=== PATIENT | male | born 1945 | race Caucasian/White ===

== ENCOUNTER 2020-11-01 08:58 | Outpatient (RCR) | payer MEDICARE, MEDICAID, SELFPAY ==
[2020-11-01 09:24] VITALS: BP 144/63; PULSE 61; RESP 20; TEMP 36.4; BMI 35.6
--- NOTE | 2020-11-01 13:26 | HP.PCM_ITS ---
History of Present Illness Date of Service: 11/01/20 Chief Complaint: right man History of Wound: Yon is a 74 yo gentleman with past medical history of DM type 2, venous insufficiency, who presents to the wound healing center today for evaluation and treatment of a nonhealing ulcer to his right man that has been present for approximately 2 months. He has been referred by his PCP, Dr. Payan. Yon has had a history of diabetic and venous ulcers in the past that have been treated at other wound centers - [facility] and [facility]. He had been using silvadene initially and then began using calcium alginate and gauze over the last 3 weeks due to increased drainage. He saw his PCP who referred him to the wound center for treatment and started him on Bactrim DS BID x 10 days. He completed the Bactrim and has continued to have his dressing changed M,W,F when his aide comes. He reports that his last hgbA1C was a few weeks ago and was 6.2%. He does not check his sugars at home. He sleeps in a recliner at times due to his back. He lives alone and no longer drives due to his medical issues. He denies any fever or chills or increased erythema or pain. He has been wearing compression socks but they appear to be worn out. [facility] Medical History (Updated 11/01/20 @ 13:[address] Leidy Fields DO) Anesthesia of skin COPD (chronic obstructive pulmonary disease) HTN (hypertension) PVD (peripheral vascular disease) Sleep apnea Spinal stenosis, lumbar region with neurogenic claudication Home Medications Advair HFA BID 11/01/20 [History Last Taken Unknown] apixaban [Eliquis] 5 mg PO BID 11/01/20 [History Last Taken Unknown] betamethasone dipropionate BID 11/01/20 [History Last Taken Unknown] furosemide 20 mg PO DAILY 11/01/20 [History Last Taken Unknown] metformin mg 11/01/20 [History Last Taken Unknown] metoprolol succinate 25 mg PO DAILY 11/01/20 [History Last Taken Unknown] rosuvastatin mg 11/01/20 [History Last Taken Unknown] tamsulosin mg PO 11/01/20 [History Last Taken Unknown] Allergy/AdvReac Type Severity Reaction Status Date / Time penicillin G AdvReac PT UNSURE Verified 11/01/20 10:14 OF REACTION Penicillins [PCN] AdvReac PT UNSURE Verified 11/01/20 10:14 OF REACTION Surgical History (Updated 11/01/20 @ 13:[address] Leidy Fields DO) History of surgery on arm Social History Smoking Status: Current every day smoker ROS Constitutional Constitutional: Denies chills or fever(s) ENT HEENT: Denies dizziness or headache(s) Cardiovascular Cardiovascular: Reports dyspnea, dyspnea on exertion, fatigue and leg ulcers; Denies chest pain Respiratory/Chest Respiratory/Chest: Reports cough and dyspnea; Denies shortness of breath at rest or wheezing Gastrointestinal Gastrointestinal: Denies diarrhea, nausea or vomiting Genitourinary Genitourinary: Denies dysuria or polyuria Musculoskeletal Musculoskeletal: Reports back pain, difficulty walking, extremity pain, joint pain and muscle weakness Integumentary Integumentary: Reports skin ulcer and wounds Neurologic Neurologic: Reports weakness; Denies dizziness Psychiatric Psychiatric: Reports anxiety; Denies hallucinations or suicidal thoughts Endocrine Endocrinology: Denies polydipsia or polyuria Hematologic/Lymphatic Hematologic/Lymphatic: Denies easy bleeding or easy bruising Vital Signs Vital Signs Vital Signs: 11/01/20 09:24 Temperature 97.5 F L Temperature Source Temporal Pulse Rate 61 Respiratory Rate 20 H Blood Pressure 144/63 H Blood Pressure Mean 90 Blood Pressure Source Monitor Weight Weight: 132.789 kg Body Mass Index (BMI) 35.6 Physical Exam Const alert, oriented x3 and no apparent distress General Appearance: cooperative and comfortable Nutritional Appearance: morbidly obese HEENT normocephalic and head/scalp atraumatic Head and Scalp: normal to inspection and normocephalic Mouth: oral and palatal mucosa normal Lymph Lymphatic: lymphedema moderate Chest inspection of chest normal Resp normal respiratory effort Effort and Inspection: able to speak in complete sentences Auscultation: clear to auscultation bilaterally Cardio regular rate and regular rhythm GI Palpation: soft Extremity General Extremity: edema bilateral lower extremity Details: moderate Peripheral Pulses: Yes posterior tibial pulses present and dorsalis pedis pulses present Skin General Skin Exam: erythema, venous stasis and dermatitis Wounds: wounds noted Neuro Speech: speech normal Psych mental status grossly normal, thought process normal, cooperative, affect normal and speech normal Debridement Note Debridement Note Wound debrided: right lower man Laterality: Right Type of Debridement: Excisional debridement Anesthesia Used: 4% Lidocaine Solution Depth: Down to and including healthy tissue and in the subcutaneous layer Percentage of wound debrided: 100 Instrument Used: 3mm curette Tissue Removed: Yellow slough, devitalized tissue Severity: Fat Layer Exposed Amount of bleeding with debridement: Mild Bleeding Controlled with: Compression and gauze Patient tolerated procedure: Patient tolerated procedure well Post-Debridement Measurements and Additional Note: Post-Debridement Measurements/Treatment - Nurse 1 - General Ulcer Assessment Start: 11/01/20 09:22 Freq: Status: Active Protocol: LOWEXDonna Activity Type Activity Date Activity User E-Sign Co-Sign Detail Recorded Client Recorded Date Recorded By Document 11/01/20 09:24 DL [id number] 11/01/20 09:42 DL 11/01/20 09:24 - Today's Visit Information Type of service Initial Visit Arrival Mode Ambulatory, Walker Transfer Assistance None Patient Identification Verified (Name & Yes ) Patient Requires Transmission-Based No Precautions Finger Stick Blood Sugar(mg/dl) (if doesnt indicated): Blood Sugar Stated by Patient Height and Weight Height 6 ft 4 in Weight 132.789 kg Weight in Pounds 292.7 lbs Body Mass Index (BMI) 35.6 BMI Classification Obese BSA - Kelly 2.60 Vital Signs Temperature (97.8 F-99.1 F) 97.5 F L Temperature Source Temporal Pulse Rate (60-100) 61 Pulse Location Monitor Respiratory Rate (12-18) 20 H Respiratory rate source Observation Blood Pressure (90/60-120/80) 144/63 H Blood Pressure Mean 90 Source Monitor History Since Last Visit- (Skip if this is Patient's initial visit) Left Footwear Regular Shoe Right Footwear Regular Shoe Pain Scale: 0-10 Numeric Is Patient Pain Free? Yes Lower Extremity Assessment/ Foot Assessment/ Toe Nail Assessment Left -Posterior Tibial Palpable Yes -Dorsalis Pedis Palpable Yes -Extremity Color Hemosiderin -Hair Growth on Legs No -Hair Growth on Toes No -Temperature of Extremity Warm -Capillary Refill Greater than 3 Seconds -Dependent Rubor Yes -Blanched when Elevated Yes -Lipodermatosclerosis No -Other Deformity No -Prior Foot Ulcer Yes -Charcot Joint No -Prior Amputation No -Thick Yes -Discolored Yes -Deformed No -Improper Length & Hygeine Yes Right -Posterior Tibial Palpable Yes -Dorsalis Pedis Palpable Yes -Extremity Color Hemosiderin -Hair Growth on Legs No -Hair Growth on Toes No -Temperature of Extremity Warm -Capillary Refill Greater than 3 Seconds -Dependent Rubor Yes -Blanched when Elevated Yes -Lipodermatosclerosis No -Other Deformity No -Prior Foot Ulcer Yes -Charcot Joint No -Prior Amputation No -Thick Yes -Discolored Yes -Deformed No -Improper Length & Hygeine Yes Neuropathy Assessment Feet - Top Side and Bottom <Entered> (a) Communication Assessment Preferred language Samoan Able to Read Yes Able to Write No Communication Tools None Right Hearing Abillity Normal Left Hearing Abillity Normal Visual Assistive Devices None Teaching Assessment Preferences Verbal,Written, Demonstration Barriers to Learning Unable to Comprehend Readiness To Learn Good Willingness to Engage in Self Management Med Activies Readiness to Engage in Self Management Med Activities Anxiety Level Calm Cooperation Cooperative Perception Coherent Interest in Health Problem Asks Questions Education Importance Acknowledges Need Does Patient Smoke tobacco or other Yes substances Smoking Status Current every day smoker Is Patient Diabetic Yes Functional Assessment Recent Decline in Ability to Perform Denies Any Declines Culture/Jain/Director Of Intelligence Cultural/Jain Needs that may affect No Treatment Plan Would you allow our hospital municipal court judge to No meet you for the purpose of spiritual/ emotional support? Director Of Intelligence to contact place of anabaptist No Teaching: Wound Center Diagnostic Tests Ordered -Person Taught Patient Smoking Cessation -Person Taught Patient Discharge Instructions -Person Taught Patient *Welcome to the Wound Center -Person Taught Patient Dressing Your Wound -Person Taught Patient (a) 1 - + WC - Nurse 1 - General Ulcer Measurement Start: 11/01/20 09:22 Freq: Status: Active Protocol: Activity Type Activity Date Activity User E-Sign Co-Sign Detail Recorded Client Recorded Date Recorded By Document 11/01/20 09:24 DL [id number] 11/01/20 09:42 DL 11/01/20 09:24 Wound Center Nurse 1 #1 R Lower Man -Current Size (cm) - Length 10 -Current Size (cm) - Width 4.4 -Current Size (cm) - Depth 0.2 -Total Square Cm 44.0 -Photo Taken Yes -Classification - Thickness Full Thickness without Exposed Support Structure -Exudate Amt Large -Exudate Type Serosanguineous -Wound Margin Distinct, Outline Attached -Granulation Amt Medium (34-66%) -Granulation Quality Red -Necrosis Amt Medium (34-66%) -Necrotic Tissue Type Eschar -Structure Exposed N/A -Texture (Mariajose-wound Skin Appearance) Localized Edema ,Scarring -Color (Mariajose-wound Skin Appearance) Hemosiderin Staining -Temperature (Mariajose-wound Skin No Abnormality Appearance) (Pt Warm) -Tenderness on Palpation (Mariajose-wound No Skin Appearance) -Ulcer Cleansing Wound Cleanser -Foul Odor after Cleansing No -Anesthetic Used 4% Lidocaine Solution Right Calf (cm) 46 Right Ankle (cm) 23 Left Calf (cm) 46.6 Left Ankle (cm) 24.6 WC - Nurse 2 - General Ulcer CM Notes Start: 11/01/20 09:22 Freq: Status: Active Protocol: Activity Type Activity Date Activity User E-Sign Co-Sign Detail Recorded Client Recorded Date Recorded By Document 11/01/20 10:11 MW [id number] 11/01/20 10:35 MW 11/01/20 10:11 Wound Center Nurse 2 #1 R Lower Man -Time 10:16 -Correct Patient Yes -Correct Side, Site, Position Yes -Correct Procedure Yes -Procedure Performed Yes -Type of Procedure Debridement -Clinical Debridement Subcutaneous -Tissue Removed Subcutaneous -Post Debridement (cm) - Length 10.5 -Post Debridement (cm) - Width 7.0 -Post Debridement (cm) - Depth 0.1 -Total Square (Post) (cm) 73.50 -Area of Debridement (cm) - Length 10.5 -Area of Debridement (cm) - Width 7.0 -Total Square (Area) (cm) 73.50 -Tunneling No -Undermining/Tunneling No -Circular Undermining No -Wound/Ulcer Outcome Not Healed -Ulcer Cleansing Rinsed/ Irrigated with Saline -Foul Odor after Cleansing No -Bioengineered Tissue No -Bleeding Controlled with Pressure -Offloading No -Treatment Response Procedure Tolerated Well -Debridement - Subq, 1st 20sq cm Yes -Debridement, SubQ, ea addt'l 20sq cm 3 or part thereof Pain Scale: 0-10 Numeric Is Patient Pain Free? Yes WC - Nurse 3 - General Ulcer D/C NN Start: 11/01/20 09:22 Freq: Status: Active Protocol: Activity Type Activity Date Activity User E-Sign Co-Sign Detail Recorded Client Recorded Date Recorded By Document 11/01/20 10:43 RB [id number] 11/01/20 10:44 RB 11/01/20 10:43 Wound Care Nurse 3 #1 R Lower Man -Ulcer Cleansing Rinsed/ Irrigated with Saline -Primary Dressing Applied Silvercel -Primary Dressing Covered/Secured with Dry Gauze,Dry Gauze & Roll Gauze,Secured with Tape -Silvercel 1 Right -Tubular Bandage Double Layer -Size of Tubigrip Used Size F -Size F ($) 2 Left -Tubular Bandage Double Layer -Size of Tubigrip Used Size F -Size F ($) 2 Treatment Response Procedure Tolerated Well Pain Scale: 0-10 Numeric Is Patient Pain Free? Yes Teaching: Wound Center Discharge Instructions -Person Taught Patient -Teaching Method Discussion, Demonstration -Response to teaching Verbalize understanding WC - Visit Discharge Discharge Condition Stable Ambulatory Status Walker Transportation Private Auto Medication Reconcilliation completed & No provided to patient/care provider Clinical Summary of Care Provided Yes Assessment/Plan Assessment/Plan (1) Venous ulcer of right lower extremity without varicose veins: CODE(S): I87.2 - Venous insufficiency (chronic) (peripheral); L97.919 - Non-pressure chronic ulcer of unspecified part of right lower leg with unspecified severity (2) Controlled diabetes mellitus: CODE(S): E11.9 - Type 2 diabetes mellitus without complications QUALIFIERS: Diabetes mellitus type: type 2 Diabetes mellitus prison insulin use: without prison use Diabetes mellitus complication status: with skin complications Diabetes mellitus complication detail: with other skin ulcer Qualified Code(s): E11.622 - Type 2 diabetes mellitus with other skin ulcer (3) HTN (hypertension): CODE(S): I10 - Essential (primary) hypertension QUALIFIERS: Hypertension type: primary hypertension Qualified Code(s): I10 - Essential (primary) hypertension (4) COPD (chronic obstructive pulmonary disease): CODE(S): J44.9 - Chronic obstructive pulmonary disease, unspecified QUALIFIERS: COPD type: unspecified COPD Qualified Code(s): J44.9 - Chronic obstructive pulmonary disease, unspecified (5) Anesthesia of skin: CODE(S): R20.0 - Anesthesia of skin (6) PVD (peripheral vascular disease): CODE(S): I73.9 - Peripheral vascular disease, unspecified PLAN: Roslyns ulcer was evaluated and debrided today at the wound healing center. He tolerated the procedure well. No current signs of infection. Will have him clean ulcer daily with antibacterial soap and rinse with water. Will have him pat dry and apply Adaptic to wound bed, Silvercell, and then cover with ABD and secure with Kerlix for heavy drainage. Dressings will be changed daily. He has an aide that helps him on MWF and will refer him for Home Health to have dressing changes done 3 days/week. , and Saturdays. He does not drive due to physical debility and is homebound. He is unable to perform dressing changes himself and lives alone. Will obtain previous vascular testing from [facility]. Will obtain most recent lab tests. HgbA1C from 10/16/2020 was 6.2%. Will have him use compression with double layer tubigrip. Discussed importance of increased protein intake in order to improve healing. Stressed importance of elevating his legs at or above the level of his heart and using compression to treat swelling and maintain adequate control of edema to achieve healing of his ulcer. He was advised to call with any increased edema, erythema, pain, fever or chills. He will follow up in 1 week for wound care.
== END 2020-11-07 23:59 ==
LOC: WC 08:58
PROVIDERS: Visit Provider Family Medicine
DX: I83.018 Varicose veins of right lower extremity with ulcer other part of lower leg (principal); L97.812 Non-pressure chronic ulcer of other part of right lower leg with fat layer exposed; E11.622 Type 2 diabetes mellitus with other skin ulcer; I87.2 Venous insufficiency (chronic) (peripheral); I10 Essential (primary) hypertension; J44.9 Chronic obstructive pulmonary disease, unspecified; R20.0 Anesthesia of skin; I73.9 Peripheral vascular disease, unspecified; F17.200 Nicotine dependence, unspecified, uncomplicated; G47.30 Sleep apnea, unspecified; M48.062 Spinal stenosis, lumbar region with neurogenic claudication; Z79.01 Long term (current) use of anticoagulants; Z79.51 Long term (current) use of inhaled steroids; Z79.899 Other long term (current) drug therapy
CPT/HCPCS: 11042; 11045; 99203; G0463

== ENCOUNTER 2020-12-06 11:00 | Outpatient (RCR) | payer MEDICARE, MEDICAID, SELFPAY ==
[2020-11-08 00:39] VITALS: BP 144/63; PULSE 61; RESP 20; TEMP 36.4; BMI 35.6
[2020-11-08 11:22] VITALS: BMI 35.6
--- NOTE | 2020-11-08 12:26 | PN.PCM_ITS ---
History of Present Illness Date of Service: 11/08/20 Chief Complaint: right man History of Wound: Yon is a 74 yo gentleman with past medical history of DM type 2, venous insufficiency, who presents to the wound healing center today for evaluation and treatment of a nonhealing ulcer to his right man that has been present for approximately 2 months. He has been referred by his PCP, Dr. Payan. Yon has had a history of diabetic and venous ulcers in the past that have been treated at other wound centers - [facility] and [facility]. He had been using silvadene initially and then began using calcium alginate and gauze over the last 3 weeks due to increased drainage. He saw his PCP who referred him to the wound center for treatment and started him on Bactrim DS BID x 10 days. He completed the Bactrim and has continued to have his dressing changed M,W,F when his aide comes. He reports that his last hgbA1C was a few weeks ago and was 6.2%. He does not check his sugars at home. He sleeps in a recliner at times due to his back. He lives alone and no longer drives due to his medical issues. He denies any fever or chills or increased erythema or pain. He has been wearing compression socks but they appear to be worn out. Progress of Wound: Prieto is here today for follow up of right man ulcer. He has been tolerating treatment with silvercell and adaptic and has been wearing tubigrip compression which has improved his edema. Overall his ulcer is improved but he has increased erythema and warmth to his right leg that started yesterday. He denies fever or chills but has felt generally unwell. Denies increased pain or drainage. Objective Data Objective Data Vital Signs: Vital Signs Temp Pulse Resp BP 97.5 F L 61 20 H 144/63 H 11/08/20 00:39 11/08/20 00:39 11/08/20 00:39 11/08/20 00:39 Weight: 132.789 kg Body Mass Index (BMI) 35.6 Physical Exam Const alert, oriented x3, no apparent distress and healthy appearing General Appearance: cooperative HEENT normocephalic and head/scalp atraumatic Resp normal respiratory effort Effort and Inspection: able to speak in complete sentences Skin General Skin Exam: erythema, venous stasis and dermatitis Wounds: wounds noted Wound Narrative: as in clinical panel Psych Appearance: grossly normal and appropriate Debridement Note Debridement Note Wound debrided: right lower leg Laterality: Right Type of Debridement: Excisional debridement Anesthesia Used: 4% Lidocaine Solution Depth: Down to and including healthy tissue and in the subcutaneous layer Percentage of wound debrided: 100 Instrument Used: 3mm curette Tissue Removed: Yellow slough, devitalized tissue Severity: Fat Layer Exposed Amount of bleeding with debridement: Mild Bleeding Controlled with: Compression and gauze Patient tolerated procedure: Patient tolerated procedure well Post-Debridement Measurements and Additional Note: Post-Debridement Measurements/Treatment WC - Nurse 1 - General Ulcer Assessment Start: 11/08/20 11:22 Freq: Status: Active Protocol: ROSIO Activity Type Activity Date Activity User E-Sign Co-Sign Detail Recorded Client Recorded Date Recorded By Document 11/08/20 11:22 ML [id number] 11/08/20 11:32 ML 11/08/20 11:22 Height and Weight Body Mass Index (BMI) 35.6 BMI Classification Obese WC - Nurse 1 - General Ulcer Measurement Start: 11/08/20 11:22 Freq: Status: Active Protocol: Activity Type Activity Date Activity User E-Sign Co-Sign Detail Recorded Client Recorded Date Recorded By Document 11/08/20 11:32 ML [id number] 11/08/20 11:36 ML 11/08/20 11:32 Wound Center Nurse 1 #2 RIGHT LOWER LEG -Current Size (cm) - Length 9.5 -Current Size (cm) - Width 6.8 -Current Size (cm) - Depth 0.3 -Total Square Cm 64.60 -Exudate Amt Large -Exudate Type Yellow/Green -Wound Margin Distinct, Outline Attached -Granulation Amt Medium (34-66%) -Slough/Fibrin Yes -Necrosis Amt Medium (34-66%) -Necrotic Tissue Type Adherent Slough -Texture (Mariajose-wound Skin Appearance) Assessed -Moisture (Mariajose-wound Skin Appearance) Dry/Scaly -Color (Mariajose-wound Skin Appearance) Assessed -Temperature (Mariajose-wound Skin No Abnormality Appearance) (Pt Warm) -Tenderness on Palpation (Mariajose-wound No Skin Appearance) -Ulcer Cleansing Soap and Water -Foul Odor after Cleansing No -Anesthetic Used 4% Lidocaine Solution Right Calf (cm) 48 Right Ankle (cm) 28 Left Calf (cm) 47 Left Ankle (cm) 26 WC - Nurse 2 - General Ulcer CM Notes Start: 11/08/20 11:22 Freq: Status: Active Protocol: Activity Type Activity Date Activity User E-Sign Co-Sign Detail Recorded Client Recorded Date Recorded By Document 11/08/20 11:59 MW [id number] 11/08/20 12:12 MW 11/08/20 11:59 Wound Center Nurse 2 #2 RIGHT LOWER LEG -Time 12:00 -Correct Patient Yes -Correct Side, Site, Position Yes -Correct Procedure Yes -Procedure Performed Yes -Type of Procedure Debridement -Clinical Debridement Subcutaneous -Tissue Removed Subcutaneous -Post Debridement (cm) - Length 4.5 -Post Debridement (cm) - Width 3.0 -Post Debridement (cm) - Depth 0.3 -Total Square (Post) (cm) 13.50 -Area of Debridement (cm) - Length 4.5 -Area of Debridement (cm) - Width 3.0 -Total Square (Area) (cm) 13.50 -Tunneling No -Undermining/Tunneling No -Circular Undermining No -Wound/Ulcer Outcome Not Healed -Ulcer Cleansing Rinsed/ Irrigated with Saline -Foul Odor after Cleansing No -Bioengineered Tissue No -Bleeding Controlled with Pressure -Offloading No -Treatment Response Procedure Tolerated Well -Debridement - Subq, 1st 20sq cm Yes Pain Scale: 0-10 Numeric Is Patient Pain Free? Yes Assessment/Plan Assessment/Plan (1) HTN (hypertension): CODE(S): I10 - Essential (primary) hypertension QUALIFIERS: Hypertension type: primary hypertension Qualified Code(s): I10 - Essential (primary) hypertension (2) Controlled diabetes mellitus: CODE(S): E11.9 - Type 2 diabetes mellitus without complications QUALIFIERS: Diabetes mellitus complication detail: with other skin ulcer Diabetes mellitus complication status: with skin complications Diabetes mellitus [facility] insulin use: without equipment operator intermodal yard use Diabetes mellitus type: type 2 Qualified Code(s): E11.622 - Type 2 diabetes mellitus with other skin ulcer (3) Venous ulcer of right lower extremity without varicose veins: CODE(S): I87.2 - Venous insufficiency (chronic) (peripheral); L97.919 - Non-pressure chronic ulcer of unspecified part of right lower leg with unspecified severity (4) Cellulitis and abscess of right leg: CODE(S): L03.115 - Cellulitis of right lower limb; L02.415 - Cutaneous abscess of right lower limb PLAN: Yon's ulcer was evaluated and debrided today at the wound healing center. He tolerated the procedure well. Wound culture done today to evaluate for possible infection and he was started on antibiotic treatment with Clindamycin. Will adjust if needed based on culture results. Will have him clean ulcer daily with antibacterial soap and rinse with water. Will have him pat dry and apply Adaptic to wound bed, Silvercell, and then cover with ABD and secure with Kerlix for heavy drainage. Dressings will be changed daily. He has an aide that helps him on MWF and will continue Home Health to have dressing changes done 3 days/week. , and Saturdays. He does not drive due to physical debility and is homebound. He is unable to perform dressing changes himself and lives alone. Will obtain previous vascular testing from [facility]. Will obtain most recent lab tests. HgbA1C from 10/16/2020 was 6.2%. Will have him use compression with double layer tubigrip. Discussed importance of increased protein intake in order to improve healing. Stressed importance of elevating his legs at or above the level of his heart and using compression to treat swelling and maintain adequate control of edema to achieve healing of his ulcer. He was advised to call with any increased edema, erythema, pain, fever or chills. He will follow up in 1 week for wound care.
[2020-11-15 11:37] VITALS: RESP 20; TEMP 36.4; BMI 35.6
--- NOTE | 2020-11-15 14:29 | PN.PCM_ITS ---
History of Present Illness Date of Service: 11/15/20 Chief Complaint: right man History of Wound: Yon is a 74 yo gentleman with past medical history of DM type 2, venous insufficiency, who presents to the wound healing center today for evaluation and treatment of a nonhealing ulcer to his right man that has been present for approximately 2 months. He has been referred by his PCP, Dr. Payan. Yon has had a history of diabetic and venous ulcers in the past that have been treated at other wound centers - [facility] and [facility]. He had been using silvadene initially and then began using calcium alginate and gauze over the last 3 weeks due to increased drainage. He saw his PCP who referred him to the wound center for treatment and started him on Bactrim DS BID x 10 days. He completed the Bactrim and has continued to have his dressing changed M,W,F when his aide comes. He reports that his last hgbA1C was a few weeks ago and was 6.2%. He does not check his sugars at home. He sleeps in a recliner at times due to his back. He lives alone and no longer drives due to his medical issues. He denies any fever or chills or increased erythema or pain. He has been wearing compression socks but they appear to be worn out. Progress of Wound: Prieto is here today for follow up of right man ulcer. He has been tolerating treatment with silvercell and adaptic and has been wearing tubigrip compression which has improved his edema. Overall his ulcer is improved. He tolerated CLindamycin. He denies fever or chills. Denies increased pain or drainage. Objective Data Objective Data Vital Signs: Vital Signs Temp Pulse Resp BP 97.6 F L 61 20 H 144/63 H 11/15/20 11:37 11/08/20 00:39 11/15/20 11:37 11/08/20 00:39 Weight: 132.789 kg Body Mass Index (BMI) 35.6 Lab / Micro Data Micro: Microbiology 11/08/20 12:10 Wound Abcess - Leg, Right Gram Stain - Final 11/08/20 12:10 Wound Abcess - Leg, Right Wound Culture - Final Klebsiella pneumoniae sp pneum Enterococcus faecalis Enterococcus gallinarum 11/08/20 12:10 Wound Abcess - Leg, Right Anaerobic Culture - Final No anaerobic bacteria isolated. Physical Exam Const alert, oriented x3, no apparent distress and healthy appearing General Appearance: cooperative HEENT normocephalic and head/scalp atraumatic Resp normal respiratory effort Effort and Inspection: able to speak in complete sentences Skin General Skin Exam: erythema, venous stasis and dermatitis Wounds: wounds noted Wound Narrative: as in clinical panel Psych Appearance: grossly normal and appropriate Debridement Note Debridement Note Wound debrided: right lower leg Laterality: Right Type of Debridement: Excisional debridement Anesthesia Used: 4% Lidocaine Solution and Cetacaine Depth: Down to and including healthy tissue and in the subcutaneous layer Percentage of wound debrided: 100 Instrument Used: 5mm curette Tissue Removed: Yellow slough, devitalized tissue Severity: Fat Layer Exposed Amount of bleeding with debridement: Mild Bleeding Controlled with: Compression and gauze Patient tolerated procedure: Patient tolerated procedure well Post-Debridement Measurements and Additional Note: Post-Debridement Measurements/Treatment - Nurse 1 - General Ulcer Assessment Start: 11/08/20 11:22 Freq: Status: Active Protocol: ROSIO Activity Type Activity Date Activity User E-Sign Co-Sign Detail Recorded Client Recorded Date Recorded By Document 11/08/20 11:22 [id number] 11/08/20 11:32 ML Document 11/15/20 11:37 [id number] 11/15/20 11:45 11/08/20 11/15/20 11:22 11:37 - Today's Visit Information Type of service Follow-up Visit (Physician/GAS PUMPER ) Arrival Mode Ambulatory, Walker Patient Identification Verified (Name & No ) Patient Requires Transmission-Based No Precautions Height and Weight Body Mass Index (BMI) 35.6 35.6 BMI Classification Obese Obese Vital Signs Temperature (97.8 F-99.1 F) 97.6 F L Temperature Source Temporal Respiratory Rate (12-18) 20 H Respiratory rate source Observation History Since Last Visit- (Skip if this is Patient's initial visit) Have you changed medications since your No last visit? Any new allergies or adverse reactions No Had a fall/change in ADL's that may No increase risk of falls Signs or symptoms of abuse and/or No neglect since last visit Have you been in the hospital since your No last visit? Has dressing in place as prescribed Yes Left Footwear Regular Shoe Right Footwear Regular Shoe Pain Scale: 0-10 Numeric Is Patient Pain Free? Yes WC - Nurse 1 - General Ulcer Measurement Start: 11/08/20 11:22 Freq: Status: Active Protocol: Activity Type Activity Date Activity User E-Sign Co-Sign Detail Recorded Client Recorded Date Recorded By Document 11/08/20 11:32 ML [id number] 11/08/20 11:36 ML Document 11/15/20 11:37 [id number] [id number] 11/15/20 11:45 11/08/20 11/15/20 11:32 11:37 Wound Center Nurse 1 #2 RIGHT LOWER LEG -Combined with other wound No -Current Size (cm) - Length 9.5 4.5 -Current Size (cm) - Width 6.8 3 -Current Size (cm) - Depth 0.3 0.2 -Total Square Cm 64.60 13.5 -Photo Taken No -Epithelialization Small 1-33% -Tunneling No -Undermining/Tunneling No -Circular Undermining No -Exudate Amt Large Small -Exudate Type Yellow/Green Serosanguineous -Wound Margin Distinct, Flat & Intact Outline Attached -Granulation Amt Medium (34-66%) None Present (0 %) -Slough/Fibrin Yes Yes -Necrosis Amt Medium (34-66%) Large (67-100%) -Necrotic Tissue Type Adherent Slough Adherent Slough -Structure Exposed N/A -Texture (Mariajose-wound Skin Appearance) Assessed Assessed, Localized Edema -Moisture (Mariajose-wound Skin Appearance) Dry/Scaly -Color (Mariajose-wound Skin Appearance) Assessed Assessed, Hemosiderin Staining -Temperature (Mariajose-wound Skin No Abnormality No Abnormality Appearance) (Pt Warm) (Pt Warm) -Tenderness on Palpation (Mariajose-wound No No Skin Appearance) -Ulcer Cleansing Soap and Water Rinsed/ Irrigated with Saline -Foul Odor after Cleansing No No -Anesthetic Used 4% Lidocaine 4% Lidocaine Solution Solution Lower Limb Edema Present Yes Right Calf (cm) 48 51.2 Right Ankle (cm) 28 23.8 Left Calf (cm) 47 Left Ankle (cm) 26 WC - Nurse 2 - General Ulcer CM Notes Start: 11/08/20 11:22 Freq: Status: Active Protocol: Activity Type Activity Date Activity User E-Sign Co-Sign Detail Recorded Client Recorded Date Recorded By Document 11/08/20 11:59 MW [id number] 11/08/20 12:12 MW Document 11/15/20 12:09 MW [id number] 11/15/20 12:22 MW 11/08/20 11/15/20 11:59 12:09 Wound Center Nurse 2 #2 RIGHT LOWER LEG -Time 12:00 12:09 -Correct Patient Yes Yes -Correct Side, Site, Position Yes Yes -Correct Procedure Yes Yes -Procedure Performed Yes Yes -Type of Procedure Debridement Debridement -Clinical Debridement Subcutaneous Subcutaneous -Tissue Removed Subcutaneous Subcutaneous -Post Debridement (cm) - Length 4.5 4.4 -Post Debridement (cm) - Width 3.0 2.2 -Post Debridement (cm) - Depth 0.3 0.3 -Total Square (Post) (cm) 13.50 9.68 -Area of Debridement (cm) - Length 4.5 4.4 -Area of Debridement (cm) - Width 3.0 2.2 -Total Square (Area) (cm) 13.50 9.68 -Tunneling No No -Undermining/Tunneling No No -Circular Undermining No No -Wound/Ulcer Outcome Not Healed Not Healed -Ulcer Cleansing Rinsed/ Rinsed/ Irrigated with Irrigated with Saline Saline -Foul Odor after Cleansing No No -Bioengineered Tissue No No -Bleeding Controlled with Pressure Pressure -Offloading No No -Treatment Response Procedure Procedure Tolerated Well Tolerated Well -Debridement - Subq, 1st 20sq cm Yes Yes Pain Scale: 0-10 Numeric Is Patient Pain Free? Yes Yes WC - Nurse 3 - General Ulcer D/C NN Start: 11/08/20 11:22 Freq: Status: Active Protocol: Activity Type Activity Date Activity User E-Sign Co-Sign Detail Recorded Client Recorded Date Recorded By Document 11/08/20 12:39 MW [id number] 11/08/20 12:41 MW Document 11/15/20 12:41 RB [id number] 11/15/20 12:43 RB 11/08/20 11/15/20 12:39 12:41 Wound Care Nurse 3 #2 RIGHT LOWER LEG -Ulcer Cleansing Rinsed/ Rinsed/ Irrigated with Irrigated with Saline Saline -Foul Odor after Cleansing No -Negative Pressure Wound Therapy N/A -Primary Dressing Applied Silvercel NonAdherent Contact Layer, Promogran Leslie Matter -Other Dressing abd -Primary Dressing Covered/Secured with Dry Gauze & Dry Gauze & Roll Gauze, Roll Gauze, Secured with Secured with Tape Tape -Promogran Leslie Matter 2 -Silvercel 1 Right -Lotion applied to leg before No compression wrap -Tubular Bandage Double Layer -Size of Tubigrip Used Size F -Size F ($) 2 -Other double layer tubigrip Left -Lotion applied to leg before Yes compression wrap -Tubular Bandage Double Layer -Size of Tubigrip Used Size F -Size F ($) 2 -Stockings No -Other tubigrip double layer Treatment Response Procedure Procedure Tolerated Well Tolerated Well Pain Scale: 0-10 Numeric Is Patient Pain Free? Yes Teaching: Wound Center Dressing Your Wound -Person Taught Patient -Teaching Method Discussion -Response to teaching Verbalize understanding WC - Visit Discharge Discharge Condition Stable Stable Ambulatory Status Ambulatory Ambulatory, Walker Transportation [facility] health Private Auto Accompanied by self Medication Reconcilliation completed & No No provided to patient/care provider Clinical Summary of Care Provided Yes Yes Assessment/Plan Assessment/Plan (1) HTN (hypertension): CODE(S): I10 - Essential (primary) hypertension QUALIFIERS: Hypertension type: primary hypertension Qualified Code(s): I10 - Essential (primary) hypertension (2) Controlled diabetes mellitus: CODE(S): E11.9 - Type 2 diabetes mellitus without complications QUALIFIERS: Diabetes mellitus type: type 2 Diabetes mellitus middle or intermediate school principal insulin use: without middle or intermediate school principal use Diabetes mellitus complication status: with skin complications Diabetes mellitus complication detail: with other skin ulcer Qualified Code(s): E11.622 - Type 2 diabetes mellitus with other skin ulcer (3) Venous ulcer of right lower extremity without varicose veins: CODE(S): I87.2 - Venous insufficiency (chronic) (peripheral); L97.919 - Non-pressure chronic ulcer of unspecified part of right lower leg with unspecified severity (4) Cellulitis and abscess of right leg: CODE(S): L03.115 - Cellulitis of right lower limb; L02.415 - Cutaneous abscess of right lower limb PLAN: Roslyns ulcer was evaluated and debrided today at the wound healing center. He tolerated the procedure well. Wound culture was positive for enterococcus and Klebsiella. Will see how he does this week and may consider treatment with IV antibiotics if lack of improvement. Will have him clean ulcer daily with antibacterial soap and rinse with water. Will have him pat dry and apply adaptic, Promogran and then cover with ABD and secure with Kerlix for moderate drainage. Dressings will be changed daily. He has an aide that helps him on MWF and will continue Home Health to have dressing changes done 3 days/week. , and Saturdays. He does not drive due to physical debility and is homebound. He is unable to perform dressing changes himself and lives alone. Will obtain previous vascular testing from [facility]. Will obtain most recent lab tests. HgbA1C from 10/16/2020 was 6.2%. Will have him use compression with double layer tubigrip. Discussed importance of increased protein intake in order to improve healing. Stressed importance of elevating his legs at or above the level of his heart and using compression to treat swelling and maintain adequate control of edema to achieve healing of his ulcer. He was advised to call with any increased edema, erythema, pain, fever or chills. He will follow up in 1 week for wound care.
[2020-11-22 11:33] VITALS: BP 148/73; PULSE 58; RESP 16; TEMP 36; BMI 35.6
--- NOTE | 2020-11-22 14:04 | PN.PCM_ITS ---
History of Present Illness Date of Service: 11/22/20 Chief Complaint: right man History of Wound: Yon is a 74 yo gentleman with past medical history of DM type 2, venous insufficiency, who presents to the wound healing center today for evaluation and treatment of a nonhealing ulcer to his right man that has been present for approximately 2 months. He has been referred by his PCP, Dr. Payan. Yon has had a history of diabetic and venous ulcers in the past that have been treated at other wound centers - [facility] and [facility]. He had been using silvadene initially and then began using calcium alginate and gauze over the last 3 weeks due to increased drainage. He saw his PCP who referred him to the wound center for treatment and started him on Bactrim DS BID x 10 days. He completed the Bactrim and has continued to have his dressing changed M,W,F when his aide comes. He reports that his last hgbA1C was a few weeks ago and was 6.2%. He does not check his sugars at home. He sleeps in a recliner at times due to his back. He lives alone and no longer drives due to his medical issues. He denies any fever or chills or increased erythema or pain. He has been wearing compression socks but they appear to be worn out. Progress of Wound: Prieto is here today for follow up of right man ulcer. He has been tolerating treatment with promogran and adaptic and has been wearing tubigrip compression which has improved his edema. Overall his ulcer is improved. He tolerated CLindamycin and has completed treatment with this antibiotic. He denies fever or chills. Denies increased pain or drainage. Objective Data Objective Data Vital Signs: Vital Signs Temp Pulse Resp BP 96.8 F L 58 L 16 148/73 H 11/22/20 11:33 11/22/20 11:33 11/22/20 11:33 11/22/20 11:33 Weight: 132.789 kg Body Mass Index (BMI) 35.6 Lab / Micro Data Micro: Microbiology 11/08/20 12:10 Wound Abcess - Leg, Right Gram Stain - Final 11/08/20 12:10 Wound Abcess - Leg, Right Wound Culture - Final Klebsiella pneumoniae sp pneum Enterococcus faecalis Enterococcus gallinarum 11/08/20 12:10 Wound Abcess - Leg, Right Anaerobic Culture - Final No anaerobic bacteria isolated. Physical Exam Const alert, oriented x3, no apparent distress and healthy appearing General Appearance: cooperative HEENT normocephalic and head/scalp atraumatic Resp normal respiratory effort Effort and Inspection: able to speak in complete sentences Skin General Skin Exam: erythema, venous stasis and dermatitis Wounds: wounds noted Wound Narrative: as in clinical panel Psych Appearance: grossly normal and appropriate Debridement Note Debridement Note Post-Debridement Measurements and Additional Note: Post-Debridement Measurements/Treatment - Nurse 1 - General Ulcer Assessment Start: 11/08/20 11:22 Freq: Status: Active Protocol: [email or web address] Activity Type Activity Date Activity User E-Sign Co-Sign Detail Recorded Client Recorded Date Recorded By Document 11/08/20 11:22 ML [id number] 11/08/20 11:32 ML Document 11/15/20 11:37 JF [id number] 11/15/20 11:45 JF Document 11/22/20 11:33 ML [id number] 11/22/20 11:35 ML 11/08/20 11/15/20 11/22/20 11:22 11:37 11:33 - Today's Visit Information Type of service Follow-up Visit Follow-up Visit (Physician/NEGATIVE DEVELOPER (Physician/NEGATIVE DEVELOPER ) ) Arrival Mode Ambulatory, Ambulatory, Walker Walker Transfer Assistance None Patient Identification Verified (Name & No Yes ) Patient Requires Transmission-Based No No Precautions Safety Precautions NA Height and Weight Body Mass Index (BMI) 35.6 35.6 35.6 BMI Classification Obese Obese Obese Vital Signs Temperature (97.8 F-99.1 F) 97.6 F L 96.8 F L Temperature Source Temporal Temporal Pulse Rate (60-100) 58 L Pulse Location Monitor Respiratory Rate (12-18) 20 H 16 Respiratory rate source Observation Observation Blood Pressure (90/60-120/80) 148/73 H Blood Pressure Mean (mm Hg) 98 Source Monitor Position Sitting Blood Pressure Location Left Arm History Since Last Visit- (Skip if this is Patient's initial visit) Have you changed medications since your No No last visit? Any new allergies or adverse reactions No No Had a fall/change in ADL's that may No No increase risk of falls Signs or symptoms of abuse and/or No No neglect since last visit Have you been in the hospital since your No No last visit? Has dressing in place as prescribed Yes Yes Has compression in place as prescribed Yes Has offloadiing in place as prescribed N/A Experienced any changes in pain level or No management Left Footwear Regular Shoe Regular Shoe Right Footwear Regular Shoe Regular Shoe Pain Scale: 0-10 Numeric Is Patient Pain Free? Yes No WC - Nurse 1 - General Ulcer Measurement Start: 11/08/20 11:22 Freq: Status: Active Protocol: Activity Type Activity Date Activity User E-Sign Co-Sign Detail Recorded Client Recorded Date Recorded By Document 11/08/20 11:32 ML [id number] 11/08/20 11:36 ML Document 11/15/20 11:37 JF [id number] 11/15/20 11:45 JF Document 11/22/20 11:33 ML [id number] 11/22/20 11:35 ML 11/08/20 11/15/20 11/22/20 11:32 11:37 11:33 Wound Center Nurse 1 #2 RIGHT LOWER LEG -Combined with other wound No -Current Size (cm) - Length 9.5 4.5 4 -Current Size (cm) - Width 6.8 3 3.1 -Current Size (cm) - Depth 0.3 0.2 0.2 -Total Square Cm 64.60 13.5 12.4 -Photo Taken No -Epithelialization Small 1-33% -Tunneling No -Undermining/Tunneling No -Circular Undermining No -Exudate Amt Large Small Medium -Exudate Type Yellow/Green Serosanguineous Serous -Wound Margin Distinct, Flat & Intact Distinct, Outline Outline Attached Attached -Granulation Amt Medium (34-66%) None Present (0 Medium (34-66%) %) -Slough/Fibrin Yes Yes Yes -Necrosis Amt Medium (34-66%) Large (67-100%) Medium (34-66%) -Necrotic Tissue Type Adherent Slough Adherent Slough Adherent Slough -Structure Exposed N/A -Texture (Mariajose-wound Skin Appearance) Assessed Assessed, Assessed Localized Edema -Moisture (Mariajose-wound Skin Appearance) Dry/Scaly Assessed -Color (Mariajose-wound Skin Appearance) Assessed Assessed, Assessed Hemosiderin Staining -Temperature (Mariajose-wound Skin No Abnormality No Abnormality No Abnormality Appearance) (Pt Warm) (Pt Warm) (Pt Warm) -Tenderness on Palpation (Mariajose-wound No No No Skin Appearance) -Ulcer Cleansing Soap and Water Rinsed/ Soap and Water Irrigated with Saline -Foul Odor after Cleansing No No No -Anesthetic Used 4% Lidocaine 4% Lidocaine 5% Lidocaine Solution Solution Gel Lower Limb Edema Present Yes Right Calf (cm) 48 51.2 Right Ankle (cm) 28 23.8 Left Calf (cm) 47 Left Ankle (cm) 26 WC - Nurse 2 - General Ulcer CM Notes Start: 11/08/20 11:22 Freq: Status: Active Protocol: Activity Type Activity Date Activity User E-Sign Co-Sign Detail Recorded Client Recorded Date Recorded By Document 11/08/20 11:59 MW [id number] 11/08/20 12:12 MW Document 11/15/20 12:09 MW [id number] 11/15/20 12:22 MW Document 11/22/20 12:15 MW [id number] 11/22/20 12:30 MW 11/08/20 11/15/20 11/22/20 11:59 12:09 12:15 Wound Center Nurse 2 #2 RIGHT LOWER LEG -Time 12:00 12:09 12:19 -Correct Patient Yes Yes Yes -Correct Side, Site, Position Yes Yes Yes -Correct Procedure Yes Yes Yes -Procedure Performed Yes Yes Yes -Type of Procedure Debridement Debridement Debridement -Clinical Debridement Subcutaneous Subcutaneous Subcutaneous -Tissue Removed Subcutaneous Subcutaneous Subcutaneous -Post Debridement (cm) - Length 4.5 4.4 4.4 -Post Debridement (cm) - Width 3.0 2.2 2.9 -Post Debridement (cm) - Depth 0.3 0.3 0.2 -Total Square (Post) (cm) 13.50 9.68 12.76 -Area of Debridement (cm) - Length 4.5 4.4 4.4 -Area of Debridement (cm) - Width 3.0 2.2 2.9 -Total Square (Area) (cm) 13.50 9.68 12.76 -Tunneling No No No -Undermining/Tunneling No No No -Circular Undermining No No No -Wound/Ulcer Outcome Not Healed Not Healed Not Healed -Ulcer Cleansing Rinsed/ Rinsed/ Rinsed/ Irrigated with Irrigated with Irrigated with Saline Saline Saline -Foul Odor after Cleansing No No No -Bioengineered Tissue No No No -Bleeding Controlled with Pressure Pressure Pressure -Offloading No No No -Treatment Response Procedure Procedure Procedure Tolerated Well Tolerated Well Tolerated Well -Debridement - Subq, 1st 20sq cm Yes Yes Yes Pain Scale: 0-10 Numeric Is Patient Pain Free? Yes Yes Yes - Nurse 3 - General Ulcer D/C NN Start: 11/08/20 11:22 Freq: Status: Active Protocol: Activity Type Activity Date Activity User E-Sign Co-Sign Detail Recorded Client Recorded Date Recorded By Document 11/08/20 12:39 MW [id number] 11/08/20 12:41 MW Document 11/15/20 12:41 RB [id number] 11/15/20 12:43 RB Document 11/22/20 12:54 RB [id number] 11/22/20 12:56 RB 11/08/20 11/15/20 11/22/20 12:39 12:41 12:54 Wound Care Nurse 3 #2 RIGHT LOWER LEG -Ulcer Cleansing Rinsed/ Rinsed/ Wound Cleanser Irrigated with Irrigated with Saline Saline -Foul Odor after Cleansing No -Negative Pressure Wound Therapy N/A -Primary Dressing Applied Silvercel NonAdherent Contact Layer, Promogran Leslie Matter -Other Dressing abd AMD foam dressing, abd dressing -Primary Dressing Covered/Secured with Dry Gauze & Dry Gauze & Dry Gauze,Dry Roll Gauze, Roll Gauze, Gauze & Roll Secured with Secured with Gauze,Secured Tape Tape with Tape -Promogran Leslie Matter 2 -Silvercel 1 Right -Lotion applied to leg before No compression wrap -Tubular Bandage Double Layer Double Layer -Size of Tubigrip Used Size F Size F -Size F ($) 2 2 -Other double layer tubigrip Left -Lotion applied to leg before Yes compression wrap -Tubular Bandage Double Layer Double Layer -Size of Tubigrip Used Size F Size F -Size F ($) 2 2 -Stockings No -Other tubigrip double layer Treatment Response Procedure Procedure Procedure Tolerated Well Tolerated Well Tolerated Well Pain Scale: 0-10 Numeric Is Patient Pain Free? Yes Yes Teaching: Wound Center Dressing Your Wound -Person Taught Patient -Teaching Method Discussion -Response to teaching Verbalize understanding WC - Visit Discharge Discharge Condition Stable Stable Stable Ambulatory Status Ambulatory Ambulatory, Ambulatory, Walker Walker Transportation [facility] health Private Auto Private Auto Accompanied by self Medication Reconcilliation completed & No No No provided to patient/care provider Clinical Summary of Care Provided Yes Yes Yes Assessment/Plan Assessment/Plan (1) HTN (hypertension): CODE(S): I10 - Essential (primary) hypertension QUALIFIERS: Hypertension type: primary hypertension Qualified Code(s): I10 - Essential (primary) hypertension (2) Controlled diabetes mellitus: CODE(S): E11.9 - Type 2 diabetes mellitus without complications QUALIFIERS: Diabetes mellitus type: type 2 Diabetes mellitus chcf insulin use: without terminal gauger supervisor use Diabetes mellitus complication status: with skin complications Diabetes mellitus complication detail: with other skin ulcer Qualified Code(s): E11.622 - Type 2 diabetes mellitus with other skin ulcer (3) Venous ulcer of right lower extremity without varicose veins: CODE(S): I87.2 - Venous insufficiency (chronic) (peripheral); L97.919 - Non-pressure chronic ulcer of unspecified part of right lower leg with unspecified severity (4) Cellulitis and abscess of right leg: CODE(S): L03.115 - Cellulitis of right lower limb; L02.415 - Cutaneous abscess of right lower limb PLAN: Yon's ulcer was evaluated and debrided today at the wound healing center. He tolerated the procedure well. Will have him clean ulcer every other day with antibacterial soap and rinse with water. Will have him pat dry and apply adaptic, AMD antimicrobial foam dressing and then cover with ABD and secure with Kerlix for moderate drainage. Dressings will be changed every other day. He has an aide that helps him on MWF and will continue Home Health to have dressing changes done 2 days/week. and Saturdays. He does not drive due to physical debility and is homebound. He is unable to perform dressing changes himself and lives alone. Due to the slow improvement in his healing and his multiple comorbid conditions, I feel that it is medically necessary to proceed with application of a skin substitute product such as Purapply or Nushield or Apligraf in order to heal his ulcer and prevent limb loss. Will obtain previous vascular testing from [facility]. Will obtain most recent lab tests. HgbA1C from 10/16/2020 was 6.2%. Will have him use compression with double layer tubigrip. Discussed importance of increased protein intake in order to improve healing. Stressed importance of elevating his legs at or above the level of his heart and using compression to treat swelling and maintain adequate control of edema to achieve healing of his ulcer. He was advised to call with any increased edema, erythema, pain, fever or chills. He will follow up in 1 week for wound care.
[2020-11-29 10:45] VITALS: BP 149/77; PULSE 64; TEMP 36.1; BMI 35.6
--- NOTE | 2020-11-29 15:01 | PCM.WC.PN ---
History of Present Illness Date of Service: 11/29/20 Chief Complaint: right man History of Wound: Yon is a 74 yo gentleman with past medical history of DM type 2, venous insufficiency, who presents to the wound healing center today for evaluation and treatment of a nonhealing ulcer to his right man that has been present for approximately 2 months. He has been referred by his PCP, Dr. Payan. Yon has had a history of diabetic and venous ulcers in the past that have been treated at other wound centers - [facility] and [facility]. He had been using silvadene initially and then began using calcium alginate and gauze over the last 3 weeks due to increased drainage. He saw his PCP who referred him to the wound center for treatment and started him on Bactrim DS BID x 10 days. He completed the Bactrim and has continued to have his dressing changed M,W,F when his aide comes. He reports that his last hgbA1C was a few weeks ago and was 6.2%. He does not check his sugars at home. He sleeps in a recliner at times due to his back. He lives alone and no longer drives due to his medical issues. He denies any fever or chills or increased erythema or pain. He has been wearing compression socks but they appear to be worn out. Progress of Wound: Prieto is here today for follow up of right man ulcer. He has been tolerating treatment with promogran and adaptic and has been wearing tubigrip compression which has improved his edema. Overall his ulcer is improved. He has had some increased pain and slough. He denies fever or chills. Denies increased drainage. Objective Data Objective Data Vital Signs: Vital Signs Temp Pulse Resp BP 96.9 F L 64 16 149/77 H 11/29/20 10:45 11/29/20 10:45 11/22/20 11:33 11/29/20 10:45 Weight: 132.789 kg Body Mass Index (BMI) 35.6 Lab / Micro Data Micro: Microbiology 11/08/20 12:10 Wound Abcess - Leg, Right Gram Stain - Final 11/08/20 12:10 Wound Abcess - Leg, Right Wound Culture - Final Klebsiella pneumoniae sp pneum Enterococcus faecalis Enterococcus gallinarum 11/08/20 12:10 Wound Abcess - Leg, Right Anaerobic Culture - Final No anaerobic bacteria isolated. Physical Exam Const alert, oriented x3, no apparent distress and healthy appearing General Appearance: cooperative HEENT normocephalic and head/scalp atraumatic Resp normal respiratory effort Effort and Inspection: able to speak in complete sentences Skin General Skin Exam: erythema, venous stasis and dermatitis Wounds: wounds noted Wound Narrative: as in clinical panel Psych Appearance: grossly normal and appropriate Debridement Note Debridement Note Wound debrided: right man Laterality: Right Type of Debridement: Excisional debridement Anesthesia Used: 4% Lidocaine Solution, 5% Lidocaine Gel and Cetacaine Depth: Down to and including healthy tissue and in the subcutaneous layer Percentage of wound debrided: 100 Instrument Used: #15 blade and Forceps Tissue Removed: Yellow slough, devitalized tissue Severity: Fat Layer Exposed Amount of bleeding with debridement: Mild Bleeding Controlled with: Compression and gauze Patient tolerated procedure: Patient tolerated procedure well Post-Debridement Measurements and Additional Note: Post-Debridement Measurements/Treatment - Nurse 1 - General Ulcer Assessment Start: 11/08/20 11:22 Freq: Status: Active Protocol: ROSIO Activity Type Activity Date Activity User E-Sign Co-Sign Detail Recorded Client Recorded Date Recorded By Document 11/08/20 11:22 ML [id number] 11/08/20 11:32 ML Document 11/15/20 11:37 JF [id number] 11/15/20 11:45 JF Document 11/22/20 11:33 ML [id number] 11/22/20 11:35 ML Document 11/29/20 10:45 KR [id number] 11/29/20 10:49 KR 11/08/20 11/15/20 11/22/20 11:22 11:37 11:33 - Today's Visit Information Type of service Follow-up Visit Follow-up Visit (Physician/CHIEF OF INTERNAL MEDICINE (Physician/CHIEF OF INTERNAL MEDICINE ) ) Arrival Mode Ambulatory, Ambulatory, Walker Walker Transfer Assistance None Patient Identification Verified (Name & No Yes ) Patient Requires Transmission-Based No No Precautions Safety Precautions NA Height and Weight Body Mass Index (BMI) 35.6 35.6 35.6 BMI Classification Obese Obese Obese Vital Signs Temperature (97.8 F-99.1 F) 97.6 F L 96.8 F L Temperature Source Temporal Temporal Pulse Rate (60-100) 58 L Pulse Location Monitor Respiratory Rate (12-18) 20 H 16 Respiratory rate source Observation Observation Blood Pressure (90/60-120/80) 148/73 H Blood Pressure Mean (mm Hg) 98 Source Monitor Position Sitting Blood Pressure Location Left Arm History Since Last Visit- (Skip if this is Patient's initial visit) Have you changed medications since your No No last visit? Any new allergies or adverse reactions No No Had a fall/change in ADL's that may No No increase risk of falls Signs or symptoms of abuse and/or No No neglect since last visit Have you been in the hospital since your No No last visit? Has dressing in place as prescribed Yes Yes Has compression in place as prescribed Yes Has offloadiing in place as prescribed N/A Experienced any changes in pain level or No management Left Footwear Regular Shoe Regular Shoe Right Footwear Regular Shoe Regular Shoe Pain Scale: 0-10 Numeric Is Patient Pain Free? Yes No 11/29/20 10:45 WC - Today's Visit Information Type of service Follow-up Visit (Physician/CHIEF OF INTERNAL MEDICINE ) Arrival Mode Ambulatory, Walker Transfer Assistance Patient Identification Verified (Name & Yes ) Patient Requires Transmission-Based Precautions Safety Precautions Height and Weight Body Mass Index (BMI) 35.6 BMI Classification Obese Vital Signs Temperature (97.8 F-99.1 F) 96.9 F L Temperature Source Temporal Pulse Rate (60-100) 64 Pulse Location Monitor Respiratory Rate (12-18) Respiratory rate source Blood Pressure (90/60-120/80) 149/77 H Blood Pressure Mean (mm Hg) 101 Source Monitor Position Sitting Blood Pressure Location Left Arm History Since Last Visit- (Skip if this is Patient's initial visit) Have you changed medications since your No last visit? Any new allergies or adverse reactions No Had a fall/change in ADL's that may No increase risk of falls Signs or symptoms of abuse and/or No neglect since last visit Have you been in the hospital since your No last visit? Has dressing in place as prescribed Yes Has compression in place as prescribed Yes Has offloadiing in place as prescribed N/A Experienced any changes in pain level or No management Left Footwear Regular Shoe Right Footwear Regular Shoe Pain Scale: 0-10 Numeric Is Patient Pain Free? Yes - Nurse 1 - General Ulcer Measurement Start: 11/08/20 11:22 Freq: Status: Active Protocol: Activity Type Activity Date Activity User E-Sign Co-Sign Detail Recorded Client Recorded Date Recorded By Document 11/08/20 11:32 ML [id number] 11/08/20 11:36 ML Document 11/15/20 11:37 JF [id number] 11/15/20 11:45 JF Document 11/22/20 11:33 ML [id number] 11/22/20 11:35 ML Document 11/29/20 10:45 KR [id number] 11/29/20 10:49 KR 11/08/20 11/15/20 11/22/20 11:32 11:37 11:33 Wound Center Nurse 1 #2 RIGHT LOWER LEG -Combined with other wound No -Current Size (cm) - Length 9.5 4.5 4 -Current Size (cm) - Width 6.8 3 3.1 -Current Size (cm) - Depth 0.3 0.2 0.2 -Total Square Cm 64.60 13.5 12.4 -Photo Taken No -Epithelialization Small 1-33% -Tunneling No -Undermining/Tunneling No -Circular Undermining No -Exudate Amt Large Small Medium -Exudate Type Yellow/Green Serosanguineous Serous -Wound Margin Distinct, Flat & Intact Distinct, Outline Outline Attached Attached -Granulation Amt Medium (34-66%) None Present (0 Medium (34-66%) %) -Granulation Quality -Slough/Fibrin Yes Yes Yes -Necrosis Amt Medium (34-66%) Large (67-100%) Medium (34-66%) -Necrotic Tissue Type Adherent Slough Adherent Slough Adherent Slough -Structure Exposed N/A -Texture (Mariajose-wound Skin Appearance) Assessed Assessed, Assessed Localized Edema -Moisture (Mariajose-wound Skin Appearance) Dry/Scaly Assessed -Color (Mariajose-wound Skin Appearance) Assessed Assessed, Assessed Hemosiderin Staining -Temperature (Mariajose-wound Skin No Abnormality No Abnormality No Abnormality Appearance) (Pt Warm) (Pt Warm) (Pt Warm) -Tenderness on Palpation (Mariajose-wound No No No Skin Appearance) -Ulcer Cleansing Soap and Water Rinsed/ Soap and Water Irrigated with Saline -Foul Odor after Cleansing No No No -Anesthetic Used 4% Lidocaine 4% Lidocaine 5% Lidocaine Solution Solution Gel Lower Limb Edema Present Yes Right Calf (cm) 48 51.2 Right Ankle (cm) 28 23.8 Left Calf (cm) 47 Left Ankle (cm) 26 11/29/20 10:45 Wound Center Nurse 1 #2 RIGHT LOWER LEG -Combined with other wound -Current Size (cm) - Length 4.5 -Current Size (cm) - Width 2.7 -Current Size (cm) - Depth 0.2 -Total Square Cm 12.15 -Photo Taken -Epithelialization -Tunneling -Undermining/Tunneling -Circular Undermining -Exudate Amt Medium -Exudate Type Serosanguineous -Wound Margin Distinct, Outline Attached -Granulation Amt Medium (34-66%) -Granulation Quality Red -Slough/Fibrin -Necrosis Amt Medium (34-66%) -Necrotic Tissue Type Adherent Slough -Structure Exposed -Texture (Mariajose-wound Skin Appearance) Assessed, Scarring -Moisture (Mariajose-wound Skin Appearance) Assessed, Maceration -Color (Mariajose-wound Skin Appearance) No Abnormality, Assessed -Temperature (Mariajose-wound Skin No Abnormality Appearance) (Pt Warm) -Tenderness on Palpation (Mariajose-wound No Skin Appearance) -Ulcer Cleansing Rinsed/ Irrigated with Saline -Foul Odor after Cleansing No -Anesthetic Used 4% Lidocaine Solution,5% Lidocaine Gel Lower Limb Edema Present Right Calf (cm) Right Ankle (cm) Left Calf (cm) Left Ankle (cm) WC - Nurse 2 - General Ulcer CM Notes Start: 11/08/20 11:22 Freq: Status: Active Protocol: Activity Type Activity Date Activity User E-Sign Co-Sign Detail Recorded Client Recorded Date Recorded By Document 11/08/20 11:59 MW [id number] 11/08/20 12:12 MW Document 11/15/20 12:09 MW [id number] 11/15/20 12:22 MW Document 11/22/20 12:15 MW [id number] 11/22/20 12:30 MW Document 11/29/20 11:46 MW [id number] 11/29/20 12:09 MW 11/08/20 11/15/20 11/22/20 11:59 12:09 12:15 Wound Center Nurse 2 #2 RIGHT LOWER LEG -Time 12:00 12:09 12:19 -Correct Patient Yes Yes Yes -Correct Side, Site, Position Yes Yes Yes -Correct Procedure Yes Yes Yes -Procedure Performed Yes Yes Yes -Type of Procedure Debridement Debridement Debridement -Clinical Debridement Subcutaneous Subcutaneous Subcutaneous -Tissue Removed Subcutaneous Subcutaneous Subcutaneous -Post Debridement (cm) - Length 4.5 4.4 4.4 -Post Debridement (cm) - Width 3.0 2.2 2.9 -Post Debridement (cm) - Depth 0.3 0.3 0.2 -Total Square (Post) (cm) 13.50 9.68 12.76 -Area of Debridement (cm) - Length 4.5 4.4 4.4 -Area of Debridement (cm) - Width 3.0 2.2 2.9 -Total Square (Area) (cm) 13.50 9.68 12.76 -Tunneling No No No -Undermining/Tunneling No No No -Circular Undermining No No No -Wound/Ulcer Outcome Not Healed Not Healed Not Healed -Ulcer Cleansing Rinsed/ Rinsed/ Rinsed/ Irrigated with Irrigated with Irrigated with Saline Saline Saline -Foul Odor after Cleansing No No No -Bioengineered Tissue No No No -Bleeding Controlled with Pressure Pressure Pressure -Offloading No No No -Treatment Response Procedure Procedure Procedure Tolerated Well Tolerated Well Tolerated Well -Debridement - Subq, 1st 20sq cm Yes Yes Yes Pain Scale: 0-10 Numeric Is Patient Pain Free? Yes Yes Yes 11/29/20 11:46 Wound Center Nurse 2 #2 RIGHT LOWER LEG -Time 11:48 -Correct Patient Yes -Correct Side, Site, Position Yes -Correct Procedure Yes -Procedure Performed Yes -Type of Procedure Debridement -Clinical Debridement Subcutaneous -Tissue Removed Subcutaneous -Post Debridement (cm) - Length 4.0 -Post Debridement (cm) - Width 2.5 -Post Debridement (cm) - Depth 0.2 -Total Square (Post) (cm) 10.00 -Area of Debridement (cm) - Length 4.0 -Area of Debridement (cm) - Width 2.5 -Total Square (Area) (cm) 10.00 -Tunneling No -Undermining/Tunneling No -Circular Undermining No -Wound/Ulcer Outcome Not Healed -Ulcer Cleansing Rinsed/ Irrigated with Saline -Foul Odor after Cleansing No -Bioengineered Tissue No -Bleeding Controlled with Pressure -Offloading No -Treatment Response Procedure Tolerated Well -Debridement - Subq, 1st 20sq cm Yes Pain Scale: 0-10 Numeric Is Patient Pain Free? Yes WC - Nurse 3 - General Ulcer D/C NN Start: 11/08/20 11:22 Freq: Status: Active Protocol: Activity Type Activity Date Activity User E-Sign Co-Sign Detail Recorded Client Recorded Date Recorded By Document 11/08/20 12:39 MW [id number] 11/08/20 12:41 MW Document 11/15/20 12:41 RB [id number] 11/15/20 12:43 RB Document 11/22/20 12:54 RB [id number] 11/22/20 12:56 RB Document 11/29/20 12:15 ML [id number] 11/29/20 12:17 ML 11/08/20 11/15/20 11/22/20 12:39 12:41 12:54 Wound Care Nurse 3 #2 RIGHT LOWER LEG -Ulcer Cleansing Rinsed/ Rinsed/ Wound Cleanser Irrigated with Irrigated with Saline Saline -Foul Odor after Cleansing No -Negative Pressure Wound Therapy N/A -Primary Dressing Applied Silvercel NonAdherent Contact Layer, Promogran Leslie Matter -Other Dressing abd AMD foam dressing, abd dressing -Primary Dressing Covered/Secured with Dry Gauze & Dry Gauze & Dry Gauze,Dry Roll Gauze, Roll Gauze, Gauze & Roll Secured with Secured with Gauze,Secured Tape Tape with Tape -Promogran Leslie Matter 2 -Silvercel 1 Right -Lotion applied to leg before No compression wrap -Tubular Bandage Double Layer Double Layer -Size of Tubigrip Used Size F Size F -Size F ($) 2 2 -Other double layer tubigrip Left -Lotion applied to leg before Yes compression wrap -Tubular Bandage Double Layer Double Layer -Size of Tubigrip Used Size F Size F -Size F ($) 2 2 -Stockings No -Other tubigrip double layer Treatment Response Procedure Procedure Procedure Tolerated Well Tolerated Well Tolerated Well Pain Scale: 0-10 Numeric Is Patient Pain Free? Yes Yes Teaching: Wound Center Dressing Your Wound -Person Taught Patient -Teaching Method Discussion -Response to teaching Verbalize understanding WC - Visit Discharge Discharge Condition Stable Stable Stable Ambulatory Status Ambulatory Ambulatory, Ambulatory, Walker Walker Transportation [facility] home health Private Auto Private Auto Accompanied by self Medication Reconcilliation completed & No No No provided to patient/care provider Clinical Summary of Care Provided Yes Yes Yes 11/29/20 12:15 Wound Care Nurse 3 #2 RIGHT LOWER LEG -Ulcer Cleansing Rinsed/ Irrigated with Saline -Foul Odor after Cleansing -Negative Pressure Wound Therapy -Primary Dressing Applied Promogran Leslie Matter -Other Dressing adaptic,abd, -Primary Dressing Covered/Secured with Dry Gauze & Roll Gauze, Secured with Tape -Promogran Leslie Matter 1 -Silvercel Right -Lotion applied to leg before compression wrap -Tubular Bandage Double Layer -Size of Tubigrip Used Size F -Size F ($) 2 -Other Left -Lotion applied to leg before compression wrap -Tubular Bandage Double Layer -Size of Tubigrip Used Size F -Size F ($) 2 -Stockings -Other Treatment Response Pain Scale: 0-10 Numeric Is Patient Pain Free? Teaching: Wound Center Dressing Your Wound -Person Taught -Teaching Method -Response to teaching WC - Visit Discharge Discharge Condition Stable Ambulatory Status Transportation Private Auto Accompanied by Medication Reconcilliation completed & No provided to patient/care provider Clinical Summary of Care Provided Yes Assessment/Plan Assessment/Plan (1) HTN (hypertension): CODE(S): I10 - Essential (primary) hypertension QUALIFIERS: Hypertension type: primary hypertension Qualified Code(s): I10 - Essential (primary) hypertension (2) Controlled diabetes mellitus: CODE(S): E11.9 - Type 2 diabetes mellitus without complications QUALIFIERS: Diabetes mellitus type: type 2 Diabetes mellitus intermediate card tender insulin use: without intermediate card tender use Diabetes mellitus complication status: with skin complications Diabetes mellitus complication detail: with other skin ulcer Qualified Code(s): E11.622 - Type 2 diabetes mellitus with other skin ulcer (3) Venous ulcer of right lower extremity without varicose veins: CODE(S): I87.2 - Venous insufficiency (chronic) (peripheral); L97.919 - Non-pressure chronic ulcer of unspecified part of right lower leg with unspecified severity (4) Cellulitis and abscess of right leg: CODE(S): L03.115 - Cellulitis of right lower limb; L02.415 - Cutaneous abscess of right lower limb PLAN: Yon's ulcer was evaluated and debrided today at the wound healing center. He tolerated the procedure well. Wound culture taken again today to evaluate for infection. Santyl was prescribed for him to start using as a dressing to help debride thick slough present and continuing to build up weekly to his ulcer. Will have him clean ulcer every other day with antibacterial soap and rinse with water. Will have him pat dry and apply adaptic, Leslie and then cover with ABD and secure with Kerlix for moderate drainage. Dressings will be changed every other day until he obtains Santyl. Once he obtains Santyl will have him change dressings daily by cleaning, patting dry, applying Santyl and covering with Adaptic and ABD. He has an aide that helps him on MWF and will continue Home Health to have dressing changes done 2 days/week. and Saturdays. He does not drive due to physical debility and is homebound. He is unable to perform dressing changes himself and lives alone. Due to the slow improvement in his healing and his multiple comorbid conditions, I feel that it is medically necessary to proceed with application of a skin substitute product such as Purapply or Nushield or Apligraf in order to heal his ulcer and prevent limb loss. Will obtain previous vascular testing from [facility]. Will obtain most recent lab tests. HgbA1C from 10/16/2020 was 6.2%. Will have him use compression with single layer tubigrip. Discussed importance of increased protein intake in order to improve healing. Stressed importance of elevating his legs at or above the level of his heart and using compression to treat swelling and maintain adequate control of edema to achieve healing of his ulcer. He was advised to call with any increased edema, erythema, pain, fever or chills. He will follow up in 1 week for wound care.
[2020-12-06 11:05] VITALS: BP 117/61; PULSE 55; RESP 22; TEMP 36.4; BMI 35.6
--- NOTE | 2020-12-06 13:03 | PCM.WC.PN ---
History of Present Illness Date of Service: 12/06/20 Chief Complaint: right man History of Wound: Yon is a 74 yo gentleman with past medical history of DM type 2, venous insufficiency, who presents to the wound healing center today for evaluation and treatment of a nonhealing ulcer to his right man that has been present for approximately 2 months. He has been referred by his PCP, Dr. Payan. Yon has had a history of diabetic and venous ulcers in the past that have been treated at other wound centers - [facility] and [facility]. He had been using silvadene initially and then began using calcium alginate and gauze over the last 3 weeks due to increased drainage. He saw his PCP who referred him to the wound center for treatment and started him on Bactrim DS BID x 10 days. He completed the Bactrim and has continued to have his dressing changed M,W,F when his aide comes. He reports that his last hgbA1C was a few weeks ago and was 6.2%. He does not check his sugars at home. He sleeps in a recliner at times due to his back. He lives alone and no longer drives due to his medical issues. He denies any fever or chills or increased erythema or pain. He has been wearing compression socks but they appear to be worn out. Progress of Wound: Prieto is here today for follow up of right man ulcer. He has been tolerating treatment with Santyl and adaptic and has been wearing tubigrip compression which has improved his edema. Overall his ulcer is stable. Culture was positive and he was started on Ciprofloxacin. He denies fever or chills. Denies increased drainage. Objective Data Objective Data Vital Signs: Vital Signs Temp Pulse Resp BP 97.6 F L 55 L 22 H 117/61 12/06/20 11:05 12/06/20 11:05 12/06/20 11:05 12/06/20 11:05 Weight: 132.789 kg Body Mass Index (BMI) 35.6 Lab / Micro Data Micro: Microbiology 11/29/20 12:00 Wound - Leg, Right Gram Stain - Final 11/29/20 12:00 Wound - Leg, Right Wound Culture - Final Pseudomonas aeroginosa Acinetobacter baumannii 11/29/20 12:00 Wound - Leg, Right Anaerobic Culture - Final No growth in 5 days. 11/08/20 12:10 Wound Abcess - Leg, Right Gram Stain - Final 11/08/20 12:10 Wound Abcess - Leg, Right Wound Culture - Final Klebsiella pneumoniae sp pneum Enterococcus faecalis Enterococcus gallinarum 11/08/20 12:10 Wound Abcess - Leg, Right Anaerobic Culture - Final No anaerobic bacteria isolated. Physical Exam Const alert, oriented x3, no apparent distress and healthy appearing General Appearance: cooperative HEENT normocephalic and head/scalp atraumatic Resp normal respiratory effort Effort and Inspection: able to speak in complete sentences Skin General Skin Exam: erythema, venous stasis and dermatitis Wounds: wounds noted Wound Narrative: as in clinical panel Psych Appearance: grossly normal and appropriate Debridement Note Debridement Note Wound debrided: right lower leg Laterality: Right Type of Debridement: Excisional debridement Anesthesia Used: 4% Lidocaine Solution and Cetacaine Depth: Down to and including healthy tissue and in the subcutaneous layer Percentage of wound debrided: 100 Instrument Used: 7mm curette Tissue Removed: Yellow slough, devitalized tissue Severity: Fat Layer Exposed Amount of bleeding with debridement: Mild Bleeding Controlled with: Compression and gauze Patient tolerated procedure: Patient tolerated procedure well Post-Debridement Measurements and Additional Note: Post-Debridement Measurements/Treatment - Nurse 1 - General Ulcer Assessment Start: 11/08/20 11:22 Freq: Status: Active Protocol: ROSIO Activity Type Activity Date Activity User E-Sign Co-Sign Detail Recorded Client Recorded Date Recorded By Document 11/08/20 11:22 ML [id number] 11/08/20 11:32 ML Document 11/15/20 11:37 JF [id number] 11/15/20 11:45 JF Document 11/22/20 11:33 ML [id number] 11/22/20 11:35 ML Document 11/29/20 10:45 KR [id number] 11/29/20 10:49 KR Document 12/06/20 11:05 DL [id number] 12/06/20 11:14 DL 11/08/20 11/15/20 11/22/20 11:22 11:37 11:33 - Today's Visit Information Type of service Follow-up Visit Follow-up Visit (Physician/SCHOOL AGE LEAD TEACHER (Physician/SCHOOL AGE LEAD TEACHER ) ) Arrival Mode Ambulatory, Ambulatory, Walker Walker Transfer Assistance None Patient Identification Verified (Name & No Yes ) Patient Requires Transmission-Based No No Precautions Safety Precautions NA Height and Weight Body Mass Index (BMI) 35.6 35.6 35.6 BMI Classification Obese Obese Obese Vital Signs Temperature (97.8 F-99.1 F) 97.6 F L 96.8 F L Temperature Source Temporal Temporal Pulse Rate (60-100) 58 L Pulse Location Monitor Respiratory Rate (12-18) 20 H 16 Respiratory rate source Observation Observation Blood Pressure (90/60-120/80) 148/73 H Blood Pressure Mean (mm Hg) 98 Source Monitor Position Sitting Blood Pressure Location Left Arm History Since Last Visit- (Skip if this is Patient's initial visit) Have you changed medications since your No No last visit? Any new allergies or adverse reactions No No Had a fall/change in ADL's that may No No increase risk of falls Signs or symptoms of abuse and/or No No neglect since last visit Have you been in the hospital since your No No last visit? Has dressing in place as prescribed Yes Yes Has compression in place as prescribed Yes Has offloadiing in place as prescribed N/A Experienced any changes in pain level or No management Left Footwear Regular Shoe Regular Shoe Right Footwear Regular Shoe Regular Shoe Pain Scale: 0-10 Numeric Is Patient Pain Free? Yes No 11/29/20 12/06/20 10:45 11:05 WC - Today's Visit Information Type of service Follow-up Visit Follow-up Visit (Physician/SCHOOL AGE LEAD TEACHER (Physician/SCHOOL AGE LEAD TEACHER ) ) Arrival Mode Ambulatory, Ambulatory, Walker Walker Transfer Assistance None Patient Identification Verified (Name & Yes ) Patient Requires Transmission-Based Precautions Safety Precautions Height and Weight Body Mass Index (BMI) 35.6 35.6 BMI Classification Obese Obese Vital Signs Temperature (97.8 F-99.1 F) 96.9 F L 97.6 F L Temperature Source Temporal Temporal Pulse Rate (60-100) 64 55 L Pulse Location Monitor Monitor Respiratory Rate (12-18) 22 H Respiratory rate source Observation Blood Pressure (90/60-120/80) 149/77 H 117/61 Blood Pressure Mean (mm Hg) 101 79 Source Monitor Position Sitting Blood Pressure Location Left Arm History Since Last Visit- (Skip if this is Patient's initial visit) Have you changed medications since your No No last visit? Any new allergies or adverse reactions No No Had a fall/change in ADL's that may No No increase risk of falls Signs or symptoms of abuse and/or No No neglect since last visit Have you been in the hospital since your No No last visit? Has dressing in place as prescribed Yes Yes Has compression in place as prescribed Yes Yes Has offloadiing in place as prescribed N/A N/A Experienced any changes in pain level or No No management Left Footwear Regular Shoe Right Footwear Regular Shoe Pain Scale: 0-10 Numeric Is Patient Pain Free? Yes Yes WC - Nurse 1 - General Ulcer Measurement Start: 11/08/20 11:22 Freq: Status: Active Protocol: Activity Type Activity Date Activity User E-Sign Co-Sign Detail Recorded Client Recorded Date Recorded By Document 11/08/20 11:32 ML [id number] 11/08/20 11:36 ML Document 11/15/20 11:37 JF [id number] 11/15/20 11:45 JF Document 11/22/20 11:33 ML [id number] 11/22/20 11:35 ML Document 11/29/20 10:45 KR [id number] 11/29/20 10:49 KR Document 12/06/20 11:05 DL [id number] 12/06/20 11:14 DL 11/08/20 11/15/20 11/22/20 11:32 11:37 11:33 Wound Center Nurse 1 #2 RIGHT LOWER LEG -Combined with other wound No -Current Size (cm) - Length 9.5 4.5 4 -Current Size (cm) - Width 6.8 3 3.1 -Current Size (cm) - Depth 0.3 0.2 0.2 -Total Square Cm 64.60 13.5 12.4 -Photo Taken No -Epithelialization Small 1-33% -Tunneling No -Undermining/Tunneling No -Circular Undermining No -Exudate Amt Large Small Medium -Exudate Type Yellow/Green Serosanguineous Serous -Wound Margin Distinct, Flat & Intact Distinct, Outline Outline Attached Attached -Granulation Amt Medium (34-66%) None Present (0 Medium (34-66%) %) -Granulation Quality -Slough/Fibrin Yes Yes Yes -Necrosis Amt Medium (34-66%) Large (67-100%) Medium (34-66%) -Necrotic Tissue Type Adherent Slough Adherent Slough Adherent Slough -Structure Exposed N/A -Texture (Mariajose-wound Skin Appearance) Assessed Assessed, Assessed Localized Edema -Moisture (Mariajose-wound Skin Appearance) Dry/Scaly Assessed -Color (Mariajose-wound Skin Appearance) Assessed Assessed, Assessed Hemosiderin Staining -Temperature (Mariajose-wound Skin No Abnormality No Abnormality No Abnormality Appearance) (Pt Warm) (Pt Warm) (Pt Warm) -Tenderness on Palpation (Mariajose-wound No No No Skin Appearance) -Ulcer Cleansing Soap and Water Rinsed/ Soap and Water Irrigated with Saline -Foul Odor after Cleansing No No No -Anesthetic Used 4% Lidocaine 4% Lidocaine 5% Lidocaine Solution Solution Gel Lower Limb Edema Present Yes Right Calf (cm) 48 51.2 Right Ankle (cm) 28 23.8 Left Calf (cm) 47 Left Ankle (cm) 26 11/29/20 12/06/20 10:45 11:05 Wound Center Nurse 1 #2 RIGHT LOWER LEG -Combined with other wound -Current Size (cm) - Length 4.5 4.7 -Current Size (cm) - Width 2.7 3 -Current Size (cm) - Depth 0.2 0.2 -Total Square Cm 12.15 14.1 -Photo Taken No -Epithelialization -Tunneling -Undermining/Tunneling -Circular Undermining -Exudate Amt Medium Medium -Exudate Type Serosanguineous Serosanguineous -Wound Margin Distinct, Distinct, Outline Outline Attached Attached -Granulation Amt Medium (34-66%) None Present (0 %) -Granulation Quality Red -Slough/Fibrin -Necrosis Amt Medium (34-66%) Large (67-100%) -Necrotic Tissue Type Adherent Slough Adherent Slough -Structure Exposed N/A -Texture (Mariajose-wound Skin Appearance) Assessed, Excoriation, Scarring Scarring -Moisture (Mariajose-wound Skin Appearance) Assessed, No Abnormality Maceration -Color (Mariajose-wound Skin Appearance) No Abnormality, Hemosiderin Assessed Staining -Temperature (Mariajose-wound Skin No Abnormality No Abnormality Appearance) (Pt Warm) (Pt Warm) -Tenderness on Palpation (Mariajose-wound No No Skin Appearance) -Ulcer Cleansing Rinsed/ Soap and Water Irrigated with Saline -Foul Odor after Cleansing No No -Anesthetic Used 4% Lidocaine 4% Lidocaine Solution,5% Solution Lidocaine Gel Lower Limb Edema Present Right Calf (cm) 47 Right Ankle (cm) 24.4 Left Calf (cm) Left Ankle (cm) WC - Nurse 2 - General Ulcer CM Notes Start: 11/08/20 11:22 Freq: Status: Active Protocol: Activity Type Activity Date Activity User E-Sign Co-Sign Detail Recorded Client Recorded Date Recorded By Document 11/08/20 11:59 MW [id number] 11/08/20 12:12 MW Document 11/15/20 12:09 MW [id number] 11/15/20 12:22 MW Document 11/22/20 12:15 MW [id number] 11/22/20 12:30 MW Document 11/29/20 11:46 MW [id number] 11/29/20 12:09 MW Document 12/06/20 11:39 MW [id number] 12/06/20 11:52 MW 11/08/20 11/15/20 11/22/20 11:59 12:09 12:15 Wound Center Nurse 2 #2 RIGHT LOWER LEG -Time 12:00 12:09 12:19 -Correct Patient Yes Yes Yes -Correct Side, Site, Position Yes Yes Yes -Correct Procedure Yes Yes Yes -Procedure Performed Yes Yes Yes -Type of Procedure Debridement Debridement Debridement -Clinical Debridement Subcutaneous Subcutaneous Subcutaneous -Tissue Removed Subcutaneous Subcutaneous Subcutaneous -Post Debridement (cm) - Length 4.5 4.4 4.4 -Post Debridement (cm) - Width 3.0 2.2 2.9 -Post Debridement (cm) - Depth 0.3 0.3 0.2 -Total Square (Post) (cm) 13.50 9.68 12.76 -Area of Debridement (cm) - Length 4.5 4.4 4.4 -Area of Debridement (cm) - Width 3.0 2.2 2.9 -Total Square (Area) (cm) 13.50 9.68 12.76 -Tunneling No No No -Undermining/Tunneling No No No -Circular Undermining No No No -Wound/Ulcer Outcome Not Healed Not Healed Not Healed -Ulcer Cleansing Rinsed/ Rinsed/ Rinsed/ Irrigated with Irrigated with Irrigated with Saline Saline Saline -Foul Odor after Cleansing No No No -Bioengineered Tissue No No No -Bleeding Controlled with Pressure Pressure Pressure -Offloading No No No -Treatment Response Procedure Procedure Procedure Tolerated Well Tolerated Well Tolerated Well -Debridement - Subq, 1st 20sq cm Yes Yes Yes Pain Scale: 0-10 Numeric Is Patient Pain Free? Yes Yes Yes 11/29/20 12/06/20 11:46 11:39 Wound Center Nurse 2 #2 RIGHT LOWER LEG -Time 11:48 11:39 -Correct Patient Yes Yes -Correct Side, Site, Position Yes Yes -Correct Procedure Yes Yes -Procedure Performed Yes Yes -Type of Procedure Debridement Debridement -Clinical Debridement Subcutaneous Subcutaneous -Tissue Removed Subcutaneous Subcutaneous -Post Debridement (cm) - Length 4.0 4.6 -Post Debridement (cm) - Width 2.5 2.6 -Post Debridement (cm) - Depth 0.2 0.2 -Total Square (Post) (cm) 10.00 11.96 -Area of Debridement (cm) - Length 4.0 4.6 -Area of Debridement (cm) - Width 2.5 2.6 -Total Square (Area) (cm) 10.00 11.96 -Tunneling No No -Undermining/Tunneling No No -Circular Undermining No No -Wound/Ulcer Outcome Not Healed Not Healed -Ulcer Cleansing Rinsed/ Rinsed/ Irrigated with Irrigated with Saline Saline -Foul Odor after Cleansing No No -Bioengineered Tissue No No -Bleeding Controlled with Pressure -Offloading No -Treatment Response Procedure Tolerated Well -Debridement - Subq, 1st 20sq cm Yes Yes Pain Scale: 0-10 Numeric Is Patient Pain Free? Yes Yes WC - Nurse 3 - General Ulcer D/C NN Start: 11/08/20 11:22 Freq: Status: Active Protocol: Activity Type Activity Date Activity User E-Sign Co-Sign Detail Recorded Client Recorded Date Recorded By Document 11/08/20 12:39 MW [id number] 11/08/20 12:41 MW Document 11/15/20 12:41 RB [id number] 11/15/20 12:43 RB Document 11/22/20 12:54 RB [id number] 11/22/20 12:56 RB Document 11/29/20 12:15 ML [id number] 11/29/20 12:17 ML Document 12/06/20 12:04 RB [id number] 12/06/20 12:06 RB 11/08/20 11/15/20 11/22/20 12:39 12:41 12:54 Wound Care Nurse 3 #2 RIGHT LOWER LEG -Ulcer Cleansing Rinsed/ Rinsed/ Wound Cleanser Irrigated with Irrigated with Saline Saline -Foul Odor after Cleansing No -Negative Pressure Wound Therapy N/A -Primary Dressing Applied Silvercel NonAdherent Contact Layer, Promogran Leslie Matter -Other Dressing abd AMD foam dressing, abd dressing -Primary Dressing Covered/Secured with Dry Gauze & Dry Gauze & Dry Gauze,Dry Roll Gauze, Roll Gauze, Gauze & Roll Secured with Secured with Gauze,Secured Tape Tape with Tape -Promogran Leslie Matter 2 -Silvercel 1 Right -Lotion applied to leg before No compression wrap -Tubular Bandage Double Layer Double Layer -Size of Tubigrip Used Size F Size F -Size F ($) 2 2 -Stockings -Other double layer tubigrip Left -Lotion applied to leg before Yes compression wrap -Tubular Bandage Double Layer Double Layer -Size of Tubigrip Used Size F Size F -Size F ($) 2 2 -Stockings No -Other tubigrip double layer Treatment Response Procedure Procedure Procedure Tolerated Well Tolerated Well Tolerated Well Pain Scale: 0-10 Numeric Is Patient Pain Free? Yes Yes Teaching: Wound Center Dressing Your Wound -Person Taught Patient -Teaching Method Discussion -Response to teaching Verbalize understanding WC - Visit Discharge Discharge Condition Stable Stable Stable Ambulatory Status Ambulatory Ambulatory, Ambulatory, Walker Walker Transportation [facility] home health Private Auto Private Auto Accompanied by self Medication Reconcilliation completed & No No No provided to patient/care provider Clinical Summary of Care Provided Yes Yes Yes 11/29/20 12/06/20 12:15 12:04 Wound Care Nurse 3 #2 RIGHT LOWER LEG -Ulcer Cleansing Rinsed/ Rinsed/ Irrigated with Irrigated with Saline Saline -Foul Odor after Cleansing -Negative Pressure Wound Therapy -Primary Dressing Applied Promogran NonAdherent Leslie Matter Contact Layer -Other Dressing adaptic,abd, hydrogel, abd -Primary Dressing Covered/Secured with Dry Gauze & Dry Gauze,Dry Roll Gauze, Gauze & Roll Secured with Gauze,Secured Tape with Tape -Promogran Leslie Matter 1 -Silvercel Right -Lotion applied to leg before compression wrap -Tubular Bandage Double Layer Double Layer -Size of Tubigrip Used Size F Size F -Size F ($) 2 2 -Stockings Yes -Other Left -Lotion applied to leg before compression wrap -Tubular Bandage Double Layer -Size of Tubigrip Used Size F -Size F ($) 2 -Stockings -Other Treatment Response Pain Scale: 0-10 Numeric Is Patient Pain Free? Teaching: Wound Center Dressing Your Wound -Person Taught -Teaching Method -Response to teaching WC - Visit Discharge Discharge Condition Stable Stable Ambulatory Status Ambulatory, Walker Transportation Private Auto Private Auto Accompanied by Medication Reconcilliation completed & No No provided to patient/care provider Clinical Summary of Care Provided Yes Yes Assessment/Plan Assessment/Plan (1) HTN (hypertension): CODE(S): I10 - Essential (primary) hypertension QUALIFIERS: Hypertension type: primary hypertension Qualified Code(s): I10 - Essential (primary) hypertension (2) Controlled diabetes mellitus: CODE(S): E11.9 - Type 2 diabetes mellitus without complications QUALIFIERS: Diabetes mellitus type: type 2 Diabetes mellitus usp insulin use: without usp use Diabetes mellitus complication status: with skin complications Diabetes mellitus complication detail: with other skin ulcer Qualified Code(s): E11.622 - Type 2 diabetes mellitus with other skin ulcer (3) Venous ulcer of right lower extremity without varicose veins: CODE(S): I87.2 - Venous insufficiency (chronic) (peripheral); L97.919 - Non-pressure chronic ulcer of unspecified part of right lower leg with unspecified severity (4) Cellulitis and abscess of right leg: CODE(S): L03.115 - Cellulitis of right lower limb; L02.415 - Cutaneous abscess of right lower limb PLAN: Roslyns ulcer was evaluated and debrided today at the wound healing center. He tolerated the procedure well. Wound culture 11/29/2020 was positive for Pseudomonas and Acetinobacter bacteria, no growth of anaerobic bacteria. He is currently tolerating treatment with ciprofloxacin. Santyl was prescribed for him to start using as a dressing to help debride thick slough present and continuing to build up weekly to his ulcer, this was well tolerated. Will have him clean ulcer every other day with antibacterial soap and rinse with water. Will have him pat dry and apply Santyl, cover with adaptic and then cover with ABD and secure with Kerlix for moderate drainage. Will have Home Health change dressings tomorrow and Wednesday and he will return to the wound center on Wednesday to be seen by Nena Lozano CNP due to him being unable to return next Wednesday due to an appointment. Plan to apply Puraply at that visit if she feels that the ulcer appears to be less sloughy. He does not drive due to physical debility and is homebound. He is unable to perform dressing changes himself and lives alone. Due to the slow improvement in his healing and his multiple comorbid conditions, I feel that it is medically necessary to proceed with application of a skin substitute product such as Puraply or Nushield or Apligraf in order to heal his ulcer and prevent limb loss. Will obtain previous vascular testing from [facility]. Will obtain most recent lab tests. HgbA1C from 10/16/2020 was 6.2%. Will have him use compression with single layer tubigrip. Discussed importance of increased protein intake in order to improve healing. Stressed importance of elevating his legs at or above the level of his heart and using compression to treat swelling and maintain adequate control of edema to achieve healing of his ulcer. He was advised to call with any increased edema, erythema, pain, fever or chills. He will follow up in 1 week for wound care.
== END 2020-12-08 23:59 ==
LOC: WC 11:00
PROVIDERS: Visit Provider Family Medicine
DX: I83.018 Varicose veins of right lower extremity with ulcer other part of lower leg (principal); L97.812 Non-pressure chronic ulcer of other part of right lower leg with fat layer exposed; E11.622 Type 2 diabetes mellitus with other skin ulcer; I87.2 Venous insufficiency (chronic) (peripheral); I10 Essential (primary) hypertension; L03.115 Cellulitis of right lower limb; Z79.4 Long term (current) use of insulin; B95.2 Enterococcus as the cause of diseases classified elsewhere; B96.1 Klebsiella pneumoniae [K. pneumoniae] as the cause of diseases classified elsewhere
CPT/HCPCS: 11042; 87070; 87075; 87077; 87186; 87205

== ENCOUNTER 2021-01-01 11:15 | Outpatient (RCR) | payer MEDICARE, MEDICAID, SELFPAY ==
[2020-12-09 00:30] VITALS: BP 117/61; PULSE 55; RESP 22; TEMP 36.4; BMI 35.6
[2020-12-11 11:40] VITALS: BP 166/76; PULSE 63; TEMP 35.5; BMI 35.6
--- NOTE | 2020-12-11 12:42 | HP.PCM_ITS ---
History of Present Illness Date of Service: 12/11/20 Chief Complaint: right man History of Wound: Yon is a 74 yo gentleman with past medical history of DM type 2, venous insufficiency, who presents to the wound healing center today for evaluation and treatment of a nonhealing ulcer to his right man that has been present for approximately 2 months. He has been referred by his PCP, Dr. Payan. Yon has had a history of diabetic and venous ulcers in the past that have been treated at other wound centers - [facility] and [facility]. He had been using silvadene initially and then began using calcium alginate and gauze over the last 3 weeks due to increased drainage. He saw his PCP who referred him to the wound center for treatment and started him on Bactrim DS BID x 10 days. He completed the Bactrim and has continued to have his dressing changed M,W,F when his aide comes. He reports that his last hgbA1C was a few weeks ago and was 6.2%. He does not check his sugars at home. He sleeps in a recliner at times due to his back. He lives alone and no longer drives due to his medical issues. He denies any fever or chills or increased erythema or pain. He has been wearing compression socks but they appear to be worn out. [facility] Medical History Anesthesia of skin COPD (chronic obstructive pulmonary disease) HTN (hypertension) PVD (peripheral vascular disease) Sleep apnea Spinal stenosis, lumbar region with neurogenic claudication Home Medications Advair HFA BID 11/01/20 [History Last Taken Unknown] apixaban [Eliquis] 5 mg PO BID 11/01/20 [History Last Taken Unknown] betamethasone dipropionate BID 11/01/20 [History Last Taken Unknown] furosemide 20 mg PO DAILY 11/01/20 [History Last Taken Unknown] metformin mg 11/01/20 [History Last Taken Unknown] metoprolol succinate 25 mg PO DAILY 11/01/20 [History Last Taken Unknown] rosuvastatin mg 11/01/20 [History Last Taken Unknown] tamsulosin mg PO 11/01/20 [History Last Taken Unknown] clindamycin HCl 300 mg PO BID 7 Days #14 cap 11/08/20 [Rx Last Taken Unknown] Allergy/AdvReac Type Severity Reaction Status Date / Time penicillin G AdvReac PT UNSURE Verified 11/01/20 10:14 OF REACTION Penicillins [PCN] AdvReac PT UNSURE Verified 11/01/20 10:14 OF REACTION Surgical History History of surgery on arm Social History Smoking Status: Current every day smoker ROS Integumentary Integumentary: Reports wounds and other Details: Right man cluster and has developed above the cluster another open wound. And leg swelling Vital Signs Vital Signs Vital Signs: 12/11/20 11:40 Temperature 95.9 F L Temperature Source Temporal Pulse Rate 63 Blood Pressure 166/76 H Blood Pressure Mean 106 Blood Pressure Source Monitor Weight Weight: 292 lb 11.996 oz Body Mass Index (BMI) 35.6 Physical Exam Const oriented x3 General Appearance: cooperative Exam Limitations: no limitations Resp normal respiratory effort Effort and Inspection: able to speak in complete sentences Auscultation: clear to auscultation bilaterally Cardio regular rate and regular rhythm Palpation: normal PMI Rate: regular rate Rhythm: regular rhythm GI Auscultation: normoactive bowel sounds Palpation: soft and no hepatosplenomegaly Extremity normal to inspection General Extremity: normal exam except as noted Skin no rashes or lesions noted General Skin Exam: venous stasis Rashes: rashes noted Wounds: wounds noted Wound Narrative: Cluster wound lower right lower and then developed a superior shearing type wound superficial but open. Neuro oriented x3 Psych Appearance: grossly normal Speech: normal speech Thought Content: normal thought content Judgement: judgement good Debridement Note Debridement Note Wound debrided: Right lower leg cluster Type of Debridement: Excisional debridement Anesthesia Used: 5% Lidocaine Gel Depth: Down to and including healthy tissue and in the subcutaneous layer Percentage of wound debrided: 100 Instrument Used: 7mm curette and - (Scissors) Tissue Removed: Slough fibrin devitalized tissue Severity: Fat Layer Exposed Amount of bleeding with debridement: Mild Bleeding Controlled with: Compression and gauze Patient tolerated procedure: Patient tolerated procedure well Post-Debridement Measurements and Additional Note: Post-Debridement Measurements/Treatment WC - Nurse 1 - General Ulcer Assessment Start: 12/11/20 11:25 Freq: Status: Active Protocol: LOWEXDonna Activity Type Activity Date Activity User E-Sign Co-Sign Detail Recorded Client Recorded Date Recorded By Document 12/11/20 11:40 JESU [id number] 12/11/20 11:42 JESU 12/11/20 11:40 - Today's Visit Information Type of service Initial Visit Arrival Mode Ambulatory Patient Identification Verified (Name & Yes ) Patient Requires Transmission-Based No Precautions Safety Precautions NA Height and Weight Body Mass Index (BMI) 35.6 BMI Classification Obese Vital Signs Temperature (97.8 F-99.1 F) 95.9 F L Temperature Source Temporal Pulse Rate (60-100) 63 Pulse Location Monitor Blood Pressure (90/60-120/80) 166/76 H Blood Pressure Mean 106 Source Monitor History Since Last Visit- (Skip if this is Patient's initial visit) Have you changed medications since your No last visit? Any new allergies or adverse reactions No Had a fall/change in ADL's that may No increase risk of falls Signs or symptoms of abuse and/or No neglect since last visit Have you been in the hospital since your No last visit? Has dressing in place as prescribed Yes Has compression in place as prescribed Yes Has offloadiing in place as prescribed N/A Experienced any changes in pain level or No management Left Footwear Regular Shoe Right Footwear Regular Shoe - Nurse 1 - General Ulcer Measurement Start: 12/11/20 11:25 Freq: Status: Active Protocol: Activity Type Activity Date Activity User E-Sign Co-Sign Detail Recorded Client Recorded Date Recorded By Document 12/11/20 11:40 JESU [id number] 12/11/20 11:42 JESU 12/11/20 11:40 Wound Center Nurse 1 #2 RIGHT LOWER LEG -Combined with other wound No -Current Size (cm) - Length 5 -Current Size (cm) - Width 11 -Current Size (cm) - Depth 0.1 -Total Square Cm 55 -Photo Taken No -Epithelialization None Present -Tunneling No -Undermining/Tunneling No -Circular Undermining No -Exudate Amt Large -Exudate Type Serosanguineous -Wound Margin Distinct, Outline Attached -Necrosis Amt Large (67-100%) -Necrotic Tissue Type Adherent Slough -Structure Exposed N/A -Texture (Mariajose-wound Skin Appearance) Assessed, Scarring -Moisture (Mariajose-wound Skin Appearance) Assessed, Weeping -Color (Mariajose-wound Skin Appearance) Assessed,Rubor -Temperature (Mariajose-wound Skin No Abnormality Appearance) (Pt Warm) -Tenderness on Palpation (Mariajose-wound No Skin Appearance) -Ulcer Cleansing Rinsed/ Irrigated with Saline -Foul Odor after Cleansing No -Anesthetic Used 5% Lidocaine Gel Lower Limb Edema Present No Right Calf (cm) 48 Right Ankle (cm) 25 WC - Nurse 2 - General Ulcer CM Notes Start: 12/11/20 11:25 Freq: Status: Active Protocol: Activity Type Activity Date Activity User E-Sign Co-Sign Detail Recorded Client Recorded Date Recorded By Document 12/11/20 11:26 MW [id number] 12/11/20 11:41 MW 12/11/20 11:26 Wound Center Nurse 2 #3 right superior LE -Time 11:30 -Correct Patient Yes -Correct Side, Site, Position Yes -Correct Procedure Yes -Procedure Performed Yes -Type of Procedure Debridement -Clinical Debridement Subcutaneous -Tissue Removed Subcutaneous -Post Debridement (cm) - Length 1.0 -Post Debridement (cm) - Width 1.5 -Post Debridement (cm) - Depth 0.1 -Total Square (Post) (cm) 1.50 -Area of Debridement (cm) - Length 1.0 -Area of Debridement (cm) - Width 1.5 -Total Square (Area) (cm) 1.50 -Tunneling No -Undermining/Tunneling No -Circular Undermining No -Wound/Ulcer Outcome Not Healed -Ulcer Cleansing Rinsed/ Irrigated with Saline -Foul Odor after Cleansing No -Bioengineered Tissue No -Bleeding Controlled with Pressure -Offloading No -Treatment Response Procedure Tolerated Well -Debridement - Subq, 1st 20sq cm No #2 RIGHT LOWER LEG -Time 11:28 -Correct Patient Yes -Correct Side, Site, Position Yes -Correct Procedure Yes -Procedure Performed Yes -Type of Procedure Debridement -Clinical Debridement Subcutaneous -Tissue Removed Subcutaneous -Post Debridement (cm) - Length 4.6 -Post Debridement (cm) - Width 3.0 -Post Debridement (cm) - Depth 0.3 -Total Square (Post) (cm) 13.80 -Area of Debridement (cm) - Length 4.6 -Area of Debridement (cm) - Width 3.0 -Total Square (Area) (cm) 13.80 -Tunneling No -Undermining/Tunneling No -Circular Undermining No -Wound/Ulcer Outcome Not Healed -Ulcer Cleansing Rinsed/ Irrigated with Saline -Foul Odor after Cleansing No -Bioengineered Tissue Yes -Type of Bioengineered Tissue PuraPly AM -Expiration Date 12/31/22 -Product Lot Number [id number] -Percent Used 100 -Lot number of Saline Used [id number] -Bleeding Controlled with Pressure -Offloading No -Treatment Response Procedure Tolerated Well -Debridement - Subq, 1st 20sq cm No -Apply Skin Sub - 1st 25 sq cm - Legs 1 -PuraPly AM (per sq cm) 16 Pain Scale: 0-10 Numeric Is Patient Pain Free? Yes - Nurse 3 - General Ulcer D/C NN Start: 12/11/20 11:25 Freq: Status: Active Protocol: Activity Type Activity Date Activity User E-Sign Co-Sign Detail Recorded Client Recorded Date Recorded By Document 12/11/20 11:47 [facility] [id number] 12/11/20 11:48 [facility] 12/11/20 11:47 Wound Care Nurse 3 #3 right superior LE -Primary Dressing Applied Aquacel Extra -Other Dressing PURAPLY -Primary Dressing Covered/Secured with Dry Gauze & Roll Gauze, Secured with Tape,Other -Other Covering ABD; DRSG PER KR CONTINUOUS PICKLING LINE PICKLER HELPER -Aquacel Extra 2 #2 RIGHT LOWER LEG -Primary Dressing Applied Other -Other Dressing PURAPLY -Primary Dressing Covered/Secured with Dry Gauze & Roll Gauze, Secured with Tape,Other -Other Covering ABD; DRSG PER KR CONTINUOUS PICKLING LINE PICKLER HELPER -Aquacel Extra 0 Right -Tubular Bandage Double Layer -Size of Tubigrip Used Size E -Size E ($) 1 Treatment Response Procedure Tolerated Well Pain Scale: 0-10 Numeric Is Patient Pain Free? Yes - Visit Discharge Discharge Condition Stable Ambulatory Status Ambulatory, Walker Facility Type Home Health Additional Wound Wound debrided: Superior right lower leg wound Type of Debridement: Excisional debridement Anesthesia Used: 5% Lidocaine Gel Depth: Down to and including healthy tissue Percentage of wound debrided: 100 Instrument Used: 7mm curette Tissue Removed: Fibrin devitalized tissue Severity: Limited To Skin Breakdown Bleeding Controlled with: Compression and gauze Patient tolerated procedure: Patient tolerated procedure well Lab / Micro Data Attestation: I reviewed the patient's lab results. Assessment/Plan Assessment/Plan (1) Venous ulcer of right lower extremity without varicose veins: CODE(S): I87.2 - Venous insufficiency (chronic) (peripheral); L97.919 - Non-pressure chronic ulcer of unspecified part of right lower leg with unspecified severity PLAN: Continue wearing compression to right lower leg Patient needs more studies venous and arterial studies done be repeated (2) Edema, lower extremity: CODE(S): R60.0 - Localized edema (3) Nonhealing skin ulcer: CODE(S): L98.499 - Non-pressure chronic ulcer of skin of other sites with unspecified severity PLAN: Patient received first puraply to right lower leg and 3 areas tolerated well covered with Aquacel extra for drainage dressing Double layer Tubigrip to the area Patient is instructed not to touch only the outer dressing to be changed and follow-up with Dr. Posey Next week
[2020-12-20 11:31] VITALS: BP 138/76; PULSE 63; RESP 20; TEMP 36.4; BMI 35.6
--- NOTE | 2020-12-20 12:49 | PN.PCM_ITS ---
History of Present Illness Date of Service: 12/20/20 Chief Complaint: right man History of Wound: Yon is a 74 yo gentleman with past medical history of DM type 2, venous insufficiency, who presents to the wound healing center today for evaluation and treatment of a nonhealing ulcer to his right man that has been present for approximately 2 months. He has been referred by his PCP, Dr. Payan. Yon has had a history of diabetic and venous ulcers in the past that have been treated at other wound centers - [facility] and [facility]. He had been using silvadene initially and then began using calcium alginate and gauze over the last 3 weeks due to increased drainage. He saw his PCP who referred him to the wound center for treatment and started him on Bactrim DS BID x 10 days. He completed the Bactrim and has continued to have his dressing changed M,W,F when his aide comes. He reports that his last hgbA1C was a few weeks ago and was 6.2%. He does not check his sugars at home. He sleeps in a recliner at times due to his back. He lives alone and no longer drives due to his medical issues. He denies any fever or chills or increased erythema or pain. He has been wearing compression socks but they appear to be worn out. Subjective Subjective Prieto returns today for evaluation and treatment of ulcers of his right man. He was seen last week by Nena and Puraply was applied to his ulcer. He tolerated th e treatment well and has had improvement in the ulcer with better granulation and less slough. He denies fever, chills, increased drainage or odor. Objective Data Objective Data Vital Signs: Vital Signs Temp Pulse Resp BP 97.6 F L 63 20 H 138/76 H 12/20/20 11:31 12/20/20 11:31 12/20/20 11:31 12/20/20 11:31 Weight: 132.789 kg Body Mass Index (BMI) 35.6 Physical Exam Const alert, oriented x3 and no apparent distress General Appearance: cooperative and comfortable HEENT normocephalic and head/scalp atraumatic Resp normal respiratory effort Effort and Inspection: able to speak in complete sentences Cardio regular rate and regular rhythm Extremity General Extremity: edema bilateral lower extremity Details: mild Skin General Skin Exam: crusts, dry skin, venous stasis and dermatitis Wounds: wounds noted Wound Narrative: as noted in clinical panel Psych thought process normal, cooperative, affect normal and speech normal Debridement Note Debridement Note Wound debrided: right lower leg man cluster Laterality: Right Type of Debridement: Excisional debridement Anesthesia Used: 4% Lidocaine Solution, 5% Lidocaine Gel and Cetacaine Depth: Down to and including healthy tissue and in the subcutaneous layer Percentage of wound debrided: 100 Instrument Used: 5mm curette Tissue Removed: Yellow slough, devitalized tissue Severity: Fat Layer Exposed Amount of bleeding with debridement: Mild Bleeding Controlled with: Compression and gauze Patient tolerated procedure: Patient tolerated procedure well Post-Debridement Measurements and Additional Note: Post-Debridement Measurements/Treatment - Nurse 1 - General Ulcer Assessment Start: 12/11/20 11:25 Freq: Status: Active Protocol: ROSIO Activity Type Activity Date Activity User E-Sign Co-Sign Detail Recorded Client Recorded Date Recorded By Document 12/11/20 11:40 AK [id number] 12/11/20 11:42 AK Document 12/20/20 11:31 DL [id number] 12/20/20 11:44 DL 12/11/20 12/20/20 11:40 11:31 - Today's Visit Information Type of service Initial Visit Follow-up Visit (Physician/SAILING OFFICER ) Arrival Mode Ambulatory Ambulatory, Walker Transfer Assistance None Patient Identification Verified (Name & Yes Yes ) Patient Requires Transmission-Based No No Precautions Safety Precautions NA Height and Weight Body Mass Index (BMI) 35.6 35.6 BMI Classification Obese Obese Vital Signs Temperature (97.8 F-99.1 F) 95.9 F L 97.6 F L Temperature Source Temporal Temporal Pulse Rate (60-100) 63 63 Pulse Location Monitor Monitor Respiratory Rate (12-18) 20 H Respiratory rate source Observation Blood Pressure (90/60-120/80) 166/76 H 138/76 H Blood Pressure Mean (mm Hg) 106 96 Source Monitor Monitor History Since Last Visit- (Skip if this is Patient's initial visit) Have you changed medications since your No No last visit? Any new allergies or adverse reactions No No Had a fall/change in ADL's that may No increase risk of falls Signs or symptoms of abuse and/or No No neglect since last visit Have you been in the hospital since your No No last visit? Has dressing in place as prescribed Yes Yes Has compression in place as prescribed Yes Yes Has offloadiing in place as prescribed N/A Yes Experienced any changes in pain level or No No management Left Footwear Regular Shoe Right Footwear Regular Shoe Pain Scale: 0-10 Numeric Is Patient Pain Free? Yes WC - Nurse 1 - General Ulcer Measurement Start: 12/11/20 11:25 Freq: Status: Active Protocol: Activity Type Activity Date Activity User E-Sign Co-Sign Detail Recorded Client Recorded Date Recorded By Document 12/11/20 11:40 AK [id number] 12/11/20 11:42 AK Document 12/20/20 11:31 DL [id number] 12/20/20 11:44 DL 12/11/20 12/20/20 11:40 11:31 Wound Center Nurse 1 #3 right superior LE -Current Size (cm) - Length 2.3 -Current Size (cm) - Width 2.8 -Current Size (cm) - Depth 0.2 -Total Square Cm 6.44 -Photo Taken No -Exudate Amt Medium -Exudate Type Serosanguineous -Wound Margin Distinct, Outline Attached -Granulation Amt None Present (0 %) -Necrosis Amt Large (67-100%) -Necrotic Tissue Type Adherent Slough -Structure Exposed N/A -Texture (Mariajose-wound Skin Appearance) Excoriation, Scarring -Moisture (Mariajose-wound Skin Appearance) Weeping -Color (Mariajose-wound Skin Appearance) Hemosiderin Staining -Temperature (Mariajose-wound Skin No Abnormality Appearance) (Pt Warm) -Tenderness on Palpation (Mariajose-wound No Skin Appearance) -Ulcer Cleansing Soap and Water -Foul Odor after Cleansing No -Anesthetic Used 4% Lidocaine Solution #2 RIGHT LOWER LEG (MAN CLUSTER) -Combined with other wound No -Current Size (cm) - Length 5 0.6 -Current Size (cm) - Width 11 0.7 -Current Size (cm) - Depth 0.1 0.3 -Total Square Cm 55 0.42 -Photo Taken No No -Epithelialization None Present -Tunneling No -Undermining/Tunneling No -Circular Undermining No -Exudate Amt Large Small -Exudate Type Serosanguineous -Wound Margin Distinct, Distinct, Outline Outline Attached Attached -Granulation Amt Small (1-33%) -Granulation Quality [place] -Necrosis Amt Large (67-100%) Small (1-33%) -Necrotic Tissue Type Adherent Slough Adherent Slough -Structure Exposed N/A N/A -Texture (Mariajose-wound Skin Appearance) Assessed, Excoriation, Scarring Scarring -Moisture (Mariajose-wound Skin Appearance) Assessed, Weeping Weeping -Color (Mariajose-wound Skin Appearance) Assessed,Rubor Hemosiderin Staining -Temperature (Mariajose-wound Skin No Abnormality No Abnormality Appearance) (Pt Warm) (Pt Warm) -Tenderness on Palpation (Mariajose-wound No No Skin Appearance) -Ulcer Cleansing Rinsed/ Soap and Water Irrigated with Saline -Foul Odor after Cleansing No No -Anesthetic Used 5% Lidocaine 4% Lidocaine Gel Solution Lower Limb Edema Present No Right Calf (cm) 48 51.7 Right Ankle (cm) 25 24.5 WC - Nurse 2 - General Ulcer CM Notes Start: 12/11/20 11:25 Freq: Status: Active Protocol: Activity Type Activity Date Activity User E-Sign Co-Sign Detail Recorded Client Recorded Date Recorded By Document 12/11/20 11:26 MW [id number] 12/11/20 11:41 MW Document 12/20/20 12:33 MW [id number] 12/20/20 12:45 MW 12/11/20 12/20/20 11:26 12:33 Wound Center Nurse 2 #3 right superior LE -Time 11:30 12:33 -Correct Patient Yes Yes -Correct Side, Site, Position Yes Yes -Correct Procedure Yes Yes -Procedure Performed Yes No -Type of Procedure Debridement -Clinical Debridement Subcutaneous -Tissue Removed Subcutaneous -Post Debridement (cm) - Length 1.0 0 -Post Debridement (cm) - Width 1.5 0 -Post Debridement (cm) - Depth 0.1 0 -Total Square (Post) (cm) 1.50 0 -Area of Debridement (cm) - Length 1.0 -Area of Debridement (cm) - Width 1.5 -Total Square (Area) (cm) 1.50 -Tunneling No -Undermining/Tunneling No -Circular Undermining No -Wound/Ulcer Outcome Not Healed Healed- Epithelialized -Ulcer Cleansing Rinsed/ Irrigated with Saline -Foul Odor after Cleansing No -Bioengineered Tissue No -Bleeding Controlled with Pressure -Offloading No -Treatment Response Procedure Tolerated Well -Debridement - Subq, 1st 20sq cm No #2 RIGHT LOWER LEG (MAN CLUSTER) -Time 11:28 12:35 -Correct Patient Yes Yes -Correct Side, Site, Position Yes Yes -Correct Procedure Yes Yes -Procedure Performed Yes Yes -Type of Procedure Debridement Debridement -Clinical Debridement Subcutaneous Subcutaneous -Tissue Removed Subcutaneous Subcutaneous -Post Debridement (cm) - Length 4.6 4.5 -Post Debridement (cm) - Width 3.0 3.0 -Post Debridement (cm) - Depth 0.3 0.2 -Total Square (Post) (cm) 13.80 13.50 -Area of Debridement (cm) - Length 4.6 4.5 -Area of Debridement (cm) - Width 3.0 3.0 -Total Square (Area) (cm) 13.80 13.50 -Tunneling No No -Undermining/Tunneling No No -Circular Undermining No No -Wound/Ulcer Outcome Not Healed Not Healed -Ulcer Cleansing Rinsed/ Rinsed/ Irrigated with Irrigated with Saline Saline -Foul Odor after Cleansing No No -Bioengineered Tissue Yes Yes -Type of Bioengineered Tissue PuraPly AM PuraPly AM -Expiration Date 12/31/22 01/21/23 -Product Lot Number [id number] -Percent Used 100 100 -Lot number of Saline Used [id number] -Bleeding Controlled with Pressure Pressure -Offloading No No -Treatment Response Procedure Procedure Tolerated Well Tolerated Well -Debridement - Subq, 1st 20sq cm No No -Apply Skin Sub - 1st 25 sq cm - Legs 1 1 -PuraPly AM (per sq cm) 16 8 Pain Scale: 0-10 Numeric Is Patient Pain Free? Yes Yes WC - Nurse 3 - General Ulcer D/C NN Start: 12/11/20 11:25 Freq: Status: Active Protocol: Activity Type Activity Date Activity User E-Sign Co-Sign Detail Recorded Client Recorded Date Recorded By Document 12/11/20 11:47 [facility] [id number] 12/11/20 11:48 [facility] 12/11/20 11:47 Wound Care Nurse 3 #3 right superior LE -Primary Dressing Applied Aquacel Extra -Other Dressing PURAPLY -Primary Dressing Covered/Secured with Dry Gauze & Roll Gauze, Secured with Tape,Other -Other Covering ABD; DRSG PER KR CORE CARRIER -Aquacel Extra 2 #2 RIGHT LOWER LEG (MAN CLUSTER) -Primary Dressing Applied Other -Other Dressing PURAPLY -Primary Dressing Covered/Secured with Dry Gauze & Roll Gauze, Secured with Tape,Other -Other Covering ABD; DRSG PER KR CORE CARRIER -Aquacel Extra 0 Right -Tubular Bandage Double Layer -Size of Tubigrip Used Size E -Size E ($) 1 Treatment Response Procedure Tolerated Well Pain Scale: 0-10 Numeric Is Patient Pain Free? Yes WC - Visit Discharge Discharge Condition Stable Ambulatory Status Ambulatory, Walker Facility Type Home Health Assessment/Plan Assessment/Plan (1) Nonhealing skin ulcer: CODE(S): L98.499 - Non-pressure chronic ulcer of skin of other sites with unspecified severity QUALIFIERS: Non-pressure ulcer stage: with fat layer exposed Qualified Code(s): L98.492 - Non-pressure chronic ulcer of skin of other sites with fat layer exposed (2) Edema, lower extremity: CODE(S): R60.0 - Localized edema (3) HTN (hypertension): CODE(S): I10 - Essential (primary) hypertension QUALIFIERS: Hypertension type: primary hypertension Qualified Code(s): I10 - Essential (primary) hypertension (4) Controlled diabetes mellitus: CODE(S): E11.9 - Type 2 diabetes mellitus without complications QUALIFIERS: Diabetes mellitus type: type 2 Diabetes mellitus terminal superintendent insulin use: without terminal superintendent use Diabetes mellitus complication status: with skin complications Diabetes mellitus complication detail: with other skin ulcer Qualified Code(s): E11.622 - Type 2 diabetes mellitus with other skin ulcer (5) Venous ulcer of right lower extremity without varicose veins: CODE(S): I87.2 - Venous insufficiency (chronic) (peripheral); L97.919 - Non-pressure chronic ulcer of unspecified part of right lower leg with unspecified severity PLAN: Yon's ulcer was evaluated and debrided today at the wound healing center. He tolerated the procedure well. Wound culture 11/29/2020 was positive for Pseudomonas and Acetinobacter bacteria, no growth of anaerobic bacteria. He completed treatment with ciprofloxacin. He received first application of Puraply by Nnea on 12/11/2020. This has improved the wound bed and there is much less slough and better granulation. Purapply #2 applied to the ulcer today per building construction teacher guidelines using 100% of product and rehydrated with hydrogel and covered with adaptic touch which was then secured with steri-strips. He tolerated this well. Will have Home Health change dressings on Wednesday and he will return to the wound center on Wednesday. He does not drive due to physical debility and is homebound. He is unable to perform dressing changes himself and lives alone. Due to the slow improvement in his healing and his multiple comorbid conditions, I feel that it is medically necessary to proceed with application of a skin dailey bstitute product such as Puraply or [place] or Apligraf in order to heal his ulcer and prevent limb loss. Will obtain previous vascular testing from [facility]. Will obtain most recent lab tests. HgbA1C from 10/16/2020 was 6.2%. Will have him use compression with single layer tubigrip. Discussed importance of increased protein intake in order to improve healing. Stressed importance of elevating his legs at or above the level of his heart and using compression to treat swelling and maintain adequate control of edema to achieve healing of his ulcer. He was advised to call with any increased edema, erythema, pain, fever or chills. He will follow up in 1 week for wound care.
[2020-12-27 11:05] VITALS: BP 149/83; PULSE 59; RESP 18; TEMP 36.3; BMI 35.6
--- NOTE | 2020-12-27 14:46 | PCM.WC.PN ---
History of Present Illness Date of Service: 12/27/20 Chief Complaint: right man History of Wound: Yon is a 74 yo gentleman with past medical history of DM type 2, venous insufficiency, who presents to the wound healing center today for evaluation and treatment of a nonhealing ulcer to his right man that has been present for approximately 2 months. He has been referred by his PCP, Dr. Payan. Yon has had a history of diabetic and venous ulcers in the past that have been treated at other wound centers - [facility] and [facility]. He had been using silvadene initially and then began using calcium alginate and gauze over the last 3 weeks due to increased drainage. He saw his PCP who referred him to the wound center for treatment and started him on Bactrim DS BID x 10 days. He completed the Bactrim and has continued to have his dressing changed M,W,F when his aide comes. He reports that his last hgbA1C was a few weeks ago and was 6.2%. He does not check his sugars at home. He sleeps in a recliner at times due to his back. He lives alone and no longer drives due to his medical issues. He denies any fever or chills or increased erythema or pain. He has been wearing compression socks but they appear to be worn out. Subjective Subjective Prieto returns today for evaluation and treatment of ulcers of his right man. He tolerated Puraply #2 application to his ulcer. He tolerated the treatment well and has had improvement in the ulcer with better granulation and less slough. He denies fever, chills, increased drainage or odor. Objective Data Objective Data Vital Signs: Vital Signs Temp Pulse Resp BP 97.3 F L 59 L 18 149/83 H 12/27/20 11:05 12/27/20 11:05 12/27/20 11:05 12/27/20 11:05 Oxygen Delivery Method Room Air Weight: 132.789 kg Body Mass Index (BMI) 35.6 Physical Exam Const alert, oriented x3 and no apparent distress General Appearance: cooperative and comfortable HEENT normocephalic and head/scalp atraumatic Resp normal respiratory effort Effort and Inspection: able to speak in complete sentences Cardio regular rate and regular rhythm Extremity General Extremity: edema bilateral lower extremity Details: mild Skin General Skin Exam: crusts, dry skin, venous stasis and dermatitis Wounds: wounds noted Wound Narrative: as noted in clinical panel Psych thought process normal, cooperative, affect normal and speech normal Debridement Note Debridement Note Wound debrided: right lower leg Laterality: Right Type of Debridement: Excisional debridement Anesthesia Used: 4% Lidocaine Solution, 5% Lidocaine Gel and Cetacaine Depth: Down to and including healthy tissue and in the subcutaneous layer Percentage of wound debrided: 100 Instrument Used: 5mm curette Tissue Removed: Yellow slough, devitalized tissue Severity: Fat Layer Exposed Amount of bleeding with debridement: Mild Bleeding Controlled with: Compression and gauze Patient tolerated procedure: Patient tolerated procedure well Post-Debridement Measurements and Additional Note: Post-Debridement Measurements/Treatment - Nurse 1 - General Ulcer Assessment Start: 12/11/20 11:25 Freq: Status: Active Protocol: ROSIO Activity Type Activity Date Activity User E-Sign Co-Sign Detail Recorded Client Recorded Date Recorded By Document 12/11/20 11:40 AK [id number] 12/11/20 11:42 AK Document 12/20/20 11:31 DL [id number] 12/20/20 11:44 DL Document 12/27/20 11:05 [facility] [id number] 12/27/20 11:19 BM 12/11/20 12/20/20 12/27/20 11:40 11:31 11:05 - Today's Visit Information Type of service Initial Visit Follow-up Visit Follow-up Visit (Physician/JUNIOR ARCHITECT (Physician/JUNIOR ARCHITECT ) ) Arrival Mode Ambulatory Ambulatory, Ambulatory, Walker Walker Transfer Assistance None None Patient Identification Verified (Name & Yes Yes Yes ) Patient Requires Transmission-Based No No No Precautions Safety Precautions NA Height and Weight Body Mass Index (BMI) 35.6 35.6 35.6 BMI Classification Obese Obese Obese Vital Signs Temperature (97.8 F-99.1 F) 95.9 F L 97.6 F L 97.3 F L Temperature Source Temporal Temporal Temporal Pulse Rate (60-100) 63 63 59 L Pulse Location Monitor Monitor Monitor Respiratory Rate (12-18) 20 H 18 Respiratory rate source Observation Observation Oxygen Delivery Method Room Air Blood Pressure (90/60-120/80) 166/76 H 138/76 H 149/83 H Blood Pressure Mean (mm Hg) 106 96 105 Source Monitor Monitor Monitor Position Sitting Blood Pressure Location Left Forearm History Since Last Visit- (Skip if this is Patient's initial visit) Have you changed medications since your No No No last visit? Any new allergies or adverse reactions No No No Had a fall/change in ADL's that may No No increase risk of falls Signs or symptoms of abuse and/or No No neglect since last visit Have you been in the hospital since your No No No last visit? Has dressing in place as prescribed Yes Yes Yes Has compression in place as prescribed Yes Yes Yes Has offloadiing in place as prescribed N/A Yes No Experienced any changes in pain level or No No No management Left Footwear Regular Shoe Regular Shoe Right Footwear Regular Shoe Regular Shoe Pain Scale: 0-10 Numeric Is Patient Pain Free? Yes Yes WC - Nurse 1 - General Ulcer Measurement Start: 12/11/20 11:25 Freq: Status: Active Protocol: Activity Type Activity Date Activity User E-Sign Co-Sign Detail Recorded Client Recorded Date Recorded By Document 12/11/20 11:40 AK [id number] 12/11/20 11:42 AK Document 12/20/20 11:31 DL [id number] 12/20/20 11:44 DL Document 12/27/20 11:05 [facility] [id number] 12/27/20 11:19 BM 12/11/20 12/20/20 12/27/20 11:40 11:31 11:05 Wound Center Nurse 1 #3 right superior LE -Current Size (cm) - Length 2.3 -Current Size (cm) - Width 2.8 -Current Size (cm) - Depth 0.2 -Total Square Cm 6.44 -Photo Taken No -Exudate Amt Medium -Exudate Type Serosanguineous -Wound Margin Distinct, Outline Attached -Granulation Amt None Present (0 %) -Necrosis Amt Large (67-100%) -Necrotic Tissue Type Adherent Slough -Structure Exposed N/A -Texture (Mariajose-wound Skin Appearance) Excoriation, Scarring -Moisture (Mariajose-wound Skin Appearance) Weeping -Color (Mariajose-wound Skin Appearance) Hemosiderin Staining -Temperature (Mariajose-wound Skin No Abnormality Appearance) (Pt Warm) -Tenderness on Palpation (Mariajose-wound No Skin Appearance) -Ulcer Cleansing Soap and Water -Foul Odor after Cleansing No -Anesthetic Used 4% Lidocaine Solution #2 RIGHT LOWER LEG (MAN CLUSTER) -Combined with other wound No No -Current Size (cm) - Length 5 0.6 2.4 -Current Size (cm) - Width 11 0.7 2.5 -Current Size (cm) - Depth 0.1 0.3 0.2 -Total Square Cm 55 0.42 6.00 -Photo Taken No No -Epithelialization None Present -Tunneling No No -Undermining/Tunneling No No -Circular Undermining No No -Exudate Amt Large Small Large -Exudate Type Serosanguineous Serosanguineous -Wound Margin Distinct, Distinct, Flat & Intact Outline Outline Attached Attached -Granulation Amt Small (1-33%) Medium (34-66%) -Granulation Quality Makena Makena -Slough/Fibrin Yes -Necrosis Amt Large (67-100%) Small (1-33%) Small (1-33%) -Necrotic Tissue Type Adherent Slough Adherent Slough Adherent Slough -Structure Exposed N/A N/A N/A -Texture (Mariajose-wound Skin Appearance) Assessed, Excoriation, Assessed Scarring Scarring -Moisture (Mariajose-wound Skin Appearance) Assessed, Weeping Assessed Weeping -Color (Mariajose-wound Skin Appearance) Assessed,Rubor Hemosiderin Assessed Staining -Temperature (Mariajose-wound Skin No Abnormality No Abnormality No Abnormality Appearance) (Pt Warm) (Pt Warm) (Pt Warm) -Tenderness on Palpation (Mariajose-wound No No No Skin Appearance) -Ulcer Cleansing Rinsed/ Soap and Water Wound Cleanser Irrigated with Saline -Foul Odor after Cleansing No No No -Anesthetic Used 5% Lidocaine 4% Lidocaine 5% Lidocaine Gel Solution Gel Lower Limb Edema Present No Yes Right Calf (cm) 48 51.7 48.2 Right Ankle (cm) 25 24.5 24.4 WC - Nurse 2 - General Ulcer CM Notes Start: 12/11/20 11:25 Freq: Status: Active Protocol: Activity Type Activity Date Activity User E-Sign Co-Sign Detail Recorded Client Recorded Date Recorded By Document 12/11/20 11:26 MW [id number] 12/11/20 11:41 MW Document 12/20/20 12:33 MW [id number] 12/20/20 12:45 MW Document 12/27/20 12:26 MW [id number] 12/27/20 12:43 MW 12/11/20 12/20/20 12/27/20 11:26 12:33 12:26 Wound Center Nurse 2 #3 right superior LE -Time 11:30 12:33 -Correct Patient Yes Yes -Correct Side, Site, Position Yes Yes -Correct Procedure Yes Yes -Procedure Performed Yes No -Type of Procedure Debridement -Clinical Debridement Subcutaneous -Tissue Removed Subcutaneous -Post Debridement (cm) - Length 1.0 0 -Post Debridement (cm) - Width 1.5 0 -Post Debridement (cm) - Depth 0.1 0 -Total Square (Post) (cm) 1.50 0 -Area of Debridement (cm) - Length 1.0 -Area of Debridement (cm) - Width 1.5 -Total Square (Area) (cm) 1.50 -Tunneling No -Undermining/Tunneling No -Circular Undermining No -Wound/Ulcer Outcome Not Healed Healed- Epithelialized -Ulcer Cleansing Rinsed/ Irrigated with Saline -Foul Odor after Cleansing No -Bioengineered Tissue No -Bleeding Controlled with Pressure -Offloading No -Treatment Response Procedure Tolerated Well -Debridement - Subq, 1st 20sq cm No #2 RIGHT LOWER LEG (MAN CLUSTER) -Time 11:28 12:35 12:26 -Correct Patient Yes Yes Yes -Correct Side, Site, Position Yes Yes Yes -Correct Procedure Yes Yes Yes -Procedure Performed Yes Yes Yes -Type of Procedure Debridement Debridement Debridement -Clinical Debridement Subcutaneous Subcutaneous Subcutaneous -Tissue Removed Subcutaneous Subcutaneous Subcutaneous -Post Debridement (cm) - Length 4.6 4.5 4.5 -Post Debridement (cm) - Width 3.0 3.0 2.5 -Post Debridement (cm) - Depth 0.3 0.2 0.2 -Total Square (Post) (cm) 13.80 13.50 11.25 -Area of Debridement (cm) - Length 4.6 4.5 4.5 -Area of Debridement (cm) - Width 3.0 3.0 2.5 -Total Square (Area) (cm) 13.80 13.50 11.25 -Tunneling No No No -Undermining/Tunneling No No No -Circular Undermining No No No -Wound/Ulcer Outcome Not Healed Not Healed Not Healed -Ulcer Cleansing Rinsed/ Rinsed/ Rinsed/ Irrigated with Irrigated with Irrigated with Saline Saline Saline -Foul Odor after Cleansing No No No -Bioengineered Tissue Yes Yes Yes -Type of Bioengineered Tissue PuraPly AM PuraPly AM NuShield -Expiration Date 12/31/22 01/21/23 11/24/23 -Product Lot Number [id number] -Percent Used 100 100 100 -Lot number of Saline Used [id number] -Bleeding Controlled with Pressure Pressure Pressure -Offloading No No No -Treatment Response Procedure Procedure Procedure Tolerated Well Tolerated Well Tolerated Well -Debridement - Subq, 1st 20sq cm No No No -Apply Skin Sub - 1st 25 sq cm - Legs 1 1 1 -NuShield (per sq cm) 6 -PuraPly AM (per sq cm) 16 8 Pain Scale: 0-10 Numeric Is Patient Pain Free? Yes Yes - Nurse 3 - General Ulcer D/C NN Start: 12/11/20 11:25 Freq: Status: Active Protocol: Activity Type Activity Date Activity User E-Sign Co-Sign Detail Recorded Client Recorded Date Recorded By Document 12/11/20 11:47 [facility] [id number] 12/11/20 11:48 [facility] Document 12/20/20 12:59 RB [id number] 12/20/20 13:00 RB Document 12/27/20 12:54 RB [id number] 12/27/20 12:55 RB 12/11/20 12/20/20 12/27/20 11:47 12:59 12:54 Wound Care Nurse 3 #3 right superior LE -Primary Dressing Applied Aquacel Extra -Other Dressing PURAPLY -Primary Dressing Covered/Secured with Dry Gauze & Roll Gauze, Secured with Tape,Other -Other Covering ABD; [facility] -Aquacel Extra 2 #2 RIGHT LOWER LEG (MAN CLUSTER) -Primary Dressing Applied Other Aquacel Extra -Other Dressing PURAPLY abd -Primary Dressing Covered/Secured with Dry Gauze & Dry Gauze,Dry Dry Gauze,Dry Roll Gauze, Gauze & Roll Gauze & Roll Secured with Gauze,Secured Gauze,Secured Tape,Other with Tape with Tape -Other Covering ABD; DRSG PER SERVICE TESTER -Aquacel Extra 0 1 Right -Tubular Bandage Double Layer Double Layer -Size of Tubigrip Used Size E Size E -Size E ($) 1 2 Treatment Response Procedure Procedure Tolerated Well Tolerated Well Pain Scale: 0-10 Numeric Is Patient Pain Free? Yes Yes Yes WC - Visit Discharge Discharge Condition Stable Stable Stable Ambulatory Status Ambulatory, Ambulatory, Ambulatory, Walker Walker Walker Transportation Private Auto Private Auto Medication Reconcilliation completed & No No provided to patient/care provider Clinical Summary of Care Provided Yes Yes Facility Type Home Health Assessment/Plan Assessment/Plan (1) Nonhealing skin ulcer: CODE(S): L98.499 - Non-pressure chronic ulcer of skin of other sites with unspecified severity QUALIFIERS: Non-pressure ulcer stage: with fat layer exposed Qualified Code(s): L98.492 - Non-pressure chronic ulcer of skin of other sites with fat layer exposed (2) Edema, lower extremity: CODE(S): R60.0 - Localized edema (3) HTN (hypertension): CODE(S): I10 - Essential (primary) hypertension QUALIFIERS: Hypertension type: primary hypertension Qualified Code(s): I10 - Essential (primary) hypertension (4) Controlled diabetes mellitus: CODE(S): E11.9 - Type 2 diabetes mellitus without complications QUALIFIERS: Diabetes mellitus type: type 2 Diabetes mellitus intermediate designer insulin use: without usp use Diabetes mellitus complication status: with skin complications Diabetes mellitus complication detail: with other skin ulcer Qualified Code(s): E11.622 - Type 2 diabetes mellitus with other skin ulcer (5) Venous ulcer of right lower extremity without varicose veins: CODE(S): I87.2 - Venous insufficiency (chronic) (peripheral); L97.919 - Non-pressure chronic ulcer of unspecified part of right lower leg with unspecified severity PLAN: Yon's ulcer was evaluated and debrided today at the wound healing center. He tolerated the procedure well. Wound culture 11/29/2020 was positive for Pseudomonas and Acetinobacter bacteria, no growth of anaerobic bacteria. He completed treatment with ciprofloxacin. He received second application of Puraply on 12/20/2020. This has improved the wound bed and there is much less slough and better granulation. Nushield #1 (#3 of organogenesis products) applied to the ulcer today per propagator guidelines using 100% of product and rehydrated with hydrogel and covered with adaptic touch which was then secured with steri-strips. He tolerated this well. Will have Home Health change dressings on Wednesday and he will return to the wound center on Wednesday with Nena and then will follow up with Dr. Fields on 01/10/2021. Home health will change the outer dressings the following week on Thursday 01/04, Saturday 01/06, Monday 01/08. He does not drive due to physical debility and is homebound. He is unable to perform dressing changes himself and lives alone. Due to the slow improvement in his healing and his multiple comorbid conditions, I feel that it is medically necessary to proceed with application of a skin substitute product such as Puraply or Nushield or Apligraf in order to heal his ulcer and prevent limb loss. Will obtain previous vascular testing from [facility]. Will obtain most recent lab tests. HgbA1C from 10/16/2020 was 6.2%. Will have him use compression with single layer tubigrip. Discussed importance of increased protein intake in order to improve healing. Stressed importance of elevating his legs at or above the level of his heart and using compression to treat swelling and maintain adequate control of edema to achieve healing of his ulcer. He was advised to call with any increased edema, erythema, pain, fever or chills. He will follow up in 1 week for wound care.
[2021-01-01 11:05] VITALS: BP 125/83; PULSE 63; RESP 18; TEMP 35.7; BMI 35.6
--- NOTE | 2021-01-01 11:48 | PCM.WC.PN ---
History of Present Illness Date of Service: 01/01/21 Chief Complaint: right man History of Wound: Yon is a 74 yo gentleman with past medical history of DM type 2, venous insufficiency, who presents to the wound healing center today for evaluation and treatment of a nonhealing ulcer to his right man that has been present for approximately 2 months. He has been referred by his PCP, Dr. Payan. Yon has had a history of diabetic and venous ulcers in the past that have been treated at other wound centers - [facility] and [facility]. He had been using silvadene initially and then began using calcium alginate and gauze over the last 3 weeks due to increased drainage. He saw his PCP who referred him to the wound center for treatment and started him on Bactrim DS BID x 10 days. He completed the Bactrim and has continued to have his dressing changed M,W,F when his aide comes. He reports that his last hgbA1C was a few weeks ago and was 6.2%. He does not check his sugars at home. He sleeps in a recliner at times due to his back. He lives alone and no longer drives due to his medical issues. He denies any fever or chills or increased erythema or pain. He has been wearing compression socks but they appear to be worn out. Progress of Wound: Measurements are smaller still has a cobblestoning texture to the skin very macerated. Lots of drainage on his dressings Subjective Subjective Patient is happy with his results Objective Data Objective Data We will continue the new shield #4 applied and he needs to change his Aquacel extra more often for the absorption of the drainage. Vital Signs: Vital Signs Temp Pulse Resp BP 96.3 F L 63 18 125/83 H 01/01/21 11:05 01/01/21 11:05 01/01/21 11:05 01/01/21 11:05 Oxygen Delivery Method Room Air Weight: 292 lb 11.996 oz Body Mass Index (BMI) 35.6 Lab / Micro Data Attestation: I reviewed the patient's lab results. Physical Exam Const alert, oriented x3 and no apparent distress General Appearance: cooperative and comfortable HEENT normocephalic and head/scalp atraumatic Resp normal respiratory effort Effort and Inspection: able to speak in complete sentences Cardio regular rate and regular rhythm Extremity General Extremity: edema bilateral lower extremity Details: mild Skin General Skin Exam: crusts, dry skin, venous stasis and dermatitis Wounds: wounds noted Wound Narrative: as noted in clinical panel Psych thought process normal, cooperative, affect normal and speech normal Debridement Note Debridement Note Wound debrided: Right man peripheral vascular with ulcers Laterality: Right Type of Debridement: Excisional debridement Anesthesia Used: 5% Lidocaine Gel Depth: Down to and including healthy tissue Percentage of wound debrided: 100 Instrument Used: 7mm curette Tissue Removed: Devitalized tissue fibrin some slough Severity: Fat Layer Exposed Amount of bleeding with debridement: Mild Bleeding Controlled with: Compression and gauze Patient tolerated procedure: Patient tolerated procedure well Post-Debridement Measurements and Additional Note: Post-Debridement Measurements/Treatment WC - Nurse 1 - General Ulcer Assessment Start: 12/11/20 11:25 Freq: Status: Active Protocol: ROSIO Activity Type Activity Date Activity User E-Sign Co-Sign Detail Recorded Client Recorded Date Recorded By Document 12/11/20 11:40 AK [id number] 12/11/20 11:42 AK Document 12/20/20 11:31 DL [id number] 12/20/20 11:44 DL Document 12/27/20 11:05 [facility] [id number] 12/27/20 11:19 BM Document 01/01/21 11:05 [facility] [id number] 01/01/21 11:11 BM 12/11/20 12/20/20 12/27/20 11:40 11:31 11:05 - Today's Visit Information Type of service Initial Visit Follow-up Visit Follow-up Visit (Physician/COMMERCIAL CREDIT ANALYST (Physician/COMMERCIAL CREDIT ANALYST ) ) Arrival Mode Ambulatory Ambulatory, Ambulatory, Walker Walker Transfer Assistance None None Patient Identification Verified (Name & Yes Yes Yes ) Patient Requires Transmission-Based No No No Precautions Safety Precautions NA Height and Weight Body Mass Index (BMI) 35.6 35.6 35.6 BMI Classification Obese Obese Obese Vital Signs Temperature (97.8 F-99.1 F) 95.9 F L 97.6 F L 97.3 F L Temperature Source Temporal Temporal Temporal Pulse Rate (60-100) 63 63 59 L Pulse Location Monitor Monitor Monitor Respiratory Rate (12-18) 20 H 18 Respiratory rate source Observation Observation Oxygen Delivery Method Room Air Blood Pressure (90/60-120/80) 166/76 H 138/76 H 149/83 H Blood Pressure Mean (mm Hg) 106 96 105 Source Monitor Monitor Monitor Position Sitting Blood Pressure Location Left Forearm History Since Last Visit- (Skip if this is Patient's initial visit) Have you changed medications since your No No No last visit? Any new allergies or adverse reactions No No No Had a fall/change in ADL's that may No No increase risk of falls Signs or symptoms of abuse and/or No No neglect since last visit Have you been in the hospital since your No No No last visit? Has dressing in place as prescribed Yes Yes Yes Has compression in place as prescribed Yes Yes Yes Has offloadiing in place as prescribed N/A Yes No Experienced any changes in pain level or No No No management Left Footwear Regular Shoe Regular Shoe Right Footwear Regular Shoe Regular Shoe Pain Scale: 0-10 Numeric Is Patient Pain Free? Yes Yes 01/01/21 11:05 WC - Today's Visit Information Type of service Follow-up Visit (Physician/COMMERCIAL CREDIT ANALYST ) Arrival Mode Walker Transfer Assistance None Patient Identification Verified (Name & Yes ) Patient Requires Transmission-Based No Precautions Safety Precautions NA Height and Weight Body Mass Index (BMI) 35.6 BMI Classification Obese Vital Signs Temperature (97.8 F-99.1 F) 96.3 F L Temperature Source Temporal Pulse Rate (60-100) 63 Pulse Location Monitor Respiratory Rate (12-18) 18 Respiratory rate source Observation Oxygen Delivery Method Blood Pressure (90/60-120/80) 125/83 H Blood Pressure Mean (mm Hg) 97 Source Monitor Position Blood Pressure Location History Since Last Visit- (Skip if this is Patient's initial visit) Have you changed medications since your No last visit? Any new allergies or adverse reactions No Had a fall/change in ADL's that may No increase risk of falls Signs or symptoms of abuse and/or No neglect since last visit Have you been in the hospital since your No last visit? Has dressing in place as prescribed Yes Has compression in place as prescribed Yes Has offloadiing in place as prescribed N/A Experienced any changes in pain level or Yes management Left Footwear Regular Shoe Right Footwear Regular Shoe Pain Scale: 0-10 Numeric Is Patient Pain Free? Yes - Nurse 1 - General Ulcer Measurement Start: 12/11/20 11:25 Freq: Status: Active Protocol: Activity Type Activity Date Activity User E-Sign Co-Sign Detail Recorded Client Recorded Date Recorded By Document 12/11/20 11:40 AK [id number] 12/11/20 11:42 AK Document 12/20/20 11:31 DL [id number] 12/20/20 11:44 DL Document 12/27/20 11:05 [facility] [id number] 12/27/20 11:19 BMF Document 01/01/21 11:05 BM [id number] 01/01/21 11:11 [facility] 12/11/20 12/20/20 12/27/20 11:40 11:31 11:05 Wound Center Nurse 1 #3 right superior LE -Current Size (cm) - Length 2.3 -Current Size (cm) - Width 2.8 -Current Size (cm) - Depth 0.2 -Total Square Cm 6.44 -Photo Taken No -Exudate Amt Medium -Exudate Type Serosanguineous -Wound Margin Distinct, Outline Attached -Granulation Amt None Present (0 %) -Necrosis Amt Large (67-100%) -Necrotic Tissue Type Adherent Slough -Structure Exposed N/A -Texture (Mariajose-wound Skin Appearance) Excoriation, Scarring -Moisture (Mariajose-wound Skin Appearance) Weeping -Color (Mariajose-wound Skin Appearance) Hemosiderin Staining -Temperature (Mariajose-wound Skin No Abnormality Appearance) (Pt Warm) -Tenderness on Palpation (Mariajose-wound No Skin Appearance) -Ulcer Cleansing Soap and Water -Foul Odor after Cleansing No -Anesthetic Used 4% Lidocaine Solution #2 RIGHT LOWER LEG (MAN CLUSTER) -Combined with other wound No No -Current Size (cm) - Length 5 0.6 2.4 -Current Size (cm) - Width 11 0.7 2.5 -Current Size (cm) - Depth 0.1 0.3 0.2 -Total Square Cm 55 0.42 6.00 -Photo Taken No No -Epithelialization None Present -Tunneling No No -Undermining/Tunneling No No -Circular Undermining No No -Exudate Amt Large Small Large -Exudate Type Serosanguineous Serosanguineous -Wound Margin Distinct, Distinct, Flat & Intact Outline Outline Attached Attached -Granulation Amt Small (1-33%) Medium (34-66%) -Granulation Quality [place] -Slough/Fibrin Yes -Necrosis Amt Large (67-100%) Small (1-33%) Small (1-33%) -Necrotic Tissue Type Adherent Slough Adherent Slough Adherent Slough -Structure Exposed N/A N/A N/A -Texture (Mariajose-wound Skin Appearance) Assessed, Excoriation, Assessed Scarring Scarring -Moisture (Mariajose-wound Skin Appearance) Assessed, Weeping Assessed Weeping -Color (Mariajose-wound Skin Appearance) Assessed,Rubor Hemosiderin Assessed Staining -Temperature (Mariajose-wound Skin No Abnormality No Abnormality No Abnormality Appearance) (Pt Warm) (Pt Warm) (Pt Warm) -Tenderness on Palpation (Mariajose-wound No No No Skin Appearance) -Ulcer Cleansing Rinsed/ Soap and Water Wound Cleanser Irrigated with Saline -Foul Odor after Cleansing No No No -Anesthetic Used 5% Lidocaine 4% Lidocaine 5% Lidocaine Gel Solution Gel Lower Limb Edema Present No Yes Right Calf (cm) 48 51.7 48.2 Right Ankle (cm) 25 24.5 24.4 01/01/21 11:05 Wound Center Nurse 1 #3 right superior LE -Current Size (cm) - Length -Current Size (cm) - Width -Current Size (cm) - Depth -Total Square Cm -Photo Taken -Exudate Amt -Exudate Type -Wound Margin -Granulation Amt -Necrosis Amt -Necrotic Tissue Type -Structure Exposed -Texture (Mariajose-wound Skin Appearance) -Moisture (Mariajose-wound Skin Appearance) -Color (Mariajose-wound Skin Appearance) -Temperature (Mariajose-wound Skin Appearance) -Tenderness on Palpation (Mariajose-wound Skin Appearance) -Ulcer Cleansing -Foul Odor after Cleansing -Anesthetic Used #2 RIGHT LOWER LEG (MAN CLUSTER) -Combined with other wound -Current Size (cm) - Length 8.5 -Current Size (cm) - Width 4 -Current Size (cm) - Depth 0.2 -Total Square Cm 34.0 -Photo Taken -Epithelialization -Tunneling -Undermining/Tunneling -Circular Undermining -Exudate Amt -Exudate Type Serosanguineous -Wound Margin Distinct, Outline Attached -Granulation Amt Medium (34-66%) -Granulation Quality -Slough/Fibrin Yes -Necrosis Amt Medium (34-66%) -Necrotic Tissue Type Adherent Slough -Structure Exposed -Texture (Mariajose-wound Skin Appearance) Assessed -Moisture (Mariajose-wound Skin Appearance) Assessed -Color (Mariajose-wound Skin Appearance) Assessed -Temperature (Mariajose-wound Skin No Abnormality Appearance) (Pt Warm) -Tenderness on Palpation (Mariajose-wound Skin Appearance) -Ulcer Cleansing Soap and Water -Foul Odor after Cleansing No -Anesthetic Used 4% Lidocaine Solution Lower Limb Edema Present Right Calf (cm) 48.8 Right Ankle (cm) 24.4 WC - Nurse 2 - General Ulcer CM Notes Start: 12/11/20 11:25 Freq: Status: Active Protocol: Activity Type Activity Date Activity User E-Sign Co-Sign Detail Recorded Client Recorded Date Recorded By Document 12/11/20 11:26 MW [id number] 12/11/20 11:41 MW Document 12/20/20 12:33 MW [id number] 12/20/20 12:45 MW Document 12/27/20 12:26 MW [id number] 12/27/20 12:43 MW Document 01/01/21 11:19 MW [id number] 01/01/21 11:29 MW 12/11/20 12/20/20 12/27/20 11:26 12:33 12:26 Wound Center Nurse 2 #3 right superior LE -Time 11:30 12:33 -Correct Patient Yes Yes -Correct Side, Site, Position Yes Yes -Correct Procedure Yes Yes -Procedure Performed Yes No -Type of Procedure Debridement -Clinical Debridement Subcutaneous -Tissue Removed Subcutaneous -Post Debridement (cm) - Length 1.0 0 -Post Debridement (cm) - Width 1.5 0 -Post Debridement (cm) - Depth 0.1 0 -Total Square (Post) (cm) 1.50 0 -Area of Debridement (cm) - Length 1.0 -Area of Debridement (cm) - Width 1.5 -Total Square (Area) (cm) 1.50 -Tunneling No -Undermining/Tunneling No -Circular Undermining No -Wound/Ulcer Outcome Not Healed Healed- Epithelialized -Ulcer Cleansing Rinsed/ Irrigated with Saline -Foul Odor after Cleansing No -Bioengineered Tissue No -Bleeding Controlled with Pressure -Offloading No -Treatment Response Procedure Tolerated Well -Debridement - Subq, 1st 20sq cm No #2 RIGHT LOWER LEG (MAN CLUSTER) -Time 11:28 12:35 12:26 -Correct Patient Yes Yes Yes -Correct Side, Site, Position Yes Yes Yes -Correct Procedure Yes Yes Yes -Procedure Performed Yes Yes Yes -Type of Procedure Debridement Debridement Debridement -Clinical Debridement Subcutaneous Subcutaneous Subcutaneous -Tissue Removed Subcutaneous Subcutaneous Subcutaneous -Post Debridement (cm) - Length 4.6 4.5 4.5 -Post Debridement (cm) - Width 3.0 3.0 2.5 -Post Debridement (cm) - Depth 0.3 0.2 0.2 -Total Square (Post) (cm) 13.80 13.50 11.25 -Area of Debridement (cm) - Length 4.6 4.5 4.5 -Area of Debridement (cm) - Width 3.0 3.0 2.5 -Total Square (Area) (cm) 13.80 13.50 11.25 -Tunneling No No No -Undermining/Tunneling No No No -Circular Undermining No No No -Wound/Ulcer Outcome Not Healed Not Healed Not Healed -Ulcer Cleansing Rinsed/ Rinsed/ Rinsed/ Irrigated with Irrigated with Irrigated with Saline Saline Saline -Foul Odor after Cleansing No No No -Bioengineered Tissue Yes Yes Yes -Type of Bioengineered Tissue PuraPly AM PuraPly AM NuShield -Expiration Date 12/31/22 01/21/23 11/24/23 -Product Lot Number [id number] -Percent Used 100 100 100 -Lot number of Saline Used [id number] -Bleeding Controlled with Pressure Pressure Pressure -Offloading No No No -Type of Offloading -Treatment Response Procedure Procedure Procedure Tolerated Well Tolerated Well Tolerated Well -Debridement - Subq, 1st 20sq cm No No No -Apply Skin Sub - 1st 25 sq cm - Legs 1 1 1 -NuShield (per sq cm) 6 -PuraPly AM (per sq cm) 16 8 Pain Scale: 0-10 Numeric Is Patient Pain Free? Yes Yes 01/01/21 11:19 Wound Center Nurse 2 #3 right superior LE -Time -Correct Patient -Correct Side, Site, Position -Correct Procedure -Procedure Performed -Type of Procedure -Clinical Debridement -Tissue Removed -Post Debridement (cm) - Length -Post Debridement (cm) - Width -Post Debridement (cm) - Depth -Total Square (Post) (cm) -Area of Debridement (cm) - Length -Area of Debridement (cm) - Width -Total Square (Area) (cm) -Tunneling -Undermining/Tunneling -Circular Undermining -Wound/Ulcer Outcome -Ulcer Cleansing -Foul Odor after Cleansing -Bioengineered Tissue -Bleeding Controlled with -Offloading -Treatment Response -Debridement - Subq, 1st 20sq cm #2 RIGHT LOWER LEG (MAN CLUSTER) -Time 11:19 -Correct Patient Yes -Correct Side, Site, Position Yes -Correct Procedure Yes -Procedure Performed Yes -Type of Procedure Debridement -Clinical Debridement Subcutaneous -Tissue Removed Subcutaneous -Post Debridement (cm) - Length 4.8 -Post Debridement (cm) - Width 2.5 -Post Debridement (cm) - Depth 0.3 -Total Square (Post) (cm) 12.00 -Area of Debridement (cm) - Length 4.8 -Area of Debridement (cm) - Width 2.5 -Total Square (Area) (cm) 12.00 -Tunneling No -Undermining/Tunneling No -Circular Undermining No -Wound/Ulcer Outcome Not Healed -Ulcer Cleansing Rinsed/ Irrigated with Saline -Foul Odor after Cleansing No -Bioengineered Tissue Yes -Type of Bioengineered Tissue NuShield -Expiration Date 11/24/23 -Product Lot Number [id number] -Percent Used 100 -Lot number of Saline Used [id number] -Bleeding Controlled with Pressure -Offloading -Type of Offloading Total Contact Cast (TCC) - Left ($) -Treatment Response Procedure Tolerated Well -Debridement - Subq, 1st 20sq cm No -Apply Skin Sub - 1st 25 sq cm - Legs 1 -NuShield (per sq cm) 6 -PuraPly AM (per sq cm) Pain Scale: 0-10 Numeric Is Patient Pain Free? Yes WC - Nurse 3 - General Ulcer D/C NN Start: 12/11/20 11:25 Freq: Status: Active Protocol: Activity Type Activity Date Activity User E-Sign Co-Sign Detail Recorded Client Recorded Date Recorded By Document 12/11/20 11:47 BMF [id number] 12/11/20 11:48 BMF Document 12/20/20 12:59 RB [id number] 12/20/20 13:00 RB Document 12/27/20 12:54 RB [id number] 12/27/20 12:55 RB Document 01/01/21 11:29 MW [id number] 01/01/21 11:31 MW 12/11/20 12/20/20 12/27/20 11:47 12:59 12:54 Wound Care Nurse 3 #3 right superior LE -Primary Dressing Applied Aquacel Extra -Other Dressing PURAPLY -Primary Dressing Covered/Secured with Dry Gauze & Roll Gauze, Secured with Tape,Other -Other Covering ABD; DRSG PER KR LOG MANAGER -Aquacel Extra 2 #2 RIGHT LOWER LEG (MAN CLUSTER) -Ulcer Cleansing -Foul Odor after Cleansing -Negative Pressure Wound Therapy -Primary Dressing Applied Other Aquacel Extra -Other Dressing PURAPLY abd -Primary Dressing Covered/Secured with Dry Gauze & Dry Gauze,Dry Dry Gauze,Dry Roll Gauze, Gauze & Roll Gauze & Roll Secured with Gauze,Secured Gauze,Secured Tape,Other with Tape with Tape -Other Covering ABD; DRSG PER KR LOG MANAGER -Aquacel Extra 0 1 Right -Lotion applied to leg before compression wrap -Tubular Bandage Double Layer Double Layer -Size of Tubigrip Used Size E Size E -Size E ($) 1 2 Treatment Response Procedure Procedure Tolerated Well Tolerated Well Pain Scale: 0-10 Numeric Is Patient Pain Free? Yes Yes Yes Teaching: Wound Center Dressing Your Wound -Person Taught -Teaching Method -Response to teaching WC - Visit Discharge Discharge Condition Stable Stable Stable Ambulatory Status Ambulatory, Ambulatory, Ambulatory, Walker Walker Walker Transportation Private Auto Private Auto Accompanied by Medication Reconcilliation completed & No No provided to patient/care provider Clinical Summary of Care Provided Yes Yes Facility Type Home Health 01/01/21 11:29 Wound Care Nurse 3 #3 right superior LE -Primary Dressing Applied -Other Dressing -Primary Dressing Covered/Secured with -Other Covering -Aquacel Extra #2 RIGHT LOWER LEG (MAN CLUSTER) -Ulcer Cleansing Not Cleansed -Foul Odor after Cleansing No -Negative Pressure Wound Therapy N/A -Primary Dressing Applied Aquacel Extra -Other Dressing -Primary Dressing Covered/Secured with Dry Gauze & Roll Gauze, Secured with Tape -Other Covering ABD -Aquacel Extra 1 Right -Lotion applied to leg before Yes compression wrap -Tubular Bandage Double Layer -Size of Tubigrip Used Size E -Size E ($) 2 Treatment Response Pain Scale: 0-10 Numeric Is Patient Pain Free? Yes Teaching: Wound Center Dressing Your Wound -Person Taught Patient -Teaching Method Discussion, Demonstration -Response to teaching Verbalize understanding WC - Visit Discharge Discharge Condition Stable Ambulatory Status Ambulatory, Walker Transportation Private Auto Accompanied by FRIEND Medication Reconcilliation completed & No provided to patient/care provider Clinical Summary of Care Provided Yes Facility Type Assessment/Plan Assessment/Plan (1) Nonhealing skin ulcer: CODE(S): L98.499 - Non-pressure chronic ulcer of skin of other sites with unspecified severity QUALIFIERS: Non-pressure ulcer stage: with fat layer exposed Qualified Code(s): L98.492 - Non-pressure chronic ulcer of skin of other sites with fat layer exposed (2) Edema, lower extremity: CODE(S): R60.0 - Localized edema (3) HTN (hypertension): CODE(S): I10 - Essential (primary) hypertension QUALIFIERS: Hypertension type: primary hypertension Qualified Code(s): I10 - Essential (primary) hypertension (4) Controlled diabetes mellitus: CODE(S): E11.9 - Type 2 diabetes mellitus without complications QUALIFIERS: Diabetes mellitus type: type 2 Diabetes mellitus preparatory technician insulin use: without preparatory technician use Diabetes mellitus complication status: with skin complications Diabetes mellitus complication detail: with other skin ulcer Qualified Code(s): E11.622 - Type 2 diabetes mellitus with other skin ulcer (5) Venous ulcer of right lower extremity without varicose veins: CODE(S): I87.2 - Venous insufficiency (chronic) (peripheral); L97.919 - Non-pressure chronic ulcer of unspecified part of right lower leg with unspecified severity PLAN: New shield #4 was applied to the right lower leg to ulcer areas cluster on the right man. Veil covered over and Steri-Strips and they will apply some Aquacel extra that needs to be changed more often maybe every day. Patient is have continue having nursing change dressings when not at the wound center. Patient is homebound Follow-up with Dr. Posey in the next weeks Continue his compressions and follow-up with any other problems.
== END 2021-01-07 23:59 ==
LOC: WC 11:15
PROVIDERS: Visit Provider Family Medicine
DX: E11.622 Type 2 diabetes mellitus with other skin ulcer (principal); L98.492 Non-pressure chronic ulcer of skin of other sites with fat layer exposed; R60.0 Localized edema; I10 Essential (primary) hypertension; I87.2 Venous insufficiency (chronic) (peripheral); F17.200 Nicotine dependence, unspecified, uncomplicated; G47.30 Sleep apnea, unspecified; J44.9 Chronic obstructive pulmonary disease, unspecified; Z79.01 Long term (current) use of anticoagulants; Z79.4 Long term (current) use of insulin; Z79.51 Long term (current) use of inhaled steroids; Z79.84 Long term (current) use of oral hypoglycemic drugs
CPT/HCPCS: 15271; 29445; Q4160; Q4196

== ENCOUNTER 2021-02-04 13:30 | Outpatient (RCR) | payer MEDICARE, MEDICAID, SELFPAY ==
[2021-01-08 00:33] VITALS: BP 125/83; PULSE 63; RESP 18; TEMP 35.7; BMI 35.6
[2021-01-10 11:34] VITALS: BP 142/62; PULSE 61; RESP 18; TEMP 36.2; BMI 35.6
--- NOTE | 2021-01-10 15:26 | PN.PCM_ITS ---
History of Present Illness Date of Service: 01/10/21 Chief Complaint: right man History of Wound: Yon is a 74 yo gentleman with past medical history of DM type 2, venous insufficiency, who presents to the wound healing center today for evaluation and treatment of a nonhealing ulcer to his right man that has been present for approximately 2 months. He has been referred by his PCP, Dr. Payan. Yon has had a history of diabetic and venous ulcers in the past that have been treated at other wound centers - [facility] and [facility]. He had been using silvadene initially and then began using calcium alginate and gauze over the last 3 weeks due to increased drainage. He saw his PCP who referred him to the wound center for treatment and started him on Bactrim DS BID x 10 days. He completed the Bactrim and has continued to have his dressing changed M,W,F when his aide comes. He reports that his last hgbA1C was a few weeks ago and was 6.2%. He does not check his sugars at home. He sleeps in a recliner at times due to his back. He lives alone and no longer drives due to his medical issues. He denies any fever or chills or increased erythema or pain. He has been wearing compression socks but they appear to be worn out. Subjective Subjective Prieto returns today for evaluation and treatment of ulcers of his right man. He tolerated Nushield #2 application to his ulcer. He tolerated the treatment well and has had improvement in the ulcer with better granulation and less slough. He denies fever, chills, increased drainage or odor. Objective Data Objective Data Vital Signs: Vital Signs Temp Pulse Resp BP 97.2 F L 61 18 142/62 H 01/10/21 11:34 01/10/21 11:34 01/10/21 11:34 01/10/21 11:34 Oxygen Delivery Method Room Air Weight: 132.789 kg Body Mass Index (BMI) 35.6 Physical Exam Const alert, oriented x3 and no apparent distress General Appearance: cooperative and comfortable HEENT normocephalic and head/scalp atraumatic Mouth: oral and palatal mucosa normal Resp normal respiratory effort Effort and Inspection: able to speak in complete sentences Cardio regular rate and regular rhythm Extremity General Extremity: edema bilateral lower extremity Details: moderate Skin General Skin Exam: erythema, venous stasis and dermatitis Wound Narrative: cobblestoning of skin Psych thought process normal, cooperative and affect normal Debridement Note Debridement Note Wound debrided: right man Laterality: Right Type of Debridement: Excisional debridement Anesthesia Used: 4% Lidocaine Solution and 5% Lidocaine Gel Depth: Down to and including healthy tissue and in the subcutaneous layer Percentage of wound debrided: 100 Instrument Used: 3mm curette Tissue Removed: Yellow slough, devitalized tissue Severity: Fat Layer Exposed Amount of bleeding with debridement: Mild Bleeding Controlled with: Compression and gauze Patient tolerated procedure: Patient tolerated procedure well Post-Debridement Measurements and Additional Note: Post-Debridement Measurements/Treatment - Nurse 1 - General Ulcer Assessment Start: 01/10/21 11:34 Freq: Status: Active Protocol: ROSIO Activity Type Activity Date Activity User E-Sign Co-Sign Detail Recorded Client Recorded Date Recorded By Document 01/10/21 11:34 [facility] [id number] 01/10/21 11:50 [facility] 01/10/21 11:34 - Today's Visit Information Type of service Follow-up Visit (Physician/RUSSIAN HISTORY PROFESSOR ) Arrival Mode Ambulatory, Walker Transfer Assistance None Patient Requires Transmission-Based No Precautions Height and Weight Body Mass Index (BMI) 35.6 BMI Classification Obese Vital Signs Temperature (97.8 F-99.1 F) 97.2 F L Temperature Source Temporal Pulse Rate (60-100) 61 Pulse Location Monitor Respiratory Rate (12-18) 18 Respiratory rate source Observation Oxygen Delivery Method Room Air Blood Pressure (90/60-120/80) 142/62 H Blood Pressure Mean (mm Hg) 88 Source Monitor Position Sitting Blood Pressure Location Left Arm History Since Last Visit- (Skip if this is Patient's initial visit) Have you changed medications since your No last visit? Any new allergies or adverse reactions No Had a fall/change in ADL's that may No increase risk of falls Signs or symptoms of abuse and/or No neglect since last visit Have you been in the hospital since your No last visit? Has dressing in place as prescribed Yes Has compression in place as prescribed Yes Has offloadiing in place as prescribed N/A Experienced any changes in pain level or No management Left Footwear Regular Shoe Right Footwear Regular Shoe Pain Scale: 0-10 Numeric Is Patient Pain Free? Yes - Nurse 1 - General Ulcer Measurement Start: 01/10/21 11:34 Freq: Status: Active Protocol: Activity Type Activity Date Activity User E-Sign Co-Sign Detail Recorded Client Recorded Date Recorded By Document 01/10/21 11:34 [facility] [id number] 01/10/21 11:50 [facility] 01/10/21 11:34 Wound Center Nurse 1 #2 RIGHT LOWER LEG (MAN CLUSTER) -Combined with other wound No -Current Size (cm) - Length 4.5 -Current Size (cm) - Width 2.6 -Current Size (cm) - Depth 0.2 -Total Square Cm 11.70 -Photo Taken No -Epithelialization Small 1-33% -Tunneling No -Undermining/Tunneling No -Circular Undermining No -Exudate Amt Large -Exudate Type Serosanguineous -Wound Margin Distinct, Outline Attached -Granulation Amt Small (1-33%) -Granulation Quality Red -Slough/Fibrin Yes -Necrosis Amt Large (67-100%) -Necrotic Tissue Type Adherent Slough -Texture (Mariajose-wound Skin Appearance) Assessed, Excoriation, Scarring -Moisture (Mariajose-wound Skin Appearance) Assessed, Maceration,Dry/ Scaly -Color (Mariajose-wound Skin Appearance) Assessed, Erythema,Palor -Temperature (Mariajose-wound Skin No Abnormality Appearance) (Pt Warm) -Tenderness on Palpation (Mariajose-wound No Skin Appearance) -Ulcer Cleansing Soap and Water -Foul Odor after Cleansing No -Anesthetic Used 4% Lidocaine Solution Lower Limb Edema Present Yes Right Calf (cm) 47.4 Right Ankle (cm) 25 WC - Nurse 2 - General Ulcer CM Notes Start: 01/10/21 11:34 Freq: Status: Active Protocol: Activity Type Activity Date Activity User E-Sign Co-Sign Detail Recorded Client Recorded Date Recorded By Document 01/10/21 12:11 [id number] 01/10/21 12:28 [facility] 01/10/21 12:11 Wound Center Nurse 2 #2 RIGHT LOWER LEG (MAN CLUSTER) -Time 12:12 -Correct Patient Yes -Correct Side, Site, Position Yes -Correct Procedure Yes -Procedure Performed Yes -Type of Procedure Incision & Drainage -Clinical Debridement Subcutaneous -Tissue Removed Subcutaneous -Post Debridement (cm) - Length 4.5 -Post Debridement (cm) - Width 2.3 -Post Debridement (cm) - Depth 0.2 -Total Square (Post) (cm) 10.35 -Area of Debridement (cm) - Length 4.5 -Area of Debridement (cm) - Width 2.3 -Total Square (Area) (cm) 10.35 -Tunneling No -Undermining/Tunneling No -Circular Undermining No -Wound/Ulcer Outcome Not Healed -Ulcer Cleansing Rinsed/ Irrigated with Saline -Foul Odor after Cleansing No -Bioengineered Tissue Yes -Type of Bioengineered Tissue NuShield -Expiration Date 12/02/23 -Product Lot Number [id number] -Percent Used 100 -Lot number of Saline Used [id number] -Bleeding Controlled with Pressure -Offloading No -Treatment Response Procedure Tolerated Well -Debridement - Subq, 1st 20sq cm No -Apply Skin Sub - 1st 25 sq cm - Legs 1 -NuShield (per sq cm) 12 Pain Scale: 0-10 Numeric Is Patient Pain Free? Yes - Nurse 3 - General Ulcer D/C NN Start: 01/10/21 11:34 Freq: Status: Active Protocol: Activity Type Activity Date Activity User E-Sign Co-Sign Detail Recorded Client Recorded Date Recorded By Document 01/10/21 12:53 [id number] 01/10/21 12:55 01/10/21 12:53 Wound Care Nurse 3 #2 RIGHT LOWER LEG (MAN CLUSTER) -Primary Dressing Applied Aquacel Extra -Other Dressing abd, kerlix stomaahesive applied on periwound -Primary Dressing Covered/Secured with Dry Gauze,Dry Gauze & Roll Gauze,Secured with Tape -Aquacel Extra 1 Right -Tubular Bandage Double Layer -Size of Tubigrip Used Size E -Size E ($) 2 Pain Scale: 0-10 Numeric Is Patient Pain Free? Yes - Visit Discharge Discharge Condition Stable Ambulatory Status Ambulatory, Walker Transportation Private Auto Medication Reconcilliation completed & No provided to patient/care provider Clinical Summary of Care Provided Yes Assessment/Plan Assessment/Plan (1) Nonhealing skin ulcer: CODE(S): L98.499 - Non-pressure chronic ulcer of skin of other sites with unspecified severity QUALIFIERS: Non-pressure ulcer stage: with fat layer exposed Qualified Code(s): L98.492 - Non-pressure chronic ulcer of skin of other sites with fat layer exposed (2) HTN (hypertension): CODE(S): I10 - Essential (primary) hypertension QUALIFIERS: Hypertension type: primary hypertension Qualified Code(s): I10 - Essential (primary) hypertension (3) Controlled diabetes mellitus: CODE(S): E11.9 - Type 2 diabetes mellitus without complications QUALIFIERS: Diabetes mellitus type: type 2 Diabetes mellitus snf insulin use: without ferry terminal supervisor use Diabetes mellitus complication status: with skin complications Diabetes mellitus complication detail: with other skin ulcer Qualified Code(s): E11.622 - Type 2 diabetes mellitus with other skin ulcer (4) Venous ulcer of right lower extremity without varicose veins: CODE(S): I87.2 - Venous insufficiency (chronic) (peripheral); L97.919 - Non-pressure chronic ulcer of unspecified part of right lower leg with unspecified severity (5) Edema, lower extremity: CODE(S): R60.0 - Localized edema (6) COPD (chronic obstructive pulmonary disease): CODE(S): J44.9 - Chronic obstructive pulmonary disease, unspecified QUALIFIERS: COPD type: unspecified COPD Qualified Code(s): J44.9 - Chronic obstructive pulmonary disease, unspecified (7) PVD (peripheral vascular disease): CODE(S): I73.9 - Peripheral vascular disease, unspecified PLAN: Roslyns ulcer was evaluated and debrided today at the wound healing center. He tolerated the procedure well. Wound culture 11/29/2020 was positive for Pseudomonas and Acetinobacter bacteria, no growth of anaerobic bacteria. He completed treatment with ciprofloxacin. He received second application of Puraply on 12/20/2020. This has improved the wound bed and there is much less slough and better granulation. Nushield #3 (#6 of organogenesis products) applied to the ulcer today per senior software analyst guidelines using 100% of product and rehydrated with hydrogel and covered with adaptic touch which was then secured with steri-strips. He tolerated this well. Will have Home Health change dressings on Wednesday and Wednesday He does not drive due to physical debility and is homebound. He is unable to perform dressing changes himself and lives alone. Due to the slow improvement in his healing and his multiple comorbid conditions, I feel that it is medically necessary to proceed with application of a skin substitute product such as Puraply or Nushield or Apligraf in order to heal his ulcer and prevent limb loss. Will obtain previous vascular testing from [facility]. Will obtain most recent lab tests. HgbA1C from 10/16/2020 was 6.2%. Will have him use compression with single layer tubigrip. Discussed importance of increased protein intake in order to improve healing. Stressed importance of elevating his legs at or above the level of his heart and using compression to treat swelling and maintain adequate control of edema to achieve healing of his ulcer. He was advised to call with any increased edema, erythema, pain, fever or chills. He will follow up in 1 week for wound care.
[2021-01-17 11:52] VITALS: BP 134/67; PULSE 57; RESP 18; TEMP 36.9; BMI 35.6
--- NOTE | 2021-01-17 14:28 | PCM.WC.PN ---
History of Present Illness Date of Service: 01/17/21 Chief Complaint: right man History of Wound: Yon is a 74 yo gentleman with past medical history of DM type 2, venous insufficiency, who presents to the wound healing center today for evaluation and treatment of a nonhealing ulcer to his right man that has been present for approximately 2 months. He has been referred by his PCP, Dr. Payan. Yon has had a history of diabetic and venous ulcers in the past that have been treated at other wound centers - [facility] and [facility]. He had been using silvadene initially and then began using calcium alginate and gauze over the last 3 weeks due to increased drainage. He saw his PCP who referred him to the wound center for treatment and started him on Bactrim DS BID x 10 days. He completed the Bactrim and has continued to have his dressing changed M,W,F when his aide comes. He reports that his last hgbA1C was a few weeks ago and was 6.2%. He does not check his sugars at home. He sleeps in a recliner at times due to his back. He lives alone and no longer drives due to his medical issues. He denies any fever or chills or increased erythema or pain. He has been wearing compression socks but they appear to be worn out. Subjective Subjective Prieto returns today for evaluation and treatment of ulcers of his right man. He tolerated Nushield #3 application to his ulcer. He tolerated the treatment well and has had improvement in the ulcer with better granulation and less slough. He denies fever, chills, increased drainage or odor. Objective Data Objective Data Vital Signs: Vital Signs Temp Pulse Resp BP 98.4 F 57 L 18 134/67 H 01/17/21 11:52 01/17/21 11:52 01/17/21 11:52 01/17/21 11:52 Oxygen Delivery Method Room Air Weight: 132.789 kg Body Mass Index (BMI) 35.6 Physical Exam Const alert, oriented x3 and no apparent distress General Appearance: cooperative and comfortable HEENT normocephalic and head/scalp atraumatic Resp normal respiratory effort Effort and Inspection: able to speak in complete sentences Cardio regular rate and regular rhythm Extremity General Extremity: edema bilateral lower extremity Details: moderate Skin General Skin Exam: erythema, venous stasis and dermatitis Wound Narrative: cobblestoning of skin Psych thought process normal, cooperative and affect normal Debridement Note Debridement Note Wound debrided: right lower leg (man cluster) Laterality: Right Type of Debridement: Excisional debridement Anesthesia Used: 4% Lidocaine Solution Depth: Down to and including healthy tissue and in the subcutaneous layer Percentage of wound debrided: 100 Instrument Used: 5mm curette Tissue Removed: Yellow slough, devitalized tissue Severity: Fat Layer Exposed Amount of bleeding with debridement: Mild Bleeding Controlled with: Compression and gauze Patient tolerated procedure: Patient tolerated procedure well Post-Debridement Measurements and Additional Note: Post-Debridement Measurements/Treatment - Nurse 1 - General Ulcer Assessment Start: 01/10/21 11:34 Freq: Status: Active Protocol: CECILE[employer]icsDonna Activity Type Activity Date Activity User E-Sign Co-Sign Detail Recorded Client Recorded Date Recorded By Document 01/10/21 11:34 [facility] [id number] 01/10/21 11:50 [facility] Document 01/17/21 11:52 RB [id number] 01/17/21 11:57 RB 01/10/21 01/17/21 11:34 11:52 - Today's Visit Information Type of service Follow-up Visit Follow-up Visit (Physician/PARK ATTENDANT (Physician/PARK ATTENDANT ) ) Arrival Mode Ambulatory, Ambulatory Walker Transfer Assistance None None Patient Identification Verified (Name & Yes ) Patient Requires Transmission-Based No Precautions Height and Weight Body Mass Index (BMI) 35.6 35.6 BMI Classification Obese Obese Vital Signs Temperature (97.8 F-99.1 F) 97.2 F L 98.4 F Temperature Source Temporal Temporal Pulse Rate (60-100) 61 57 L Pulse Location Monitor Monitor Respiratory Rate (12-18) 18 18 Respiratory rate source Observation Observation Oxygen Delivery Method Room Air Blood Pressure (90/60-120/80) 142/62 H 134/67 H Blood Pressure Mean (mm Hg) 88 89 Source Monitor Monitor Position Sitting Semi-Fowlers Blood Pressure Location Left Arm Left Arm History Since Last Visit- (Skip if this is Patient's initial visit) Have you changed medications since your No No last visit? Any new allergies or adverse reactions No No Had a fall/change in ADL's that may No No increase risk of falls Signs or symptoms of abuse and/or No No neglect since last visit Have you been in the hospital since your No No last visit? Has dressing in place as prescribed Yes Yes Has compression in place as prescribed Yes Yes Has offloadiing in place as prescribed N/A No Experienced any changes in pain level or No No management Left Footwear Regular Shoe Right Footwear Regular Shoe Pain Scale: 0-10 Numeric Is Patient Pain Free? Yes Yes WC - Nurse 1 - General Ulcer Measurement Start: 01/10/21 11:34 Freq: Status: Active Protocol: Activity Type Activity Date Activity User E-Sign Co-Sign Detail Recorded Client Recorded Date Recorded By Document 01/10/21 11:34 [facility] [id number] 01/10/21 11:50 [facility] Document 01/17/21 11:52 RB [id number] 01/17/21 11:57 RB 01/10/21 01/17/21 11:34 11:52 Wound Center Nurse 1 #2 RIGHT LOWER LEG (MAN CLUSTER) -Combined with other wound No No -Current Size (cm) - Length 4.5 1.6 -Current Size (cm) - Width 2.6 2 -Current Size (cm) - Depth 0.2 0.1 -Total Square Cm 11.70 3.2 -Photo Taken No -Epithelialization Small 1-33% -Tunneling No No -Undermining/Tunneling No No -Circular Undermining No No -Exudate Amt Large Large -Exudate Type Serosanguineous Serosanguineous -Wound Margin Distinct, Flat & Intact Outline Attached -Granulation Amt Small (1-33%) Medium (34-66%) -Granulation Quality [place] -Slough/Fibrin Yes Yes -Necrosis Amt Large (67-100%) Small (1-33%) -Necrotic Tissue Type Adherent Slough Adherent Slough -Structure Exposed N/A -Texture (Mariajose-wound Skin Appearance) Assessed, Assessed Excoriation, Scarring -Moisture (Mariajose-wound Skin Appearance) Assessed, Dry/Scaly Maceration,Dry/ Scaly -Color (Mariajose-wound Skin Appearance) Assessed, Assessed Erythema,Palor -Temperature (Mariajose-wound Skin No Abnormality No Abnormality Appearance) (Pt Warm) (Pt Warm) -Tenderness on Palpation (Mariajose-wound No No Skin Appearance) -Ulcer Cleansing Soap and Water Wound Cleanser -Foul Odor after Cleansing No No -Anesthetic Used 4% Lidocaine 4% Lidocaine Solution Solution Lower Limb Edema Present Yes Yes Right Calf (cm) 47.4 47 Right Ankle (cm) 25 24.2 - Nurse 2 - General Ulcer CM Notes Start: 01/10/21 11:34 Freq: Status: Active Protocol: Activity Type Activity Date Activity User E-Sign Co-Sign Detail Recorded Client Recorded Date Recorded By Document 01/10/21 12:11 [id number] 01/10/21 12:28 Document 01/17/21 12:14 [id number] 01/17/21 12:34 01/10/21 01/17/21 12:11 12:14 Wound Center Nurse 2 #2 RIGHT LOWER LEG (MAN CLUSTER) -Time 12:12 12:16 -Correct Patient Yes Yes -Correct Side, Site, Position Yes Yes -Correct Procedure Yes Yes -Procedure Performed Yes Yes -Type of Procedure Incision & Debridement Drainage -Clinical Debridement Subcutaneous Subcutaneous -Tissue Removed Subcutaneous Subcutaneous -Post Debridement (cm) - Length 4.5 4.5 -Post Debridement (cm) - Width 2.3 1.8 -Post Debridement (cm) - Depth 0.2 0.1 -Total Square (Post) (cm) 10.35 8.10 -Area of Debridement (cm) - Length 4.5 4.5 -Area of Debridement (cm) - Width 2.3 1.8 -Total Square (Area) (cm) 10.35 8.10 -Tunneling No No -Undermining/Tunneling No No -Circular Undermining No No -Wound/Ulcer Outcome Not Healed Not Healed -Ulcer Cleansing Rinsed/ Rinsed/ Irrigated with Irrigated with Saline Saline -Foul Odor after Cleansing No No -Bioengineered Tissue Yes Yes -Type of Bioengineered Tissue [facility] -Expiration Date 12/02/23 09/06/24 -Product Lot Number [id number] -Percent Used 100 100 -Lot number of Saline Used [id number] -Bleeding Controlled with Pressure Pressure -Offloading No No -Treatment Response Procedure Procedure Tolerated Well Tolerated Well -Debridement - Subq, 1st 20sq cm No No -Apply Skin Sub - 1st 25 sq cm - Legs 1 1 -NuShield (per sq cm) 12 0 -NuShield 16mm Disc 2 Pain Scale: 0-10 Numeric Is Patient Pain Free? Yes Yes WC - Nurse 3 - General Ulcer D/C NN Start: 01/10/21 11:34 Freq: Status: Active Protocol: Activity Type Activity Date Activity User E-Sign Co-Sign Detail Recorded Client Recorded Date Recorded By Document 01/10/21 12:53 RB [id number] 01/10/21 12:55 RB Document 01/17/21 12:43 AK [id number] 01/17/21 12:45 AK 01/10/21 01/17/21 12:53 12:43 Wound Care Nurse 3 #2 RIGHT LOWER LEG (MAN CLUSTER) -Foul Odor after Cleansing No -Negative Pressure Wound Therapy N/A -Primary Dressing Applied Aquacel Extra Aquacel Extra -Other Dressing abd, kerlix hydrogel stomaahesive applied on periwound -Primary Dressing Covered/Secured with Dry Gauze,Dry Dry Gauze,Dry Gauze & Roll Gauze & Roll Gauze,Secured Gauze,Secured with Tape with Tape -Aquacel Extra 1 1 Right -Tubular Bandage Double Layer -Size of Tubigrip Used Size E -Size E ($) 2 Pain Scale: 0-10 Numeric Is Patient Pain Free? Yes WC - Visit Discharge Discharge Condition Stable Stable Ambulatory Status Ambulatory, Ambulatory, Walker Walker Transportation Private Auto Medication Reconcilliation completed & No No provided to patient/care provider Clinical Summary of Care Provided Yes Yes Assessment/Plan Assessment/Plan (1) Nonhealing skin ulcer: CODE(S): L98.499 - Non-pressure chronic ulcer of skin of other sites with unspecified severity QUALIFIERS: Non-pressure ulcer stage: with fat layer exposed Qualified Code(s): L98.492 - Non-pressure chronic ulcer of skin of other sites with fat layer exposed (2) HTN (hypertension): CODE(S): I10 - Essential (primary) hypertension QUALIFIERS: Hypertension type: primary hypertension Qualified Code(s): I10 - Essential (primary) hypertension (3) Controlled diabetes mellitus: CODE(S): E11.9 - Type 2 diabetes mellitus without complications QUALIFIERS: Diabetes mellitus type: type 2 Diabetes mellitus [facility] insulin use: without terminal clerk use Diabetes mellitus complication status: with skin complications Diabetes mellitus complication detail: with other skin ulcer Qualified Code(s): E11.622 - Type 2 diabetes mellitus with other skin ulcer (4) Venous ulcer of right lower extremity without varicose veins: CODE(S): I87.2 - Venous insufficiency (chronic) (peripheral); L97.919 - Non-pressure chronic ulcer of unspecified part of right lower leg with unspecified severity (5) Edema, lower extremity: CODE(S): R60.0 - Localized edema (6) COPD (chronic obstructive pulmonary disease): CODE(S): J44.9 - Chronic obstructive pulmonary disease, unspecified QUALIFIERS: COPD type: unspecified COPD Qualified Code(s): J44.9 - Chronic obstructive pulmonary disease, unspecified (7) PVD (peripheral vascular disease): CODE(S): I73.9 - Peripheral vascular disease, unspecified PLAN: Violeta ulcer was evaluated and debrided today at the wound healing center. He tolerated the procedure well. Wound culture 11/29/2020 was positive for Pseudomonas and Acetinobacter bacteria, no growth of anaerobic bacteria. He completed treatment with ciprofloxacin. He received second application of Puraply on 12/20/2020. This had improved the wound bed and there is much less slough and better granulation. Nushield #4 (#7 of organogenesis products) applied to the ulcer today per survey methodologist guidelines using 100% of product and rehydrated with hydrogel and covered with adaptic touch which was then secured with steri-strips. He tolerated this well. Will have Home Health change dressings on Wednesday and Wednesday He does not drive due to physical debility and is homebound. He is unable to perform dressing changes himself and lives alone. Due to the slow improvement in his healing and his multiple comorbid conditions, I feel that it is medically necessary to proceed with application of a skin substitute product such as Puraply or Nushield or Apligraf in order to heal his ulcer and prevent limb loss. Will obtain previous vascular testing from [facility]. Will obtain most recent lab tests. HgbA1C from 10/16/2020 was 6.2%. Will have him use compression with single layer tubigrip. Discussed importance of increased protein intake in order to improve healing. Stressed importance of elevating his legs at or above the level of his heart and using compression to treat swelling and maintain adequate control of edema to achieve healing of his ulcer. He was advised to call with any increased edema, erythema, pain, fever or chills. He will follow up in 1 week for wound care.
[2021-01-24 12:13] VITALS: BP 120/63; PULSE 54; RESP 18; BMI 35.6
--- NOTE | 2021-01-24 15:03 | PCM.WC.PN ---
History of Present Illness Date of Service: 01/24/21 Chief Complaint: right man History of Wound: Yon is a 74 yo gentleman with past medical history of DM type 2, venous insufficiency, who presents to the wound healing center today for evaluation and treatment of a nonhealing ulcer to his right man that has been present for approximately 2 months. He has been referred by his PCP, Dr. Payan. Yon has had a history of diabetic and venous ulcers in the past that have been treated at other wound centers - [facility] and [facility]. He had been using silvadene initially and then began using calcium alginate and gauze over the last 3 weeks due to increased drainage. He saw his PCP who referred him to the wound center for treatment and started him on Bactrim DS BID x 10 days. He completed the Bactrim and has continued to have his dressing changed M,W,F when his aide comes. He reports that his last hgbA1C was a few weeks ago and was 6.2%. He does not check his sugars at home. He sleeps in a recliner at times due to his back. He lives alone and no longer drives due to his medical issues. He denies any fever or chills or increased erythema or pain. He has been wearing compression socks but they appear to be worn out. Subjective Subjective Prieto returns today for evaluation and treatment of ulcers of his right man. He tolerated Nushield #4 application to his ulcer. He tolerated the treatment well and has had improvement in the ulcer with better granulation and less slough. He denies fever, chills, increased drainage or odor. Objective Data Objective Data Vital Signs: Vital Signs Temp Pulse Resp BP 98.4 F 54 L 18 120/63 01/17/21 11:52 01/24/21 12:13 01/24/21 12:13 01/24/21 12:13 Oxygen Delivery Method Room Air Weight: 132.789 kg Body Mass Index (BMI) 35.6 Physical Exam Const alert, oriented x3 and no apparent distress General Appearance: cooperative and comfortable HEENT normocephalic and head/scalp atraumatic Resp normal respiratory effort Effort and Inspection: able to speak in complete sentences Cardio regular rate and regular rhythm Extremity General Extremity: edema bilateral lower extremity Details: moderate Skin General Skin Exam: erythema, venous stasis and dermatitis Wound Narrative: cobblestoning of skin Psych thought process normal, cooperative and affect normal Debridement Note Debridement Note Wound debrided: right lower leg man cluster Laterality: Right Type of Debridement: Excisional debridement Anesthesia Used: 4% Lidocaine Solution and 5% Lidocaine Gel Depth: Down to and including healthy tissue and in the subcutaneous layer Percentage of wound debrided: 100 Instrument Used: 5mm curette Tissue Removed: Yellow slough, devitalized tissue Severity: Fat Layer Exposed Amount of bleeding with debridement: Mild Bleeding Controlled with: Compression and gauze Patient tolerated procedure: Patient tolerated procedure well Post-Debridement Measurements and Additional Note: Post-Debridement Measurements/Treatment - Nurse 1 - General Ulcer Assessment Start: 01/10/21 11:34 Freq: Status: Active Protocol: ROSIO Activity Type Activity Date Activity User E-Sign Co-Sign Detail Recorded Client Recorded Date Recorded By Document 01/10/21 11:34 [facility] [id number] 01/10/21 11:50 BM Document 01/17/21 11:52 RB [id number] 01/17/21 11:57 RB Document 01/24/21 12:13 ND [id number] 01/24/21 12:20 MT 01/10/21 01/17/21 01/24/21 11:34 11:52 12:13 - Today's Visit Information Type of service Follow-up Visit Follow-up Visit Follow-up Visit (Physician/CASE FINISHING MACHINE ADJUSTER (Physician/CASE FINISHING MACHINE ADJUSTER (Physician/CASE FINISHING MACHINE ADJUSTER ) ) ) Arrival Mode Ambulatory, Ambulatory Walker Transfer Assistance None None Accompanied by self Patient Identification Verified (Name & Yes Yes ) Patient Requires Transmission-Based No Precautions Height and Weight Body Mass Index (BMI) 35.6 35.6 35.6 BMI Classification Obese Obese Obese Vital Signs Temperature (97.8 F-99.1 F) 97.2 F L 98.4 F Temperature Source Temporal Temporal Temporal Pulse Rate (60-100) 61 57 L 54 L Pulse Location Monitor Monitor Monitor Respiratory Rate (12-18) 18 18 18 Respiratory rate source Observation Observation Observation Oxygen Delivery Method Room Air Blood Pressure (90/60-120/80) 142/62 H 134/67 H 120/63 Blood Pressure Mean (mm Hg) 88 89 82 Source Monitor Monitor Monitor Position Sitting Semi-Fowlers Sitting Blood Pressure Location Left Arm Left Arm Left Arm History Since Last Visit- (Skip if this is Patient's initial visit) Have you changed medications since your No No last visit? Any new allergies or adverse reactions No No Had a fall/change in ADL's that may No No increase risk of falls Signs or symptoms of abuse and/or No No neglect since last visit Have you been in the hospital since your No No last visit? Has dressing in place as prescribed Yes Yes Yes Has compression in place as prescribed Yes Yes Yes Has offloadiing in place as prescribed N/A No Yes Experienced any changes in pain level or No No Yes management Left Footwear Regular Shoe Right Footwear Regular Shoe Pain Scale: 0-10 Numeric Is Patient Pain Free? Yes Yes WC - Nurse 1 - General Ulcer Measurement Start: 01/10/21 11:34 Freq: Status: Active Protocol: Activity Type Activity Date Activity User E-Sign Co-Sign Detail Recorded Client Recorded Date Recorded By Document 01/10/21 11:34 [facility] [id number] 01/10/21 11:50 [facility] Document 01/17/21 11:52 RB [id number] 01/17/21 11:57 RB Document 01/24/21 12:13 ND [id number] 01/24/21 12:20 MT 01/10/21 01/17/21 01/24/21 11:34 11:52 12:13 Wound Center Nurse 1 #2 RIGHT LOWER LEG (MAN CLUSTER) -Combined with other wound No No -Current Size (cm) - Length 4.5 1.6 1.5 -Current Size (cm) - Width 2.6 2 1 -Current Size (cm) - Depth 0.2 0.1 0.1 -Total Square Cm 11.70 3.2 1.5 -Photo Taken No -Epithelialization Small 1-33% -Tunneling No No -Undermining/Tunneling No No -Circular Undermining No No -Exudate Amt Large Large Small -Exudate Type Serosanguineous Serosanguineous Serosanguineous -Wound Margin Distinct, Flat & Intact Flat & Intact Outline Attached -Granulation Amt Small (1-33%) Medium (34-66%) Large (67-100%) -Granulation Quality Red Wilson Pale,Wilson -Slough/Fibrin Yes Yes -Necrosis Amt Large (67-100%) Small (1-33%) Small (1-33%) -Necrotic Tissue Type Adherent Slough Adherent Slough Adherent Slough -Structure Exposed N/A -Texture (Mariajose-wound Skin Appearance) Assessed, Assessed Assessed Excoriation, Scarring -Moisture (Mariajose-wound Skin Appearance) Assessed, Dry/Scaly Assessed Maceration,Dry/ Scaly -Color (Mariajose-wound Skin Appearance) Assessed, Assessed Assessed Erythema,Palor -Temperature (Mariajose-wound Skin No Abnormality No Abnormality No Abnormality Appearance) (Pt Warm) (Pt Warm) (Pt Warm) -Tenderness on Palpation (Mariajose-wound No No No Skin Appearance) -Ulcer Cleansing Soap and Water Wound Cleanser Wound Cleanser -Foul Odor after Cleansing No No No -Anesthetic Used 4% Lidocaine 4% Lidocaine 4% Lidocaine Solution Solution Solution Lower Limb Edema Present Yes Yes Yes Right Calf (cm) 47.4 47 46 Right Ankle (cm) 25 24.2 24.5 WC - Nurse 2 - General Ulcer CM Notes Start: 01/10/21 11:34 Freq: Status: Active Protocol: Activity Type Activity Date Activity User E-Sign Co-Sign Detail Recorded Client Recorded Date Recorded By Document 01/10/21 12:11 [id number] 01/10/21 12:28 Document 01/17/21 12:14 [id number] 01/17/21 12:34 Document 01/24/21 13:01 [id number] 01/24/21 13:13 01/10/21 01/17/21 01/24/21 12:11 12:14 13:01 Wound Center Nurse 2 #2 RIGHT LOWER LEG (MAN CLUSTER) -Time 12:12 12:16 13:02 -Correct Patient Yes Yes Yes -Correct Side, Site, Position Yes Yes Yes -Correct Procedure Yes Yes Yes -Procedure Performed Yes Yes Yes -Type of Procedure Incision & Debridement Debridement Drainage -Clinical Debridement Subcutaneous Subcutaneous Subcutaneous -Tissue Removed Subcutaneous Subcutaneous Subcutaneous -Post Debridement (cm) - Length 4.5 4.5 1.9 -Post Debridement (cm) - Width 2.3 1.8 1.0 -Post Debridement (cm) - Depth 0.2 0.1 0.1 -Total Square (Post) (cm) 10.35 8.10 1.90 -Area of Debridement (cm) - Length 4.5 4.5 1.9 -Area of Debridement (cm) - Width 2.3 1.8 1.0 -Total Square (Area) (cm) 10.35 8.10 1.90 -Tunneling No No No -Undermining/Tunneling No No No -Circular Undermining No No No -Wound/Ulcer Outcome Not Healed Not Healed Not Healed -Ulcer Cleansing Rinsed/ Rinsed/ Rinsed/ Irrigated with Irrigated with Irrigated with Saline Saline Saline -Foul Odor after Cleansing No No No -Bioengineered Tissue Yes Yes Yes -Type of Bioengineered Tissue NuShield NuShield NuShield Disc -Expiration Date 12/02/23 09/06/24 09/06/24 -Product Lot Number [id number] -Percent Used 100 100 100 -Lot number of Saline Used [id number] -Bleeding Controlled with Pressure Pressure Pressure -Offloading No No No -Treatment Response Procedure Procedure Procedure Tolerated Well Tolerated Well Tolerated Well -Debridement - Subq, 1st 20sq cm No No No -Apply Skin Sub - 1st 25 sq cm - Legs 1 1 1 -NuShield (per sq cm) 12 0 -NuShield 16mm Disc 2 2 Pain Scale: 0-10 Numeric Is Patient Pain Free? Yes Yes Yes WC - Nurse 3 - General Ulcer D/C NN Start: 01/10/21 11:34 Freq: Status: Active Protocol: Activity Type Activity Date Activity User E-Sign Co-Sign Detail Recorded Client Recorded Date Recorded By Document 01/10/21 12:53 RB [id number] 01/10/21 12:55 RB Document 01/17/21 12:43 AK [id number] 01/17/21 12:45 AK Document 01/24/21 13:13 MW [id number] 01/24/21 13:14 MW 01/10/21 01/17/21 01/24/21 12:53 12:43 13:13 Wound Care Nurse 3 #2 RIGHT LOWER LEG (MAN CLUSTER) -Ulcer Cleansing Not Cleansed -Foul Odor after Cleansing No No -Negative Pressure Wound Therapy N/A N/A -Primary Dressing Applied Aquacel Extra Aquacel Extra Aquacel Extra -Other Dressing abd, kerlix hydrogel stomaahesive applied on periwound -Primary Dressing Covered/Secured with Dry Gauze,Dry Dry Gauze,Dry Dry Gauze & Gauze & Roll Gauze & Roll Roll Gauze, Gauze,Secured Gauze,Secured Secured with with Tape with Tape Tape -Other Covering ABD -Aquacel Extra 1 1 1 Left -Lotion applied to leg before No compression wrap -Tubular Bandage Double Layer -Size of Tubigrip Used Size E -Size E ($) 2 Right -Lotion applied to leg before No compression wrap -Tubular Bandage Double Layer Double Layer -Size of Tubigrip Used Size E Size E -Size E ($) 2 2 -Stockings No Treatment Response Procedure Tolerated Well Pain Scale: 0-10 Numeric Is Patient Pain Free? Yes Yes Teaching: Wound Center Dressing Your Wound -Person Taught Patient -Teaching Method Discussion, Demonstration -Response to teaching Verbalize understanding WC - Visit Discharge Discharge Condition Stable Stable Stable Ambulatory Status Ambulatory, Ambulatory, Ambulatory, Walker Walker Walker Transportation Private Auto Private Auto Accompanied by SELF Medication Reconcilliation completed & No No No provided to patient/care provider Clinical Summary of Care Provided Yes Yes Yes Assessment/Plan Assessment/Plan (1) Nonhealing skin ulcer: CODE(S): L98.499 - Non-pressure chronic ulcer of skin of other sites with unspecified severity QUALIFIERS: Non-pressure ulcer stage: with fat layer exposed Qualified Code(s): L98.492 - Non-pressure chronic ulcer of skin of other sites with fat layer exposed (2) HTN (hypertension): CODE(S): I10 - Essential (primary) hypertension QUALIFIERS: Hypertension type: primary hypertension Qualified Code(s): I10 - Essential (primary) hypertension (3) Controlled diabetes mellitus: CODE(S): E11.9 - Type 2 diabetes mellitus without complications QUALIFIERS: Diabetes mellitus type: type 2 Diabetes mellitus intermediate insulin use: without longwall foreman use Diabetes mellitus complication status: with skin complications Diabetes mellitus complication detail: with other skin ulcer Qualified Code(s): E11.622 - Type 2 diabetes mellitus with other skin ulcer (4) Venous ulcer of right lower extremity without varicose veins: CODE(S): I87.2 - Venous insufficiency (chronic) (peripheral); L97.919 - Non-pressure chronic ulcer of unspecified part of right lower leg with unspecified severity (5) Edema, lower extremity: CODE(S): R60.0 - Localized edema (6) COPD (chronic obstructive pulmonary disease): CODE(S): J44.9 - Chronic obstructive pulmonary disease, unspecified QUALIFIERS: COPD type: unspecified COPD Qualified Code(s): J44.9 - Chronic obstructive pulmonary disease, unspecified (7) PVD (peripheral vascular disease): CODE(S): I73.9 - Peripheral vascular disease, unspecified PLAN: Yon's ulcer was evaluated and debrided today at the wound healing center. He tolerated the procedure well. Wound culture 11/29/2020 was positive for Pseudomonas and Acetinobacter bacteria, no growth of anaerobic bacteria. He completed treatment with ciprofloxacin. He received second application of Puraply on 12/20/2020. This had improved the wound bed and there is much less slough and better granulation. Nushield #5 (#8 of organogenesis products) applied to the ulcer today per fall internship guidelines using 100% of product and rehydrated with hydrogel and covered with adaptic touch which was then secured with steri-strips. He tolerated this well. Will have Home Health change dressings on Wednesday and Wednesday and Wednesday this week. He does not drive due to physical debility and is homebound. He is unable to perform dressing changes himself and lives alone. Due to the slow improvement in his healing and his multiple comorbid conditions, I feel that it is medically necessary to proceed with application of a skin substitute product such as Puraply or Nushield or Apligraf in order to heal his ulcer and prevent limb loss. Will obtain previous vascular testing from [facility]. Will obtain most recent lab tests. HgbA1C from 10/16/2020 was 6.2%. Will have him use compression with single layer tubigrip. Discussed importance of increased protein intake in order to improve healing. Stressed importance of elevating his legs at or above the level of his heart and using compression to treat swelling and maintain adequate control of edema to achieve healing of his ulcer. He was advised to call with any increased edema, erythema, pain, fever or chills. He will follow up in 10 days due to the hol for wound care.
[2021-02-04 13:28] VITALS: BP 123/66; PULSE 56; RESP 22; TEMP 36.4; BMI 35.6
--- NOTE | 2021-02-04 17:54 | PCM.WC.PN ---
History of Present Illness Date of Service: 02/04/21 Chief Complaint: right man History of Wound: Yon is a 74 yo gentleman with past medical history of DM type 2, venous insufficiency, who presents to the wound healing center today for evaluation and treatment of a nonhealing ulcer to his right man that has been present for approximately 2 months. He has been referred by his PCP, Dr. Payan. Yon has had a history of diabetic and venous ulcers in the past that have been treated at other wound centers - [facility] and [facility]. He had been using silvadene initially and then began using calcium alginate and gauze over the last 3 weeks due to increased drainage. He saw his PCP who referred him to the wound center for treatment and started him on Bactrim DS BID x 10 days. He completed the Bactrim and has continued to have his dressing changed M,W,F when his aide comes. He reports that his last hgbA1C was a few weeks ago and was 6.2%. He does not check his sugars at home. He sleeps in a recliner at times due to his back. He lives alone and no longer drives due to his medical issues. He denies any fever or chills or increased erythema or pain. He has been wearing compression socks but they appear to be worn out. Subjective Subjective Prieto returns today for evaluation and treatment of ulcers of his right man. He tolerated Nushield #5 application to his ulcer. He tolerated the treatment well and has had improvement in the ulcer with better granulation and less slough. He denies fever, chills, increased drainage or odor. Objective Data Objective Data Vital Signs: Vital Signs Temp Pulse Resp BP 97.5 F L 56 L 22 H 123/66 H 02/04/21 13:28 02/04/21 13:28 02/04/21 13:28 02/04/21 13:28 Oxygen Delivery Method Room Air Weight: 132.789 kg Body Mass Index (BMI) 35.6 Physical Exam Const alert, oriented x3 and no apparent distress General Appearance: cooperative and comfortable HEENT normocephalic and head/scalp atraumatic Resp normal respiratory effort Effort and Inspection: able to speak in complete sentences Cardio regular rate and regular rhythm Extremity General Extremity: edema bilateral lower extremity Details: moderate Skin General Skin Exam: erythema, venous stasis and dermatitis Wound Narrative: cobblestoning of skin Psych thought process normal, cooperative and affect normal Debridement Note Debridement Note Wound debrided: right man cluster Laterality: Right Type of Debridement: Excisional debridement Anesthesia Used: 4% Lidocaine Solution Depth: Down to and including healthy tissue and in the subcutaneous layer Percentage of wound debrided: 100 Instrument Used: 5mm curette Tissue Removed: Yellow slough, devitalized tissue Severity: Fat Layer Exposed Amount of bleeding with debridement: Mild Bleeding Controlled with: Compression and gauze Patient tolerated procedure: Patient tolerated procedure well Post-Debridement Measurements and Additional Note: Post-Debridement Measurements/Treatment - Nurse 1 - General Ulcer Assessment Start: 01/10/21 11:34 Freq: Status: Active Protocol: ROSIO Activity Type Activity Date Activity User E-Sign Co-Sign Detail Recorded Client Recorded Date Recorded By Document 01/10/21 11:34 [facility] [id number] 01/10/21 11:50 BM Document 01/17/21 11:52 RB [id number] 01/17/21 11:57 RB Document 01/24/21 12:13 MT [id number] 01/24/21 12:20 MT Document 02/04/21 13:28 KR [id number] 02/04/21 13:33 KR 01/10/21 01/17/21 01/24/21 11:34 11:52 12:13 - Today's Visit Information Type of service Follow-up Visit Follow-up Visit Follow-up Visit (Physician/MAINTENANCE AND UTILITIES SUPERVISOR (Physician/MAINTENANCE AND UTILITIES SUPERVISOR (Physician/MAINTENANCE AND UTILITIES SUPERVISOR ) ) ) Arrival Mode Ambulatory, Ambulatory Walker Transfer Assistance None None Accompanied by self Patient Identification Verified (Name & Yes Yes ) Patient Requires Transmission-Based No Precautions Height and Weight Body Mass Index (BMI) 35.6 35.6 35.6 BMI Classification Obese Obese Obese Vital Signs Temperature (97.8 F-99.1 F) 97.2 F L 98.4 F Temperature Source Temporal Temporal Temporal Pulse Rate (60-100) 61 57 L 54 L Pulse Location Monitor Monitor Monitor Respiratory Rate (12-18) 18 18 18 Respiratory rate source Observation Observation Observation Oxygen Delivery Method Room Air Blood Pressure (90/60-120/80) 142/62 H 134/67 H 120/63 Blood Pressure Mean (mm Hg) 88 89 82 Source Monitor Monitor Monitor Position Sitting Semi-Fowlers Sitting Blood Pressure Location Left Arm Left Arm Left Arm History Since Last Visit- (Skip if this is Patient's initial visit) Have you changed medications since your No No last visit? Any new allergies or adverse reactions No No Had a fall/change in ADL's that may No No increase risk of falls Signs or symptoms of abuse and/or No No neglect since last visit Have you been in the hospital since your No No last visit? Has dressing in place as prescribed Yes Yes Yes Has compression in place as prescribed Yes Yes Yes Has offloadiing in place as prescribed N/A No Yes Experienced any changes in pain level or No No Yes management Left Footwear Regular Shoe Right Footwear Regular Shoe Pain Scale: 0-10 Numeric Is Patient Pain Free? Yes Yes 02/04/21 13:28 WC - Today's Visit Information Type of service Follow-up Visit (Physician/MAINTENANCE AND UTILITIES SUPERVISOR ) Arrival Mode Ambulatory, Walker Transfer Assistance None Accompanied by Patient Identification Verified (Name & Yes ) Patient Requires Transmission-Based No Precautions Height and Weight Body Mass Index (BMI) 35.6 BMI Classification Obese Vital Signs Temperature (97.8 F-99.1 F) 97.5 F L Temperature Source Temporal Pulse Rate (60-100) 56 L Pulse Location Monitor Respiratory Rate (12-18) 22 H Respiratory rate source Observation Oxygen Delivery Method Blood Pressure (90/60-120/80) 123/66 H Blood Pressure Mean (mm Hg) 85 Source Monitor Position Blood Pressure Location History Since Last Visit- (Skip if this is Patient's initial visit) Have you changed medications since your No last visit? Any new allergies or adverse reactions No Had a fall/change in ADL's that may No increase risk of falls Signs or symptoms of abuse and/or No neglect since last visit Have you been in the hospital since your No last visit? Has dressing in place as prescribed Yes Has compression in place as prescribed Yes Has offloadiing in place as prescribed N/A Experienced any changes in pain level or No management Left Footwear Regular Shoe Right Footwear Regular Shoe Pain Scale: 0-10 Numeric Is Patient Pain Free? Yes - Nurse 1 - General Ulcer Measurement Start: 01/10/21 11:34 Freq: Status: Active Protocol: Activity Type Activity Date Activity User E-Sign Co-Sign Detail Recorded Client Recorded Date Recorded By Document 12/03/21 11:34 BM [id number] 01/10/21 11:50 BMF Document 01/17/21 11:52 RB [id number] 01/17/21 11:57 RB Document 01/24/21 12:13 TX [id number] 01/24/21 12:20 MT Document 02/04/21 13:28 KR [id number] 02/04/21 13:33 KR 01/10/21 01/17/21 01/24/21 11:34 11:52 12:13 Wound Center Nurse 1 #2 RIGHT LOWER LEG (MAN CLUSTER) -Combined with other wound No No -Current Size (cm) - Length 4.5 1.6 1.5 -Current Size (cm) - Width 2.6 2 1 -Current Size (cm) - Depth 0.2 0.1 0.1 -Total Square Cm 11.70 3.2 1.5 -Photo Taken No -Epithelialization Small 1-33% -Tunneling No No -Undermining/Tunneling No No -Circular Undermining No No -Exudate Amt Large Large Small -Exudate Type Serosanguineous Serosanguineous Serosanguineous -Wound Margin Distinct, Flat & Intact Flat & Intact Outline Attached -Granulation Amt Small (1-33%) Medium (34-66%) Large (67-100%) -Granulation Quality Red [place] Pale,[place] -Slough/Fibrin Yes Yes -Necrosis Amt Large (67-100%) Small (1-33%) Small (1-33%) -Necrotic Tissue Type Adherent Slough Adherent Slough Adherent Slough -Structure Exposed N/A -Texture (Mariajose-wound Skin Appearance) Assessed, Assessed Assessed Excoriation, Scarring -Moisture (Mariajose-wound Skin Appearance) Assessed, Dry/Scaly Assessed Maceration,Dry/ Scaly -Color (Mariajose-wound Skin Appearance) Assessed, Assessed Assessed Erythema,Palor -Temperature (Mariajose-wound Skin No Abnormality No Abnormality No Abnormality Appearance) (Pt Warm) (Pt Warm) (Pt Warm) -Tenderness on Palpation (Mariajose-wound No No No Skin Appearance) -Ulcer Cleansing Soap and Water Wound Cleanser Wound Cleanser -Foul Odor after Cleansing No No No -Anesthetic Used 4% Lidocaine 4% Lidocaine 4% Lidocaine Solution Solution Solution Lower Limb Edema Present Yes Yes Yes Right Calf (cm) 47.4 47 46 Right Ankle (cm) 25 24.2 24.5 02/04/21 13:28 Wound Center Nurse 1 #2 RIGHT LOWER LEG (MAN CLUSTER) -Combined with other wound -Current Size (cm) - Length 3.7 -Current Size (cm) - Width 1.9 -Current Size (cm) - Depth 0.1 -Total Square Cm 7.03 -Photo Taken No -Epithelialization -Tunneling -Undermining/Tunneling -Circular Undermining -Exudate Amt Medium -Exudate Type Serosanguineous -Wound Margin Indistinct, Non -Visible -Granulation Amt Medium (34-66%) -Granulation Quality [place] -Slough/Fibrin -Necrosis Amt Medium (34-66%) -Necrotic Tissue Type Adherent Slough -Structure Exposed N/A -Texture (Mariajose-wound Skin Appearance) Excoriation, Scarring -Moisture (Mariajose-wound Skin Appearance) Dry/Scaly -Color (Mariajose-wound Skin Appearance) Hemosiderin Staining -Temperature (Mariajose-wound Skin No Abnormality Appearance) (Pt Warm) -Tenderness on Palpation (Mariajose-wound No Skin Appearance) -Ulcer Cleansing Soap and Water -Foul Odor after Cleansing No -Anesthetic Used 5% Lidocaine Gel Lower Limb Edema Present Right Calf (cm) 48.8 Right Ankle (cm) 26.4 WC - Nurse 2 - General Ulcer CM Notes Start: 01/10/21 11:34 Freq: Status: Active Protocol: Activity Type Activity Date Activity User E-Sign Co-Sign Detail Recorded Client Recorded Date Recorded By Document 01/10/21 12:11 [id number] 01/10/21 12:28 JF Document 01/17/21 12:14 JF [id number] 01/17/21 12:34 JF Document 01/24/21 13:01 MW [id number] 01/24/21 13:13 MW Document 02/04/21 14:11 MW [id number] 02/04/21 14:27 MW 01/10/21 01/17/21 01/24/21 12:11 12:14 13:01 Wound Center Nurse 2 #2 RIGHT LOWER LEG (MAN CLUSTER) -Time 12:12 12:16 13:02 -Correct Patient Yes Yes Yes -Correct Side, Site, Position Yes Yes Yes -Correct Procedure Yes Yes Yes -Procedure Performed Yes Yes Yes -Type of Procedure Incision & Debridement Debridement Drainage -Clinical Debridement Subcutaneous Subcutaneous Subcutaneous -Tissue Removed Subcutaneous Subcutaneous Subcutaneous -Post Debridement (cm) - Length 4.5 4.5 1.9 -Post Debridement (cm) - Width 2.3 1.8 1.0 -Post Debridement (cm) - Depth 0.2 0.1 0.1 -Total Square (Post) (cm) 10.35 8.10 1.90 -Area of Debridement (cm) - Length 4.5 4.5 1.9 -Area of Debridement (cm) - Width 2.3 1.8 1.0 -Total Square (Area) (cm) 10.35 8.10 1.90 -Tunneling No No No -Undermining/Tunneling No No No -Circular Undermining No No No -Wound/Ulcer Outcome Not Healed Not Healed Not Healed -Ulcer Cleansing Rinsed/ Rinsed/ Rinsed/ Irrigated with Irrigated with Irrigated with Saline Saline Saline -Foul Odor after Cleansing No No No -Bioengineered Tissue Yes Yes Yes -Type of Bioengineered Tissue NuShield NuShield NuShield Disc -Expiration Date 12/02/23 09/06/24 09/06/24 -Product Lot Number [id number] -Percent Used 100 100 100 -Lot number of Saline Used [id number] -Bleeding Controlled with Pressure Pressure Pressure -Offloading No No No -Treatment Response Procedure Procedure Procedure Tolerated Well Tolerated Well Tolerated Well -Debridement - Subq, 1st 20sq cm No No No -Apply Skin Sub - 1st 25 sq cm - Legs 1 1 1 -NuShield (per sq cm) 12 0 -NuShield 16mm Disc 2 2 Pain Scale: 0-10 Numeric Is Patient Pain Free? Yes Yes Yes 02/04/21 14:11 Wound Center Nurse 2 #2 RIGHT LOWER LEG (MAN CLUSTER) -Time 14:11 -Correct Patient Yes -Correct Side, Site, Position Yes -Correct Procedure Yes -Procedure Performed Yes -Type of Procedure Debridement -Clinical Debridement Subcutaneous -Tissue Removed Subcutaneous -Post Debridement (cm) - Length 0.5 -Post Debridement (cm) - Width 0.7 -Post Debridement (cm) - Depth 0.1 -Total Square (Post) (cm) 0.35 -Area of Debridement (cm) - Length 0.5 -Area of Debridement (cm) - Width 0.7 -Total Square (Area) (cm) 0.35 -Tunneling No -Undermining/Tunneling No -Circular Undermining No -Wound/Ulcer Outcome Not Healed -Ulcer Cleansing Rinsed/ Irrigated with Saline -Foul Odor after Cleansing No -Bioengineered Tissue Yes -Type of Bioengineered Tissue NuShield Disc -Expiration Date 08/20/24 -Product Lot Number [id number] -Percent Used 100 -Lot number of Saline Used [id number] -Bleeding Controlled with Pressure -Offloading No -Treatment Response Procedure Tolerated Well -Debridement - Subq, 1st 20sq cm No -Apply Skin Sub - 1st 25 sq cm - Legs 1 -NuShield (per sq cm) -NuShield 16mm Disc 2 Pain Scale: 0-10 Numeric Is Patient Pain Free? Yes WC - Nurse 3 - General Ulcer D/C NN Start: 01/10/21 11:34 Freq: Status: Active Protocol: Activity Type Activity Date Activity User E-Sign Co-Sign Detail Recorded Client Recorded Date Recorded By Document 01/10/21 12:53 RB [id number] 01/10/21 12:55 RB Document 01/17/21 12:43 AK [id number] 01/17/21 12:45 AK Document 01/24/21 13:13 MW [id number] 01/24/21 13:14 MW Document 02/04/21 14:34 KR [id number] 02/04/21 14:34 KR 01/10/21 01/17/21 01/24/21 12:53 12:43 13:13 Wound Care Nurse 3 #2 RIGHT LOWER LEG (MAN CLUSTER) -Ulcer Cleansing Not Cleansed -Foul Odor after Cleansing No No -Negative Pressure Wound Therapy N/A N/A -Primary Dressing Applied Aquacel Extra Aquacel Extra Aquacel Extra -Other Dressing abd, kerlix hydrogel stomaahesive applied on periwound -Primary Dressing Covered/Secured with Dry Gauze,Dry Dry Gauze,Dry Dry Gauze & Gauze & Roll Gauze & Roll Roll Gauze, Gauze,Secured Gauze,Secured Secured with with Tape with Tape Tape -Other Covering ABD -Aquacel Extra 1 1 1 Left -Lotion applied to leg before No compression wrap -Tubular Bandage Double Layer -Size of Tubigrip Used Size E -Size E ($) 2 Right -Lotion applied to leg before No compression wrap -Tubular Bandage Double Layer Double Layer -Size of Tubigrip Used Size E Size E -Size E ($) 2 2 -Stockings No Treatment Response Procedure Tolerated Well Pain Scale: 0-10 Numeric Is Patient Pain Free? Yes Yes Teaching: Wound Center Dressing Your Wound -Person Taught Patient -Teaching Method Discussion, Demonstration -Response to teaching Verbalize understanding WC - Visit Discharge Discharge Condition Stable Stable Stable Ambulatory Status Ambulatory, Ambulatory, Ambulatory, Walker Walker Walker Transportation Private Auto Private Auto Accompanied by SELF Medication Reconcilliation completed & No No No provided to patient/care provider Clinical Summary of Care Provided Yes Yes Yes 02/04/21 14:34 Wound Care Nurse 3 #2 RIGHT LOWER LEG (MAN CLUSTER) -Ulcer Cleansing -Foul Odor after Cleansing -Negative Pressure Wound Therapy -Primary Dressing Applied -Other Dressing -Primary Dressing Covered/Secured with Dry Gauze,Dry Gauze & Roll Gauze,Secured with Tape -Other Covering -Aquacel Extra Left -Lotion applied to leg before compression wrap -Tubular Bandage -Size of Tubigrip Used -Size E ($) Right -Lotion applied to leg before compression wrap -Tubular Bandage Double Layer -Size of Tubigrip Used Size E -Size E ($) 2 -Stockings Treatment Response Pain Scale: 0-10 Numeric Is Patient Pain Free? Yes Teaching: Wound Center Dressing Your Wound -Person Taught -Teaching Method -Response to teaching WC - Visit Discharge Discharge Condition Stable Ambulatory Status Walker Transportation Private Auto Accompanied by self Medication Reconcilliation completed & provided to patient/care provider Clinical Summary of Care Provided Assessment/Plan Assessment/Plan (1) Nonhealing skin ulcer: CODE(S): L98.499 - Non-pressure chronic ulcer of skin of other sites with unspecified severity QUALIFIERS: Non-pressure ulcer stage: with fat layer exposed Qualified Code(s): L98.492 - Non-pressure chronic ulcer of skin of other sites with fat layer exposed (2) HTN (hypertension): CODE(S): I10 - Essential (primary) hypertension QUALIFIERS: Hypertension type: primary hypertension Qualified Code(s): I10 - Essential (primary) hypertension (3) Controlled diabetes mellitus: CODE(S): E11.9 - Type 2 diabetes mellitus without complications QUALIFIERS: Diabetes mellitus type: type 2 Diabetes mellitus terminal make up operator insulin use: without usp use Diabetes mellitus complication status: with skin complications Diabetes mellitus complication detail: with other skin ulcer Qualified Code(s): E11.622 - Type 2 diabetes mellitus with other skin ulcer (4) Venous ulcer of right lower extremity without varicose veins: CODE(S): I87.2 - Venous insufficiency (chronic) (peripheral); L97.919 - Non-pressure chronic ulcer of unspecified part of right lower leg with unspecified severity (5) Edema, lower extremity: CODE(S): R60.0 - Localized edema (6) COPD (chronic obstructive pulmonary disease): CODE(S): J44.9 - Chronic obstructive pulmonary disease, unspecified QUALIFIERS: COPD type: unspecified COPD Qualified Code(s): J44.9 - Chronic obstructive pulmonary disease, unspecified (7) PVD (peripheral vascular disease): CODE(S): I73.9 - Peripheral vascular disease, unspecified PLAN: Yon's ulcer was evaluated and debrided today at the wound healing center. He tolerated the procedure well. Wound culture 11/29/2020 was positive for Pseudomonas and Acetinobacter bacteria, no growth of anaerobic bacteria. He completed treatment with ciprofloxacin. He received second application of Puraply on 12/20/2020. This had improved the wound bed and there is much less slough and better granulation. Nushield #6 (#9 of organogenesis products) applied to the ulcer today per mechanical spreader operator guidelines using 100% of product and rehydrated with hydrogel and covered with adaptic touch which was then secured with steri-strips. He tolerated this well. Will have Home Health change dressings on Wednesday and Wednesday and Wednesday this week. He does not drive due to physical debility and is homebound. He is unable to perform dressing changes himself and lives alone. Due to the slow improvement in his healing and his multiple comorbid conditions, I feel that it is medically necessary to proceed with application of a skin substitute product such as Puraply or Nushield or Apligraf in order to heal his ulcer and prevent limb loss. Will obtain previous vascular testing from [facility]. Will obtain most recent lab tests. HgbA1C from 10/16/2020 was 6.2%. Will have him use compression with single layer tubigrip. Discussed importance of increased protein intake in order to improve healing. Stressed importance of elevating his legs at or above the level of his heart and using compression to treat swelling and maintain adequate control of edema to achieve healing of his ulcer. He was advised to call with any increased edema, erythema, pain, fever or chills. He will follow up in 10 days due to the holiday for wound care.
== END 2021-02-07 23:59 ==
LOC: WC 13:30
PROVIDERS: Visit Provider Family Medicine
DX: E11.622 Type 2 diabetes mellitus with other skin ulcer (principal); L98.492 Non-pressure chronic ulcer of skin of other sites with fat layer exposed; I10 Essential (primary) hypertension; I87.2 Venous insufficiency (chronic) (peripheral); J44.9 Chronic obstructive pulmonary disease, unspecified; R60.0 Localized edema; I73.9 Peripheral vascular disease, unspecified
CPT/HCPCS: 15271; Q4160

== ENCOUNTER 2021-03-07 11:30 | Outpatient (RCR) | payer MEDICARE, MEDICAID, SELFPAY ==
[2021-02-08 00:30] VITALS: BP 123/66; PULSE 56; RESP 22; TEMP 36.4; BMI 35.6
[2021-02-18 11:16] VITALS: BP 121/65; PULSE 63; RESP 20; TEMP -12.3; TEMP 9.9; BMI 35.6
--- NOTE | 2021-02-18 13:12 | HP.PCM_ITS ---
History of Present Illness Date of Service: 02/18/21 Chief Complaint: Chronic venous disease with an ulceration on the right pr etibial area History of Wound: This is a 75-year-old male with multiple pre-existing medical problems. He has known chronic venous disease, and has had multiple venous ulcerations in both lower extremities in the past. He claims to have undergone an ablation procedure in the right lower extremity approximately 4 years ago, though is uncertain as to the details, including the specifics of the procedure, the venue of the procedure, and the provider who performed the procedure. The patient denies a history of thrombophlebitis in the lower extremities. Prior treatment of his lower extremity venous ulcerations has occurred at wound healing facilities in [facility], as well as at the [facility]. He has recently been under the care of Dr. Leidy Fields at this facility since November 01, 2020. Conservative treatment measures have been implemented, and it appears as though the patient's right pretibial venous ulceration is nearly healed. Current measures include compression by means of a double layer Tubigrip. NuShield allografts have been applied topically. It appears as though there have been issues related to compliance. The patient lives alone, and is of limited mobility. He suffers from debility is unable to don and doff graduated compression stockings. Home health nursing assistance is provided 2 or 3 times per week. The patient is limited in his ambulatory capacity, requiring a walker for mobility. He often sleeps in a recliner, and does not reliably elevate his legs as recommended. His pre-existing medical conditions include hypertension, hyperlipidemia, atrial fibrillation, congestive heart failure, diabetes mellitus, peripheral neuropathy, prostatism, spinal stenosis, chronic obstructive pulmonary disease, and obesity. Patient is on chronic systemic anticoagulation with Eliquis due to atrial fibrillation. [facility] Medical History (Updated 02/18/21 @ 14:[address] Leon Fischer MD) Anesthesia of skin Atrial fibrillation Chronic anticoagulation Chronic venous hypertension w/ulcer and inflammation involv right side Chronic venous insufficiency COPD (chronic obstructive pulmonary disease) Debility Diabetes mellitus HTN (hypertension) Hyperpigmentation Leg swelling Obesity (BMI 30-39.9) Peripheral neuropathy PVD (peripheral vascular disease) Shortness of breath Sleep apnea Spinal stenosis Spinal stenosis, lumbar region with neurogenic claudication Tobacco abuse Tobacco abuse counseling Varicose veins with ulcer and inflammation Venous stasis ulcer Home Medications Advair HFA BID 11/01/20 [History Last Taken Unknown] apixaban [Eliquis] 5 mg PO BID 11/01/20 [History Last Taken Unknown] betamethasone dipropionate BID 11/01/20 [History Last Taken Unknown] furosemide 20 mg PO DAILY 11/01/20 [History Last Taken Unknown] metformin mg 11/01/20 [History Last Taken Unknown] metoprolol succinate 25 mg PO DAILY 11/01/20 [History Last Taken Unknown] rosuvastatin mg 11/01/20 [History Last Taken Unknown] tamsulosin mg PO 11/01/20 [History Last Taken Unknown] clindamycin HCl 300 mg PO BID 7 Days #14 cap 11/08/20 [Rx Last Taken Unknown] Allergy/AdvReac Type Severity Reaction Status Date / Time penicillin G AdvReac PT UNSURE Verified 11/01/20 10:14 OF REACTION Penicillins [PCN] AdvReac PT UNSURE Verified 11/01/20 10:14 OF REACTION Surgical History History of surgery on arm Social History Smoking Status: Current every day smoker Vital Signs Vital Signs Vital Signs: 02/18/21 11:16 Temperature 9.9 F L Temperature Source Temporal Pulse Rate 63 Respiratory Rate 20 H Blood Pressure 121/65 H Blood Pressure Mean 83 Blood Pressure Source Monitor Blood Pressure Position Sitting Blood Pressure Location Left Arm Oxygen Delivery Method Room Air Weight Weight: 292 lb 11.996 oz Body Mass Index (BMI) 35.6 Physical Exam Const alert, oriented x3, no apparent distress and well nourished Constitutional Narrative: The patient is obese, with a BMI of 35.6. He appears slightly short of breath at rest. General Appearance: cooperative, well developed and disheveled Orientation / Consciousness: awake, oriented to person, oriented to place and oriented to time HEENT normocephalic and head/scalp atraumatic Head and Scalp: normal to inspection, normocephalic and atraumatic External Ear: external ears normal Eyes PERRL and EOMs intact bilaterally General Eye: normal appearance of both eyes Resp normal air movement, no retractions and no use of accessory muscles Effort and Inspection: able to speak in complete sentences Extremity no calf tenderness Extremity Narrative: Mild swelling and edema noted in the patient's lower extremities bilaterally. Hemosiderin staining is noted in the gaiter areas bilaterally. General Extremity: Negative for clubbing or cyanosis Skin Wound Narrative: A small ulceration is noted in the right pre pretibial area. Dimensions are documented elsewhere. There is a small amount of bioburden. There is no sign of infection or cellulitis. Neuro oriented x3, CN's II-XII intact bilaterally and moves all extremities Sensorium / Orientation: awake, alert, oriented to person, oriented to place and oriented to time Psych Appearance: grossly normal and appropriate Attitude: calm Activity / Motor Behavior: appropriate eye contact Speech: normal speech Mood & Affect: euthymic mood Thought Process: normal thought process Thought Content: normal thought content Attention / Concentration: attention grossly intact Debridement Note Debridement Note Wound debrided: Right pretibial ulceration Laterality: Right Type of Debridement: Excisional debridement Anesthesia Used: 5% Lidocaine Gel Depth: Down to and including healthy tissue and in the subcutaneous layer Percentage of wound debrided: 100 Instrument Used: 3mm curette Tissue Removed: Bioburden Severity: Fat Layer Exposed Amount of bleeding with debridement: Mild Bleeding Controlled with: Compression and gauze Patient tolerated procedure: Patient tolerated procedure well Post-Debridement Measurements and Additional Note: Post-Debridement Measurements/Treatment - Nurse 1 - General Ulcer Assessment Start: 02/18/21 11:16 Freq: Status: Active Protocol: WC.LOWRAVINDERT Activity Type Activity Date Activity User E-Sign Co-Sign Detail Recorded Client Recorded Date Recorded By Document 02/18/21 11:16 [id number] 02/18/21 11:19 MW 02/18/21 11:16 - Today's Visit Information Type of service 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 ) Arrival Mode Ambulatory, Walker Transfer Assistance None Accompanied by friend Patient Identification Verified (Name & Yes ) Patient Requires Transmission-Based No Precautions Safety Precautions NA Height and Weight Body Mass Index (BMI) 35.6 BMI Classification Obese Vital Signs Temperature (97.8 F-99.1 F) 9.9 F L Temperature Source Temporal Pulse Rate (60-100) 63 Pulse Location Monitor Respiratory Rate (12-18) 20 H Respiratory rate source Observation Oxygen Delivery Method Room Air Blood Pressure (90/60-120/80) 121/65 H Blood Pressure Mean 83 Source Monitor Position Sitting Blood Pressure Location Left Arm History Since Last Visit- (Skip if this is Patient's initial visit) Have you changed medications since your No last visit? Any new allergies or adverse reactions No Had a fall/change in ADL's that may No increase risk of falls Signs or symptoms of abuse and/or No neglect since last visit Have you been in the hospital since your No last visit? Has dressing in place as prescribed Yes Has compression in place as prescribed Yes Has offloadiing in place as prescribed N/A Experienced any changes in pain level or No management Left Footwear Regular Shoe Right Footwear Regular Shoe Pain Scale: 0-10 Numeric Is Patient Pain Free? Yes WC - Nurse 1 - General Ulcer Measurement Start: 02/18/21 11:16 Freq: Status: Active Protocol: Activity Type Activity Date Activity User E-Sign Co-Sign Detail Recorded Client Recorded Date Recorded By Document 02/18/21 11:16 MW [id number] 02/18/21 11:19 MW 02/18/21 11:16 Wound Center Nurse 1 #2 RIGHT LOWER LEG (HARRISON CLUSTER) -Combined with other wound No -Current Size (cm) - Length 0.1 -Current Size (cm) - Width 0.1 -Current Size (cm) - Depth 0.1 -Total Square Cm 0.01 -Photo Taken No -Epithelialization Large 67-100% -Tunneling No -Undermining/Tunneling No -Circular Undermining No -Exudate Amt None Present -Exudate Type Serosanguineous -Wound Margin Flat & Intact -Granulation Amt None Present (0 %) -Granulation Quality N/A -Slough/Fibrin Yes -Necrosis Amt Large (67-100%) -Necrotic Tissue Type Adherent Slough -Structure Exposed N/A -Texture (Mariajose-wound Skin Appearance) Assessed, Localized Edema ,Scarring -Moisture (Mariajose-wound Skin Appearance) No Abnormality, Assessed -Color (Mariajose-wound Skin Appearance) Assessed, Hemosiderin Staining -Temperature (Mariajose-wound Skin No Abnormality Appearance) (Pt Warm) -Ulcer Cleansing Soap and Water -Foul Odor after Cleansing No -Anesthetic Used 5% Lidocaine Gel Lower Limb Edema Present Yes Right Calf (cm) 46.0 Right Ankle (cm) 23.5 WC - Nurse 2 - General Ulcer CM Notes Start: 02/18/21 11:16 Freq: Status: Active Protocol: Activity Type Activity Date Activity User E-Sign Co-Sign Detail Recorded Client Recorded Date Recorded By Document 02/18/21 12:50 PL [id number] 02/18/21 12:52 PL 02/18/21 12:50 Wound Center Nurse 2 #2 RIGHT LOWER LEG (HARRISON CLUSTER) -Time 11:35 -Correct Patient Yes -Correct Side, Site, Position Yes -Correct Procedure Yes -Procedure Performed Yes -Type of Procedure Debridement -Clinical Debridement Subcutaneous -Tissue Removed Subcutaneous -Post Debridement (cm) - Length 0.1 -Post Debridement (cm) - Width 0.1 -Post Debridement (cm) - Depth 0.1 -Total Square (Post) (cm) 0.01 -Area of Debridement (cm) - Length 0.1 -Area of Debridement (cm) - Width 1 -Total Square (Area) (cm) 0.1 -Tunneling No -Undermining/Tunneling No -Wound/Ulcer Outcome Not Healed -Ulcer Cleansing Rinsed/ Irrigated with Saline -Foul Odor after Cleansing No -Bioengineered Tissue No -Debridement - Subq, 1st 20sq cm Yes Pain Scale: 0-10 Numeric Is Patient Pain Free? Yes - Nurse 3 - General Ulcer D/C NN Start: 02/18/21 11:16 Freq: Status: Active Protocol: Activity Type Activity Date Activity User E-Sign Co-Sign Detail Recorded Client Recorded Date Recorded By Document 02/18/21 12:07 DL [id number] 02/18/21 12:16 DL 02/18/21 12:07 Wound Care Nurse 3 #2 RIGHT LOWER LEG (HARRISON CLUSTER) -Ulcer Cleansing Rinsed/ Irrigated with Saline -Primary Dressing Applied Aquacel Extra -Aquacel Extra 1 Right -Multi-Layered Wrap Application Unna Boot - Bilateral ($) -Unna Boots (Bilat) ($) 1 Treatment Response Procedure Tolerated Well Pain Scale: 0-10 Numeric Is Patient Pain Free? Yes - Visit Discharge Discharge Condition Stable Ambulatory Status Ambulatory Transportation Private [facility] Facility Type Home Health Notes: pt c/o feeling unusually fatigued today, napped thru most of nurse 3 . encouraged pt and friend that brought him to call pcp or visit urgent care today. Orders Sent Yes Assessment/Plan Assessment/Plan (1) Venous stasis ulcer: CODE(S): I83.009 - Varicose veins of unspecified lower extremity with ulcer of unspecified site; L97.909 - Non-pressure chronic ulcer of unspecified part of unspecified lower leg with unspecified severity QUALIFIERS: Venous stasis ulcer site: calf Varicose vein presence: with varicose veins Laterality: right Non-pressure ulcer stage: with fat layer exposed Qualified Code(s): I83.012 - Varicose veins of right lower extremity with ulcer of calf; L97.212 - Non-pressure chronic ulcer of right calf with fat layer exposed (2) Chronic venous hypertension w/ulcer and inflammation involv right side: CODE(S): I87.331 - Chronic venous hypertension (idiopathic) with ulcer and inflammation of right lower extremity; L97.919 - Non-pressure chronic ulcer of unspecified part of right lower leg with unspecified severity (3) Varicose veins with ulcer and inflammation: CODE(S): I83.209 - Varicose veins of unspecified lower extremity with both ulcer of unspecified site and inflammation; L97.909 - Non-pressure chronic ulcer of unspecified part of unspecified lower leg with unspecified severity (4) Chronic venous insufficiency: CODE(S): I87.2 - Venous insufficiency (chronic) (peripheral) (5) Nonhealing skin ulcer: CODE(S): L98.499 - Non-pressure chronic ulcer of skin of other sites with unspecified severity QUALIFIERS: Non-pressure ulcer stage: with fat layer exposed Qualified Code(s): L98.492 - Non-pressure chronic ulcer of skin of other sites with fat layer exposed (6) Edema, lower extremity: CODE(S): R60.0 - Localized edema (7) Leg swelling: CODE(S): M79.89 - Other specified soft tissue disorders (8) COPD (chronic obstructive pulmonary disease): CODE(S): J44.9 - Chronic obstructive pulmonary disease, unspecified QUALIFIERS: COPD type: unspecified COPD Qualified Code(s): J44.9 - Chronic obstructive pulmonary disease, unspecified (9) HTN (hypertension): CODE(S): I10 - Essential (primary) hypertension QUALIFIERS: Hypertension type: primary hypertension Qualified Code(s): I10 - Essential (primary) hypertension (10) Hyperpigmentation: CODE(S): L81.9 - Disorder of pigmentation, unspecified (11) Atrial fibrillation: CODE(S): I48.91 - Unspecified atrial fibrillation (12) Chronic anticoagulation: CODE(S): 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 (13) Peripheral neuropathy: CODE(S): G62.9 - Polyneuropathy, unspecified (14) Diabetes mellitus: CODE(S): E11.9 - Type 2 diabetes mellitus without complications (15) Spinal stenosis: CODE(S): M48.00 - Spinal stenosis, site unspecified (16) Obesity (BMI 30-39.9): CODE(S): E66.9 - Obesity, unspecified (17) Debility: CODE(S): R53.81 - Other malaise (18) Shortness of breath: CODE(S): R06.02 - Shortness of breath (19) Tobacco abuse: CODE(S): Z72.0 - Tobacco use (20) Tobacco abuse counseling: CODE(S): Z71.6 - Tobacco abuse counseling PLAN: This is a 75-year-old male with severe, chronic venous disease in both lower extremities. He has had venous stasis ulcerations in both lower extremities in the past, treated at several wound care facilities. Approximately 4 years ago, according to the patient, he underwent a venous ablation procedure in the right lower extremity, though specifics with respect to this procedure are not known. The patient indicates that he has undergone a venous duplex examination and a noninvasive lower extremity arterial study at [facility] in [place], [place], approximately 3 weeks ago. We are to request the results of these diagnostic tests. The patient has been counseled as to the appropriate measures relative to lifestyle modification regarding his venous disease. Leg elevation has been recommended. His lower extremities are to be elevated to heart level, or higher, is much as possible. He has been encouraged to sleep on a flat surface, with his legs level with his heart. During daytime hours, he is to elevate his legs to heart level, or higher, is much as possible. Activity has been encouraged, though the patient pre-existing medical problems are likely to prevent significant enhancement of his activity level. He has been advised to refrain from prolonged idle sitting. Weight loss has also been recommended. We are to initiate compression to the patient's lower extremities by means of Unna boots, which will be applied bilaterally, and will be changed twice weekly. To facilitate this, the patient's home health nurses are to be recruited to assist in this matter. We are to use Aquacel topically to the ulceration in the right pretibial area. The patient has been encouraged to optimize his nutritional intake, as well as optimizing his glycemic control. He is to follow-up henceforth with his established provider in the [facility], and is to be given an appointment for next week. Once received, the patient's vascular studies will be reviewed. According the patient, a venous and arterial study have recently been performed, and the results will be requested. It is understood that the patient has previously undergone a venous ablation procedure in the right lower extremity. The nature of this procedure may be evident based upon the findings on the patient's venous duplex ultrasound study. At this juncture, given the patient's severe, multiple pre-existing medical problems, he does not appear to be a suitable candidate for procedural intervention. Rather, conservative measures, as those which have been recommended herein, appear most appropriate. These measures are likely to be of benefit for the long-term, and will depend upon the patient's compliance. The patient's debility, and the fact that he lives alone and has limited resources, may portend a poor long-term prognosis. Total time: 65 minutes
[2021-03-07 11:33] VITALS: BP 136/70; PULSE 62; RESP 16; TEMP 35.8; BMI 35.6
--- NOTE | 2021-03-07 12:36 | PCM.WC.PN ---
History of Present Illness Date of Service: 03/07/21 Chief Complaint: Chronic venous disease with an ulceration on the right pretibial area History of Wound: This is a 75-year-old male with multiple pre-existing medical problems. He has known chronic venous disease, and has had multiple venous ulcerations in both lower extremities in the past with recurrent bouts of cellulitis complicating these ulcers. He claims to have undergone an ablation procedure in the right lower extremity approximately 4 years ago, though is uncertain as to the details, including the specifics of the procedure, the venue of the procedure, and the provider who performed the procedure. The patient denies a history of thrombophlebitis in the lower extremities. Prior treatment of his lower extremity venous ulcerations has occurred at wound healing facilities in [facility], as well as at the [facility]. He has recently been under the care of Dr. Leidy Fields at this facility since November 01, 2020. Conservative treatment measures have been implemented, and it appears as though the patient's right pretibial venous ulceration is nearly healed. Current measures include compression by means of a double layer Tubigrip. NuShield allografts have been applied topically. It appears as though there have been issues related to compliance. The patient lives alone, and is of limited mobility. He suffers from debility is unable to don and doff graduated compression stockings. Home health nursing assistance is provided 2 or 3 times per week. The patient is limited in his ambulatory capacity, requiring a walker for mobility. He often sleeps in a recliner, and does not reliably elevate his legs as recommended. His pre-existing medical conditions include hypertension, hyperlipidemia, atrial fibrillation, congestive heart failure, diabetes mellitus, peripheral neuropathy, prostatism, spinal stenosis, chronic obstructive pulmonary disease, and obesity. Patient is on chronic systemic anticoagulation with Eliquis due to atrial fibrillation. Subjective María Elena Prieto returns today for evaluation and treatment of ulcers of his right man. He was seen in consultation by Dr. Fischer and was treated with 2 weeks of UNNA boot therapy which improved his ulcer and unfortunately he developed COVID and pneumonia and has not been seen at the wound healing center for 2 weeks. He continued to have dressings changed by Home Health as directed by physician orders from the wound healing center. He had been dressing his ulcers with Aquacel Extra since removal of the UNNA boot approx. 1 week ago. His right man ulcer is much improved and nearly healed. He denies fever, chills, increased drainage or odor. Objective Data Objective Data Vital Signs: Vital Signs Temp Pulse Resp BP 96.5 F L 62 16 136/70 H 03/07/21 11:33 03/07/21 11:33 03/07/21 11:33 03/07/21 11:33 Oxygen Delivery Method Room Air Weight: 132.789 kg Body Mass Index (BMI) 35.6 Physical Exam Const alert, oriented x3 and no apparent distress General Appearance: comfortable Nutritional Appearance: obese HEENT normocephalic and head/scalp atraumatic Resp normal respiratory effort and normal air movement Effort and Inspection: able to speak in complete sentences Cardio regular rate Extremity General Extremity: edema bilateral lower extremity Details: moderate Skin General Skin Exam: crusts, lichenification, venous stasis and dermatitis Wounds: wounds noted Wound Narrative: as in clinical panel Psych mental status grossly normal, thought process normal, cooperative, affect normal and speech normal Debridement Note Debridement Note Wound debrided: right lower leg man cluster Laterality: Right Type of Debridement: Excisional debridement Anesthesia Used: 4% Lidocaine Solution Depth: Down to and including healthy tissue and in the subcutaneous layer Percentage of wound debrided: 100 Instrument Used: 3mm curette Tissue Removed: Yellow slough, devitalized tissue Severity: Fat Layer Exposed Amount of bleeding with debridement: Mild Bleeding Controlled with: Compression and gauze Patient tolerated procedure: Patient tolerated procedure well Post-Debridement Measurements and Additional Note: Post-Debridement Measurements/Treatment - Nurse 1 - General Ulcer Assessment Start: 02/18/21 11:16 Freq: Status: Active Protocol: ROSIO Activity Type Activity Date Activity User E-Sign Co-Sign Detail Recorded Client Recorded Date Recorded By Document 02/18/21 11:16 MW [id number] 02/18/21 11:19 MW Document 03/07/21 11:33 BINTA [id number] 03/07/21 11:35 BINTA 02/18/21 03/07/21 11:16 11:33 - Today's Visit Information Type of service Follow-up Visit Follow-up Visit (Physician/CORRECTIONAL FOOD SERVICE SUPERVISOR (Physician/CORRECTIONAL FOOD SERVICE SUPERVISOR ) ) Arrival Mode Ambulatory, Ambulatory, Walker Walker Transfer Assistance None Accompanied by friend Patient Identification Verified (Name & Yes Yes ) Patient Requires Transmission-Based No No Precautions Safety Precautions NA Height and Weight Body Mass Index (BMI) 35.6 35.6 BMI Classification Obese Obese Vital Signs Temperature (97.8 F-99.1 F) 9.9 F L 96.5 F L Temperature Source Temporal Temporal Pulse Rate (60-100) 63 62 Pulse Location Monitor Monitor Respiratory Rate (12-18) 20 H 16 Respiratory rate source Observation Observation Oxygen Delivery Method Room Air Blood Pressure (90/60-120/80) 121/65 H 136/70 H Blood Pressure Mean (mm Hg) 83 92 Source Monitor Monitor Position Sitting Semi-Fowlers Blood Pressure Location Left Arm Left Arm History Since Last Visit- (Skip if this is Patient's initial visit) Have you changed medications since your No Yes last visit? Any new allergies or adverse reactions No No Had a fall/change in ADL's that may No No increase risk of falls Signs or symptoms of abuse and/or No No neglect since last visit Have you been in the hospital since your No No last visit? Has dressing in place as prescribed Yes Yes Has compression in place as prescribed Yes Yes Has offloadiing in place as prescribed N/A N/A Experienced any changes in pain level or No No management Left Footwear Regular Shoe Regular Shoe Right Footwear Regular Shoe Regular Shoe Pain Scale: 0-10 Numeric Is Patient Pain Free? Yes Yes WC - Nurse 1 - General Ulcer Measurement Start: 02/18/21 11:16 Freq: Status: Active Protocol: Activity Type Activity Date Activity User E-Sign Co-Sign Detail Recorded Client Recorded Date Recorded By Document 02/18/21 11:16 [id number] 02/18/21 11:19 MW Document 03/07/21 11:33 [id number] 03/07/21 11:35 02/18/21 03/07/21 11:16 11:33 Wound Center Nurse 1 #2 RIGHT LOWER LEG (MAN CLUSTER) -Combined with other wound No No -Current Size (cm) - Length 0.1 2.0 -Current Size (cm) - Width 0.1 2.3 -Current Size (cm) - Depth 0.1 0.1 -Total Square Cm 0.01 4.60 -Photo Taken No No -Epithelialization Large 67-100% Medium 34-66% -Tunneling No No -Undermining/Tunneling No No -Circular Undermining No No -Exudate Amt None Present Medium -Exudate Type Serosanguineous Serosanguineous -Wound Margin Flat & Intact Thickened -Granulation Amt None Present (0 Small (1-33%) %) -Granulation Quality N/A [place] -Slough/Fibrin Yes Yes -Necrosis Amt Large (67-100%) Large (67-100%) -Necrotic Tissue Type Adherent Slough Adherent Slough -Structure Exposed N/A N/A -Texture (Mariajose-wound Skin Appearance) Assessed, Assessed, Localized Edema Localized Edema ,Scarring -Moisture (Mariajose-wound Skin Appearance) No Abnormality, Dry/Scaly Assessed -Color (Mariajose-wound Skin Appearance) Assessed, No Abnormality, Hemosiderin Assessed, Staining Hemosiderin Staining -Temperature (Mariajose-wound Skin No Abnormality No Abnormality Appearance) (Pt Warm) (Pt Warm) -Tenderness on Palpation (Mariajose-wound No Skin Appearance) -Ulcer Cleansing Soap and Water Wound Cleanser -Foul Odor after Cleansing No -Anesthetic Used 5% Lidocaine 4% Lidocaine Gel Solution,5% Lidocaine Gel Lower Limb Edema Present Yes Yes Right Calf (cm) 46.0 46.0 Right Ankle (cm) 23.5 23.5 WC - Nurse 2 - General Ulcer CM Notes Start: 02/18/21 11:16 Freq: Status: Active Protocol: Activity Type Activity Date Activity User E-Sign Co-Sign Detail Recorded Client Recorded Date Recorded By Document 02/18/21 12:50 PL [id number] 02/18/21 12:52 PL Document 03/07/21 12:09 MW [id number] 03/07/21 12:31 MW 02/18/21 03/07/21 12:50 12:09 Wound Center Nurse 2 #2 RIGHT LOWER LEG (MAN CLUSTER) -Time 11:35 12:09 -Correct Patient Yes Yes -Correct Side, Site, Position Yes Yes -Correct Procedure Yes Yes -Procedure Performed Yes Yes -Type of Procedure Debridement Debridement -Clinical Debridement Subcutaneous Subcutaneous -Tissue Removed Subcutaneous Subcutaneous -Post Debridement (cm) - Length 0.1 0.9 -Post Debridement (cm) - Width 0.1 1.0 -Post Debridement (cm) - Depth 0.1 0.1 -Total Square (Post) (cm) 0.01 0.90 -Area of Debridement (cm) - Length 0.1 0.9 -Area of Debridement (cm) - Width 1 1.0 -Total Square (Area) (cm) 0.1 0.90 -Tunneling No No -Undermining/Tunneling No No -Circular Undermining No -Wound/Ulcer Outcome Not Healed Not Healed -Ulcer Cleansing Rinsed/ Rinsed/ Irrigated with Irrigated with Saline Saline -Foul Odor after Cleansing No No -Bioengineered Tissue No No -Bleeding Controlled with Pressure -Offloading No -Treatment Response Procedure Tolerated Well -Debridement - Subq, 1st 20sq cm Yes No Pain Scale: 0-10 Numeric Is Patient Pain Free? Yes Yes - Nurse 3 - General Ulcer D/C NN Start: 02/18/21 11:16 Freq: Status: Active Protocol: Activity Type Activity Date Activity User E-Sign Co-Sign Detail Recorded Client Recorded Date Recorded By Document 02/18/21 12:07 DL [id number] 02/18/21 12:16 DL Document 03/07/21 12:31 MW [id number] 03/07/21 12:32 MW 02/18/21 03/07/21 12:07 12:31 Wound Care Nurse 3 #2 RIGHT LOWER LEG (MAN CLUSTER) -Ulcer Cleansing Rinsed/ Rinsed/ Irrigated with Irrigated with Saline Saline -Foul Odor after Cleansing No -Negative Pressure Wound Therapy N/A -Primary Dressing Applied Aquacel Extra NonAdherent Contact Layer, Promogran -Primary Dressing Covered/Secured with Dry Gauze & Roll Gauze, Secured with Tape -Aquacel Extra 1 -Promogran 1 Right -Lotion applied to leg before No compression wrap -Multi-Layered Wrap Application Unna Boot - Bilateral ($) -Unna Boots (Bilat) ($) 1 -Tubular Bandage Double Layer -Size of Tubigrip Used Size E -Size E ($) 2 Treatment Response Procedure Tolerated Well Pain Scale: 0-10 Numeric Is Patient Pain Free? Yes Yes - Visit Discharge Discharge Condition Stable Stable Ambulatory Status Ambulatory Ambulatory Transportation Private Auto Private Auto Accompanied by friend Medication Reconcilliation completed & No provided to patient/care provider Clinical Summary of Care Provided Yes Facility Type Home Health Notes: pt c/o feeling unusually fatigued today, napped thru most of nurse 3 . encouraged pt and friend that brought him to call pcp or visit urgent care today. Orders Sent Yes Assessment/Plan Assessment/Plan (1) Tobacco abuse: CODE(S): Z72.0 - Tobacco use (2) Varicose veins with ulcer and inflammation: CODE(S): I83.209 - Varicose veins of unspecified lower extremity with both ulcer of unspecified site and inflammation; L97.909 - Non-pressure chronic ulcer of unspecified part of unspecified lower leg with unspecified severity (3) Debility: CODE(S): R53.81 - Other malaise (4) Obesity (BMI 30-39.9): CODE(S): E66.9 - Obesity, unspecified (5) Diabetes mellitus: CODE(S): E11.9 - Type 2 diabetes mellitus without complications QUALIFIERS: Diabetes mellitus type: type 2 Diabetes mellitus usp insulin use: without watcher automat long goods use Diabetes mellitus complication status: with skin complications Diabetes mellitus complication detail: with other skin ulcer Qualified Code(s): E11.622 - Type 2 diabetes mellitus with other skin ulcer (6) Spinal stenosis: CODE(S): M48.00 - Spinal stenosis, site unspecified QUALIFIERS: Spinal region: lumbar Neurogenic claudication status: with neurogenic claudication Qualified Code(s): M48.062 - Spinal stenosis, lumbar region with neurogenic claudication (7) Chronic anticoagulation: CODE(S): Z79.01 - rn long term care (current) use of anticoagulants (8) Peripheral neuropathy: CODE(S): G62.9 - Polyneuropathy, unspecified QUALIFIERS: Peripheral neuropathy type: polyneuropathy, unspecified Qualified Code(s): G62.9 - Polyneuropathy, unspecified (9) Venous stasis ulcer: CODE(S): I83.009 - Varicose veins of unspecified lower extremity with ulcer of unspecified site; L97.909 - Non-pressure chronic ulcer of unspecified part of unspecified lower leg with unspecified severity QUALIFIERS: Venous stasis ulcer site: calf Varicose vein presence: with varicose veins Laterality: right Non-pressure ulcer stage: with fat layer exposed Qualified Code(s): I83.012 - Varicose veins of right lower extremity with ulcer of calf; L97.212 - Non-pressure chronic ulcer of right calf with fat layer exposed (10) Chronic venous hypertension w/ulcer and inflammation involv right side: CODE(S): I87.331 - Chronic venous hypertension (idiopathic) with ulcer and inflammation of right lower extremity; L97.919 - Non-pressure chronic ulcer of unspecified part of right lower leg with unspecified severity (11) Chronic venous insufficiency: CODE(S): I87.2 - Venous insufficiency (chronic) (peripheral) (12) COPD (chronic obstructive pulmonary disease): CODE(S): J44.9 - Chronic obstructive pulmonary disease, unspecified QUALIFIERS: COPD type: unspecified COPD Qualified Code(s): J44.9 - Chronic obstructive pulmonary disease, unspecified (13) PVD (peripheral vascular disease): CODE(S): I73.9 - Peripheral vascular disease, unspecified (14) HTN (hypertension): CODE(S): I10 - Essential (primary) hypertension QUALIFIERS: Hypertension type: primary hypertension Qualified Code(s): I10 - Essential (primary) hypertension (15) Acquired lymphedema of lower extremity: CODE(S): I89.0 - Lymphedema, not elsewhere classified PLAN: This is a 75-year-old male with severe, chronic venous disease in both lower extremities. He has had venous stasis ulcerations in both lower extremities in the past, treated at several wound care facilities. Prieto's ulcers and lower extremities were evaluated and debrided today. Dressings: Will dress his right lower extremity ulcers with Promogran moistened and covered with Adaptic for mild-moderate drainage and secured with conforming gauze. Wound culture: Last culture 11/29/20 + for Pseudomonas - completed treatment. Vascular testing: The patient indicates that he has undergone a venous duplex examination and a noninvasive lower extremity arterial study at [facility] in [place], [place], approximately 3 weeks ago. Edema management: The patient has been counseled as to the appropriate measures relative to lifestyle modification regarding his venous disease. Leg elevation has been recommended. His lower extremities are to be elevated to heart level, or higher, is much as possible. He has been encouraged to sleep on a flat surface, with his legs level with his heart. During daytime hours, he is to elevate his legs to heart level, or higher, is much as possible. Activity has been encouraged, though the patient pre-existing medical problems are likely to prevent significant enhancement of his activity level. He has been advised to refrain from prolonged idle sitting. Weight loss has also been recommended. Due to his inability to don and doff compression garments such as compression stockings, AUDREY bandages, tubigrip compression due to his orthopedic spine issues and debility and due to his recurrent ulcerations and difficulty with healing ulcerations when they do develop, I recommend that he undergo treatment with lymphedema compression pumps at least twice daily to maintain his edema and prevent ulcers from developing. He has had success with this in the past and was able to don the compression garments for the lymphedema pumps for 6 years but his compression pump and associated equipment was lost in transition to his new apartment and he has been without this treatment for approx. 2 years. Nutrition: The patient has been encouraged to optimize his nutritional intake, as well as optimizing his glycemic control. Rather, conservative measures, as those which have been recommended herein, appear most appropriate. These measures are likely to be of benefit for the long-term, and will depend upon the patient's compliance. The patient's debility, and the fact that he lives alone and has limited resources, may lend to a poor long-term prognosis. He was advised to call with any increased drainage, odor, pain or erythema. F/U in 1 week.
== END 2021-03-10 23:59 ==
LOC: WC 11:30
PROVIDERS: Visit Provider Family Medicine
DX: I83.012 Varicose veins of right lower extremity with ulcer of calf (principal); E11.51 Type 2 diabetes mellitus with diabetic peripheral angiopathy without gangrene; L97.212 Non-pressure chronic ulcer of right calf with fat layer exposed; L98.492 Non-pressure chronic ulcer of skin of other sites with fat layer exposed; I87.331 Chronic venous hypertension (idiopathic) with ulcer and inflammation of right lower extremity; J44.9 Chronic obstructive pulmonary disease, unspecified; I11.0 Hypertensive heart disease with heart failure; I50.9 Heart failure, unspecified; E11.59 Type 2 diabetes mellitus with other circulatory complications; E11.42 Type 2 diabetes mellitus with diabetic polyneuropathy; I48.91 Unspecified atrial fibrillation; Z79.01 Long term (current) use of anticoagulants; M48.062 Spinal stenosis, lumbar region with neurogenic claudication; Z71.6 Tobacco abuse counseling; Z79.51 Long term (current) use of inhaled steroids; R53.81 Other malaise; E66.9 Obesity, unspecified; I89.0 Lymphedema, not elsewhere classified; E78.5 Hyperlipidemia, unspecified; I87.2 Venous insufficiency (chronic) (peripheral); I83.91 Asymptomatic varicose veins of right lower extremity; Z68.35 Body mass index [BMI] 35.0-35.9, adult; R06.02 Shortness of breath
CPT/HCPCS: 11042; 29580; 99213; G0463

== ENCOUNTER 2021-04-04 11:30 | Outpatient (RCR) | payer MEDICARE, MEDICAID, SELFPAY ==
[2021-03-11 00:37] VITALS: BP 136/70; PULSE 62; RESP 16; TEMP 35.8; BMI 35.6
[2021-03-21 12:15] VITALS: BP 123/69; PULSE 68; RESP 18; TEMP 36.6; BMI 35.6
--- NOTE | 2021-03-21 13:08 | PCM.WC.PN ---
History of Present Illness Date of Service: 03/21/21 Chief Complaint: Chronic venous disease with an ulceration on the right pretibial area History of Wound: This is a 75-year-old male with multiple pre-existing medical problems. He has known chronic venous disease, and has had multiple venous ulcerations in both lower extremities in the past with recurrent bouts of cellulitis complicating these ulcers. He claims to have undergone an ablation procedure in the right lower extremity approximately 4 years ago, though is uncertain as to the details, including the specifics of the procedure, the venue of the procedure, and the provider who performed the procedure. The patient denies a history of thrombophlebitis in the lower extremities. Prior treatment of his lower extremity venous ulcerations has occurred at wound healing facilities [place] as well as at the [facility] [place] [facility]. He has recently been under the care of Dr. Leidy Fields at this facility since November 01, 2020. Conservative treatment measures have been implemented, and it appears as though the patient's right pretibial venous ulceration is nearly healed. Current measures include compression by means of a double layer Tubigrip. NuShield allografts have been applied topically. It appears as though there have been issues related to compliance. The patient lives alone, and is of limited mobility. He suffers from debility is unable to don and doff graduated compression stockings. Home health nursing assistance is provided 2 or 3 times per week. The patient is limited in his ambulatory capacity, requiring a walker for mobility. He often sleeps in a recliner, and does not reliably elevate his legs as recommended. His pre-existing medical conditions include hypertension, hyperlipidemia, atrial fibrillation, congestive heart failure, diabetes mellitus, peripheral neuropathy, prostatism, spinal stenosis, chronic obstructive pulmonary disease, and obesity. Patient is on chronic systemic anticoagulation with Eliquis due to atrial fibrillation. Subjective Subjective Prieto returns today for evaluation and treatment of ulcers of his right man. He was seen in consultation by Dr. Fischer and was treated with 2 weeks of UNNA boot therapy which improved his ulcer. He tolerated treatment with Promogran and adaptic and tubigrip compression. He did not have home health nursing visits this week due to not being able to staff him. His right man ulcer is much improved and nearly healed. He denies fever, chills, increased drainage or odor. Objective Data Objective Data Vital Signs: Vital Signs Temp Pulse Resp BP 97.8 F 68 18 123/69 H 03/21/21 12:15 03/21/21 12:15 03/21/21 12:15 03/21/21 12:15 Weight: 132.789 kg Body Mass Index (BMI) 35.6 Physical Exam Const alert, oriented x3 and no apparent distress General Appearance: cooperative and comfortable HEENT normocephalic and head/scalp atraumatic Resp normal respiratory effort Effort and Inspection: able to speak in complete sentences Cardio regular rate and regular rhythm Skin Wounds: wounds noted Wound Narrative: as in clinical panel Psych mental status grossly normal, thought process normal and cooperative Debridement Note Debridement Note Wound debrided: right lower leg man cluster Laterality: Right Type of Debridement: Selective debridement Anesthesia Used: 4% Lidocaine Solution Depth: Down to and including healthy tissue and in the subcutaneous layer Percentage of wound debrided: 100 Instrument Used: - (gauze) Tissue Removed: Yellow slough, devitalized tissue Severity: Fat Layer Exposed Amount of bleeding with debridement: Mild Bleeding Controlled with: Compression and gauze Patient tolerated procedure: Patient tolerated procedure well Post-Debridement Measurements and Additional Note: Post-Debridement Measurements/Treatment WC - Nurse 1 - General Ulcer Assessment Start: 03/21/21 12:15 Freq: Status: Active Protocol: ROSIO Activity Type Activity Date Activity User E-Sign Co-Sign Detail Recorded Client Recorded Date Recorded By Document 03/21/21 12:15 RB [id number] 03/21/21 12:24 RB 03/21/21 12:15 - Today's Visit Information Type of service Follow-up Visit (Physician/BALLET [facility]OIST ) Arrival Mode Ambulatory, Walker Transfer Assistance None Patient Identification Verified (Name & Yes ) Height and Weight Body Mass Index (BMI) 35.6 BMI Classification Obese Vital Signs Temperature (97.8 F-99.1 F) 97.8 F Temperature Source Temporal Pulse Rate (60-100) 68 Pulse Location Monitor Respiratory Rate (12-18) 18 Respiratory rate source Observation Blood Pressure (90/60-120/80) 123/69 H Blood Pressure Mean (mm Hg) 87 Source Monitor Position Sitting Blood Pressure Location Left Arm History Since Last Visit- (Skip if this is Patient's initial visit) Have you changed medications since your No last visit? Any new allergies or adverse reactions No Had a fall/change in ADL's that may No increase risk of falls Signs or symptoms of abuse and/or No neglect since last visit Have you been in the hospital since your No last visit? Has dressing in place as prescribed Yes Has compression in place as prescribed Yes Has offloadiing in place as prescribed No Experienced any changes in pain level or No management Left Footwear Regular Shoe Right Footwear Regular Shoe Pain Scale: 0-10 Numeric Is Patient Pain Free? Yes - Nurse 1 - General Ulcer Measurement Start: 03/21/21 12:15 Freq: Status: Active Protocol: Activity Type Activity Date Activity User E-Sign Co-Sign Detail Recorded Client Recorded Date Recorded By Document 03/21/21 12:15 RB [id number] 03/21/21 12:24 RB 03/21/21 12:15 Wound Center Nurse 1 #2 RIGHT LOWER LEG (MAN CLUSTER) -Combined with other wound No -Current Size (cm) - Length 0.6 -Current Size (cm) - Width 0.3 -Current Size (cm) - Depth 0.1 -Total Square Cm 0.18 -Tunneling No -Undermining/Tunneling No -Circular Undermining No -Exudate Type Serosanguineous -Wound Margin Distinct, Outline Attached -Granulation Amt Medium (34-66%) -Granulation Quality [place] -Slough/Fibrin Yes -Necrosis Amt Small (1-33%) -Necrotic Tissue Type Eschar -Structure Exposed N/A -Texture (Mariajose-wound Skin Appearance) Assessed, Scarring -Moisture (Mariajose-wound Skin Appearance) Assessed -Color (Mariajose-wound Skin Appearance) Assessed -Temperature (Mariajose-wound Skin No Abnormality Appearance) (Pt Warm) -Tenderness on Palpation (Mariajose-wound No Skin Appearance) -Ulcer Cleansing Wound Cleanser -Foul Odor after Cleansing No -Anesthetic Used 5% Lidocaine Gel Lower Limb Edema Present Yes Right Calf (cm) 48 Right Ankle (cm) 24 - Nurse 2 - General Ulcer CM Notes Start: 03/21/21 12:15 Freq: Status: Active Protocol: Activity Type Activity Date Activity User E-Sign Co-Sign Detail Recorded Client Recorded Date Recorded By Document 03/21/21 12:52 MW [id number] 03/21/21 12:54 MW 03/21/21 12:52 Wound Center Nurse 2 #2 RIGHT LOWER LEG (MAN CLUSTER) -Time 12:53 -Correct Patient Yes -Correct Side, Site, Position Yes -Correct Procedure Yes -Procedure Performed Yes -Type of Procedure Debridement -Clinical Debridement Epidermis / Dermis -Tissue Removed Epidermis -Post Debridement (cm) - Length 0.8 -Post Debridement (cm) - Width 0.5 -Post Debridement (cm) - Depth 0.1 -Total Square (Post) (cm) 0.40 -Area of Debridement (cm) - Length 0.8 -Area of Debridement (cm) - Width 0.5 -Total Square (Area) (cm) 0.40 -Tunneling No -Undermining/Tunneling No -Circular Undermining No -Wound/Ulcer Outcome Not Healed -Ulcer Cleansing Rinsed/ Irrigated with Saline -Foul Odor after Cleansing No -Bioengineered Tissue No -Bleeding Controlled with Pressure -Offloading No -Treatment Response Procedure Tolerated Well -Debridement - Open, 1st 20sq cm Yes Pain Scale: 0-10 Numeric Is Patient Pain Free? Yes WC - Nurse 3 - General Ulcer D/C NN Start: 03/21/21 12:15 Freq: Status: Active Protocol: Activity Type Activity Date Activity User E-Sign Co-Sign Detail Recorded Client Recorded Date Recorded By Document 03/21/21 12:54 MW [id number] 03/21/21 12:57 MW 03/21/21 12:54 Wound Care Nurse 3 #2 RIGHT LOWER LEG (MAN CLUSTER) -Ulcer Cleansing Rinsed/ Irrigated with Saline -Foul Odor after Cleansing No -Negative Pressure Wound Therapy N/A -Primary Dressing Applied NonAdherent Contact Layer, Promogran -Primary Dressing Covered/Secured with Dry Gauze & Roll Gauze, Secured with Tape -Promogran 1 Treatment Response Procedure Tolerated Well Pain Scale: 0-10 Numeric Is Patient Pain Free? Yes Teaching: Wound Center Dressing Your Wound -Person Taught Patient -Teaching Method Discussion -Response to teaching Verbalize understanding WC - Visit Discharge Discharge Condition Stable Ambulatory Status Ambulatory, Walker Transportation Private Auto Accompanied by friend Medication Reconcilliation completed & No provided to patient/care provider Clinical Summary of Care Provided Yes Assessment/Plan Assessment/Plan (1) Acquired lymphedema of lower extremity: CODE(S): I89.0 - Lymphedema, not elsewhere classified (2) Varicose veins with ulcer and inflammation: CODE(S): I83.209 - Varicose veins of unspecified lower extremity with both ulcer of unspecified site and inflammation; L97.909 - Non-pressure chronic ulcer of unspecified part of unspecified lower leg with unspecified severity (3) Debility: CODE(S): R53.81 - Other malaise (4) Obesity (BMI 30-39.9): CODE(S): E66.9 - Obesity, unspecified (5) Venous stasis ulcer: CODE(S): I83.009 - Varicose veins of unspecified lower extremity with ulcer of unspecified site; L97.909 - Non-pressure chronic ulcer of unspecified part of unspecified lower leg with unspecified severity QUALIFIERS: Venous stasis ulcer site: calf Varicose vein presence: with varicose veins Laterality: right Non-pressure ulcer stage: with fat layer exposed Qualified Code(s): I83.012 - Varicose veins of right lower extremity with ulcer of calf; L97.212 - Non-pressure chronic ulcer of right calf with fat layer exposed (6) Chronic venous hypertension w/ulcer and inflammation involv right side: CODE(S): I87.331 - Chronic venous hypertension (idiopathic) with ulcer and inflammation of right lower extremity; L97.919 - Non-pressure chronic ulcer of unspecified part of right lower leg with unspecified severity (7) Nonhealing skin ulcer: CODE(S): L98.499 - Non-pressure chronic ulcer of skin of other sites with unspecified severity QUALIFIERS: Non-pressure ulcer stage: with fat layer exposed Qualified Code(s): L98.492 - Non-pressure chronic ulcer of skin of other sites with fat layer exposed (8) PVD (peripheral vascular disease): CODE(S): I73.9 - Peripheral vascular disease, unspecified (9) COPD (chronic obstructive pulmonary disease): CODE(S): J44.9 - Chronic obstructive pulmonary disease, unspecified QUALIFIERS: COPD type: unspecified COPD Qualified Code(s): J44.9 - Chronic obstructive pulmonary disease, unspecified (10) Cellulitis and abscess of right leg: CODE(S): L03.115 - Cellulitis of right lower limb; L02.415 - Cutaneous abscess of right lower limb (11) Venous ulcer of right lower extremity without varicose veins: CODE(S): I87.2 - Venous insufficiency (chronic) (peripheral); L97.919 - Non-pressure chronic ulcer of unspecified part of right lower leg with unspecified severity (12) Controlled diabetes mellitus: CODE(S): E11.9 - Type 2 diabetes mellitus without complications QUALIFIERS: Diabetes mellitus type: type 2 Diabetes mellitus [facility] insulin use: without [facility] use Diabetes mellitus complication status: with skin complications Diabetes mellitus complication detail: with other skin ulcer Qualified Code(s): E11.622 - Type 2 diabetes mellitus with other skin ulcer (13) HTN (hypertension): CODE(S): I10 - Essential (primary) hypertension QUALIFIERS: Hypertension type: primary hypertension Qualified Code(s): I10 - Essential (primary) hypertension PLAN: This is a 75-year-old male with severe, chronic venous disease in both lower extremities. He has had venous stasis ulcerations in both lower extremities in the past, treated at several wound care facilities. Prieto's ulcers and lower extremities were evaluated and debrided today. Dressings: Will dress his right lower extremity ulcers with Promogran moistened and covered with Adaptic for mild-moderate drainage and secured with conforming gauze. Wound culture: Last culture 11/29/20 + for Pseudomonas - completed treatment. Vascular testing: The patient indicates that he has undergone a venous duplex examination and a noninvasive lower extremity arterial study at [facility] in [place], [place], approximately 3 weeks ago. Edema management: The patient has been counseled as to the appropriate measures relative to lifestyle modification regarding his venous disease. Leg elevation has been recommended. His lower extremities are to be elevated to heart level, or higher, is much as possible. He has been encouraged to sleep on a flat surface, with his legs level with his heart. During daytime hours, he is to elevate his legs to heart level, or higher, is much as possible. Activity has been encouraged, though the patient pre-existing medical problems are likely to prevent significant enhancement of his activity level. He has been advised to refrain from prolonged idle sitting. Weight loss has also been recommended. Due to his inability to don and doff compression garments such as compression stockings, AUDREY bandages, tubigrip compression due to his orthopedic spine issues and debility and due to his recurrent ulcerations and difficulty with healing ulcerations when they do develop, I recommend that he undergo treatment with lymphedema compression pumps at least twice daily to maintain his edema and prevent ulcers from developing. He has had success with this in the past and was able to don the compression garments for the lymphedema pumps for 6 years but his compression pump and associated equipment was lost in transition to his new apartment and he has been without this treatment for approx. 2 years. Nutrition: The patient has been encouraged to optimize his nutritional intake, as well as optimizing his glycemic control. Rather, conservative measures, as those which have been recommended herein, appear most appropriate. These measures are likely to be of benefit for the long-term, and will depend upon the patient's compliance. The patient's debility, and the fact that he lives alone and has limited resources, may lend to a poor long-term prognosis. He was advised to call with any increased drainage, odor, pain or erythema. F/U in 1 week.
[2021-04-04 11:20] VITALS: BP 150/69; PULSE 84; RESP 19; TEMP 35.8; BMI 35.6
--- NOTE | 2021-04-04 12:29 | PCM.WC.PN ---
History of Present Illness Date of Service: 04/04/21 Chief Complaint: Chronic venous disease with an ulceration on the right pretibial area History of Wound: This is a 75-year-old male with multiple pre-existing medical problems. He has known chronic venous disease, and has had multiple venous ulcerations in both lower extremities in the past with recurrent bouts of cellulitis complicating these ulcers. He claims to have undergone an ablation procedure in the right lower extremity approximately 4 years ago, though is uncertain as to the details, including the specifics of the procedure, the venue of the procedure, and the provider who performed the procedure. The patient denies a history of thrombophlebitis in the lower extremities. Prior treatment of his lower extremity venous ulcerations has occurred at wound healing facilities in [facility], as well as at the [facility]. He has recently been under the care of Dr. Leidy Fields at this facility since November 01, 2020. Conservative treatment measures have been implemented, and it appears as though the patient's right pretibial venous ulceration is nearly healed. Current measures include compression by means of a double layer Tubigrip. NuShield allografts have been applied topically. It appears as though there have been issues related to compliance. The patient lives alone, and is of limited mobility. He suffers from debility is unable to don and doff graduated compression stockings. Home health nursing assistance is provided 2 or 3 times per week. The patient is limited in his ambulatory capacity, requiring a walker for mobility. He often sleeps in a recliner, and does not reliably elevate his legs as recommended. His pre-existing medical conditions include hypertension, hyperlipidemia, atrial fibrillation, congestive heart failure, diabetes mellitus, peripheral neuropathy, prostatism, spinal stenosis, chronic obstructive pulmonary disease, and obesity. Patient is on chronic systemic anticoagulation with Eliquis due to atrial fibrillation. Subjective Subjective Prieto returns today for evaluation and treatment of ulcers of his right man. He was seen in consultation by Dr. Fischer and was treated with 2 weeks of UNNA boot therapy which improved his ulcer. He tolerated treatment with Promogran and adaptic and tubigrip compression and his original ulcer is finally healed but unfortunately he developed a new ulcer superior to his previous ulcer. He denies fever, chills, increased drainage or odor. Objective Data Objective Data Vital Signs: Vital Signs Temp Pulse Resp BP 96.5 F L 84 19 H 150/69 H 04/04/21 11:20 04/04/21 11:20 04/04/21 11:20 04/04/21 11:20 Weight: 132.789 kg Body Mass Index (BMI) 35.6 Physical Exam Const alert, oriented x3 and no apparent distress General Appearance: cooperative and comfortable HEENT normocephalic and head/scalp atraumatic Resp normal respiratory effort Effort and Inspection: able to speak in complete sentences Cardio regular rate and regular rhythm Skin Wounds: wounds noted Wound Narrative: as in clinical panel Psych mental status grossly normal, thought process normal and cooperative Debridement Note Debridement Note Wound debrided: right man cluster Laterality: Right No debridement was completed: No debridement was completed today (ulcer healed) Post-Debridement Measurements and Additional Note: Post-Debridement Measurements/Treatment - Nurse 1 - General Ulcer Assessment Start: 03/21/21 12:15 Freq: Status: Active Protocol: CECILE.JAIR Activity Type Activity Date Activity User E-Sign Co-Sign Detail Recorded Client Recorded Date Recorded By Document 03/21/21 12:15 RB [id number] 03/21/21 12:24 RB Document 04/04/21 11:20 ML [id number] 04/04/21 11:30 ML 03/21/21 04/04/21 12:15 11:20 WC - Today's Visit Information Type of service Follow-up Visit Follow-up Visit (Physician/HEALTH CARE MANAGER (Physician/HEALTH CARE MANAGER ) ) Arrival Mode Ambulatory, Walker Walker Transfer Assistance None None Patient Identification Verified (Name & Yes Yes ) Patient Requires Transmission-Based No Precautions Safety Precautions NA Height and Weight Body Mass Index (BMI) 35.6 35.6 BMI Classification Obese Obese Vital Signs Temperature (97.8 F-99.1 F) 97.8 F 96.5 F L Temperature Source Temporal Temporal Pulse Rate (60-100) 68 84 Pulse Location Monitor Monitor Respiratory Rate (12-18) 18 19 H Respiratory rate source Observation Observation Blood Pressure (90/60-120/80) 123/69 H 150/69 H Blood Pressure Mean (mm Hg) 87 96 Source Monitor Monitor Position Sitting Sitting Blood Pressure Location Left Arm Left Arm History Since Last Visit- (Skip if this is Patient's initial visit) Have you changed medications since your No No last visit? Any new allergies or adverse reactions No No Had a fall/change in ADL's that may No No increase risk of falls Signs or symptoms of abuse and/or No No neglect since last visit Have you been in the hospital since your No No last visit? Has dressing in place as prescribed Yes Yes Has compression in place as prescribed Yes Yes Has offloadiing in place as prescribed No N/A Experienced any changes in pain level or No No management Left Footwear Regular Shoe Regular Shoe Right Footwear Regular Shoe Regular Shoe Pain Scale: 0-10 Numeric Is Patient Pain Free? Yes Yes WC - Nurse 1 - General Ulcer Measurement Start: 03/21/21 12:15 Freq: Status: Active Protocol: Activity Type Activity Date Activity User E-Sign Co-Sign Detail Recorded Client Recorded Date Recorded By Document 03/21/21 12:15 RB [id number] 03/21/21 12:24 RB Document 04/04/21 11:20 ML [id number] 04/04/21 11:30 ML 03/21/21 04/04/21 12:15 11:20 Wound Center Nurse 1 #2 RIGHT LOWER LEG (MAN CLUSTER) -Combined with other wound No -Current Size (cm) - Length 0.6 0.5 -Current Size (cm) - Width 0.3 0.5 -Current Size (cm) - Depth 0.1 0.1 -Total Square Cm 0.18 0.25 -Tunneling No -Undermining/Tunneling No -Circular Undermining No -Exudate Amt Small -Exudate Type Serosanguineous -Wound Margin Distinct, Distinct, Outline Outline Attached Attached -Granulation Amt Medium (34-66%) Small (1-33%) -Granulation Quality Minier -Slough/Fibrin Yes Yes -Necrosis Amt Small (1-33%) Small (1-33%) -Necrotic Tissue Type Eschar Adherent Slough -Structure Exposed N/A -Texture (Mariajose-wound Skin Appearance) Assessed, Assessed Scarring -Moisture (Mariajose-wound Skin Appearance) Assessed -Color (Mariajose-wound Skin Appearance) Assessed Assessed -Temperature (Mariajose-wound Skin No Abnormality No Abnormality Appearance) (Pt Warm) (Pt Warm) -Tenderness on Palpation (Mariajose-wound No No Skin Appearance) -Ulcer Cleansing Wound Cleanser Rinsed/ Irrigated with Saline -Foul Odor after Cleansing No No -Anesthetic Used 5% Lidocaine 5% Lidocaine Gel Gel Lower Limb Edema Present Yes Right Calf (cm) 48 37.5 Right Ankle (cm) 24 25 WC - Nurse 2 - General Ulcer CM Notes Start: 03/21/21 12:15 Freq: Status: Active Protocol: Activity Type Activity Date Activity User E-Sign Co-Sign Detail Recorded Client Recorded Date Recorded By Document 03/21/21 12:52 MW [id number] 03/21/21 12:54 MW Document 04/04/21 11:54 MW [id number] 04/04/21 12:09 MW 03/21/21 04/04/21 12:52 11:54 Wound Center Nurse 2 #4 RIGHT SUPERIOR MAN -Time 11:56 -Correct Patient Yes -Correct Side, Site, Position Yes -Correct Procedure Yes -Procedure Performed Yes -Type of Procedure Debridement -Clinical Debridement Epidermis / Dermis -Tissue Removed Epidermis -Post Debridement (cm) - Length 1.1 -Post Debridement (cm) - Width 1.0 -Post Debridement (cm) - Depth 0.1 -Total Square (Post) (cm) 1.10 -Area of Debridement (cm) - Length 1.1 -Area of Debridement (cm) - Width 1.0 -Total Square (Area) (cm) 1.10 -Tunneling No -Undermining/Tunneling No -Circular Undermining No -Wound/Ulcer Outcome Not Healed -Ulcer Cleansing Rinsed/ Irrigated with Saline -Foul Odor after Cleansing No -Bioengineered Tissue No -Bleeding Controlled with Pressure -Offloading No -Treatment Response Procedure Tolerated Well -Debridement - Open, 1st 20sq cm Yes #2 RIGHT LOWER LEG (MAN CLUSTER) -Time 12:53 11:56 -Correct Patient Yes Yes -Correct Side, Site, Position Yes Yes -Correct Procedure Yes Yes -Procedure Performed Yes -Type of Procedure Debridement Debridement -Clinical Debridement Epidermis / Dermis -Tissue Removed Epidermis -Post Debridement (cm) - Length 0.8 0 -Post Debridement (cm) - Width 0.5 0 -Post Debridement (cm) - Depth 0.1 0 -Total Square (Post) (cm) 0.40 0 -Area of Debridement (cm) - Length 0.8 -Area of Debridement (cm) - Width 0.5 -Total Square (Area) (cm) 0.40 -Tunneling No No -Undermining/Tunneling No No -Circular Undermining No No -Wound/Ulcer Outcome Not Healed Healed- Epithelialized -Ulcer Cleansing Rinsed/ Irrigated with Saline -Foul Odor after Cleansing No -Bioengineered Tissue No -Bleeding Controlled with Pressure -Offloading No -Treatment Response Procedure Tolerated Well -Debridement - Open, 1st 20sq cm Yes Pain Scale: 0-10 Numeric Is Patient Pain Free? Yes Yes WC - Nurse 3 - General Ulcer D/C NN Start: 03/21/21 12:15 Freq: Status: Active Protocol: Activity Type Activity Date Activity User E-Sign Co-Sign Detail Recorded Client Recorded Date Recorded By Document 03/21/21 12:54 MW [id number] 03/21/21 12:57 MW Document 04/04/21 12:22 ML [id number] 04/04/21 12:24 ML 03/21/21 04/04/21 12:54 12:22 Wound Care Nurse 3 #4 RIGHT SUPERIOR MAN -Ulcer Cleansing Rinsed/ Irrigated with Saline -Primary Dressing Covered/Secured with Dry Gauze & Roll Gauze, Secured with Tape #2 RIGHT LOWER LEG (MAN CLUSTER) -Ulcer Cleansing Rinsed/ Irrigated with Saline -Foul Odor after Cleansing No -Negative Pressure Wound Therapy N/A -Primary Dressing Applied NonAdherent Contact Layer, Promogran -Primary Dressing Covered/Secured with Dry Gauze & Roll Gauze, Secured with Tape -Promogran 1 Right -Multi-Layered Wrap Application Unna Boot - Right ($) -Other two unna boots Treatment Response Procedure Tolerated Well Pain Scale: 0-10 Numeric Is Patient Pain Free? Yes Yes Teaching: Wound Center Dressing Your Wound -Person Taught Patient -Teaching Method Discussion -Response to teaching Verbalize understanding WC - Visit Discharge Discharge Condition Stable Ambulatory Status Ambulatory, Walker Transportation Private Auto Accompanied by friend Medication Reconcilliation completed & No provided to patient/care provider Clinical Summary of Care Provided Yes Additional Wound Wound debrided: right superior man Laterality: Right Type of Debridement: Selective debridement Anesthesia Used: 4% Lidocaine Solution Depth: Down to and including healthy tissue and in the subcutaneous layer Percentage of wound debrided: 100 Instrument Used: - (gauze) Tissue Removed: Yellow slough, devitalized tissue Severity: Fat Layer Exposed Amount of bleeding with debridement: Mild Bleeding Controlled with: Compression and gauze Patient tolerated procedure: Patient tolerated procedure well Assessment/Plan Assessment/Plan (1) Acquired lymphedema of lower extremity: CODE(S): I89.0 - Lymphedema, not elsewhere classified (2) Varicose veins with ulcer and inflammation: CODE(S): I83.209 - Varicose veins of unspecified lower extremity with both ulcer of unspecified site and inflammation; L97.909 - Non-pressure chronic ulcer of unspecified part of unspecified lower leg with unspecified severity (3) Debility: CODE(S): R53.81 - Other malaise (4) Obesity (BMI 30-39.9): CODE(S): E66.9 - Obesity, unspecified (5) Venous stasis ulcer: CODE(S): I83.009 - Varicose veins of unspecified lower extremity with ulcer of unspecified site; L97.909 - Non-pressure chronic ulcer of unspecified part of unspecified lower leg with unspecified severity QUALIFIERS: Venous stasis ulcer site: calf Varicose vein presence: with varicose veins Laterality: right Non-pressure ulcer stage: with fat layer exposed Qualified Code(s): I83.012 - Varicose veins of right lower extremity with ulcer of calf; L97.212 - Non-pressure chronic ulcer of right calf with fat layer exposed (6) Chronic venous hypertension w/ulcer and inflammation involv right side: CODE(S): I87.331 - Chronic venous hypertension (idiopathic) with ulcer and inflammation of right lower extremity; L97.919 - Non-pressure chronic ulcer of unspecified part of right lower leg with unspecified severity (7) Nonhealing skin ulcer: CODE(S): L98.499 - Non-pressure chronic ulcer of skin of other sites with unspecified severity QUALIFIERS: Non-pressure ulcer stage: with fat layer exposed Qualified Code(s): L98.492 - Non-pressure chronic ulcer of skin of other sites with fat layer exposed (8) PVD (peripheral vascular disease): CODE(S): I73.9 - Peripheral vascular disease, unspecified (9) COPD (chronic obstructive pulmonary disease): CODE(S): J44.9 - Chronic obstructive pulmonary disease, unspecified QUALIFIERS: COPD type: unspecified COPD Qualified Code(s): J44.9 - Chronic obstructive pulmonary disease, unspecified (10) Cellulitis and abscess of right leg: CODE(S): L03.115 - Cellulitis of right lower limb; L02.415 - Cutaneous abscess of right lower limb (11) Venous ulcer of right lower extremity without varicose veins: CODE(S): I87.2 - Venous insufficiency (chronic) (peripheral); L97.919 - Non-pressure chronic ulcer of unspecified part of right lower leg with unspecified severity (12) Controlled diabetes mellitus: CODE(S): E11.9 - Type 2 diabetes mellitus without complications QUALIFIERS: Diabetes mellitus type: type 2 Diabetes mellitus [facility] insulin use: without vocational rehabilitation specialist use Diabetes mellitus complication status: with skin complications Diabetes mellitus complication detail: with other skin ulcer Qualified Code(s): E11.622 - Type 2 diabetes mellitus with other skin ulcer (13) HTN (hypertension): CODE(S): I10 - Essential (primary) hypertension QUALIFIERS: Hypertension type: primary hypertension Qualified Code(s): I10 - Essential (primary) hypertension PLAN: This is a 75-year-old male with severe, chronic venous disease in both lower extremities. He has had venous stasis ulcerations in both lower extremities in the past, treated at several wound care facilities. Prieto's ulcers and lower extremities were evaluated and debrided today. Dressings: Will dress his right leg with UNNA boot compression today. Will plan for him to return in 1 week for wound care visit and may need another UNNA boot compression wrap if not healed. He is unsure of being able to have transportation available for visit next week. If he is unable to come to visit next Wednesday will have HH change his UNNA boot wrap and have him follow up in 2 weeks. Wound culture: Last culture 11/29/20 + for Pseudomonas - completed treatment. Vascular testing: The patient indicates that he has undergone a venous duplex examination and a noninvasive lower extremity arterial study at [facility] in [place], [place], approximately 3 weeks ago. Edema management: The patient has been counseled as to the appropriate measures relative to lifestyle modification regarding his venous disease. Leg elevation has been recommended. His lower extremities are to be elevated to heart level, or higher, is much as possible. He has been encouraged to sleep on a flat surface, with his legs level with his heart. During daytime hours, he is to elevate his legs to heart level, or higher, is much as possible. Activity has been encouraged, though the patient pre-existing medical problems are likely to prevent significant enhancement of his activity level. He has been advised to refrain from prolonged idle sitting. Weight loss has also been recommended. Due to his inability to don and doff compression garments such as compression stockings, AUDREY bandages, tubigrip compression due to his orthopedic spine issues and debility and due to his recurrent ulcerations and difficulty with healing ulcerations when they do develop, I recommend that he undergo treatment with lymphedema compression pumps at least twice daily to maintain his edema and prevent ulcers from developing. He has had success with this in the past and was able to don the compression garments for the lymphedema pumps for 6 years but his compression pump and associated equipment was lost in transition to his new apartment and he has been without this treatment for approx. 2 years. He likely will receive compression pump devices in the next 2 weeks and was advised to use them 3 times daily when he receives them. Nutrition: The patient has been encouraged to optimize his nutritional intake, as well as optimizing his glycemic control. Rather, conservative measures, as those which have been recommended herein, appear most appropriate. These measures are likely to be of benefit for the long-term, and will depend upon the patient's compliance. The patient's debility, and the fact that he lives alone and has limited resources, may lend to a poor long-term prognosis. He was advised to call with any increased drainage, odor, pain or erythema. F/U in 1 week.
== END 2021-04-07 23:59 | disposition home or self-care (01) ==
LOC: WC 11:30
PROVIDERS: Visit Provider Family Medicine
DX: I83.012 Varicose veins of right lower extremity with ulcer of calf (principal); E11.622 Type 2 diabetes mellitus with other skin ulcer; E11.51 Type 2 diabetes mellitus with diabetic peripheral angiopathy without gangrene; L98.492 Non-pressure chronic ulcer of skin of other sites with fat layer exposed; L97.212 Non-pressure chronic ulcer of right calf with fat layer exposed; I87.331 Chronic venous hypertension (idiopathic) with ulcer and inflammation of right lower extremity; J44.9 Chronic obstructive pulmonary disease, unspecified; I11.0 Hypertensive heart disease with heart failure; I50.9 Heart failure, unspecified; E11.42 Type 2 diabetes mellitus with diabetic polyneuropathy; E11.59 Type 2 diabetes mellitus with other circulatory complications; I48.91 Unspecified atrial fibrillation; L03.115 Cellulitis of right lower limb; E78.5 Hyperlipidemia, unspecified; I89.0 Lymphedema, not elsewhere classified; R53.81 Other malaise; M48.00 Spinal stenosis, site unspecified; E66.9 Obesity, unspecified; Z79.01 Long term (current) use of anticoagulants; I87.2 Venous insufficiency (chronic) (peripheral); L02.415 Cutaneous abscess of right lower limb
CPT/HCPCS: 29580; 97597

== ENCOUNTER 2021-04-25 11:30 | Outpatient (RCR) | payer MEDICARE, MEDICAID, SELFPAY ==
[2021-04-08 00:30] VITALS: BP 150/69; PULSE 84; RESP 19; TEMP 35.8; BMI 35.6
[2021-04-11 12:02] VITALS: BP 130/63; PULSE 60; RESP 18; TEMP 36.3; BMI 35.6
--- NOTE | 2021-04-11 14:09 | PCM.WC.PN ---
History of Present Illness Date of Service: 04/11/21 Chief Complaint: Chronic venous disease with an ulceration on the right pretibial area History of Wound: This is a 75-year-old male with multiple pre-existing medical problems. He has known chronic venous disease, and has had multiple venous ulcerations in both lower extremities in the past with recurrent bouts of cellulitis complicating these ulcers. He claims to have undergone an ablation procedure in the right lower extremity approximately 4 years ago, though is uncertain as to the details, including the specifics of the procedure, the venue of the procedure, and the provider who performed the procedure. The patient denies a history of thrombophlebitis in the lower extremities. Prior treatment of his lower extremity venous ulcerations has occurred at wound healing facilities in [facility], as well as at the [facility]. He has recently been under the care of Dr. Leidy Fields at this facility since November 01, 2020. Conservative treatment measures have been implemented, and it appears as though the patient's right pretibial venous ulceration is nearly healed. Current measures include compression by means of a double layer Tubigrip. NuShield allografts have been applied topically. It appears as though there have been issues related to compliance. The patient lives alone, and is of limited mobility. He suffers from debility is unable to don and doff graduated compression stockings. Home health nursing assistance is provided 2 or 3 times per week. The patient is limited in his ambulatory capacity, requiring a walker for mobility. He often sleeps in a recliner, and does not reliably elevate his legs as recommended. His pre-existing medical conditions include hypertension, hyperlipidemia, atrial fibrillation, congestive heart failure, diabetes mellitus, peripheral neuropathy, prostatism, spinal stenosis, chronic obstructive pulmonary disease, and obesity. Patient is on chronic systemic anticoagulation with Eliquis due to atrial fibrillation. Subjective Subjective Prieto returns today for evaluation and treatment of ulcers of his right man. He was treated with UNNA boot compression and his ulcer is healed this week. He has not received compression pump yet but is set to receive this sometime in the coming week. He denies fever, chills, increased drainage or odor. Objective Data Objective Data Vital Signs: Vital Signs Temp Pulse Resp BP 97.4 F L 60 18 130/63 H 04/11/21 12:02 04/11/21 12:02 04/11/21 12:02 04/11/21 12:02 Weight: 132.789 kg Body Mass Index (BMI) 35.6 Physical Exam Const alert, oriented x3 and no apparent distress General Appearance: cooperative and comfortable HEENT normocephalic and head/scalp atraumatic Resp normal respiratory effort Effort and Inspection: able to speak in complete sentences Cardio regular rate and regular rhythm Skin General Skin Exam: venous stasis and dermatitis Neuro oriented x3 and CN's II-XII intact bilaterally Psych mental status grossly normal, thought process normal, cooperative and affect normal Debridement Note Debridement Note Wound debrided: right superior man Laterality: Right No debridement was completed: No debridement was completed today Post-Debridement Measurements and Additional Note: Post-Debridement Measurements/Treatment - Nurse 1 - General Ulcer Assessment Start: 04/11/21 12:02 Freq: Status: Active Protocol: CECILE.LOWEXT Activity Type Activity Date Activity User E-Sign Co-Sign Detail Recorded Client Recorded Date Recorded By Document 04/11/21 12:02 [id number] 04/11/21 12:04 04/11/21 12:02 - Today's Visit Information Type of service 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 ) Arrival Mode Ambulatory, Walker Transfer Assistance None Patient Identification Verified (Name & Yes ) Height and Weight Body Mass Index (BMI) 35.6 BMI Classification Obese Vital Signs Temperature (97.8 F-99.1 F) 97.4 F L Temperature Source Temporal Pulse Rate (60-100) 60 Pulse Location Monitor Respiratory Rate (12-18) 18 Respiratory rate source Observation Blood Pressure (90/60-120/80) 130/63 H Blood Pressure Mean (mm Hg) 85 Source Monitor Position Semi-Fowlers Blood Pressure Location Left Arm History Since Last Visit- (Skip if this is Patient's initial visit) Have you changed medications since your No last visit? Any new allergies or adverse reactions No Had a fall/change in ADL's that may No increase risk of falls Signs or symptoms of abuse and/or No neglect since last visit Have you been in the hospital since your No last visit? Has dressing in place as prescribed Yes Has compression in place as prescribed Yes Has offloadiing in place as prescribed No Experienced any changes in pain level or No management Left Footwear Regular Shoe Right Footwear Regular Shoe Pain Scale: 0-10 Numeric Is Patient Pain Free? Yes WC - Nurse 1 - General Ulcer Measurement Start: 04/11/21 12:02 Freq: Status: Active Protocol: Activity Type Activity Date Activity User E-Sign Co-Sign Detail Recorded Client Recorded Date Recorded By Document 04/11/21 12:02 RB [id number] 04/11/21 12:04 RB 04/11/21 12:02 Wound Center Nurse 1 #4 RIGHT SUPERIOR MAN -Combined with other wound No -Current Size (cm) - Length 0.1 -Current Size (cm) - Width 0.1 -Current Size (cm) - Depth 0.1 -Total Square Cm 0.01 -Tunneling No -Undermining/Tunneling No -Circular Undermining No -Exudate Amt None Present -Wound Margin Flat & Intact -Granulation Amt Large (67-100%) -Granulation Quality [place] -Slough/Fibrin No -Necrosis Amt None Present (0 %) -Structure Exposed N/A -Texture (Mariajose-wound Skin Appearance) Assessed -Moisture (Mariajose-wound Skin Appearance) Assessed -Color (Mariajose-wound Skin Appearance) Hemosiderin Staining -Temperature (Mariajose-wound Skin No Abnormality Appearance) (Pt Warm) -Tenderness on Palpation (Mariajose-wound No Skin Appearance) -Ulcer Cleansing Wound Cleanser -Foul Odor after Cleansing No -Anesthetic Used 5% Lidocaine Gel Lower Limb Edema Present Yes Right Calf (cm) 44.5 Right Ankle (cm) 23.5 Left Calf (cm) 48 Left Ankle (cm) 26 WC - Nurse 2 - General Ulcer CM Notes Start: 04/11/21 12:02 Freq: Status: Active Protocol: Activity Type Activity Date Activity User E-Sign Co-Sign Detail Recorded Client Recorded Date Recorded By Document 04/11/21 12:25 MW [id number] 04/11/21 12:30 MW 04/11/21 12:25 Wound Center Nurse 2 #4 RIGHT SUPERIOR MAN -Time 12:28 -Correct Patient Yes -Correct Side, Site, Position Yes -Correct Procedure Yes -Procedure Performed No -Post Debridement (cm) - Length 0 -Post Debridement (cm) - Width 0 -Post Debridement (cm) - Depth 0 -Total Square (Post) (cm) 0 -Tunneling No -Undermining/Tunneling No -Circular Undermining No -Wound/Ulcer Outcome Healed- Epithelialized Pain Scale: 0-10 Numeric Is Patient Pain Free? Yes WC - Nurse 3 - General Ulcer D/C NN Start: 04/11/21 12:02 Freq: Status: Active Protocol: Activity Type Activity Date Activity User E-Sign Co-Sign Detail Recorded Client Recorded Date Recorded By Document 04/11/21 12:31 MW [id number] 04/11/21 12:43 MW 04/11/21 12:31 Wound Care Nurse 3 #4 RIGHT SUPERIOR MAN -Ulcer Cleansing Rinsed/ Irrigated with Saline -Foul Odor after Cleansing No -Negative Pressure Wound Therapy N/A -Primary Dressing Applied NonAdherent Contact Layer, Promogran Leslie Matter -Primary Dressing Covered/Secured with Dry Gauze & Roll Gauze, Secured with Tape -Promogran Leslie Matter 1 Left -Lotion applied to leg before No compression wrap -Tubular Bandage Single Layer -Size of Tubigrip Used Size F -Size F ($) 1 -Stockings No Right -Lotion applied to leg before No compression wrap -Tubular Bandage Single Layer -Size of Tubigrip Used Size F -Size F ($) 1 -Stockings No Treatment Response Procedure Tolerated Well Pain Scale: 0-10 Numeric Is Patient Pain Free? Yes Teaching: Wound Center Dressing Your Wound -Person Taught Patient -Teaching Method Discussion -Response to teaching Verbalize understanding WC - Visit Discharge Discharge Condition Stable Ambulatory Status Ambulatory, Walker Transportation TRANSPORTATION Access Mobile Medication Reconcilliation completed & No provided to patient/care provider Clinical Summary of Care Provided Yes Assessment/Plan Assessment/Plan (1) Acquired lymphedema of lower extremity: CODE(S): I89.0 - Lymphedema, not elsewhere classified (2) Varicose veins with ulcer and inflammation: CODE(S): I83.209 - Varicose veins of unspecified lower extremity with both ulcer of unspecified site and inflammation; L97.909 - Non-pressure chronic ulcer of unspecified part of unspecified lower leg with unspecified severity (3) Debility: CODE(S): R53.81 - Other malaise (4) Obesity (BMI 30-39.9): CODE(S): E66.9 - Obesity, unspecified (5) Spinal stenosis: CODE(S): M48.00 - Spinal stenosis, site unspecified QUALIFIERS: Spinal region: lumbar Neurogenic claudication status: with neurogenic claudication Qualified Code(s): M48.062 - Spinal stenosis, lumbar region with neurogenic claudication (6) Diabetes mellitus: CODE(S): E11.9 - Type 2 diabetes mellitus without complications QUALIFIERS: Diabetes mellitus type: type 2 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: without skilled nursing use Diabetes mellitus complication status: with skin complications Diabetes mellitus complication detail: with other skin ulcer Qualified Code(s): E11.622 - Type 2 diabetes mellitus with other skin ulcer (7) Peripheral neuropathy: CODE(S): G62.9 - Polyneuropathy, unspecified QUALIFIERS: Peripheral neuropathy type: polyneuropathy, unspecified Qualified Code(s): G62.9 - Polyneuropathy, unspecified (8) Chronic anticoagulation: CODE(S): Z79.01 - supervisor intermediates (current) use of anticoagulants (9) Venous stasis ulcer: CODE(S): I83.009 - Varicose veins of unspecified lower extremity with ulcer of unspecified site; L97.909 - Non-pressure chronic ulcer of unspecified part of unspecified lower leg with unspecified severity QUALIFIERS: Venous stasis ulcer site: calf Varicose vein presence: with varicose veins Laterality: right Non-pressure ulcer stage: with fat layer exposed Qualified Code(s): I83.012 - Varicose veins of right lower extremity with ulcer of calf; L97.212 - Non-pressure chronic ulcer of right calf with fat layer exposed (10) Chronic venous hypertension w/ulcer and inflammation involv right side: CODE(S): I87.331 - Chronic venous hypertension (idiopathic) with ulcer and inflammation of right lower extremity; L97.919 - Non-pressure chronic ulcer of unspecified part of right lower leg with unspecified severity (11) COPD (chronic obstructive pulmonary disease): CODE(S): J44.9 - Chronic obstructive pulmonary disease, unspecified QUALIFIERS: COPD type: unspecified COPD Qualified Code(s): J44.9 - Chronic obstructive pulmonary disease, unspecified (12) Edema, lower extremity: CODE(S): R60.0 - Localized edema (13) Cellulitis and abscess of right leg: CODE(S): L03.115 - Cellulitis of right lower limb; L02.415 - Cutaneous abscess of right lower limb (14) HTN (hypertension): CODE(S): I10 - Essential (primary) hypertension QUALIFIERS: Hypertension type: primary hypertension Qualified Code(s): I10 - Essential (primary) hypertension PLAN: This is a 75-year-old male with severe, chronic venous disease in both lower extremities. He has had venous stasis ulcerations in both lower extremities in the past, treated at several wound care facilities. Prieto's ulcers and lower extremities were evaluated and debrided today. Dressings: Will have him dress the site of his ulcer with Leslie and adaptic and kerlix. Wound culture: Last culture 11/29/20 + for Pseudomonas - completed treatment. Vascular testing: The patient indicates that he has undergone a venous duplex examination and a noninvasive lower extremity arterial study at [facility] in [place], [place]. Edema management: The patient has been counseled as to the appropriate measures relative to lifestyle modification regarding his venous disease. Leg elevation has been recommended. His lower extremities are to be elevated to heart level, or higher, is much as possible. He has been encouraged to sleep on a flat surface, with his legs level with his heart. During daytime hours, he is to elevate his legs to heart level, or higher, is much as possible. Activity has been encouraged, though the patient pre-existing medical problems are likely to prevent significant enhancement of his activity level. He has been advised to refrain from prolonged idle sitting. Weight loss has also been recommended. Due to his inability to don and doff compression garments such as compression stockings, AUDREY bandages, tubigrip compression due to his orthopedic spine issues and debility and due to his recurrent ulcerations and difficulty with healing ulcerations when they do develop, I recommend that he undergo treatment with lymphedema compression pumps at least twice daily to maintain his edema and prevent ulcers from developing. He has had success with this in the past and was able to don the compression garments for the lymphedema pumps for 6 years but his compression pump and associated equipment was lost in transition to his new apartment and he has been without this treatment for approx. 2 years. He likely will receive compression pump devices in the next week and was advised to use them 3 times daily when he receives them. Nutrition: The patient has been encouraged to optimize his nutritional intake, as well as optimizing his glycemic control. Rather, conservative measures, as those which have been recommended herein, appear most appropriate. These measures are likely to be of benefit for the long-term, and will depend upon the patient's compliance. The patient's debility, and the fact that he lives alone and has limited resources, may lend to a poor long-term prognosis. He was advised to call with any increased drainage, odor, pain or erythema. F/U in 1 week if needed.
[2021-04-25 11:31] VITALS: BP 119/65; PULSE 63; RESP 20; TEMP 36.4; BMI 35.6
--- NOTE | 2021-04-25 14:48 | PN.PCM_ITS ---
History of Present Illness Date of Service: 04/25/21 Chief Complaint: Chronic venous disease with an ulceration on the right pr etibial area History of Wound: This is a 75-year-old male with multiple pre-existing medical problems. He has known chronic venous disease, and has had multiple venous ulcerations in both lower extremities in the past with recurrent bouts of cellulitis complicating these ulcers. He claims to have undergone an ablation procedure in the right lower extremity approximately 4 years ago, though is uncertain as to the details, including the specifics of the procedure, the venue of the procedure, and the provider who performed the procedure. The patient denies a history of thrombophlebitis in the lower extremities. Prior treatment of his lower extremity venous ulcerations has occurred at wound healing facilities in [facility], as well as at the [facility]. He has recently been under the care of Dr. Leidy Fields at this facility since November 01, 2020. Conservative treatment measures have been implemented, and it appears as though the patient's right pretibial venous ulceration is nearly healed. Current measures include compression by means of a double layer Tubigrip. NuShield allografts have been applied topically. It appears as though there have been issues related to compliance. The patient lives alone, and is of limited mobility. He suffers from debility is unable to don and doff graduated compression stockings. Home health nursing assistance is provided 2 or 3 times per week. The patient is limited in his ambulatory capacity, requiring a walker for mobility. He often sleeps in a recliner, and does not reliably elevate his legs as recommended. His pre-existing medical conditions include hypertension, hyperlipidemia, atrial fibrillation, congestive heart failure, diabetes mellitus, peripheral neuropathy, prostatism, spinal stenosis, chronic obstructive pulmonary disease, and obesity. Patient is on chronic systemic anticoagulation with Eliquis due to atrial fibrillation. Subjective Subjective Prieto returns today for evaluation and treatment of ulcers of his right man. He was treated with promogran and adaptic. He has not been wearing tubigrip on his left leg because his home health nurse told him he should not wear compression when he is sleeping and he is unable to don compression himself. He denies fe tara, chills, increased drainage or odor. Objective Data Objective Data Vital Signs: Vital Signs Temp Pulse Resp BP 97.5 F L 63 20 H 119/65 03/18/22 11:31 04/25/21 11:31 04/25/21 11:31 04/25/21 11:31 Weight: 132.789 kg Body Mass Index (BMI) 35.6 Physical Exam Const alert, oriented x3 and no apparent distress General Appearance: cooperative and comfortable HEENT normocephalic and head/scalp atraumatic Resp normal respiratory effort Effort and Inspection: able to speak in complete sentences Cardio regular rate and regular rhythm Skin General Skin Exam: venous stasis and dermatitis Neuro oriented x3 and CN's II-XII intact bilaterally Psych mental status grossly normal, thought process normal, cooperative and affect normal Assessment/Plan Assessment/Plan (1) Acquired lymphedema of lower extremity: CODE(S): I89.0 - Lymphedema, not elsewhere classified (2) Varicose veins with ulcer and inflammation: CODE(S): I83.209 - Varicose veins of unspecified lower extremity with both ulcer of unspecified site and inflammation; L97.909 - Non-pressure chronic ulcer of unspecified part of unspecified lower leg with unspecified severity (3) Debility: CODE(S): R53.81 - Other malaise (4) Obesity (BMI 30-39.9): CODE(S): E66.9 - Obesity, unspecified (5) Spinal stenosis: CODE(S): M48.00 - Spinal stenosis, site unspecified QUALIFIERS: Spinal region: lumbar Neurogenic claudication status: with neurogenic claudication Qualified Code(s): M48.062 - Spinal stenosis, lumbar region with neurogenic claudication (6) Diabetes mellitus: CODE(S): E11.9 - Type 2 diabetes mellitus without complications QUALIFIERS: Diabetes mellitus type: type 2 Diabetes mellitus intermission coordinator insulin use: without group home use Diabetes mellitus complication status: with skin complications Diabetes mellitus complication detail: with other skin ulcer Qualified Code(s): E11.622 - Type 2 diabetes mellitus with other skin ulcer (7) Peripheral neuropathy: CODE(S): G62.9 - Polyneuropathy, unspecified QUALIFIERS: Peripheral neuropathy type: polyneuropathy, unspecified Qualified Code(s): G62.9 - Polyneuropathy, unspecified (8) Chronic anticoagulation: 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 (9) Venous stasis ulcer: CODE(S): I83.009 - Varicose veins of unspecified lower extremity with ulcer of unspecified site; L97.909 - Non-pressure chronic ulcer of unspecified part of unspecified lower leg with unspecified severity QUALIFIERS: Venous stasis ulcer site: calf Varicose vein presence: with varicose veins Laterality: right Non-pressure ulcer stage: with fat layer exposed Qualified Code(s): I83.012 - Varicose veins of right lower extremity with ulcer of calf; L97.212 - Non-pressure chronic ulcer of right calf with fat layer exposed (10) Chronic venous hypertension w/ulcer and inflammation involv right side: CODE(S): I87.331 - Chronic venous hypertension (idiopathic) with ulcer and inflammation of right lower extremity; L97.919 - Non-pressure chronic ulcer of unspecified part of right lower leg with unspecified severity (11) COPD (chronic obstructive pulmonary disease): CODE(S): J44.9 - Chronic obstructive pulmonary disease, unspecified QUALIFIERS: COPD type: unspecified COPD Qualified Code(s): J44.9 - Chronic obstructive pulmonary disease, unspecified (12) Edema, lower extremity: CODE(S): R60.0 - Localized edema (13) Cellulitis and abscess of right leg: CODE(S): L03.115 - Cellulitis of right lower limb; L02.415 - Cutaneous abscess of right lower limb (14) HTN (hypertension): CODE(S): I10 - Essential (primary) hypertension QUALIFIERS: Hypertension type: primary hypertension Qualified Code(s): I10 - Essential (primary) hypertension PLAN: This is a 75-year-old male with severe, chronic venous disease in both lower extremities. He has had venous stasis ulcerations in both lower extremities in the past, treated at several wound care facilities. Prieto's ulcers and lower extremities were evaluated and healed today. Dressings: Will have him dress the site of his ulcer with Promogran and adaptic and kerlix for the next week for added protection. Wound culture: Last culture 11/29/20 + for Pseudomonas - completed treatment. Vascular testing: The patient indicates that he has undergone a venous duplex examination and a noninvasive lower extremity arterial study at [facility] in [place], [place]. Edema management: The patient has been counseled as to the appropriate measures relative to lifestyle modification regarding his venous disease. Leg elevation has been recommended. His lower extremities are to be elevated to heart level, or higher, is much as possible. He has been encouraged to sleep on a flat dailey rface, with his legs level with his heart. During daytime hours, he is to elevate his legs to heart level, or higher, is much as possible. Activity has been encouraged, though the patient pre-existing medical problems are likely to prevent significant enhancement of his activity level. He has been advised to refrain from prolonged idle sitting. Weight loss has also been recommended. Due to his inability to don and doff compression garments such as compression stockings, AUDREY bandages, tubigrip compression due to his orthopedic spine issues and debility and due to his recurrent ulcerations and difficulty with healing ulcerations when they do develop, I recommend that he undergo treatment with lymphedema compression pumps at least twice daily to maintain his edema and prevent ulcers from developing. He has had success with this in the past and was able to don the compression garments for the lymphedema pumps for 6 years but his compression pump and associated equipment was lost in transition to his new apartment and he has been without this treatment for approx. 2 years. He received compression pump devices and is using them 3 times daily. Nutrition: The patient has been encouraged to optimize his nutritional intake, as well as optimizing his glycemic control. Rather, conservative measures, as those which have been recommended herein, appear most appropriate. These measures are likely to be of benefit for the long-term, and will depend upon the patient's compliance. The patient's debility, and the fact that he lives alone and has limited resources, may lend to a poor long-term prognosis. He was advised to call with any increased drainage, odor, pain or erythema. He is discharged from the wound center today and will return if he has any recurrence of ulcers. .
== END 2021-04-25 13:02 | disposition home or self-care (01) ==
LOC: WC 11:30
PROVIDERS: Visit Provider Family Medicine
DX: I89.0 Lymphedema, not elsewhere classified (principal); E11.622 Type 2 diabetes mellitus with other skin ulcer; L97.212 Non-pressure chronic ulcer of right calf with fat layer exposed; I83.012 Varicose veins of right lower extremity with ulcer of calf; I87.331 Chronic venous hypertension (idiopathic) with ulcer and inflammation of right lower extremity; J44.9 Chronic obstructive pulmonary disease, unspecified; I11.0 Hypertensive heart disease with heart failure; I50.9 Heart failure, unspecified; E11.59 Type 2 diabetes mellitus with other circulatory complications; E11.42 Type 2 diabetes mellitus with diabetic polyneuropathy; I48.91 Unspecified atrial fibrillation; L03.115 Cellulitis of right lower limb; L02.415 Cutaneous abscess of right lower limb; Z79.01 Long term (current) use of anticoagulants; I83.91 Asymptomatic varicose veins of right lower extremity; E78.5 Hyperlipidemia, unspecified; R53.81 Other malaise; E66.9 Obesity, unspecified; I87.2 Venous insufficiency (chronic) (peripheral); M48.062 Spinal stenosis, lumbar region with neurogenic claudication; G62.9 Polyneuropathy, unspecified
CPT/HCPCS: 99213; G0463

== ENCOUNTER 2022-08-21 11:30 | Outpatient (RCR) | payer MEDICARE, MEDICAID, SELFPAY ==
[2022-08-14 10:02] VITALS: BP 130/81; PULSE 64; RESP 18; TEMP 35.9
--- NOTE | 2022-08-14 15:15 | HP.PCM_ITS ---
History of Present Illness Date of Service: 08/14/22 Chief Complaint: Chronic venous disease with an ulceration on the right pr etibial area History of Wound: This is a 76-year-old male with multiple pre-existing medical problems. He has known chronic venous disease, and has had multiple venous ulcerations in both lower extremities in the past with recurrent bouts of cellulitis complicating these ulcers. He had undergone an ablation procedure in the right lower extremity approximately 6 years ago, though is uncertain as to the details, including the specifics of the procedure, the venue of the procedure, and the provider who performed the procedure. The patient denies a history of thrombophlebitis in the lower extremities. Prior treatment of his lower extremity venous ulcerations has occurred at wound healing facilities in [facility], as well as at the [facility]. He presents today for evaluation and treatment of right man ulcers that have been present for 3 months. He has been treating these at home with Aquacel and Leslie dressings with limited success. He has had 2 courses of antibiotics over this time but none recently in the last 2 weeks. The patient lives alone, and is of limited mobility. He suffers from debility and is unable to don and doff graduated compression stockings. Home health aid assists him twice weekly. The patient is limited in his ambulatory capacity, requiring a walker for mobility. He often sleeps in a recliner, and does not reliably elevate his legs as recommended. He uses compression pumps twice daily. His pre-existing medical conditions include hypertension, hyperlipidemia, atrial fibrillation, congestive heart failure, diabetes mellitus, peripheral neuropathy, prostatism, spinal stenosis, chronic obstructive pulmonary disease, and obesity. Patient is on chronic systemic anticoagulation with Eliquis due to atrial fibrillation. [facility] Medical History Anesthesia of skin Atrial fibrillation Chronic anticoagulation Chronic venous hypertension w/ulcer and inflammation involv right side Chronic venous insufficiency COPD (chronic obstructive pulmonary disease) Debility Diabetes mellitus HTN (hypertension) Hyperpigmentation Leg swelling Obesity (BMI 30-39.9) Peripheral neuropathy PVD (peripheral vascular disease) Shortness of breath Sleep apnea Spinal stenosis Spinal stenosis, lumbar region with neurogenic claudication Tobacco abuse Tobacco abuse counseling Varicose veins with ulcer and inflammation Venous stasis ulcer Home Medications Advair HFA BID 11/01/20 [History Last Taken 08/14/22] apixaban 5 mg tablet (Eliquis) 5 mg PO BID 11/01/20 [History Last Taken Unknown] betamethasone dipropionate BID 11/01/20 [History Last Taken Unknown] metformin 500 mg tablet mg 11/01/20 [History Last Taken Unknown] rosuvastatin 20 mg tablet mg 11/01/20 [History Last Taken Unknown] tamsulosin 0.4 mg capsule mg PO 11/01/20 [History Last Taken Unknown] clindamycin HCl 300 mg capsule 300 mg PO BID 7 days #14 caps 11/08/20 [Rx Last Taken Unknown] Allergy/AdvReac Type Severity Reaction Status Date / Time penicillin G AdvReac PT UNSURE Verified 11/01/20 10:14 OF REACTION Penicillins [PCN] AdvReac PT UNSURE Verified 11/01/20 10:14 OF REACTION Surgical History History of surgery on arm Social History Smoking Status: Heavy Smoker (>10/day) ROS Constitutional Constitutional: Denies chills, fatigue or fever(s) Eyes Eyes: Denies blurry vision, change in vision or loss of vision ENT HEENT: Denies dysphagia, hearing loss or sore throat Cardiovascular Cardiovascular: Denies chest pain, edema or palpitations Respiratory/Chest Respiratory/Chest: Denies dry cough, dyspnea, dyspnea on exertion, productive cough or wheezing Gastrointestinal Gastrointestinal: Denies diarrhea, nausea or vomiting Genitourinary Genitourinary: Denies dysuria or polyuria Musculoskeletal Musculoskeletal: Denies arthralgias, joint stiffness or muscle weakness Integumentary Integumentary: Reports erythema and wounds Neurologic Neurologic: Denies dizziness, memory loss or weakness Psychiatric Psychiatric: Denies homicidal ideation or suicidal ideation Endocrine Endocrinology: Denies polydipsia, polyphagia or polyuria Hematologic/Lymphatic Hematologic/Lymphatic: Denies easy bleeding or easy bruising Allergic/Immunologic Allergic/Immunologic: Denies throat swelling, tongue swelling or urticaria Vital Signs Vital Signs Vital Signs: 08/14/22 10:02 Temperature 96.7 F L Temperature Source Temporal Pulse Rate 64 Respiratory Rate 18 Blood Pressure 130/81 H Blood Pressure Mean 97 Blood Pressure Source Monitor Blood Pressure Position Sitting Blood Pressure Location Left Arm Physical Exam Const alert, oriented x3 and no apparent distress General Appearance: cooperative and comfortable HEENT normocephalic and head/scalp atraumatic Resp normal respiratory effort Effort and Inspection: able to speak in complete sentences Cardio regular rate and regular rhythm Skin General Skin Exam: venous stasis and dermatitis Neuro oriented x3 and CN's II-XII intact bilaterally Psych mental status grossly normal, thought process normal, cooperative and affect normal Debridement Note Debridement Note Wound debrided: right man Laterality: Right Type of Debridement: Selective debridement Anesthesia Used: 4% Lidocaine Solution and 5% Lidocaine Gel Depth: Down to and including healthy tissue and in the subcutaneous layer Percentage of wound debrided: 100 Instrument Used: - (gauze) Tissue Removed: Yellow slough, devitalized tissue Severity: Fat Layer Exposed Amount of bleeding with debridement: Mild Bleeding Controlled with: Compression and gauze Patient tolerated procedure: Patient tolerated procedure well Post-Debridement Measurements and Additional Note: Post-Debridement Measurements/Treatment - Nurse 1 - General Ulcer Assessment Start: 08/14/22 10:01 Freq: Status: Active Protocol: ROSIO Activity Type Activity Date Activity User E-sign Co-sign Detail Recorded Client Recorded Date Recorded By Document 08/14/22 10:02 [id number] 08/14/22 10:17 VALENTÍN 08/14/22 10:02 - Today's Visit Information Type of service Follow-up Visit (Physician/PUTTY WORKER ) Arrival Mode Ambulatory, Walker Transfer Assistance None Patient Identification Verified (Name & Yes ) Patient Requires Transmission-Based No Precautions Vital Signs Temperature (97.8 F-99.1 F) 96.7 F L Temperature Source Temporal Pulse Rate (60-100) 64 Pulse Location Monitor Respiratory Rate (12-18) 18 Respiratory rate source Observation Blood Pressure (90/60-120/80) 130/81 H Blood Pressure Mean 97 Source Monitor Position Sitting Blood Pressure Location Left Arm Pain Scale: 0-10 Numeric Is Patient Pain Free? Yes Communication Assessment Preferred language Yakut Respiratory Therapy Technician Required No Able to Read Yes Able to Write Yes Communication Tools None Caregiver Communication Skills No Impairment Impairment Right Hearing Abillity Normal Left Hearing Abillity Normal Visual Assistive Devices Glasses Teaching Assessment Preferences Verbal,Written, Demonstration Barriers to Learning None Readiness To Learn Good Willingness to Engage in Self Management Med Activies Readiness to Engage in Self Management Med Activities Anxiety Level Calm Cooperation Cooperative Perception Coherent Interest in Health Problem Asks Questions Education Importance Acknowledges Need Does Patient Smoke tobacco or other No substances Smoking Status Heavy Smoker (> 10/day) Is Patient Diabetic No Functional Assessment Recent Decline in Ability to Perform Denies Any Declines Assistive Device With Patient walker Culture/Adventist/Scow Derrick Operator Cultural/Adventist Needs that may affect No Treatment Plan Would you allow our hospital shorthand reporter to No meet you for the purpose of spiritual/ emotional support? Scow Derrick Operator to contact place of orthodox No Teaching: Wound Center *Welcome to the Wound Center -Person Taught Patient -Teaching Method Discussion -Response to teaching Verbalize understanding CECILE - Nurse 1 - General Ulcer Measurement Start: 08/14/22 10:01 Freq: Status: Active Protocol: Activity Type Activity Date Activity User E-sign Co-sign Detail Recorded Client Recorded Date Recorded By Document 08/14/22 10:02 VALENTÍN [id number] 08/14/22 10:17 RB 08/14/22 10:02 Wound Center Nurse 1 5. RLE cluster -Combined with other wound No -Current Size (cm) - Length 18 -Current Size (cm) - Width 8.5 -Current Size (cm) - Depth 0.1 -Total Square Cm 153.0 -Photo Taken Yes -Tunneling No -Undermining/Tunneling No -Circular Undermining No -Exudate Amt Large -Exudate Type Serosanguineous -Wound Margin Distinct, Outline Attached -Granulation Amt Medium (34-66%) -Granulation Quality [place] -Slough/Fibrin Yes -Necrosis Amt Medium (34-66%) -Necrotic Tissue Type Adherent Slough -Structure Exposed N/A -Texture (Mariajose-wound Skin Appearance) Assessed, Localized Edema -Moisture (Mariajose-wound Skin Appearance) Assessed -Color (Mariajose-wound Skin Appearance) Assessed -Temperature (Mariajose-wound Skin No Abnormality Appearance) (Pt Warm) -Tenderness on Palpation (Mariajose-wound No Skin Appearance) -Ulcer Cleansing Wound Cleanser -Foul Odor after Cleansing No -Anesthetic Used 4% Lidocaine Solution Lower Limb Edema Present Yes Right Calf (cm) 48.5 Right Ankle (cm) 24.5 Left Calf (cm) 46.5 Left Ankle (cm) 25 CECILE - Nurse 2 - General Ulcer CM Notes Start: 08/14/22 10:01 Freq: Status: Active Protocol: Activity Type Activity Date Activity User E-sign Co-sign Detail Recorded Client Recorded Date Recorded By Document 08/14/22 10:34 MW [id number] 08/14/22 10:52 MW 08/14/22 10:34 Wound Center Nurse 2 5. RLE cluster -Time 10:34 -Correct Patient Yes -Correct Side, Site, Position Yes -Correct Procedure Yes -Procedure Performed Yes -Type of Procedure Debridement -Clinical Debridement Epidermis / Dermis -Tissue Removed Epidermis -Post Debridement (cm) - Length 2.0 -Post Debridement (cm) - Width 0.5 -Post Debridement (cm) - Depth 0.1 -Total Square (Post) (cm) 1.00 -Area of Debridement (cm) - Length 2.0 -Area of Debridement (cm) - Width 0.5 -Total Square (Area) (cm) 1.00 -Tunneling No -Undermining/Tunneling No -Circular Undermining No -Wound/Ulcer Outcome Not Healed -Ulcer Cleansing Rinsed/ Irrigated with Saline -Foul Odor after Cleansing No -Bioengineered Tissue No -Bleeding Controlled with Pressure -Treatment Response Procedure Tolerated Well -Offloading No -Debridement - Open, 1st 20sq cm Yes Pain Scale: 0-10 Numeric Is Patient Pain Free? Yes - Nurse 3 - General Ulcer D/C NN Start: 08/14/22 10:01 Freq: Status: Active Protocol: Activity Type Activity Date Activity User E-sign Co-sign Detail Recorded Client Recorded Date Recorded By Document 08/14/22 12:18 RB [id number] 08/14/22 12:18 RB 08/14/22 12:18 Wound Care Center Nurse 3 5. RLE cluster -Ulcer Cleansing Wound Cleanser bilat -Multi-Layered Wrap Application Unna Boot - Bilateral ($) Treatment Response Procedure Tolerated Well Pain Scale: 0-10 Numeric Is Patient Pain Free? Yes WC - Visit Discharge Discharge Condition Stable Ambulatory Status Ambulatory, Walker Transportation Private Auto Medication Reconcilliation completed & No provided to patient/care provider Clinical Summary of Care Provided Yes Assessment/Plan Assessment/Plan (1) Acquired lymphedema of lower extremity: CODE(S): I89.0 - Lymphedema, not elsewhere classified (2) Debility: CODE(S): R53.81 - Other malaise (3) Obesity (BMI 30-39.9): CODE(S): E66.9 - Obesity, unspecified (4) Spinal stenosis: CODE(S): M48.00 - Spinal stenosis, site unspecified QUALIFIERS: Spinal region: lumbar Neurogenic claudication status: with neurogenic claudication Qualified Code(s): M48.062 - Spinal stenosis, lumbar region with neurogenic claudication (5) Diabetes mellitus: CODE(S): E11.9 - Type 2 diabetes mellitus without complications QUALIFIERS: Diabetes mellitus type: type 2 Diabetes mellitus manager intermediate insulin use: without halfway use Diabetes mellitus complication status: with skin complications Diabetes mellitus complication detail: with other skin ulcer Qualified Code(s): E11.622 - Type 2 diabetes mellitus with other skin ulcer (6) Peripheral neuropathy: CODE(S): G62.9 - Polyneuropathy, unspecified QUALIFIERS: Peripheral neuropathy type: polyneuropathy, unspecified Qualified Code(s): G62.9 - Polyneuropathy, unspecified (7) Chronic anticoagulation: CODE(S): Z79.01 - termination clerk (current) use of anticoagulants (8) Atrial fibrillation: CODE(S): I48.91 - Unspecified atrial fibrillation QUALIFIERS: Atrial fibrillation type: unspecified chronic Qualified Code(s): I48.20 - Chronic atrial fibrillation, unspecified (9) Venous stasis ulcer: CODE(S): I83.009 - Varicose veins of unspecified lower extremity with ulcer of unspecified site; L97.909 - Non-pressure chronic ulcer of unspecified part of unspecified lower leg with unspecified severity QUALIFIERS: Venous stasis ulcer site: calf Varicose vein presence: with varicose veins Laterality: right Non-pressure ulcer stage: with fat layer exposed Qualified Code(s): I83.012 - Varicose veins of right lower extremity with ulcer of calf; L97.212 - Non-pressure chronic ulcer of right calf with fat layer exposed (10) Chronic venous hypertension w/ulcer and inflammation involv right side: CODE(S): I87.331 - Chronic venous hypertension (idiopathic) with ulcer and inflammation of right lower extremity; L97.919 - Non-pressure chronic ulcer of unspecified part of right lower leg with unspecified severity (11) Chronic venous insufficiency: CODE(S): I87.2 - Venous insufficiency (chronic) (peripheral) (12) HTN (hypertension): CODE(S): I10 - Essential (primary) hypertension QUALIFIERS: Hypertension type: primary hypertension Qualified Code(s): I10 - Essential (primary) hypertension (13) COPD (chronic obstructive pulmonary disease): CODE(S): J44.9 - Chronic obstructive pulmonary disease, unspecified QUALIFIERS: COPD type: unspecified COPD Qualified Code(s): J44.9 - Chronic obstructive pulmonary disease, unspecified (14) PVD (peripheral vascular disease): CODE(S): I73.9 - Peripheral vascular disease, unspecified PLAN: Tatyana Moreau's ulcers and lower extremities were evaluated and debrided today. Dressings: Will treat both of his lower legs with UNNA boots today for venous stasis dermatitis and superficial ulcerations of right man. Wound culture performed today due to warmth and mild erythema. Edema management: The patient has been counseled as to the appropriate measures relative to lifestyle modification regarding his venous disease. Leg elevation has been recommended. His lower extremities are to be elevated to heart level, or higher, is much as possible. He has been encouraged to sleep on a flat surface, with his legs level with his heart. During daytime hours, he is to elevate his legs to heart level, or higher, is much as possible. Activity has been encouraged, though the patient pre-existing medical problems are likely to prevent significant enhancement of his activity level. He has been advised to refrain from prolonged idle sitting. Weight loss has also been recommended. Due to his inability to don and doff compression garments such as compression stockings, AUDREY bandages, tubigrip compression due to his orthopedic spine issues and debility and due to his recurrent ulcerations and difficulty with healing ulcerations when they do develop, I recommend that he undergo treatment with lymphedema compression pumps at least twice daily to maintain his edema and prevent ulcers from developing. He has had success with this in the past and was able to don the compression garments for the lymphedema pumps and continues to use them regularly. Nutrition: The patient has been encouraged to optimize his nutritional intake, as well as optimizing his glycemic control. Rather, conservative measures, as those which have been recommended herein, appear most appropriate. These measures are likely to be of benefit for the long-term, and will depend upon the patient's compliance. The patient's debility, and the fact that he lives alone and has limited resources, may lend to a poor long-term prognosis. He was advised to call with any increased drainage, odor, pain or erythema. He will follow up in 1 week for wound care.
--- NOTE | 2022-08-21 09:50 | VDLE_ITS ---
Reason For Study: Ulcer RIGHT LEFT CFV is compressible, spontaneous, phasic, CFV is compressible, spontaneous, phasic, competent and demonstrates normal competent, and demonstrates normal augmentation. augmentation. FV is compressible, spontaneous, phasic, FV is compressible, phasic, and INCOMPETENT competent and demonstrates normal for greater than 1.0 second. augmentation. POP V is compressible, phasic, and POP V is compressible, spontaneous, phasic, INCOMPETENT for greater than 1.0 second. competent and demonstrates normal T/P Trunk is compressible. augmentation. PTV is compressible. T/P Trunk is compressible. LT PerV is compressible. PTV is compressible. SFJ is INCOMPETENT and measures 1.07 x 1.02 RT PerV is compressible. cm. SFJ is INCOMPETENT and measures 0.48 x 0.74 GSV proximal thigh measures 0.53 x 0.53 cm. cm. GSV above knee is competent. GSV groin to mid calf with previous ablation. GSV at knee measures 0.45 x 0.44 cm. GSV mid calf measures 0.28 x 0.32 cm. GSV below knee is INCOMPETENT for greater GSV mid calf and below is INCOMPETENT for than 0.5 seconds. greater than 0.5 seconds. ASV distal thigh is INCOMPETENT for greater SSV at junction is competent and measures than 0.5 seconds and measures 0.19 x 0.18 cm. 0.61 x 0.64 cm. SSV at junction is competent and measures Procedure 0.53 x 0.58 cm. This is a venous duplex using B-mode, color flow and spectral Doppler. Exam performed in department. Patient was scanned in supine position during reflux assessment. A preliminary report was called and/or faxed to . VL/Venous Duplex US - Leroy Extrem Interpretation Summary Deep veins of the lower extremities are bilaterally patent and compressible seg mentally. There is no evidence of deep vein thrombosis on either side. Valvular competence appears in tact within the proximal deep venous system on the right . The left femoral vein and popliteal vein are incompetent. Sapheno-femoral junctions are bilaterally incompetent . The right great sapheno us vein has been ablated from the right groin to the mid-calf. The right great saphenous vein is patent and incompetent in the distal calf. The left great saphenous vein is competent abov e the knee. The left great saphenous vein is incompetent below the knee. Small saphenous veins are p atent and competent. The accessory saphenous vein in the left distal thigh is incompetent. Ordering Physician: Leidy Fields Referring Physician: Devan Camacho Performed By: Sherry Rodríguez RVT
[2022-08-21 11:16] VITALS: BP 142/86; PULSE 66; RESP 18; TEMP 36.1
--- NOTE | 2022-08-21 14:35 | PN.PCM_ITS ---
History of Present Illness Date of Service: 08/21/22 Chief Complaint: Chronic venous disease with an ulceration on the right pr etibial area History of Wound: This is a 76-year-old male with multiple pre-existing medical problems. He has known chronic venous disease, and has had multiple venous ulcerations in both lower extremities in the past with recurrent bouts of cellulitis complicating these ulcers. He had undergone an ablation procedure in the right lower extremity approximately 6 years ago, though is uncertain as to the details, including the specifics of the procedure, the venue of the procedure, and the provider who performed the procedure. The patient denies a history of thrombophlebitis in the lower extremities. Prior treatment of his lower extremity venous ulcerations has occurred at wound healing facilities in [facility], as well as at the [facility]. He presents today for evaluation and treatment of right man ulcers that have been present for 3 months. He has been treating these at home with Aquacel and Leslie dressings with limited success. He has had 2 courses of antibiotics over this time but none recently in the last 2 weeks. The patient lives alone, and is of limited mobility. He suffers from debility and is unable to don and doff graduated compression stockings. Home health aid assists him twice weekly. The patient is limited in his ambulatory capacity, requiring a walker for mobility. He often sleeps in a recliner, and does not reliably elevate his legs as recommended. He uses compression pumps twice daily. His pre-existing medical conditions include hypertension, hyperlipidemia, atrial fibrillation, congestive heart failure, diabetes mellitus, peripheral neuropathy, prostatism, spinal stenosis, chronic obstructive pulmonary disease, and obesity. Patient is on chronic systemic anticoagulation with Eliquis due to atrial fibrillation. Subjective Subjective Prieto returns today for follow up of ulcer right man. Tolerated UNNA boot. Wound culture was positive for Staph. Denies fever, chills, erythema. Objective Data Objective Data Vital Signs: Vital Signs Temp Pulse Resp BP 96.9 F L 66 18 142/86 H 08/21/22 11:16 08/21/22 11:16 08/21/22 11:16 08/21/22 11:16 Lab / Micro Data Micro: Microbiology 08/14/22 10:50 Wound Abcess - Leg, Right Gram Stain - Final 08/14/22 10:50 Wound Abcess - Leg, Right Wound Culture - Final Staphylococcus aureus 08/14/22 10:50 Wound Abcess - Leg, Right Anaerobic Culture - Final No anaerobic bacteria isolated. Physical Exam Const alert, oriented x3 and no apparent distress General Appearance: cooperative and comfortable HEENT normocephalic and head/scalp atraumatic Resp normal respiratory effort Effort and Inspection: able to speak in complete sentences Cardio regular rate and regular rhythm Skin General Skin Exam: venous stasis and dermatitis Neuro oriented x3 and CN's II-XII intact bilaterally Psych mental status grossly normal, thought process normal, cooperative and affect normal Debridement Note Debridement Note Wound debrided: right man Laterality: Right Type of Debridement: Selective debridement Anesthesia Used: 5% Lidocaine Gel Depth: Down to and including healthy tissue and in the subcutaneous layer Percentage of wound debrided: 100 Instrument Used: - (gauze) Tissue Removed: Yellow slough, devitalized tissue Severity: Fat Layer Exposed Amount of bleeding with debridement: Mild Bleeding Controlled with: Compression and gauze Patient tolerated procedure: Patient tolerated procedure well Post-Debridement Measurements and Additional Note: Post-Debridement Measurements/Treatment - Nurse 1 - General Ulcer Assessment Start: 08/14/22 10:01 Freq: Status: Active Protocol: CECILE.JAIR Activity Type Activity Date Activity User E-sign Co-sign Detail Recorded Client Recorded Date Recorded By Document 08/14/22 10:02 [id number] 08/14/22 10:17 Document 08/21/22 11:16 [id number] 08/21/22 11:18 BINTA 08/14/22 08/21/22 10:02 11:16 - Today's Visit Information Type of service Follow-up Visit Follow-up Visit (Physician/CEMENT GUN OPERATOR (Physician/CEMENT GUN OPERATOR ) ) Arrival Mode Ambulatory, Ambulatory, Walker Walker Transfer Assistance None Patient Identification Verified (Name & Yes Yes ) Patient Requires Transmission-Based No No Precautions Vital Signs Temperature (97.8 F-99.1 F) 96.7 F L 96.9 F L Temperature Source Temporal Temporal Pulse Rate (60-100) 64 66 Pulse Location Monitor Monitor Respiratory Rate (12-18) 18 18 Respiratory rate source Observation Observation Blood Pressure (90/60-120/80) 130/81 H 142/86 H Blood Pressure Mean (mm Hg) 97 104 Source Monitor Monitor Position Sitting Semi-Fowlers Blood Pressure Location Left Arm Left Arm History Since Last Visit- (Skip if this is Patient's initial visit) Any new allergies or adverse reactions No Had a fall/change in ADL's that may No increase risk of falls Have you been in the hospital since your No last visit? Has dressing in place as prescribed Yes Has compression in place as prescribed Yes Has offloadiing in place as prescribed N/A Experienced any changes in pain level or No management Left Footwear Regular Shoe Right Footwear Regular Shoe Pain Scale: 0-10 Numeric Is Patient Pain Free? Yes Yes Communication Assessment Preferred language Slovak Chair Caner Required No Able to Read Yes Able to Write Yes Communication Tools None Caregiver Communication Skills No Impairment Impairment Right Hearing Abillity Normal Left Hearing Abillity Normal Visual Assistive Devices Glasses Teaching Assessment Preferences Verbal,Written, Demonstration Barriers to Learning None Readiness To Learn Good Willingness to Engage in Self Management Med Activies Readiness to Engage in Self Management Med Activities Anxiety Level Calm Cooperation Cooperative Perception Coherent Interest in Health Problem Asks Questions Education Importance Acknowledges Need Does Patient Smoke tobacco or other No substances Smoking Status Heavy Smoker (> 10/day) Is Patient Diabetic No Functional Assessment Recent Decline in Ability to Perform Denies Any Declines Assistive Device With Patient walker Culture/Judaism/Commercial Agent Cultural/Judaism Needs that may affect No Treatment Plan Would you allow our hospital sales training manager to No meet you for the purpose of spiritual/ emotional support? Commercial Agent to contact place of cheondoism No Teaching: Wound Center *Welcome to the Wound Center -Person Taught Patient -Teaching Method Discussion -Response to teaching Verbalize understanding WC - Nurse 1 - General Ulcer Measurement Start: 08/14/22 10:01 Freq: Status: Active Protocol: Activity Type Activity Date Activity User E-sign Co-sign Detail Recorded Client Recorded Date Recorded By Document 08/14/22 10:02 RB [id number] 08/14/22 10:17 RB Document 08/21/22 11:16 BINTA [id number] 08/21/22 11:18 BINTA 08/14/22 08/21/22 10:02 11:16 Wound Center Nurse 1 5. RLE cluster -Combined with other wound No No -Current Size (cm) - Length 18 0.1 -Current Size (cm) - Width 8.5 0.1 -Current Size (cm) - Depth 0.1 0.1 -Total Square Cm 153.0 0.01 -Photo Taken Yes No -Epithelialization Large 67-100% -Tunneling No No -Undermining/Tunneling No No -Circular Undermining No No -Exudate Amt Large None Present -Exudate Type Serosanguineous -Wound Margin Distinct, Flat & Intact Outline Attached -Granulation Amt Medium (34-66%) Small (1-33%) -Granulation Quality Lely Red -Slough/Fibrin Yes Yes -Necrosis Amt Medium (34-66%) Small (1-33%) -Necrotic Tissue Type Adherent Slough Adherent Slough -Structure Exposed N/A N/A -Texture (Mariajose-wound Skin Appearance) Assessed, Assessed, Localized Edema Localized Edema -Moisture (Mariajose-wound Skin Appearance) Assessed Assessed,Dry/ Scaly -Color (Mariajose-wound Skin Appearance) Assessed Assessed, Hemosiderin Staining -Temperature (Mariajose-wound Skin No Abnormality No Abnormality Appearance) (Pt Warm) (Pt Warm) -Tenderness on Palpation (Mariajose-wound No No Skin Appearance) -Ulcer Cleansing Wound Cleanser Wound Cleanser -Foul Odor after Cleansing No No -Anesthetic Used 4% Lidocaine Solution Lower Limb Edema Present Yes Yes Right Calf (cm) 48.5 46 Right Ankle (cm) 24.5 25 Left Calf (cm) 46.5 46.2 Left Ankle (cm) 25 24.5 WC - Nurse 2 - General Ulcer CM Notes Start: 08/14/22 10:01 Freq: Status: Active Protocol: Activity Type Activity Date Activity User E-sign Co-sign Detail Recorded Client Recorded Date Recorded By Document 08/14/22 10:34 MW [id number] 08/14/22 10:52 MW Document 08/21/22 11:46 MW [id number] 08/21/22 11:53 MW 08/14/22 08/21/22 10:34 11:46 Wound Center Nurse 2 5. RLE cluster -Time 10:34 11:48 -Correct Patient Yes Yes -Correct Side, Site, Position Yes Yes -Correct Procedure Yes Yes -Procedure Performed Yes Yes -Type of Procedure Debridement Debridement -Clinical Debridement Epidermis / Epidermis / Dermis Dermis -Tissue Removed Epidermis Epidermis -Post Debridement (cm) - Length 2.0 0.4 -Post Debridement (cm) - Width 0.5 1.0 -Post Debridement (cm) - Depth 0.1 0.1 -Total Square (Post) (cm) 1.00 0.40 -Area of Debridement (cm) - Length 2.0 0.4 -Area of Debridement (cm) - Width 0.5 1.0 -Total Square (Area) (cm) 1.00 0.40 -Tunneling No No -Undermining/Tunneling No No -Circular Undermining No No -Wound/Ulcer Outcome Not Healed Not Healed -Ulcer Cleansing Rinsed/ Irrigated with Saline -Foul Odor after Cleansing No -Bioengineered Tissue No -Bleeding Controlled with Pressure Pressure -Treatment Response Procedure Procedure Tolerated Well Tolerated Well -Offloading No No -Debridement - Open, 1st 20sq cm Yes Yes Pain Scale: 0-10 Numeric Is Patient Pain Free? Yes Yes - Nurse 3 - General Ulcer D/C NN Start: 08/14/22 10:01 Freq: Status: Active Protocol: Activity Type Activity Date Activity User E-sign Co-sign Detail Recorded Client Recorded Date Recorded By Document 08/14/22 12:18 [id number] 08/14/22 12:18 RB Document 08/21/22 12:08 [id number] 08/21/22 12:09 08/14/22 08/21/22 12:18 12:08 Wound Care Center Nurse 3 5. RLE cluster -Ulcer Cleansing Wound Cleanser Rinsed/ Irrigated with Saline -Foul Odor after Cleansing No -Primary Dressing Applied Mepilex Border, Promogran -Mepilex Border 1 -Promogran 1 bilat -Multi-Layered Wrap Application Unna Boot - Bilateral ($) -Tubular Bandage Double Layer -Size of Tubigrip Used Size E -Size E ($) 2 Treatment Response Procedure Tolerated Well Pain Scale: 0-10 Numeric Is Patient Pain Free? Yes Yes - Visit Discharge Discharge Condition Stable Stable Ambulatory Status Ambulatory, Ambulatory, Walker Walker Transportation Private Auto Private Auto Medication Reconcilliation completed & No Yes provided to patient/care provider Clinical Summary of Care Provided Yes Yes Assessment/Plan Assessment/Plan (1) Acquired lymphedema of lower extremity: CODE(S): I89.0 - Lymphedema, not elsewhere classified (2) Debility: CODE(S): R53.81 - Other malaise (3) Obesity (BMI 30-39.9): CODE(S): E66.9 - Obesity, unspecified (4) Spinal stenosis: CODE(S): M48.00 - Spinal stenosis, site unspecified QUALIFIERS: Spinal region: lumbar Neurogenic claudication status: with neurogenic claudication Qualified Code(s): M48.062 - Spinal stenosis, lumbar region with neurogenic claudication (5) Diabetes mellitus: CODE(S): E11.9 - Type 2 diabetes mellitus without complications QUALIFIERS: Diabetes mellitus type: type 2 Diabetes mellitus buttermaker helper insulin use: without retirement use Diabetes mellitus complication status: with skin complications Diabetes mellitus complication detail: with other skin ulcer Qualified Code(s): E11.622 - Type 2 diabetes mellitus with other skin ulcer (6) Peripheral neuropathy: CODE(S): G62.9 - Polyneuropathy, unspecified QUALIFIERS: Peripheral neuropathy type: polyneuropathy, unspecified Qualified Code(s): G62.9 - Polyneuropathy, unspecified (7) Chronic anticoagulation: CODE(S): Z79.01 - adjunct faculty for medical terminology (current) use of anticoagulants (8) Atrial fibrillation: CODE(S): I48.91 - Unspecified atrial fibrillation QUALIFIERS: Atrial fibrillation type: unspecified chronic Qualified Code(s): I48.20 - Chronic atrial fibrillation, unspecified (9) Venous stasis ulcer: CODE(S): I83.009 - Varicose veins of unspecified lower extremity with ulcer of unspecified site; L97.909 - Non-pressure chronic ulcer of unspecified part of unspecified lower leg with unspecified severity QUALIFIERS: Venous stasis ulcer site: calf Varicose vein presence: with varicose veins Laterality: right Non-pressure ulcer stage: with fat layer exposed Qualified Code(s): I83.012 - Varicose veins of right lower extremity with ulcer of calf; L97.212 - Non-pressure chronic ulcer of right calf with fat layer exposed (10) Chronic venous hypertension w/ulcer and inflammation involv right side: CODE(S): I87.331 - Chronic venous hypertension (idiopathic) with ulcer and inflammation of right lower extremity; L97.919 - Non-pressure chronic ulcer of unspecified part of right lower leg with unspecified severity (11) Chronic venous insufficiency: CODE(S): I87.2 - Venous insufficiency (chronic) (peripheral) (12) HTN (hypertension): CODE(S): I10 - Essential (primary) hypertension QUALIFIERS: Hypertension type: primary hypertension Qualified Code(s): I10 - Essential (primary) hypertension (13) COPD (chronic obstructive pulmonary disease): CODE(S): J44.9 - Chronic obstructive pulmonary disease, unspecified QUALIFIERS: COPD type: unspecified COPD Qualified Code(s): J44.9 - Chronic obstructive pulmonary disease, unspecified (14) PVD (peripheral vascular disease): CODE(S): I73.9 - Peripheral vascular disease, unspecified PLAN: Plan Prieto's ulcers and lower extremities were evaluated and debrided today. Dressings: Will treat both of his lower legs with promogran and adaptic and silicone foam bordered dressing. Edema management: The patient has been counseled as to the appropriate measures relative to lifestyle modification regarding his venous disease. Leg elevation has been recommended. His lower extremities are to be elevated to heart level, or higher, is much as possible. He has been encouraged to sleep on a flat surf audrey, with his legs level with his heart. During daytime hours, he is to elevate his legs to heart level, or higher, is much as possible. Activity has been encouraged, though the patient pre-existing medical problems are likely to prevent significant enhancement of his activity level. He has been advised to refrain from prolonged idle sitting. Weight loss has also been recommended. Due to his inability to don and doff compression garments such as compression stockings, AUDERY bandages, tubigrip compression due to his orthopedic spine issues and debility and due to his recurrent ulcerations and difficulty with healing ulcerations when they do develop, I recommend that he undergo treatment with lymphedema compression pumps at least twice daily to maintain his edema and prevent ulcers from developing. He has had success with this in the past and was able to don the compression garments for the lymphedema pumps and continues to use them regularly. Nutrition: The patient has been encouraged to optimize his nutritional intake, as well as optimizing his glycemic control. Rather, conservative measures, as those which have been recommended herein, appear most appropriate. These measures are likely to be of benefit for the long-term, and will depend upon the patient's compliance. The patient's debility, and the fact that he lives alone and has limited resources, may lend to a poor long-term prognosis. He was advised to call with any increased drainage, odor, pain or erythema. He will follow up in 1 week for wound care.
== END 2022-09-07 23:59 | disposition home or self-care (01) ==
LOC: WC 11:30
PROVIDERS: PCP Physician Assistant; Referring Provider Physician Assistant; Visit Provider Family Medicine
DX: I83.012 Varicose veins of right lower extremity with ulcer of calf (principal); E11.51 Type 2 diabetes mellitus with diabetic peripheral angiopathy without gangrene; L97.212 Non-pressure chronic ulcer of right calf with fat layer exposed; I87.331 Chronic venous hypertension (idiopathic) with ulcer and inflammation of right lower extremity; J44.9 Chronic obstructive pulmonary disease, unspecified; I11.0 Hypertensive heart disease with heart failure; I50.9 Heart failure, unspecified; E11.59 Type 2 diabetes mellitus with other circulatory complications; E11.42 Type 2 diabetes mellitus with diabetic polyneuropathy; I48.20 Chronic atrial fibrillation, unspecified; Z79.01 Long term (current) use of anticoagulants; E78.5 Hyperlipidemia, unspecified; Z79.51 Long term (current) use of inhaled steroids; M48.062 Spinal stenosis, lumbar region with neurogenic claudication; R53.81 Other malaise; I87.2 Venous insufficiency (chronic) (peripheral); E66.9 Obesity, unspecified; F17.200 Nicotine dependence, unspecified, uncomplicated; I89.0 Lymphedema, not elsewhere classified
CPT/HCPCS: 29580; 87070; 87075; 87077; 87186; 87205; 93970; 97597; 99213; G0463

== ENCOUNTER 2022-10-02 11:30 | Outpatient (RCR) | payer MEDICARE, MEDICAID, SELFPAY ==
[2022-09-08 00:27] VITALS: BP 142/86; PULSE 66; RESP 18; TEMP 36.1
[2022-09-25 11:34] VITALS: BP 162/95; PULSE 57; RESP 16; TEMP 35.7
--- NOTE | 2022-09-25 14:30 | PCM.WC.PN ---
History of Present Illness Date of Service: 09/25/22 Chief Complaint: Chronic venous disease with an ulceration on the right pretibial area History of Wound: This is a 76-year-old male with multiple pre-existing medical problems. He has known chronic venous disease, and has had multiple venous ulcerations in both lower extremities in the past with recurrent bouts of cellulitis complicating these ulcers. He had undergone an ablation procedure in the right lower extremity approximately 6 years ago, though is uncertain as to the details, including the specifics of the procedure, the venue of the procedure, and the provider who performed the procedure. The patient denies a history of thrombophlebitis in the lower extremities. Prior treatment of his lower extremity venous ulcerations has occurred at wound healing facilities in [facility], as well as at the [facility]. He presents today for evaluation and treatment of right man ulcers that have been present for 3 months. He has been treating these at home with Aquacel and Leslie dressings with limited success. He has had 2 courses of antibiotics over this time but none recently in the last 2 weeks. The patient lives alone, and is of limited mobility. He suffers from debility and is unable to don and doff graduated compression stockings. Home health aid assists him twice weekly. The patient is limited in his ambulatory capacity, requiring a walker for mobility. He often sleeps in a recliner, and does not reliably elevate his legs as recommended. He uses compression pumps twice daily. His pre-existing medical conditions include hypertension, hyperlipidemia, atrial fibrillation, congestive heart failure, diabetes mellitus, peripheral neuropathy, prostatism, spinal stenosis, chronic obstructive pulmonary disease, and obesity. Patient is on chronic systemic anticoagulation with Eliquis due to atrial fibrillation. Subjective Subjective Prieto returns today for follow up of ulcer right man. Tolerated promogran to ulcers but continues to have waxing and waning of skin breakdown and blistering of right man. He saw vascular surgery and they discussed possible intervention. Denies fever, chills, erythema. Objective Data Objective Data Vital Signs: Vital Signs Temp Pulse Resp BP O2 Del Method 96.3 F L 57 L 16 162/95 H Room Air 09/25/22 11:34 09/25/22 11:34 09/25/22 11:34 09/25/22 11:34 08/18/23 11:34 Oxygen Delivery Method Room Air Physical Exam Const alert, oriented x3 and no apparent distress General Appearance: cooperative and comfortable HEENT normocephalic and head/scalp atraumatic Resp normal respiratory effort Effort and Inspection: able to speak in complete sentences Cardio regular rate and regular rhythm Skin General Skin Exam: venous stasis and dermatitis Neuro oriented x3 and CN's II-XII intact bilaterally Psych mental status grossly normal, thought process normal, cooperative and affect normal Debridement Note Debridement Note Wound debrided: right man Laterality: Right No debridement was completed: No debridement was completed today Post-Debridement Measurements and Additional Note: Post-Debridement Measurements/Treatment WC - Nurse 1 - General Ulcer Assessment Start: 09/25/22 11:34 Freq: Status: Active Protocol: ROSIO Activity Type Activity Date Activity User E-sign Co-sign Detail Recorded Client Recorded Date Recorded By Document 09/25/22 11:34 MARY [id number] 09/25/22 11:56 KW 09/25/22 11:34 WC - Today's Visit Information Type of service 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 Any new allergies or adverse reactions No Had a fall/change in ADL's that may No increase risk of falls Signs or symptoms of abuse and/or No neglect since last visit Have you been in the hospital since your No last visit? Has dressing in place as prescribed Yes Has compression in place as prescribed Yes Has offloadiing in place as prescribed No Experienced any changes in pain level or No management Left Footwear Regular Shoe Right Footwear Regular Shoe Pain Scale: 0-10 Numeric Is Patient Pain Free? Yes CECILE - Nurse 1 - General Ulcer Measurement Start: 09/25/22 11:34 Freq: Status: Active Protocol: Activity Type Activity Date Activity User E-sign Co-sign Detail Recorded Client Recorded Date Recorded By Document 09/25/22 11:34 KW [id number] 09/25/22 11:56 KW 09/25/22 11:34 Wound Center Nurse 1 #5 MED RLE -Current Size (cm) - Length 0.3 -Current Size (cm) - Width 0.5 -Current Size (cm) - Depth 0.1 -Total Square Cm 0.15 -Exudate Amt Small -Exudate Type Serosanguineous -Wound Margin Distinct, Outline Attached -Granulation Quality [place] -Texture (Mariajose-wound Skin Appearance) Assessed -Moisture (Mariajose-wound Skin Appearance) Assessed, Weeping -Color (Mariajose-wound Skin Appearance) Assessed -Ulcer Cleansing Soap and Water -Anesthetic Used 4% Lidocaine Solution 5. RLE cluster -Current Size (cm) - Length 14.3 -Current Size (cm) - Width 9.6 -Current Size (cm) - Depth 0.1 -Total Square Cm 137.28 -Exudate Amt Small -Exudate Type Serosanguineous -Granulation Amt Large (67-100%) -Granulation Quality Red -Necrosis Amt Small (1-33%) -Texture (Mariajose-wound Skin Appearance) Assessed, Localized Edema -Moisture (Mariajose-wound Skin Appearance) Assessed, Weeping -Color (Mariajose-wound Skin Appearance) Assessed -Temperature (Mariajose-wound Skin No Abnormality Appearance) (Pt Warm) -Ulcer Cleansing Soap and Water -Anesthetic Used 4% Lidocaine Solution Lower Limb Edema Present Yes Right Calf (cm) 47.1 Right Ankle (cm) 24.5 WC - Nurse 2 - General Ulcer CM Notes Start: 09/25/22 11:34 Freq: Status: Active Protocol: Activity Type Activity Date Activity User E-sign Co-sign Detail Recorded Client Recorded Date Recorded By Document 09/25/22 12:24 MW Desktop 09/25/22 12:36 MW 09/25/22 12:24 Wound Center Nurse 2 #5 MED RLE -Time 12:24 -Correct Patient Yes -Correct Side, Site, Position Yes -Correct Procedure Yes -Procedure Performed No -Wound/Ulcer Outcome Healed- Epithelialized 5. RLE cluster -Time 12:28 -Correct Patient Yes -Correct Side, Site, Position Yes -Correct Procedure Yes -Procedure Performed No -Tunneling No -Undermining/Tunneling No -Circular Undermining No -Wound/Ulcer Outcome Not Healed -Ulcer Cleansing Rinsed/ Irrigated with Saline -Foul Odor after Cleansing No -Bioengineered Tissue No -Bleeding Controlled with Pressure -Treatment Response Procedure Tolerated Well -Offloading No Pain Scale: 0-10 Numeric Is Patient Pain Free? Yes WC - Nurse 3 - General Ulcer D/C NN Start: 09/25/22 11:34 Freq: Status: Active Protocol: Activity Type Activity Date Activity User E-sign Co-sign Detail Recorded Client Recorded Date Recorded By Document 09/25/22 12:54 RB [id number] 09/25/22 12:56 RB 09/25/22 12:54 Wound Care Center Nurse 3 Right -Multi-Layered Wrap Application Unna Boot - Right ($) Treatment Response Procedure Tolerated Well Pain Scale: 0-10 Numeric Is Patient Pain Free? Yes WC - Visit Discharge Discharge Condition Stable Ambulatory Status Ambulatory Transportation Private Auto Medication Reconcilliation completed & No provided to patient/care provider Clinical Summary of Care Provided Yes Notes: Rupinder COLEMAN assisted with Unna wrap right LE Assessment/Plan Assessment/Plan (1) Acquired lymphedema of lower extremity: CODE(S): I89.0 - Lymphedema, not elsewhere classified (2) Debility: CODE(S): R53.81 - Other malaise (3) Obesity (BMI 30-39.9): CODE(S): E66.9 - Obesity, unspecified (4) Spinal stenosis: CODE(S): M48.00 - Spinal stenosis, site unspecified QUALIFIERS: Spinal region: lumbar Neurogenic claudication status: with neurogenic claudication Qualified Code(s): M48.062 - Spinal stenosis, lumbar region with neurogenic claudication (5) Diabetes mellitus: CODE(S): E11.9 - Type 2 diabetes mellitus without complications QUALIFIERS: Diabetes mellitus type: type 2 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: without marine oil terminal superintendent use Diabetes mellitus complication status: with skin complications Diabetes mellitus complication detail: with other skin ulcer Qualified Code(s): E11.622 - Type 2 diabetes mellitus with other skin ulcer (6) Peripheral neuropathy: CODE(S): G62.9 - Polyneuropathy, unspecified QUALIFIERS: Peripheral neuropathy type: polyneuropathy, unspecified Qualified Code(s): G62.9 - Polyneuropathy, unspecified (7) Chronic anticoagulation: CODE(S): 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 (8) Atrial fibrillation: CODE(S): I48.91 - Unspecified atrial fibrillation QUALIFIERS: Atrial fibrillation type: unspecified chronic Qualified Code(s): I48.20 - Chronic atrial fibrillation, unspecified (9) Venous stasis ulcer: CODE(S): I83.009 - Varicose veins of unspecified lower extremity with ulcer of unspecified site; L97.909 - Non-pressure chronic ulcer of unspecified part of unspecified lower leg with unspecified severity QUALIFIERS: Venous stasis ulcer site: calf Varicose vein presence: with varicose veins Laterality: right Non-pressure ulcer stage: with fat layer exposed Qualified Code(s): I83.012 - Varicose veins of right lower extremity with ulcer of calf; L97.212 - Non-pressure chronic ulcer of right calf with fat layer exposed (10) Chronic venous hypertension w/ulcer and inflammation involv right side: CODE(S): I87.331 - Chronic venous hypertension (idiopathic) with ulcer and inflammation of right lower extremity; L97.919 - Non-pressure chronic ulcer of unspecified part of right lower leg with unspecified severity (11) Chronic venous insufficiency: CODE(S): I87.2 - Venous insufficiency (chronic) (peripheral) (12) HTN (hypertension): CODE(S): I10 - Essential (primary) hypertension QUALIFIERS: Hypertension type: primary hypertension Qualified Code(s): I10 - Essential (primary) hypertension (13) COPD (chronic obstructive pulmonary disease): CODE(S): J44.9 - Chronic obstructive pulmonary disease, unspecified QUALIFIERS: COPD type: unspecified COPD Qualified Code(s): J44.9 - Chronic obstructive pulmonary disease, unspecified (14) PVD (peripheral vascular disease): CODE(S): I73.9 - Peripheral vascular disease, unspecified PLAN: Plan Prieto's ulcers and lower extremities were evaluated and debrided today. Dressings: Will treat his right leg with an UNNA boot. Encouraged him to continue with compression and offloading. Prescription given for Ellipse automated foot pedal elliptical to help with his edema and strengthen his lower legs due to his spinal stenosis and inability to walk and exercise. Vascular surgery discussed possible intervention and I encouraged him to proceed. Edema management: The patient has been counseled as to the appropriate measures relative to lifestyle modification regarding his venous disease. Leg elevation has been recommended. His lower extremities are to be elevated to heart level, or higher, is much as possible. He has been encouraged to sleep on a flat surface, with his legs level with his heart. During daytime hours, he is to elevate his legs to heart level, or higher, is much as possible. Activity has been encouraged, though the patient pre-existing medical problems are likely to prevent significant enhancement of his activity level. He has been advised to refrain from prolonged idle sitting. Weight loss has also been recommended. Due to his inability to don and doff compression garments such as compression stockings, AUDREY bandages, tubigrip compression due to his orthopedic spine issues and debility and due to his recurrent ulcerations and difficulty with healing ulcerations when they do develop, I recommend that he undergo treatment with lymphedema compression pumps at least twice daily to maintain his edema and prevent ulcers from developing. He has had success with this in the past and was able to don the compression garments for the lymphedema pumps and continues to use them regularly. Nutrition: The patient has been encouraged to optimize his nutritional intake, as well as optimizing his glycemic control. Rather, conservative measures, as those which have been recommended herein, appear most appropriate. These measures are likely to be of benefit for the long-term, and will depend upon the patient's compliance. The patient's debility, and the fact that he lives alone and has limited resources, may lend to a poor long-term prognosis. He was advised to call with any increased drainage, odor, pain or erythema. He will follow up in 1 week for wound care.
[2022-10-02 11:51] VITALS: BP 136/81; PULSE 57; RESP 18; TEMP 35.9
--- NOTE | 2022-10-02 14:22 | PCM.WC.PN ---
History of Present Illness Date of Service: 10/02/22 Chief Complaint: Chronic venous disease with an ulceration on the right pretibial area History of Wound: This is a 76-year-old male with multiple pre-existing medical problems. He has known chronic venous disease, and has had multiple venous ulcerations in both lower extremities in the past with recurrent bouts of cellulitis complicating these ulcers. He had undergone an ablation procedure in the right lower extremity approximately 6 years ago, though is uncertain as to the details, including the specifics of the procedure, the venue of the procedure, and the provider who performed the procedure. The patient denies a history of thrombophlebitis in the lower extremities. Prior treatment of his lower extremity venous ulcerations has occurred at wound healing facilities in [facility], as well as at the [facility]. He presents today for evaluation and treatment of right man ulcers that have been present for 3 months. He has been treating these at home with Aquacel and Leslie dressings with limited success. He has had 2 courses of antibiotics over this time but none recently in the last 2 weeks. The patient lives alone, and is of limited mobility. He suffers from debility and is unable to don and doff graduated compression stockings. Home health aid assists him twice weekly. The patient is limited in his ambulatory capacity, requiring a walker for mobility. He often sleeps in a recliner, and does not reliably elevate his legs as recommended. He uses compression pumps twice daily. His pre-existing medical conditions include hypertension, hyperlipidemia, atrial fibrillation, congestive heart failure, diabetes mellitus, peripheral neuropathy, prostatism, spinal stenosis, chronic obstructive pulmonary disease, and obesity. Patient is on chronic systemic anticoagulation with Eliquis due to atrial fibrillation. Subjective Subjective Prieto returns today for follow up of ulcer right man. Tolerated UNNNA boot treatment and is healed. He saw vascular surgery and they discussed possible intervention. Denies fever, chills, erythema. Objective Data Objective Data Vital Signs: Vital Signs Temp Pulse Resp BP O2 Del Method 96.7 F L 57 L 18 136/81 H Room Air 10/02/22 11:51 10/02/22 11:51 10/02/22 11:51 10/02/22 11:51 10/02/22 11:51 Oxygen Delivery Method Room Air Physical Exam Const alert, oriented x3 and no apparent distress General Appearance: cooperative and comfortable HEENT normocephalic and head/scalp atraumatic Resp normal respiratory effort Effort and Inspection: able to speak in complete sentences Cardio regular rate and regular rhythm Skin General Skin Exam: venous stasis and dermatitis Neuro oriented x3 and CN's II-XII intact bilaterally Psych mental status grossly normal, thought process normal, cooperative and affect normal Debridement Note Debridement Note Wound debrided: right man Laterality: Right No debridement was completed: No debridement was completed today (ulcer healed) Post-Debridement Measurements and Additional Note: Post-Debridement Measurements/Treatment - Nurse 1 - General Ulcer Assessment Start: 09/25/22 11:34 Freq: Status: Active Protocol: ROSIO Activity Type Activity Date Activity User E-sign Co-sign Detail Recorded Client Recorded Date Recorded By Document 09/25/22 11:34 [id number] 09/25/22 11:56 Document 10/02/22 11:51 [id number] 10/02/22 12:09 09/25/22 10/02/22 11:34 11:51 - Today's Visit Information Type of service Follow-up Visit Follow-up Visit (Physician/FAILURE ANALYSIS ENGINEER (Physician/FAILURE ANALYSIS ENGINEER ) ) Arrival Mode Ambulatory, Ambulatory Wheelchair Patient Identification Verified (Name & Yes Yes ) Vital Signs Temperature (97.8 F-99.1 F) 96.3 F L 96.7 F L Temperature Source Temporal Temporal Pulse Rate (60-100) 57 L 57 L Pulse Location Monitor Monitor Respiratory Rate (12-18) 16 18 Respiratory rate source Observation Observation Oxygen Delivery Method Room Air Room Air Blood Pressure (90/60-120/80) 162/95 H 136/81 H Blood Pressure Mean (mm Hg) 117 99 Source Monitor Monitor Position Sitting Sitting Blood Pressure Location Right Arm History Since Last Visit- (Skip if this is Patient's initial visit) Have you changed medications since your No No last visit? Any new allergies or adverse reactions No No Had a fall/change in ADL's that may No No increase risk of falls Signs or symptoms of abuse and/or No No neglect since last visit Have you been in the hospital since your No No last visit? Has dressing in place as prescribed Yes Yes Has compression in place as prescribed Yes Yes Has offloadiing in place as prescribed No No Experienced any changes in pain level or No No management Left Footwear Regular Shoe Regular Shoe Right Footwear Regular Shoe Regular Shoe Pain Scale: 0-10 Numeric Is Patient Pain Free? Yes Yes WC - Nurse 1 - General Ulcer Measurement Start: 09/25/22 11:34 Freq: Status: Active Protocol: Activity Type Activity Date Activity User E-sign Co-sign Detail Recorded Client Recorded Date Recorded By Document 09/25/22 11:34 KW [id number] 09/25/22 11:56 KW Document 10/02/22 11:51 KW [id number] 10/02/22 12:09 KW 09/25/22 10/02/22 11:34 11:51 Wound Center Nurse 1 #5 MED RLE -Current Size (cm) - Length 0.3 -Current Size (cm) - Width 0.5 -Current Size (cm) - Depth 0.1 -Total Square Cm 0.15 -Exudate Amt Small -Exudate Type Serosanguineous -Wound Margin Distinct, Outline Attached -Granulation Quality Hartman -Texture (Mariajose-wound Skin Appearance) Assessed -Moisture (Mariajose-wound Skin Appearance) Assessed, Weeping -Color (Mariajose-wound Skin Appearance) Assessed -Ulcer Cleansing Soap and Water -Anesthetic Used 4% Lidocaine Solution 5. RLE cluster -Current Size (cm) - Length 14.3 3 -Current Size (cm) - Width 9.6 3.2 -Current Size (cm) - Depth 0.1 0.1 -Total Square Cm 137.28 9.6 -Date of Last Picture (Recall this 10/02/22 field) -Exudate Amt Small Small -Exudate Type Serosanguineous Serosanguineous -Wound Margin Distinct, Outline Attached -Granulation Amt Large (67-100%) -Granulation Quality Red Red -Necrosis Amt Small (1-33%) -Texture (Mariajose-wound Skin Appearance) Assessed, Assessed Localized Edema -Moisture (Mariajose-wound Skin Appearance) Assessed, Assessed Weeping -Color (Mariajose-wound Skin Appearance) Assessed Assessed -Temperature (Mariajose-wound Skin No Abnormality No Abnormality Appearance) (Pt Warm) (Pt Warm) -Ulcer Cleansing Soap and Water Soap and Water -Foul Odor after Cleansing No -Anesthetic Used 4% Lidocaine 5% Lidocaine Solution Gel Lower Limb Edema Present Yes Right Calf (cm) 47.1 47.0 Right Ankle (cm) 24.5 24.0 - Nurse 2 - General Ulcer CM Notes Start: 09/25/22 11:34 Freq: Status: Active Protocol: Activity Type Activity Date Activity User E-sign Co-sign Detail Recorded Client Recorded Date Recorded By Document 09/25/22 12:24 MW Desktop 09/25/22 12:36 MW Document 10/02/22 12:48 MW [id number] 10/02/22 12:53 MW 09/25/22 10/02/22 12:24 12:48 Wound Center Nurse 2 #5 MED RLE -Time 12:24 -Correct Patient Yes -Correct Side, Site, Position Yes -Correct Procedure Yes -Procedure Performed No -Wound/Ulcer Outcome Healed- Epithelialized 5. RLE cluster -Time 12:28 12:48 -Correct Patient Yes Yes -Correct Side, Site, Position Yes Yes -Correct Procedure Yes Yes -Procedure Performed No No -Post Debridement (cm) - Length 0 -Post Debridement (cm) - Width 0 -Post Debridement (cm) - Depth 0 -Total Square (Post) (cm) 0 -Tunneling No -Undermining/Tunneling No -Circular Undermining No -Wound/Ulcer Outcome Not Healed Healed- Epithelialized -Ulcer Cleansing Rinsed/ Irrigated with Saline -Foul Odor after Cleansing No -Bioengineered Tissue No -Bleeding Controlled with Pressure -Treatment Response Procedure Tolerated Well -Offloading No Pain Scale: 0-10 Numeric Is Patient Pain Free? Yes Yes - Nurse 3 - General Ulcer D/C NN Start: 09/25/22 11:34 Freq: Status: Active Protocol: Activity Type Activity Date Activity User E-sign Co-sign Detail Recorded Client Recorded Date Recorded By Document 09/25/22 12:54 RB [id number] 09/25/22 12:56 RB Document 10/02/22 13:04 RB [id number] 10/02/22 13:05 RB 09/25/22 10/02/22 12:54 13:04 Wound Care Center Nurse 3 5. RLE cluster -Primary Dressing Applied Mepilex Border, Promogran Leslie Matter -Mepilex Border 2 -Promogran Leslie Matter 1 Left -Stockings Yes Right -Multi-Layered Wrap Application Unna Boot - Right ($) -Stockings Yes -Other pt own stockings Treatment Response Procedure Tolerated Well Pain Scale: 0-10 Numeric Is Patient Pain Free? Yes Yes WC - Visit Discharge Discharge Condition Stable Stable Ambulatory Status Ambulatory Ambulatory, Walker Transportation Private Auto Private Auto Medication Reconcilliation completed & No No provided to patient/care provider Clinical Summary of Care Provided Yes Yes Notes: Rupinder COLEMAN assisted with Unna wrap right LE Assessment/Plan Assessment/Plan (1) Acquired lymphedema of lower extremity: CODE(S): I89.0 - Lymphedema, not elsewhere classified (2) Debility: CODE(S): R53.81 - Other malaise (3) Obesity (BMI 30-39.9): CODE(S): E66.9 - Obesity, unspecified (4) Spinal stenosis: CODE(S): M48.00 - Spinal stenosis, site unspecified QUALIFIERS: Spinal region: lumbar Neurogenic claudication status: with neurogenic claudication Qualified Code(s): M48.062 - Spinal stenosis, lumbar region with neurogenic claudication (5) Diabetes mellitus: CODE(S): E11.9 - Type 2 diabetes mellitus without complications QUALIFIERS: Diabetes mellitus type: type 2 Diabetes mellitus snf insulin use: without dedicated intermodal truck driver use Diabetes mellitus complication status: with skin complications Diabetes mellitus complication detail: with other skin ulcer Qualified Code(s): E11.622 - Type 2 diabetes mellitus with other skin ulcer (6) Peripheral neuropathy: CODE(S): G62.9 - Polyneuropathy, unspecified QUALIFIERS: Peripheral neuropathy type: polyneuropathy, unspecified Qualified Code(s): G62.9 - Polyneuropathy, unspecified (7) Chronic anticoagulation: CODE(S): Z79.01 - emt intermediate (current) use of anticoagulants (8) Atrial fibrillation: CODE(S): I48.91 - Unspecified atrial fibrillation QUALIFIERS: Atrial fibrillation type: unspecified chronic Qualified Code(s): I48.20 - Chronic atrial fibrillation, unspecified (9) Venous stasis ulcer: CODE(S): I83.009 - Varicose veins of unspecified lower extremity with ulcer of unspecified site; L97.909 - Non-pressure chronic ulcer of unspecified part of unspecified lower leg with unspecified severity QUALIFIERS: Venous stasis ulcer site: calf Varicose vein presence: with varicose veins Laterality: right Non-pressure ulcer stage: with fat layer exposed Qualified Code(s): I83.012 - Varicose veins of right lower extremity with ulcer of calf; L97.212 - Non-pressure chronic ulcer of right calf with fat layer exposed (10) Chronic venous hypertension w/ulcer and inflammation involv right side: CODE(S): I87.331 - Chronic venous hypertension (idiopathic) with ulcer and inflammation of right lower extremity; L97.919 - Non-pressure chronic ulcer of unspecified part of right lower leg with unspecified severity (11) Chronic venous insufficiency: CODE(S): I87.2 - Venous insufficiency (chronic) (peripheral) (12) HTN (hypertension): CODE(S): I10 - Essential (primary) hypertension QUALIFIERS: Hypertension type: primary hypertension Qualified Code(s): I10 - Essential (primary) hypertension (13) COPD (chronic obstructive pulmonary disease): CODE(S): J44.9 - Chronic obstructive pulmonary disease, unspecified QUALIFIERS: COPD type: unspecified COPD Qualified Code(s): J44.9 - Chronic obstructive pulmonary disease, unspecified (14) PVD (peripheral vascular disease): CODE(S): I73.9 - Peripheral vascular disease, unspecified PLAN: Plan Prieto's ulcers and lower extremities were evaluated and he is discharged from treatment today. Dressings: Will apply Promogran and foam dressing to areas that are barely epithelialized. Encouraged him to continue with compression and offloading. Prescription given for Ellipse automated foot pedal elliptical to help with his edema and strengthen his lower legs due to his spinal stenosis and inability to walk and exercise. Vascular surgery discussed possible intervention and I encouraged him to proceed. Edema management: The patient has been counseled as to the appropriate measures relative to lifestyle modification regarding his venous disease. Leg elevation has been recommended. His lower extremities are to be elevated to heart level, or higher, is much as possible. He has been encouraged to sleep on a flat surface, with his legs level with his heart. During daytime hours, he is to elevate his legs to heart level, or higher, is much as possible. Activity has been encouraged, though the patient pre-existing medical problems are likely to prevent significant enhancement of his activity level. He has been advised to refrain from prolonged idle sitting. Weight loss has also been recommended. Due to his inability to don and doff compression garments such as compression stockings, AUDREY bandages, tubigrip compression due to his orthopedic spine issues and debility and due to his recurrent ulcerations and difficulty with healing ulcerations when they do develop, I recommend that he undergo treatment with lymphedema compression pumps at least twice daily to maintain his edema and prevent ulcers from developing. He has had success with this in the past and was able to don the compression garments for the lymphedema pumps and continues to use them regularly. Nutrition: The patient has been encouraged to optimize his nutritional intake, as well as optimizing his glycemic control. Rather, conservative measures, as those which have been recommended herein, appear most appropriate. These measures are likely to be of benefit for the long-term, and will depend upon the patient's compliance. The patient's debility, and the fact that he lives alone and has limited resources, may lend to a poor long-term prognosis. He was advised to call with any increased drainage, odor, pain or erythema. He will follow up if needed in the future.
== END 2022-10-05 07:39 | disposition home or self-care (01) ==
LOC: WC 11:30
PROVIDERS: PCP Physician Assistant; Referring Provider Physician Assistant; Visit Provider Family Medicine
DX: I83.012 Varicose veins of right lower extremity with ulcer of calf (principal); E11.51 Type 2 diabetes mellitus with diabetic peripheral angiopathy without gangrene; L97.212 Non-pressure chronic ulcer of right calf with fat layer exposed; I87.331 Chronic venous hypertension (idiopathic) with ulcer and inflammation of right lower extremity; J44.9 Chronic obstructive pulmonary disease, unspecified; I50.9 Heart failure, unspecified; E11.42 Type 2 diabetes mellitus with diabetic polyneuropathy; I48.91 Unspecified atrial fibrillation; R53.81 Other malaise; Z79.01 Long term (current) use of anticoagulants; M48.00 Spinal stenosis, site unspecified; E78.5 Hyperlipidemia, unspecified
CPT/HCPCS: 29580; 99212; 99213; G0463

== ENCOUNTER → 2022-11-11 | Day surgery (SDC) | payer MEDICARE, MEDICAID, SELFPAY ==
[2022-11-10 07:51] VITALS: BMI 34.8
[2022-11-11 10:11] LABS: Absolute Lymphocyte Count 1.66 X10^3/uL (0.83-4.51); Absolute Neutrophil Count 5.4 X10^3/uL (2.0-7.7); Basophil# 0.04 X10^3/uL; Basophil% 0.5 % (0-1); Eosinophil# 0.19 X10^3/uL; Eosinophils% 2.3 % (0-5); Hematocrit 43.9 % (40-54); Hemoglobin 14.7 g/dL (13.0-16.5); Lymphocyte # 1.66 X10^3/ul (0.83-4.51); Lymphocyte % 20.3 % (19-41); Mean Corp Hgb Conc 33.5 g/dL (32-36); Mean Corpuscular Hgb 31.3 pg (27.0-32.0); Mean Corpuscular Volume 93.6 fL (80-94); Mean Platelet Vol. 9.2 fl (6.2-12.0); Monocyte% 9.8 % (0-10); NRBC Flagged by Analyzer 0 % (0-5); Neutrophil # 5.42 X10^3/uL (2.7-7.7); Neutrophil % 66.4 % (47-70); Platelet Count 239 K/mm3 (150-450); RBC Distribution Width CV 13.7 % (11.6-14.6); RBC Distribution Width SD 46.9 fl (35.1-43.9); Red Blood Count 4.69 M/mm3 (4.6-6.2); White Blood Count 8.2 K/mm3 (4.4-11.0)
[2022-11-11 10:43] LABS: Anion Gap 3 (5-15); BUN 10 mg/dL (7-18); BUN/Creat Ratio 8.9 RATIO (10-20); Calcium,Total 9.3 mg/dL (8.5-10.1); Chloride 104 mmol/L (98-107); Creatinine, Serum 1.12 mg/dL (0.70-1.30); EST Glomerular Filtration Rate 67 mL/min (>60); Est Glom Filt Rate - Afr Amer 81 mL/min (>60); Estimated Creatinine Clearance 66.74 ml/min; Glucose 115 mg/dL (74-106); Sodium Level 134 mmol/L (136-145)
== END | disposition home or self-care (01) ==
LOC: CLSP 09:56
PROVIDERS: PCP Physician Assistant; Referring Provider Surgery Trauma Surgery; Visit Provider Surgery Trauma Surgery
DX: I87.2 Venous insufficiency (chronic) (peripheral) (principal); Z53.8 Procedure and treatment not carried out for other reasons
CPT/HCPCS: 36415; 80048; 85025

== ENCOUNTER 2022-12-16 09:09 | Day surgery (SDC) | payer MEDICARE, MEDICAID, SELFPAY ==
[2022-12-15 08:14] VITALS: BMI 34.8
--- NOTE | 2022-12-16 09:58 | PCM.HP.STD ---
HPI - General HPI Narrative JOAQUÍN CHA, is a 76 M who presents with recurrent bilateral venous stasis wounds. Currently right leg wounds healed. Has had several recurrences over the past 20 years. [facility] Medical History Anesthesia of skin Atrial fibrillation Chronic anticoagulation Chronic venous hypertension w/ulcer and inflammation involv right side Chronic venous insufficiency COPD (chronic obstructive pulmonary disease) Debility Diabetes mellitus HTN (hypertension) Hyperpigmentation Leg swelling Obesity (BMI 30-39.9) Peripheral neuropathy PVD (peripheral vascular disease) Shortness of breath Sleep apnea Spinal stenosis Spinal stenosis, lumbar region with neurogenic claudication Tobacco abuse Tobacco abuse counseling Varicose veins with ulcer and inflammation Venous stasis ulcer Home Medications Advair HFA BID 11/01/20 [History Last Taken 08/14/22] apixaban 5 mg tablet (Eliquis) 5 mg PO BID 11/01/20 [History Last Taken 12/15/22] betamethasone dipropionate BID 11/01/20 [History Last Taken Unknown] metformin 500 mg tablet mg 11/01/20 [History Last Taken 12/15/22] rosuvastatin 20 mg tablet mg 11/01/20 [History Last Taken Unknown] finasteride 5 mg tablet 5 mg PO DAILY 09/08/22 [History Last Taken Unknown] Allergy/AdvReac Type Severity Reaction Status Date / Time penicillin G Allergy Severe Hives Verified 10/19/22 13:39 Penicillins [PCN] Allergy Severe Hives Verified 10/19/22 13:39 latex AdvReac Severe Hives Verified 10/19/22 13:39 Surgical History History of surgery on arm Social History Smoking Status: Heavy Smoker (>10/day) ROS Constitutional Constitutional: Denies chills, fever(s), frequent falls, lethargy or weakness Eyes Eyes: Denies blind spots, change in vision or loss of vision ENT HEENT: Denies bleeding gums, hoarseness or sore throat Cardiovascular Cardiovascular: Denies abdominal pain, bluish discoloration of hand/feet, chest pain with activity, claudication, cold extremities, cyanosis, dyspnea on exertion, erythema on extremities, irregular heart rhythm, leg edema, leg ulcers, numbness in extremities or weakness in extremities Respiratory/Chest Respiratory/Chest: Denies cough, excessive phlegm production, shortness of breath at rest, shortness of breath with exertion or wheezing Gastrointestinal Gastrointestinal: Denies anorexia, change in stool character, constipation, diarrhea, melena or rectal bleeding Genitourinary Genitourinary: Denies dysuria or hematuria Musculoskeletal Musculoskeletal: Denies abnormal gait Integumentary Integumentary: Reports other Details: ; Denies erythema, non-healing lesions or wounds Neurologic Neurologic: Denies abnormal speech, focal weakness, headache(s), loss of vision, numbness, paresthesias or sensory deficit Hematologic/Lymphatic Hematologic/Lymphatic: Denies easy bleeding, easy bruising or lymphadenopathy Vital Signs Vital Signs Vital Signs: Weight Weight: 286 lb Body Mass Index (BMI) 34.8 Physical Exam Const alert, oriented x3, no apparent distress and healthy appearing General Appearance: cooperative; Negative for combative or lethargic Orientation / Consciousness: awake Exam Limitations: no limitations HEENT Head and Scalp: normocephalic and atraumatic Eyes EOMs intact bilaterally General Eye: normal appearance of both eyes Neck full ROM, no lymphadenopathy, thyroid normal and No no carotid bruits General: trachea midline; Negative for lymphadenopathy or tenderness Thyroid: thyroid normal Lymph Lymphatic: Negative for no lymphadenopathy noted Resp normal respiratory effort, no use of accessory muscles and clear to auscultation bilaterally Effort and Inspection: Negative for labored, stridor or audible wheezes Cardio regular rate, regular rhythm and no murmurs Peripheral Pulses: brachial pulses present, radial pulses present, femoral pulses present, popliteal pulses present, posterior tibial pulses present and dorsalis pedis pulses present Back/Spine Cervical Spine: cervical ROM normal Extremity full ROM, normal capillary refill and no clubbing, cyanosis or edema Skin no rashes or lesions noted and no wounds Neuro oriented x3, CN's II-XII intact bilaterally, no focal motor deficits and no sensory deficits noted Psych thought process normal, cooperative, affect normal, speech normal and activity/motor behavior normal Assessment & Plan Assessment/Plan (1) Venous stasis ulcer: QUALIFIERS: Venous stasis ulcer site: calf Varicose vein presence: with varicose veins Laterality: right Non-pressure ulcer stage: with fat layer exposed Qualified Code(s): I83.012 - Varicose veins of right lower extremity with ulcer of calf; L97.212 - Non-pressure chronic ulcer of right calf with fat layer exposed PLAN: -venogram possible stent
--- NOTE | 2022-12-16 11:01 | OP.PCM_ITS ---
Report of Operation Date of Procedure: 12/16/22 Pre-Operative Diagnosis: venous insufficiency with ulceration Post-Operative Diagnosis: same Surgery/Procedure Performed:: venogram IVC IVUS IVC, bilateral common/external iliac veins Surgeon: Jan Waldron Type of Anesthesia: Local and Sedation,Conscious Estimated Blood Loss (mL): 2 Description of Procedure: HPI: Patient is a 76-year-old male with multiple recurrent venous ulcerations of bilateral lower extremities with significant recurrent reflux and presents now for venogram to assess his central venous system. Description of procedure: Upon obtaining form consent and verification correct patient procedure site patient taken to the Electrogalvanizing Machine Operator was positioned prepped and draped in usual sterile fashion. Time was performed upon sedation ministered with Versed and fentanyl. Skin overlying the right common femoral vein was anesthetized 1% lidocaine the vessel accessed with micropuncture needle wire under ultrasound guidance. This was then exchanged for the micropuncture sheath through which injection ilio caval venogram was performed. This revealed normal caliber patent iliac vein and vena cava. A Bentson wire was advanced through the micropuncture sheath which was then exchanged out for a 10 [place] sheath. Next skin overlying the left common femoral vein was anesthetized 1% lidocaine the vessel accessed under ultrasound guidance with a micropuncture needle wire. This was then exchanged out for micropuncture sheath Elie a hand-injection ilio caval venogram was performed. Bentson wire was then advanced via the micropuncture sheath which was then exchanged out for a 10 [place] sheath. Intravascular ultrasound probe was then advanced first via the right femoral access sheath and recorded pullback of the IVC, right common iliac right external iliac was performed. This revealed 42% compression of the right external iliac vein. Next intravascular ultrasound probe was withdrawn advanced via the left femoral access sheath and recorded pullback of the IVC, left common iliac, left external neck was performed. This revealed 33% compression of the left external iliac vein. Given the degree of compression neither iliac vein reach threshold for repair so wires and catheter withdrawn as were the sheath followed by 10 minutes of manual pressure. After satisfactory stasis was obtained patient was taken to recovery room for bedrest prior to discharge home.
== END 2022-12-16 13:00 | disposition home or self-care (01) ==
LOC: CLSP 09:11
PROVIDERS: PCP Physician Assistant; Referring Provider Surgery Trauma Surgery; Visit Provider Surgery Trauma Surgery
DX: I87.2 Venous insufficiency (chronic) (peripheral) (principal); L97.212 Non-pressure chronic ulcer of right calf with fat layer exposed; I83.012 Varicose veins of right lower extremity with ulcer of calf; J44.9 Chronic obstructive pulmonary disease, unspecified; E11.59 Type 2 diabetes mellitus with other circulatory complications; E11.42 Type 2 diabetes mellitus with diabetic polyneuropathy; I48.91 Unspecified atrial fibrillation; F17.200 Nicotine dependence, unspecified, uncomplicated; I10 Essential (primary) hypertension; Z79.01 Long term (current) use of anticoagulants; I87.8 Other specified disorders of veins; Z79.84 Long term (current) use of oral hypoglycemic drugs
CPT/HCPCS: 36005; 37252; 37253; 75822; 76937; 99152; 99153; C1753; C1769; C1894; Q9967

== ENCOUNTER → 2023-01-12 | Outpatient (CLI) | payer MEDICARE, MEDICAID, SELFPAY | END | disposition home or self-care (01) | PROVIDERS: PCP Physician Assistant; Referring Provider Physician Assistant; Visit Provider Physician Assistant | DX: E11.622 Type 2 diabetes mellitus with other skin ulcer (principal) | CPT/HCPCS: 36415; 83036 ==

== ENCOUNTER 2023-04-01 09:39 | Day surgery (SDC) | payer MEDICARE, MEDICAID, SELFPAY ==
[2023-02-09 09:21] VITALS: BMI 34.0
[2023-04-01 11:01] LABS: Hematocrit 42.7 % (40-54); Hemoglobin 13.8 g/dL (13.0-16.5); Mean Corp Hgb Conc 32.3 g/dL (32-36); Mean Corpuscular Hgb 30.5 pg (27.0-32.0); Mean Corpuscular Volume 94.3 fL (80-94); Mean Platelet Vol. 9.7 fl (6.2-12.0); Platelet Count 258 K/mm3 (150-450); RBC Distribution Width CV 13.2 % (11.6-14.6); RBC Distribution Width SD 45.6 fl (35.1-43.9); Red Blood Count 4.53 M/mm3 (4.6-6.2); White Blood Count 7.3 K/mm3 (4.4-11.0)
[2023-04-01 11:30] LABS: Anion Gap 3 (5-15); BUN 12 mg/dL (7-18); BUN/Creat Ratio 11.5 RATIO (10-20); Calcium,Total 9.1 mg/dL (8.5-10.1); Chloride 105 mmol/L (98-107); Creatinine, Serum 1.04 mg/dL (0.70-1.30); EST Glomerular Filtration Rate 73 mL/min (>60); Est Glom Filt Rate - Afr Amer 89 mL/min (>60); Estimated Creatinine Clearance 83.81 ml/min; Glucose 111 mg/dL (74-106); Potassium 4.3 mmol/L (3.5-5.1); Sodium Level 136 mmol/L (136-145)
--- NOTE | 2023-04-01 11:50 | PCM.HP.STD ---
HPI - General HPI Narrative JOAQUÍN CHA, is a 77 M who presents with recurrent right lower extremity venous ulcerations and prior above knee saphenous treatment. Wounds continue to recur despite compression tx/pneumatic pumps. [facility] Medical History Anesthesia of skin Atrial fibrillation Chronic anticoagulation Chronic venous hypertension w/ulcer and inflammation involv right side Chronic venous insufficiency COPD (chronic obstructive pulmonary disease) Debility Diabetes mellitus HTN (hypertension) Hyperpigmentation Leg swelling Obesity (BMI 30-39.9) Peripheral neuropathy PVD (peripheral vascular disease) Shortness of breath Sleep apnea Spinal stenosis Spinal stenosis, lumbar region with neurogenic claudication Tobacco abuse Tobacco abuse counseling Varicose veins with ulcer and inflammation Venous stasis ulcer Home Medications Advair HFA BID 11/01/20 [History Last Taken 08/14/22] apixaban 5 mg tablet (Eliquis) 5 mg PO BID 11/01/20 [History Last Taken 03/31/23] betamethasone dipropionate BID 11/01/20 [History Last Taken Unknown] metformin 500 mg tablet 500 mg PO BID 11/01/20 [History Last Taken 12/15/22] rosuvastatin 20 mg tablet 20 mg PO DAILY 11/01/20 [History Last Taken Unknown] finasteride 5 mg tablet 5 mg PO DAILY 09/08/22 [History Last Taken Unknown] Allergy/AdvReac Type Severity Reaction Status Date / Time penicillin G Allergy Severe Hives Verified 10/19/22 13:39 Penicillins [PCN] Allergy Severe Hives Verified 10/19/22 13:39 Cephalosporins Allergy Intermediate Hives Verified 01/12/23 10:56 latex AdvReac Severe Hives Verified 10/19/22 13:39 Surgical History History of surgery on arm Social History Smoking Status: Heavy Smoker (>10/day) ROS Constitutional Constitutional: Denies chills, fever(s), frequent falls, lethargy or weakness Eyes Eyes: Denies blind spots, change in vision or loss of vision ENT HEENT: Denies bleeding gums, hoarseness or sore throat Cardiovascular Cardiovascular: Denies abdominal pain, bluish discoloration of hand/feet, chest pain with activity, claudication, cold extremities, cyanosis, dyspnea on exertion, erythema on extremities, irregular heart rhythm, leg edema, leg ulcers, numbness in extremities or weakness in extremities Respiratory/Chest Respiratory/Chest: Denies cough, excessive phlegm production, shortness of breath at rest, shortness of breath with exertion or wheezing Gastrointestinal Gastrointestinal: Denies anorexia, change in stool character, constipation, diarrhea, melena or rectal bleeding Genitourinary Genitourinary: Denies dysuria or hematuria Musculoskeletal Musculoskeletal: Denies abnormal gait Integumentary Integumentary: Reports other Details: ; Denies erythema, non-healing lesions or wounds Neurologic Neurologic: Denies abnormal speech, focal weakness, headache(s), loss of vision, numbness, paresthesias or sensory deficit Hematologic/Lymphatic Hematologic/Lymphatic: Denies easy bleeding, easy bruising or lymphadenopathy Vital Signs Vital Signs Vital Signs: Weight Weight: 280 lb Body Mass Index (BMI) 34.0 Physical Exam Const alert, oriented x3, no apparent distress and healthy appearing General Appearance: cooperative; Negative for combative or lethargic Orientation / Consciousness: awake Exam Limitations: no limitations HEENT Head and Scalp: normocephalic and atraumatic Eyes EOMs intact bilaterally General Eye: normal appearance of both eyes Neck full ROM, no lymphadenopathy and thyroid normal General: trachea midline; Negative for lymphadenopathy or tenderness Thyroid: thyroid normal Lymph Lymphatic: Negative for no lymphadenopathy noted Resp normal respiratory effort and no use of accessory muscles Effort and Inspection: Negative for labored, stridor or audible wheezes Cardio regular rate and regular rhythm Back/Spine Cervical Spine: cervical ROM normal Extremity full ROM, normal capillary refill and no clubbing, cyanosis or edema Skin no rashes or lesions noted and no wounds Neuro oriented x3, CN's II-XII intact bilaterally, no focal motor deficits and no sensory deficits noted Psych thought process normal, cooperative, affect normal, speech normal and activity/motor behavior normal Results Lab / Micro Data 04/01/23 09:43 04/01/23 09:43 Labs: Laboratory Results - last 24 hr 04/01/23 09:43: WBC 7.3, RBC 4.53 L, Hgb 13.8, Hct 42.7, MCV 94.3 H, MCH 30.5, MCHC 32.3, RDW Std Deviation 45.6 H, RDW Coeff of Debbie 13.2, Plt Count 258, MPV 9.7, Sodium 136, Potassium 4.3, Chloride 105, Carbon Dioxide 28.0, Anion Gap 3 L, BUN 12, Creatinine 1.04, Estim Creat Clear Calc 83.81, Est GFR (MDRD) Af Amer 89, Est GFR (MDRD) Non-Af 73, BUN/Creatinine Ratio 11.5, Glucose 111 H, Calcium 9.1 Assessment & Plan Assessment/Plan (1) Varicose veins with ulcer and inflammation: PLAN: -right below knee GSV chemical ablation
--- NOTE | 2023-04-01 13:19 | PCM.OPRPT ---
Report of Operation Date of Procedure: 04/01/23 Pre-Operative Diagnosis: venous insufficiency with ulceration, right lower extremity Post-Operative Diagnosis: same Surgery/Procedure Performed:: right below knee great saphenous ablation Surgeon: Jan Waldron Type of Anesthesia: Local and Sedation,Conscious Estimated Blood Loss (mL): 2 Description of Procedure: HPI: Patient is a 77-year-old male with recurrent venous ulcerations of the right lower extremity and previous great saphenous vein therapy in the thigh. He has below the knee great saphenous vein which has valvular incompetence and he presents now for chemical ablation. Description of procedure:Upon obtaining informed consent and verification correct patient procedure site patient taken to [facility] where he was positioned prepped and draped in usual sterile fashion. Ultrasound used to evaluate the below the knee great saphenous vein. Skin overlying the great saphenous vein at the ankle was anesthetized 1% lidocaine the vessel accessed with micropuncture needle wire. This then changed out for a 7 Amharic ablation sheath. Guidewire was then advanced through the sheath and positioned at the superior aspect of the patent saphenous vein. The ablation guide was then advanced over the wire and positioned at the most superior aspect of the great saphenous vein. The glue delivery catheter was then primed per steel molder's instructions and then advanced through the delivery guide. Glue was then instilled sequentially through the great saphenous vein per steel molder's instructions through the total length of the treatment zone. Glue catheter and guide were then withdrawn after which the 7 Amharic sheath was withdrawn and manual pressure held for hemostasis was obtained. Dry sterile dressing and Robbin wrap were then applied and patient was taken to recovery with dissipated discharged home.
== END 2023-04-01 14:00 | disposition home or self-care (01) ==
PROVIDERS: PCP Internal Medicine; Referring Provider Surgery Trauma Surgery; Visit Provider Surgery Trauma Surgery
DX: I83.218 Varicose veins of right lower extremity with both ulcer of other part of lower extremity and inflammation (principal); L97.819 Non-pressure chronic ulcer of other part of right lower leg with unspecified severity; J44.9 Chronic obstructive pulmonary disease, unspecified; E11.40 Type 2 diabetes mellitus with diabetic neuropathy, unspecified; Z79.01 Long term (current) use of anticoagulants; F17.200 Nicotine dependence, unspecified, uncomplicated; I10 Essential (primary) hypertension
CPT/HCPCS: 36415; 36482; 80048; 85027; 99152; 99153; C1894; J7040

== ENCOUNTER → 2023-04-06 | Outpatient (CLI) | payer MEDICARE, MEDICAID, SELFPAY ==
--- NOTE | 2023-04-06 13:03 | VDLE_ITS ---
Reason For Study: S/P Rt GSV chemical ablation RIGHT LEFT GSV is NONCOMPRESSIBLE with bright CFV is compressible, spontaneous, phasic, intraluminal echoes from ankle to proximal competent, and demonstrates normal calf. Finding is consistent with recent augmentation. chemical ablation. GSV knee to SFJ HX of EVLA/RF ablation. CFV is compressible, spontaneous, phasic, competent and demonstrates normal augmentation. FV is compressible, spontaneous, phasic, competent and demonstrates normal augmentation. POP V is compressible, spontaneous, phasic, competent and demonstrates normal augmentation. T/P Trunk is compressible. PTV is compressible. RT PerV is compressible. VL/Venous Duplex US, Unilateral Interpretation Summary Deep veins of the right lower extremity are patent and compressible segmentally . There is no evidence of right lower extremity deep vein thrombosis. Right great saphenous vein occlusion consistent with recent ablation Ordering Physician: Emily Hargrove Referring Physician: Bonita Holland Performed By: Abilio Weston RVT
== END | disposition home or self-care (01) ==
PROVIDERS: PCP Internal Medicine; Referring Provider Physician Assistant; Visit Provider Physician Assistant
DX: I87.331 Chronic venous hypertension (idiopathic) with ulcer and inflammation of right lower extremity (principal); L97.919 Non-pressure chronic ulcer of unspecified part of right lower leg with unspecified severity; I83.209 Varicose veins of unspecified lower extremity with both ulcer of unspecified site and inflammation
CPT/HCPCS: 93971

== ENCOUNTER 2024-08-07 11:00 | Outpatient (RCR) | payer MEDICARE, MEDICAID, SELFPAY ==
[2024-07-20 11:11] VITALS: BP 141/65; PULSE 68; RESP 18; TEMP 36.6
[2024-07-24 11:26] VITALS: BP 133/73; PULSE 63; RESP 18; TEMP 36.2
[2024-07-26 11:22] VITALS: BP 122/72; PULSE 65; RESP 18; TEMP 36.2
[2024-07-31 12:01] VITALS: BP 133/64; PULSE 59; RESP 14; TEMP 36.1
[2024-08-02 10:55] VITALS: BP 111/74; PULSE 74; RESP 14; TEMP 36.2
[2024-08-07 11:34] VITALS: BP 130/79; PULSE 62; RESP 16; TEMP 36.5
== END 2024-08-07 23:59 | disposition home or self-care (01) ==
LOC: WC 11:00
PROVIDERS: Visit Provider Podiatrist Foot & Ankle Surgery
DX: E11.621 Type 2 diabetes mellitus with foot ulcer (principal); I83.213 Varicose veins of right lower extremity with both ulcer of ankle and inflammation; L97.512 Non-pressure chronic ulcer of other part of right foot with fat layer exposed; L97.312 Non-pressure chronic ulcer of right ankle with fat layer exposed; I83.215 Varicose veins of right lower extremity with both ulcer other part of foot and inflammation; I11.0 Hypertensive heart disease with heart failure; I50.9 Heart failure, unspecified; J44.9 Chronic obstructive pulmonary disease, unspecified; I48.91 Unspecified atrial fibrillation; E11.51 Type 2 diabetes mellitus with diabetic peripheral angiopathy without gangrene; E11.42 Type 2 diabetes mellitus with diabetic polyneuropathy; R53.81 Other malaise; E66.9 Obesity, unspecified; I89.0 Lymphedema, not elsewhere classified; E78.5 Hyperlipidemia, unspecified; M79.3 Panniculitis, unspecified; F17.200 Nicotine dependence, unspecified, uncomplicated; Z79.51 Long term (current) use of inhaled steroids; Z79.01 Long term (current) use of anticoagulants; Z79.899 Other long term (current) drug therapy
CPT/HCPCS: 11042; 11045; 29581; 87070; 87075; 87077; 87186; 87205; 99213; G0463

== ENCOUNTER 2024-08-30 15:15 | Outpatient (RCR) | payer MEDICARE, MEDICAID, SELFPAY ==
--- NOTE | 2024-08-09 08:59 | VDLE_ITS ---
Reason For Study Reason For Study: Rt Ankle Wound RIGHT LEFT CFV is compressible, spontaneous, phasic, competent, CFV is compressible, spontaneous, phasic, competent, and demonstrates normal augmentation. and demonstrates normal augmentation. FV is compressible, spontaneous, phasic, competent FV is compressible, spontaneous, phasic, competent and demonstrates normal augmentation. and demonstrates normal augmentation. POP V is compressible, spontaneous, phasic, competent POP V is compressible, spontaneous, phasic, competent and demonstrates normal augmentation. and demonstrates normal augmentation. T/P Trunk is compressible. T/P Trunk is compressible. PTV is compressible. PTV is compressible. Tameka V is compressible. LT PerV is compressible. SFJ is competent and measures 0.76 cm. SFJ is INCOMPETENT and measures 0.85 cm. HX GSV Prox thigh to Mid Calf Ablation noted. GSV proximal thigh measures 0.52 x 0.47 cm. GSV below knee is INCOMPETENT for greater than 0.5 GSV at knee measures 0.43 x 0.49 cm. seconds. GSV above knee is competent. ASV distal calf is INCOMPETENT for greater than 0.5 GSV below knee is INCOMPETENT for greater than 0.5 seconds and measures 0.40 x 0.50 cm. seconds. SSV mid calf is competent and measures 0.63 x 0.69 SSV mid calf is competent and measures 0.54 x 0.58 cm. cm. Procedure Exam performed in department. This is a venous duplex using B-mode, color flow and spectral Doppler. The exam was diagnostic. Patient was scanned in reverse Trendelenburg position during reflux assessment. VL/Venous Duplex US - Leroy Extrem Interpretation Summary Deep veins of the lower extremities are bilaterally patent and compressible seg mentally. There is no evidence of deep vein thrombosis on either side. Valvular competence appears intact within the p roximal deep venous systems bilaterally. The right great saphenous vein has been previously ablated above the knee. The right great saphenous vein is patent and compressible below the knee. The left great saphenous vein appears patent and c ompressible segmentally. The right sapheno-femoral junction is competent . The left sapheno-femoral junction is in competent . The right great saphenous vein appears incompetent below the knee. The left great saphenous vein appears competent above the knee. The left great saphenous vein appears incompetent below the knee. Small saphenous veins are pa tent and competent bilaterally. The accessory saphenous vein in the distal right calf is incompetent. Ordering Physician: Ramsey Martinez Referring Physician: Terri Ferrell Performed By: Abilio Weston RVT
--- NOTE | 2024-08-09 08:59 | ART_ITS ---
Reason For Study Reason For Study: RLE Wound Procedure A bilateral lower extremity continuous wave Doppler with analog waveform analysis,segmental pressures,and ankle brachial indexes without exercise. Left Segmental Pressures Left brachial= 126mmHg. Left posterior tibial artery = 146mmHg. Left dorsalis pedis artery = 141mmHg. Left digit = 106 mmHg. The left posterior tibial artery waveforms are triphasic. The left dorsalis pedis waveforms are triphasic. Right Segmental Pressures Right brachial= 116mmHg. Right posterior tibial artery = 135mmHg. Right dorsalis pedis artery = 147mmHg. Right digit = 155 mmHg. The right posterior tibial artery waveforms are triphasic. The right dorsalis pedis waveforms are triphasic. Indices The right ankle brachial index by the posterior tibial artery is 1.07. The right ankle brachial index by the dorsalis pedis is 1.17. The right digital-brachial index is 1.23. The left ankle brachial index by the posterior tibial artery is 1.16. The left ankle brachial index by the dorsalis pedis is 1.12. The left digital-brachial index is 0.84. VL/Lower Ext Art Exam w/o Exercis Interpretation Summary Triphasic Doppler waveforms are noted at ankle level bilaterally. Pulse-volume recordings appear diminished at digital level on the left, but satisfactory at all other levels bilaterally. Resting an kle-brachial indices are normal bilaterally. Digital-brachial indices are normal bilaterally. There is no evidence of significant arterial occlusive disease in the lower ext remities bilaterally. Ordering Physician: Ramsey Martinez Referring Physician: Terri Ferrell Performed By: Abilio Weston RVT
[2024-08-09 11:14] VITALS: BP 128/79; PULSE 72; RESP 15; TEMP 36.7
--- NOTE | 2024-08-09 12:52 | PN.PCM_ITS ---
History of Present Illness Date of Service: 08/09/24 Chief Complaint: Chronic venous disease with an ulceration on the right lateral ankle History of Wound: This is a 78-year-old male with multiple pre-existing medical problems. He has known chronic venous disease, and has had multiple venous ulcerations in both lower extremities in the past with recurrent bouts of cellulitis complicating these ulcers. He had undergone an ablation procedure in the right lower extremity approximately 6 years ago, though is uncertain as to the details, including the specifics of the procedure, the venue of the procedure, and the provider who performed the procedure. He then underwent ablation of the great saphenous vein with Dr. Waldron March 2023. Reports last visit with Dr. Waldron's office was 06/28/2024. The patient denies a history of thrombophlebitis in the lower extremities. Prior treatment of his lower extremity venous ulcerations has occurred at wound healing facilities in [facility], as well as at the [facility]. He presents today for evaluation and treatment of right lateral ankle and lateral foot ulcerations which have been present for 3 weeks. He has been treating these at home with Aquacel and Leslie dressings with limited success. The patient lives alone, and is of limited mobility. He does have visiting nursing which assists in dressing changes twice a week. He suffers from debility and is unable to don and doff graduated compression stockings which makes treatment difficult. The patient is limited in his ambulatory capacity, requiring a walker for mobility. He often sleeps in a recliner, and does not reliably elevate his legs as recommended. He uses compression lymphedema pumps twice daily. His pre-existing medical conditions include hypertension, hyperlipidemia, atrial fibrillation, congestive heart failure, diabetes mellitus, peripheral neuropathy, prostatism, spinal stenosis, chronic obstructive pulmonary disease, and obesity. Patient is on chronic systemic anticoagulation with Eliquis due to atrial fibrillation. He currently denies N/V/F/chills. Denies further complaints. Progress of Wound: Full-thickness wound to lateral right leg with venous insufficiency, improving Subjective Subjective Patient is 78-year-old male presented clinic today follow-up evaluation of full-thickness wound to the lateral aspect of the right lower extremity due to venous insufficiency. He has been compliant with his multilayer compression bandages. He admits to getting his Farrow wrap in the mail. And also states that he has an additional 1 ordered. Patient is aware that he will need to pay for one of the wraps due to not having a wound to the left lower extremity. Patient has an aide and is wondering if she can come in to help learn how to don the wraps when he transfers to them. He denies trauma. He is elevating as discussed. Denies constitutional symptoms. No acute complaints at this time. Objective Data Objective Data Vital Signs: Vital Signs Temp Pulse Resp BP 98.0 F 72 15 128/79 H 08/09/24 11:14 08/09/24 11:14 08/09/24 11:14 08/09/24 11:14 Lab / Micro Data Micro: Microbiology 07/26/24 Unknown Ulcer, Decubitus - Leg, Right Gram Stain - Final 07/26/24 Unknown Ulcer, Decubitus - Leg, Right Wound Culture - Final Escherichia coli Staphylococcus epidermidis 07/26/24 Unknown Ulcer, Decubitus - Leg, Right Anaerobic Culture - Final No anaerobic bacteria isolated. Physical Exam Narrative Vascular: DP and PT pulses are weakly palpable to the bilateral lower extremity. CFT is brisk to all digits bilateral. Skin temperature great is warm to warm from proximal ankles to distal digit bilateral. Blanchable erythema appreciated to the right lower extremity when compared to the left. Neurological: Light touch intact. Patient does respond to painful stimuli. Dermatological: Full-thickness wound to the lateral right leg measuring 3.7 x 1.5 x 0.2 cm. Drainage is improved. Blanchable erythema appreciated to the right lower extremity. Excisional debridement down to including subcutaneous tissue with a number 3 mm dermal curette to the right lateral lower extremity full-thickness wound done without incident. Predebridement measurement was 3.5 x 1.2 x 0.1 cm.. Postdebridement measurement is 3.7 x 1.5 x 0.2 cm. Musculoskeletal: No pain to palpation to the full-thickness wound in right lower extremity leg. No pain with calf pressure. Const alert, oriented x3 and no apparent distress General Appearance: cooperative HEENT normocephalic Eyes General Eye: normal appearance of both eyes Neck General: normal visual inspection Lymph Lymphatic: no lymphadenopathy noted and lymphedema Resp normal respiratory effort Cardio regular rate and regular rhythm Extremity no calf tenderness Extremity Narrative: Right lower extremity: Vascular: DP and PT pulses weakly palpable secondary to edema. CFT is less than 3 seconds to the digits. Normal temperature gradient. Hair growth is absent to digits. Neurologic: Gross sensation intact. Protective sensation is diminished secondary to diabetic peripheral polyneuropathy Musculoskeletal: Muscle strength 5 of 5 age-appropriate. There is decreased range of motion of the ankle joint in dorsiflexion with the knee extended without pain or crepitus. There is decreased range of motion of the first metatarsophalangeal joint without pain or crepitus. Negative Bishop sign. Negative Serenity sign. Dermatologic: There is lipodermatosclerosis noted with inverted champagne bottle leg with significant circumferential hemosiderin deposition consistent with skin changes secondary to chronic venous insufficiency/stasis and lymphedema. Dorsal foot also displays hemosiderin deposition. There is edema to the lower extremity, about the ankle, and foot. There is a full-thickness ulceration to the dorsolateral aspect of the foot and lateral malleolus in the region of the small saphenous vein. Ulceration demonstrates mixed fibrogranular layer with serous weeping. No signs of infection. Left lower extremity: Vascular: DP and PT pulses weakly palpable secondary to edema. CFT is less than 3 seconds to the digits. Normal temperature gradient. Hair growth is absent to digits. Neurologic: Gross sensation intact. Protective sensation is diminished secondary to diabetic peripheral polyneuropathy Musculoskeletal: Muscle strength 5 of 5 age-appropriate. There is decreased range of motion of the ankle joint in dorsiflexion with the knee extended without pain or crepitus. There is decreased range of motion of the first metatarsophalangeal joint without pain or crepitus. Negative Bishop sign. Negative Serenity sign. Dermatologic: There is lipodermatosclerosis noted with inverted champagne bottle leg with significant circumferential hemosiderin deposition consistent with skin changes secondary to chronic venous insufficiency/stasis and lymphedema. Dorsal foot also displays hemosiderin deposition. There is edema to the lower extremity, about the ankle, and foot. Skin no rashes or lesions noted General Skin Exam: turgor decreased, venous stasis and dermatitis Neuro moves all extremities Debridement Note Debridement Note Debridement Free Text: Excisional debridement down to including subcutaneous tissue with a number 3 mm dermal curette to the right lateral lower extremity full-thickness wound done without incident. Predebridement measurement was 3.5 x 1.2 x 0.1 cm.. Postdebridement measurement is 3.7 x 1.5 x 0.2 cm. Post-Debridement Measurements and Additional Note: Post-Debridement Measurements/Treatment - Nurse 1 - General Ulcer Assessment Start: 08/09/24 11:14 Freq: Status: Active Protocol: JASS Activity Type Activity Date Activity User E-sign Co-sign Detail Recorded Client Recorded Date Recorded By Document 08/09/24 11:14 ML [id number] 08/09/24 11:31 ML 08/09/24 11:14 WC - Today's Visit Information Type of service Follow-up Visit (Physician/DIFFERENTIAL TESTER ) Arrival Mode Ambulatory, Walker Transfer Assistance None Patient Identification Verified (Name & Yes ) Patient Requires Transmission-Based No Precautions Vital Signs Temperature (97.8 F-99.1 F) 98.0 F Temperature Source Temporal Pulse Rate (60-100) 72 Pulse Location Monitor Respiratory Rate (12-18) 15 Respiratory rate source Monitor Blood Pressure (90/60-120/80) 128/79 H Blood Pressure Mean (mm Hg) 95 Source Monitor Position Supine Blood Pressure Location Right Forearm History Since Last Visit- (Skip if this is Patient's initial visit) Have you changed medications since your No last visit? Any new allergies or adverse reactions No Had a fall/change in ADL's that may No increase risk of falls Signs or symptoms of abuse and/or No neglect since last visit Has dressing in place as prescribed No Has compression in place as prescribed Yes Has offloadiing in place as prescribed N/A Experienced any changes in pain level or No management Pain Scale: 0-10 Numeric Is Patient Pain Free? Yes - Nurse 1 - General Ulcer Measurement Start: 08/09/24 11:14 Freq: Status: Active Protocol: Activity Type Activity Date Activity User E-sign Co-sign Detail Recorded Client Recorded Date Recorded By Document 08/09/24 11:14 ML [id number] 08/09/24 11:31 ML 08/09/24 11:14 Wound Center Nurse 1 #7-R LATERAL FOOT -Current Size (cm) - Length 3.5 -Current Size (cm) - Width 1.3 -Current Size (cm) - Depth 0.1 -Total Square Cm 4.55 -Exudate Amt Medium -Exudate Type Serosanguineous -Granulation Amt Small (1-33%) -Slough/Fibrin Yes -Necrosis Amt Small (1-33%) -Necrotic Tissue Type Adherent Slough -Texture (Mariajose-wound Skin Appearance) Assessed -Moisture (Mariajose-wound Skin Appearance) Assessed -Color (Mariajose-wound Skin Appearance) Assessed -Temperature (Mariajose-wound Skin No Abnormality Appearance) (Pt Warm) -Tenderness on Palpation (Mariajose-wound No Skin Appearance) -Ulcer Cleansing Soap and Water -Foul Odor after Cleansing Yes -Anesthetic Used 5% Lidocaine Gel #6 RT LAT ANKLE CLUSTER -Current Size (cm) - Length 0.1 -Current Size (cm) - Width 0.1 -Current Size (cm) - Depth 0.1 -Total Square Cm 0.01 -Exudate Amt Medium -Exudate Type Serosanguineous -Granulation Amt Small (1-33%) -Slough/Fibrin Yes -Necrosis Amt Medium (34-66%) -Texture (Mariajose-wound Skin Appearance) Assessed -Moisture (Mariajose-wound Skin Appearance) Assessed -Color (Mariajose-wound Skin Appearance) Assessed -Temperature (Mariajose-wound Skin No Abnormality Appearance) (Pt Warm) -Tenderness on Palpation (Mariajose-wound No Skin Appearance) -Ulcer Cleansing Soap and Water -Anesthetic Used 5% Lidocaine Gel Right Calf (cm) 45 Right Ankle (cm) 27 Left Calf (cm) 45.5 Left Ankle (cm) 25 WC - Nurse 2 - General Ulcer CM Notes Start: 08/09/24 11:14 Freq: Status: Active Protocol: Activity Type Activity Date Activity User E-sign Co-sign Detail Recorded Client Recorded Date Recorded By Document 08/09/24 11:41 BINTA [id number] 08/09/24 11:46 BINTA 08/09/24 11:41 Wound Center Nurse 2 #7-R LATERAL FOOT -Correct Patient Yes -Correct Side, Site, Position Yes -Correct Procedure Yes #6 RT LAT ANKLE CLUSTER -Time 11:43 -Correct Patient Yes -Correct Side, Site, Position Yes -Correct Procedure Yes -Procedure Performed Yes -Type of Procedure Debridement -Clinical Debridement Subcutaneous -Tissue Removed Subcutaneous -Post Debridement (cm) - Length 3.7 -Post Debridement (cm) - Width 1.5 -Post Debridement (cm) - Depth 0.2 -Total Square (Post) (cm) 5.55 -Area of Debridement (cm) - Length 3.7 -Area of Debridement (cm) - Width 1.5 -Total Square (Area) (cm) 5.55 -Tunneling No -Undermining/Tunneling No -Circular Undermining No -Wound/Ulcer Outcome Not Healed -Ulcer Cleansing Rinsed/ Irrigated with Saline -Foul Odor after Cleansing No -Bioengineered Tissue No -Bleeding Controlled with Pressure -Treatment Response Procedure Tolerated Well -Offloading No -Debridement - Subq, 1st 20sq cm Yes Pain Scale: 0-10 Numeric Is Patient Pain Free? Yes - Nurse 3 - General Ulcer D/C NN Start: 08/09/24 11:14 Freq: Status: Active Protocol: Activity Type Activity Date Activity User E-sign Co-sign Detail Recorded Client Recorded Date Recorded By Document 08/09/24 11:55 [place] [id number] 08/09/24 11:57 [place] 08/09/24 11:55 Wound Care Center Nurse 3 #6 RT LAT ANKLE CLUSTER -Ulcer Cleansing Rinsed/ Irrigated with Saline -Foul Odor after Cleansing No -Negative Pressure Wound Therapy N/A -Primary Dressing Applied Silvercel -Primary Dressing Covered/Secured with Dry Gauze, Secured with Tape -Silvercel 1 BLE -Multi-Layered Wrap Application Multi-Layer Comp - Bilat ($ ) -Multi-Layer Compression Bilat (Qty 1 applied) Pain Scale: 0-10 Numeric Is Patient Pain Free? Yes - Visit Discharge Discharge Condition Stable Ambulatory Status Ambulatory Transportation Private Auto Medication Reconcilliation completed & No provided to patient/care provider Clinical Summary of Care Provided Yes Notes: PT VERBALIZES THAT HE UNDERSTANDS HIS NEW WOUND ORDERS. Assessment/Plan Assessment/Plan (1) Non-pressure chronic ulcer of other part of right lower leg with fat layer exposed: CODE(S): L97.812 - Non-pressure chronic ulcer of other part of right lower leg with fat layer exposed PLAN: Patient was examined and evaluated. All findings were discussed with the patient. All questions were answered to the patient's satisfaction. Excisional debridement down to including subcutaneous tissue with a number 3 mm dermal curette to the right lateral lower extremity full-thickness wound done without incident. Predebridement measurement was 3.5 x 1.2 x 0.1 cm.. Postdebridement measurement is 3.7 x 1.5 x 0.2 cm. Right lower extremities were cleaned and patted dry. Silver alginate was applied to the full-thickness wound to the right lower extremity followed by dry sterile dressing and bilateral 3M multilayer compression bandages were donned. The patient will follow-up in 1 week for nursing visit and bring his Farrow wrap so his aide can learn how to place and remove the compression wrap. Follow-up at the wound care center with Dr. Martinez in 2 week. (2) Other specified peripheral vascular diseases: CODE(S): I73.89 - Other specified peripheral vascular diseases (3) Chronic painful diabetic polyneuropathy: CODE(S): E11.42 - Type 2 diabetes mellitus with diabetic polyneuropathy
[2024-08-16 10:40] VITALS: RESP 18
[2024-08-23 15:22] VITALS: BP 136/83; PULSE 56; RESP 18; TEMP 36.4
--- NOTE | 2024-08-26 01:06 | PCM.WC.PN ---
History of Present Illness Date of Service: 08/23/24 Chief Complaint: Chronic venous disease with an ulceration on the right lateral ankle History of Wound: This is a 78-year-old male with multiple pre-existing medical problems. He has known chronic venous disease, and has had multiple venous ulcerations in both lower extremities in the past with recurrent bouts of cellulitis complicating these ulcers. He had undergone an ablation procedure in the right lower extremity approximately 6 years ago, though is uncertain as to the details, including the specifics of the procedure, the venue of the procedure, and the provider who performed the procedure. He then underwent ablation of the great saphenous vein with Dr. Waldron March 2023. Reports last visit with Dr. Waldron's office was 06/28/2024. The patient denies a history of thrombophlebitis in the lower extremities. Prior treatment of his lower extremity venous ulcerations has occurred at wound healing facilities in [facility], as well as at the [facility]. He presents today for evaluation and treatment of right lateral ankle and lateral foot ulcerations which have been present for 3 weeks. He has been treating these at home with Aquacel and Leslie dressings with limited success. The patient lives alone, and is of limited mobility. He does have visiting nursing which assists in dressing changes twice a week. He suffers from debility and is unable to don and doff graduated compression stockings which makes treatment difficult. The patient is limited in his ambulatory capacity, requiring a walker for mobility. He often sleeps in a recliner, and does not reliably elevate his legs as recommended. He uses compression lymphedema pumps twice daily. His pre-existing medical conditions include hypertension, hyperlipidemia, atrial fibrillation, congestive heart failure, diabetes mellitus, peripheral neuropathy, prostatism, spinal stenosis, chronic obstructive pulmonary disease, and obesity. Patient is on chronic systemic anticoagulation with Eliquis due to atrial fibrillation. He currently denies N/V/F/chills. Denies further complaints. Progress of Wound: Full-thickness wound to lateral right leg with venous insufficiency, improving Subjective Subjective Patient is a 78-year-old diabetic male presenting to the wound care center follow-up evaluation of full-thickness wound to lateral left ankle. Patient has been compliant with multilayer compression bandage to right lower extremity. He presenting today with his preparole counseling aide for teaching how to apply his multilayer compression bandages to the bilateral lower extremity. He is grateful for his care. Denies trauma. Denies constitutional symptoms. No other pedal complaints at this time. Objective Data Objective Data Vital Signs: Vital Signs Temp Pulse Resp BP O2 Del Method 97.5 F L 56 L 18 136/83 H Room Air 08/23/24 15:22 08/23/24 15:22 08/23/24 15:22 08/23/24 15:22 08/16/24 10:40 Oxygen Delivery Method Room Air Lab / Micro Data Micro: Microbiology 07/26/24 Unknown Ulcer, Decubitus - Leg, Right Gram Stain - Final 07/26/24 Unknown Ulcer, Decubitus - Leg, Right Wound Culture - Final Escherichia coli Staphylococcus epidermidis 07/26/24 Unknown Ulcer, Decubitus - Leg, Right Anaerobic Culture - Final No anaerobic bacteria isolated. Physical Exam Narrative Vascular: DP and PT pulses faintly palpable to the bilateral lower extremity. CFT is brisk to all digits bilateral. Skin temperature great is warm to warm from proximal ankles to distal digit bilateral. No erythema. Neurological: Light touch intact. Patient does respond to painful stimuli. Dermatological: Full-thickness wound to the lateral right leg measuring 3.2 x 1.6 x 0.1 cm. No drainage. No erythema appreciated to the right lower extremity. Excisional debridement down to including subcutaneous tissue with a number 3 mm dermal curette to the right lateral lower extremity full-thickness wound done without incident. Predebridement measurement was 3.0 x 1.4 x 0.1 cm.. Postdebridement measurement is 3.2 x 1.6 x 0.1 cm. Musculoskeletal: No pain to palpation to the full-thickness wound in right lower extremity leg. No pain with calf pressure. Const alert, oriented x3 and no apparent distress General Appearance: cooperative HEENT normocephalic Eyes General Eye: normal appearance of both eyes Neck General: normal visual inspection Lymph Lymphatic: no lymphadenopathy noted and lymphedema Resp normal respiratory effort Cardio regular rate and regular rhythm Extremity no calf tenderness Extremity Narrative: Right lower extremity: Vascular: DP and PT pulses weakly palpable secondary to edema. CFT is less than 3 seconds to the digits. Normal temperature gradient. Hair growth is absent to digits. Neurologic: Gross sensation intact. Protective sensation is diminished secondary to diabetic peripheral polyneuropathy Musculoskeletal: Muscle strength 5 of 5 age-appropriate. There is decreased range of motion of the ankle joint in dorsiflexion with the knee extended without pain or crepitus. There is decreased range of motion of the first metatarsophalangeal joint without pain or crepitus. Negative Bishop sign. Negative Serenity sign. Dermatologic: There is lipodermatosclerosis noted with inverted champagne bottle leg with significant circumferential hemosiderin deposition consistent with skin changes secondary to chronic venous insufficiency/stasis and lymphedema. Dorsal foot also displays hemosiderin deposition. There is edema to the lower extremity, about the ankle, and foot. There is a full-thickness ulceration to the dorsolateral aspect of the foot and lateral malleolus in the region of the small saphenous vein. Ulceration demonstrates mixed fibrogranular layer with serous weeping. No signs of infection. Left lower extremity: Vascular: DP and PT pulses weakly palpable secondary to edema. CFT is less than 3 seconds to the digits. Normal temperature gradient. Hair growth is absent to digits. Neurologic: Gross sensation intact. Protective sensation is diminished secondary to diabetic peripheral polyneuropathy Musculoskeletal: Muscle strength 5 of 5 age-appropriate. There is decreased range of motion of the ankle joint in dorsiflexion with the knee extended without pain or crepitus. There is decreased range of motion of the first metatarsophalangeal joint without pain or crepitus. Negative Bishop sign. Negative Serenity sign. Dermatologic: There is lipodermatosclerosis noted with inverted champagne bottle leg with significant circumferential hemosiderin deposition consistent with skin changes secondary to chronic venous insufficiency/stasis and lymphedema. Dorsal foot also displays hemosiderin deposition. There is edema to the lower extremity, about the ankle, and foot. Skin no rashes or lesions noted General Skin Exam: turgor decreased, venous stasis and dermatitis Neuro moves all extremities Debridement Note Debridement Note Debridement Free Text: Excisional debridement down to including subcutaneous tissue with a number 3 mm dermal curette to the right lateral lower extremity full-thickness wound done without incident. Predebridement measurement was 3.0 x 1.4 x 0.1 cm.. Postdebridement measurement is 3.2 x 1.6 x 0.1 cm. Post-Debridement Measurements and Additional Note: Post-Debridement Measurements/Treatment WC - Nurse 1 - General Ulcer Assessment Start: 08/09/24 11:14 Freq: Status: Active Protocol: ROSIO Activity Type Activity Date Activity User E-sign Co-sign Detail Recorded Client Recorded Date Recorded By Document 08/09/24 11:14 ML [id number] 08/09/24 11:31 ML Document 08/16/24 10:40 KW [id number] 08/16/24 11:07 KW Document 08/23/24 15:22 DL [id number] 08/23/24 15:31 DL 08/09/24 08/16/24 08/23/24 11:14 10:40 15:22 - Today's Visit Information Type of service Follow-up Visit Nurse-only Follow-up Visit (Physician/[employer] ACCOUNTS MANAGER Visit (Physician/[employer] ACCOUNTS MANAGER ) ) Arrival Mode Ambulatory, Ambulatory, Ambulatory, Walker Walker Walker Transfer Assistance None None Patient Identification Verified (Name & Yes Yes Yes ) Patient Requires Transmission-Based No No Precautions Vital Signs Temperature (97.8 F-99.1 F) 98.0 F 97.5 F L Temperature Source Temporal Temporal Temporal Pulse Rate (60-100) 72 56 L Pulse Location Monitor Monitor Monitor Respiratory Rate (12-18) 15 18 18 Respiratory rate source Monitor Observation Observation Oxygen Delivery Method Room Air Blood Pressure (90/60-120/80) 128/79 H 136/83 H Blood Pressure Mean (mm Hg) 95 100 Source Monitor Monitor Monitor Position Supine Sitting Blood Pressure Location Right Forearm Right Arm History Since Last Visit- (Skip if this is Patient's initial visit) Have you changed medications since your No No No last visit? Any new allergies or adverse reactions No No No Had a fall/change in ADL's that may No No No increase risk of falls Signs or symptoms of abuse and/or No No No neglect since last visit Have you been in the hospital since your No No last visit? Has dressing in place as prescribed No Yes Yes Has compression in place as prescribed Yes Yes Yes Has offloadiing in place as prescribed N/A N/A N/A Experienced any changes in pain level or No No No management Left Footwear Regular Shoe Right Footwear Regular Shoe Pain Scale: 0-10 Numeric Is Patient Pain Free? Yes Yes Yes - Nurse 1 - General Ulcer Measurement Start: 08/09/24 11:14 Freq: Status: Active Protocol: Activity Type Activity Date Activity User E-sign Co-sign Detail Recorded Client Recorded Date Recorded By Document 08/09/24 11:14 ML [id number] 08/09/24 11:31 ML Document 08/16/24 10:40 KW [id number] 08/16/24 11:07 KW Document 08/23/24 15:22 DL [id number] 08/23/24 15:31 DL 08/09/24 08/16/24 08/23/24 11:14 10:40 15:22 Wound Center Nurse 1 #7-R LATERAL FOOT -Current Size (cm) - Length 3.5 -Current Size (cm) - Width 1.3 -Current Size (cm) - Depth 0.1 -Total Square Cm 4.55 -Exudate Amt Medium -Exudate Type Serosanguineous -Granulation Amt Small (1-33%) -Slough/Fibrin Yes -Necrosis Amt Small (1-33%) -Necrotic Tissue Type Adherent Slough -Texture (Mariajose-wound Skin Appearance) Assessed -Moisture (Mariajose-wound Skin Appearance) Assessed -Color (Mariajose-wound Skin Appearance) Assessed -Temperature (Mariajose-wound Skin No Abnormality Appearance) (Pt Warm) -Tenderness on Palpation (Mariajose-wound No Skin Appearance) -Ulcer Cleansing Soap and Water -Foul Odor after Cleansing Yes -Anesthetic Used 5% Lidocaine Gel #6 RT LAT ANKLE CLUSTER -Combined with other wound No -Current Size (cm) - Length 0.1 2.6 -Current Size (cm) - Width 0.1 1 -Current Size (cm) - Depth 0.1 0.1 -Total Square Cm 0.01 2.6 -Tunneling No -Undermining/Tunneling No -Circular Undermining No -Exudate Amt Medium Medium -Exudate Type Serosanguineous Serosanguineous -Wound Margin Distinct, Outline Attached -Granulation Amt Small (1-33%) None Present (0 %) -Slough/Fibrin Yes Yes -Necrosis Amt Medium (34-66%) Large (67-100%) -Necrotic Tissue Type Adherent Slough -Texture (Mariajose-wound Skin Appearance) Assessed Assessed, Scarring -Moisture (Mariajose-wound Skin Appearance) Assessed Assessed,Dry/ Scaly -Color (Mariajose-wound Skin Appearance) Assessed Assessed -Temperature (Mariajose-wound Skin No Abnormality No Abnormality Appearance) (Pt Warm) (Pt Warm) -Tenderness on Palpation (Mariajose-wound No No Skin Appearance) -Ulcer Cleansing Soap and Water Soap and Water -Foul Odor after Cleansing No -Anesthetic Used 5% Lidocaine 5% Lidocaine Gel Gel Lower Limb Edema Present Yes Right Calf (cm) 45 43.5 44.5 Right Ankle (cm) 27 24.7 24 Left Calf (cm) 45.5 44 45 Left Ankle (cm) 25 23 23.8 WC - Nurse 2 - General Ulcer CM Notes Start: 08/09/24 11:14 Freq: Status: Active Protocol: Activity Type Activity Date Activity User E-sign Co-sign Detail Recorded Client Recorded Date Recorded By Document 08/09/24 11:41 [id number] 08/09/24 11:46 Document 08/23/24 15:41 [id number] 08/23/24 15:42 08/09/24 08/23/24 11:41 15:41 Wound Center Nurse 2 #7-R LATERAL FOOT -Correct Patient Yes -Correct Side, Site, Position Yes -Correct Procedure Yes #6 RT LAT ANKLE CLUSTER -Time 11:43 15:41 -Correct Patient Yes Yes -Correct Side, Site, Position Yes Yes -Correct Procedure Yes Yes -Procedure Performed Yes Yes -Type of Procedure Debridement Debridement -Clinical Debridement Subcutaneous Subcutaneous -Tissue Removed Subcutaneous Subcutaneous -Post Debridement (cm) - Length 3.7 3.2 -Post Debridement (cm) - Width 1.5 1.6 -Post Debridement (cm) - Depth 0.2 0.1 -Total Square (Post) (cm) 5.55 5.12 -Area of Debridement (cm) - Length 3.7 3.2 -Area of Debridement (cm) - Width 1.5 1.6 -Total Square (Area) (cm) 5.55 5.12 -Tunneling No No -Undermining/Tunneling No No -Circular Undermining No No -Wound/Ulcer Outcome Not Healed Not Healed -Ulcer Cleansing Rinsed/ Rinsed/ Irrigated with Irrigated with Saline Saline -Foul Odor after Cleansing No No -Bioengineered Tissue No No -Bleeding Controlled with Pressure Pressure -Treatment Response Procedure Procedure Tolerated Well Tolerated Well -Offloading No No -Debridement - Subq, 1st 20sq cm Yes Yes Pain Scale: 0-10 Numeric Is Patient Pain Free? Yes Yes - Nurse 3 - General Ulcer D/C NN Start: 08/09/24 11:14 Freq: Status: Active Protocol: Activity Type Activity Date Activity User E-sign Co-sign Detail Recorded Client Recorded Date Recorded By Document 08/09/24 11:55 ND [id number] 08/09/24 11:57 ND Document 08/16/24 10:40 KW [id number] 08/16/24 11:07 KW Document 08/23/24 15:52 [facility] [id number] 08/23/24 15:54 [facility] 08/09/24 08/16/24 08/23/24 11:55 10:40 15:52 Wound Care Center Nurse 3 #6 RT LAT ANKLE CLUSTER -Ulcer Cleansing Rinsed/ Soap and Water Rinsed/ Irrigated with Irrigated with Saline Saline -Foul Odor after Cleansing No No -Negative Pressure Wound Therapy N/A -Primary Dressing Applied Silvercel Silvercel Aquacel AG 2x2 -Other Dressing drsg per kw crepe box tender -Primary Dressing Covered/Secured with Dry Gauze, Dry Gauze & Secured with Roll Gauze, Tape Secured with Tape -Other Covering abd -Aquacel AG 2x2 1 -Silvercel 1 1 LLE -Other educated on application of farrow wrap per kw crepe box tender RLE -Multi-Layered Wrap Application Multi-Layer Comp - Right ($ ) -Other applied per kw crepe box tender -Multi-Layer Compression Right (Qty 1 applied) BLE -Lotion applied to leg before Yes compression wrap -Multi-Layered Wrap Application Multi-Layer Multi-Layer Comp - Bilat ($ Comp - Bilat ($ ) ) -Multi-Layer Compression Bilat (Qty 1 1 applied) Pain Scale: 0-10 Numeric Is Patient Pain Free? Yes Yes Yes WC - Visit Discharge Discharge Condition Stable Stable Stable Ambulatory Status Ambulatory Ambulatory, Ambulatory, Walker Walker Transportation Private Auto Private Auto Private Auto Accompanied by caregiver Medication Reconcilliation completed & No No provided to patient/care provider Clinical Summary of Care Provided Yes Yes Notes: PT VERBALIZES THAT HE UNDERSTANDS HIS NEW WOUND ORDERS. Assessment/Plan Assessment/Plan (1) Non-pressure chronic ulcer of other part of right lower leg with fat layer exposed: CODE(S): L97.812 - Non-pressure chronic ulcer of other part of right lower leg with fat layer exposed PLAN: Patient was examined and evaluated. All findings were discussed with the patient. All questions were answered to the patient's satisfaction. Excisional debridement down to including subcutaneous tissue with a number 3 mm dermal curette to the right lateral lower extremity full-thickness wound done without incident. Predebridement measurement was 3.0 x 1.4 x 0.1 cm.. Postdebridement measurement is 3.2 x 1.6 x 0.1 cm. Right lower extremities were cleaned and patted dry. Silver alginate was applied to the full-thickness wound to the right lower extremity followed by dry sterile dressing and 3M multilayer compression bandages were donned. The multilayer CircAid wrap was applied to the left lower extremity to the teradata architect's recommendation. The preparole counseling aide with the patient was educated with donning and removing of this compression device. Patient is very grateful for his care and will follow-up in 1 week for evaluation. We will have the patient's vascular studies and records sent to Dr. Acosta's [facility] for further evaluation of treatment of the patient's peripheral vascular disease. Follow-up at the wound care center with Dr. Martinez in 1 week. (2) Other specified peripheral vascular diseases: CODE(S): I73.89 - Other specified peripheral vascular diseases (3) Chronic painful diabetic polyneuropathy: CODE(S): E11.42 - Type 2 diabetes mellitus with diabetic polyneuropathy
[2024-08-30 15:23] VITALS: BP 152/54; PULSE 61; RESP 18; TEMP 35.6
--- NOTE | 2024-08-30 16:55 | PCM.WC.PN ---
History of Present Illness Date of Service: 08/30/24 Chief Complaint: Chronic venous disease with an ulceration on the right lateral ankle History of Wound: This is a 78-year-old male with multiple pre-existing medical problems. He has known chronic venous disease, and has had multiple venous ulcerations in both lower extremities in the past with recurrent bouts of cellulitis complicating these ulcers. He had undergone an ablation procedure in the right lower extremity approximately 6 years ago, though is uncertain as to the details, including the specifics of the procedure, the venue of the procedure, and the provider who performed the procedure. He then underwent ablation of the great saphenous vein with Dr. Waldron March 2023. Reports last visit with Dr. Waldron's office was 06/28/2024. The patient denies a history of thrombophlebitis in the lower extremities. Prior treatment of his lower extremity venous ulcerations has occurred at wound healing facilities in [facility], as well as at the [facility]. He presents today for evaluation and treatment of right lateral ankle and lateral foot ulcerations which have been present for 3 weeks. He has been treating these at home with Aquacel and Leslie dressings with limited success. The patient lives alone, and is of limited mobility. He does have visiting nursing which assists in dressing changes twice a week. He suffers from debility and is unable to don and doff graduated compression stockings which makes treatment difficult. The patient is limited in his ambulatory capacity, requiring a walker for mobility. He often sleeps in a recliner, and does not reliably elevate his legs as recommended. He uses compression lymphedema pumps twice daily. His pre-existing medical conditions include hypertension, hyperlipidemia, atrial fibrillation, congestive heart failure, diabetes mellitus, peripheral neuropathy, prostatism, spinal stenosis, chronic obstructive pulmonary disease, and obesity. Patient is on chronic systemic anticoagulation with Eliquis due to atrial fibrillation. He currently denies N/V/F/chills. Denies further complaints. Progress of Wound: Full-thickness wound to lateral right leg with venous insufficiency, improving Subjective Subjective Patient is a 78-year-old male presenting to clinic today for follow-up evaluation of full-thickness wound to the lateral aspect of the right lower extremity. Patient has been wearing the multilayer compression bandage to the right lower extremity and the CircAid to the left lower extremity. He admits great improvement with swelling to the bilateral lower extremity. He is interested in nicotine patches to aid in smoking cessation. He is grateful for his care. He has no pain to the right or left lower extremity. Denies trauma. Denies constitutional symptoms. No other pedal complaints at this time. Objective Data Objective Data Vital Signs: Vital Signs Temp Pulse Resp BP O2 Del Method 96.0 F L 61 18 152/54 H Room Air 08/30/24 15:23 08/30/24 15:23 08/30/24 15:23 08/30/24 15:23 08/30/24 15:23 Oxygen Delivery Method Room Air Lab / Micro Data Micro: Microbiology 07/26/24 Unknown Ulcer, Decubitus - Leg, Right Gram Stain - Final 07/26/24 Unknown Ulcer, Decubitus - Leg, Right Wound Culture - Final Escherichia coli Staphylococcus epidermidis 07/26/24 Unknown Ulcer, Decubitus - Leg, Right Anaerobic Culture - Final No anaerobic bacteria isolated. Physical Exam Narrative Vascular: DP and PT pulses faintly palpable to the bilateral lower extremity. CFT is brisk to all digits bilateral. Skin temperature great is warm to warm from proximal ankles to distal digit bilateral. No erythema. Neurological: Light touch intact. Patient does respond to painful stimuli. Dermatological: Full-thickness wound to the lateral right leg measuring 2.0 x 0.8 x 0.1 cm. No drainage. No erythema appreciated to the right lower extremity. Excisional debridement down to including subcutaneous tissue with a number 3 mm dermal curette to the right lateral lower extremity full-thickness wound done without incident. Predebridement measurement was 1.8 x 0.6 x 0.1 cm. Postdebridement measurement is 2.0 x 0.8 x 0.1 cm. Musculoskeletal: No pain to palpation to the full-thickness wound in right lower extremity leg. No pain with calf pressure. HEENT normocephalic Eyes General Eye: normal appearance of both eyes Neck General: normal visual inspection Lymph Lymphatic: no lymphadenopathy noted and lymphedema Resp normal respiratory effort Cardio regular rate and regular rhythm Extremity no calf tenderness Extremity Narrative: Right lower extremity: Vascular: DP and PT pulses weakly palpable secondary to edema. CFT is less than 3 seconds to the digits. Normal temperature gradient. Hair growth is absent to digits. Neurologic: Gross sensation intact. Protective sensation is diminished secondary to diabetic peripheral polyneuropathy Musculoskeletal: Muscle strength 5 of 5 age-appropriate. There is decreased range of motion of the ankle joint in dorsiflexion with the knee extended without pain or crepitus. There is decreased range of motion of the first metatarsophalangeal joint without pain or crepitus. Negative Bishop sign. Negative Serenity sign. Dermatologic: There is lipodermatosclerosis noted with inverted champagne bottle leg with significant circumferential hemosiderin deposition consistent with skin changes secondary to chronic venous insufficiency/stasis and lymphedema. Dorsal foot also displays hemosiderin deposition. There is edema to the lower extremity, about the ankle, and foot. There is a full-thickness ulceration to the dorsolateral aspect of the foot and lateral malleolus in the region of the small saphenous vein. Ulceration demonstrates mixed fibrogranular layer with serous weeping. No signs of infection. Left lower extremity: Vascular: DP and PT pulses weakly palpable secondary to edema. CFT is less than 3 seconds to the digits. Normal temperature gradient. Hair growth is absent to digits. Neurologic: Gross sensation intact. Protective sensation is diminished secondary to diabetic peripheral polyneuropathy Musculoskeletal: Muscle strength 5 of 5 age-appropriate. There is decreased range of motion of the ankle joint in dorsiflexion with the knee extended without pain or crepitus. There is decreased range of motion of the first metatarsophalangeal joint without pain or crepitus. Negative Bishop sign. Negative Serenity sign. Dermatologic: There is lipodermatosclerosis noted with inverted champagne bottle leg with significant circumferential hemosiderin deposition consistent with skin changes secondary to chronic venous insufficiency/stasis and lymphedema. Dorsal foot also displays hemosiderin deposition. There is edema to the lower extremity, about the ankle, and foot. Skin no rashes or lesions noted General Skin Exam: turgor decreased, venous stasis and dermatitis Neuro moves all extremities Debridement Note Debridement Note Debridement Free Text: Excisional debridement down to including subcutaneous tissue with a number 3 mm dermal curette to the right lateral lower extremity full-thickness wound done without incident. Predebridement measurement was 1.8 x 0.6 x 0.1 cm. Postdebridement measurement is 2.0 x 0.8 x 0.1 cm. Post-Debridement Measurements and Additional Note: Post-Debridement Measurements/Treatment WC - Nurse 1 - General Ulcer Assessment Start: 08/09/24 11:14 Freq: Status: Active Protocol: CECILE.LOWEXT Activity Type Activity Date Activity User E-sign Co-sign Detail Recorded Client Recorded Date Recorded By Document 08/09/24 11:14 ML [id number] 08/09/24 11:31 ML Document 08/16/24 10:40 KW [id number] 08/16/24 11:07 KW Document 08/23/24 15:22 DL [id number] 08/23/24 15:31 DL Document 08/30/24 15:23 KW [id number] 08/30/24 15:28 KW 08/09/24 08/16/24 08/23/24 11:14 10:40 15:22 WC - Today's Visit Information Type of service Follow-up Visit Nurse-only Follow-up Visit (Physician/FOUNDRY EQUIPMENT MECHANIC Visit (Physician/FOUNDRY EQUIPMENT MECHANIC ) ) Arrival Mode Ambulatory, Ambulatory, Ambulatory, Walker Walker Walker Transfer Assistance None None Accompanied by Patient Identification Verified (Name & Yes Yes Yes ) Patient Requires Transmission-Based No No Precautions Vital Signs Temperature (97.8 F-99.1 F) 98.0 F 97.5 F L Temperature Source Temporal Temporal Temporal Pulse Rate (60-100) 72 56 L Pulse Location Monitor Monitor Monitor Respiratory Rate (12-18) 15 18 18 Respiratory rate source Monitor Observation Observation Oxygen Delivery Method Room Air Blood Pressure (90/60-120/80) 128/79 H 136/83 H Blood Pressure Mean (mm Hg) 95 100 Source Monitor Monitor Monitor Position Supine Sitting Blood Pressure Location Right Forearm Right Arm History Since Last Visit- (Skip if this is Patient's initial visit) Have you changed medications since your No No No last visit? Any new allergies or adverse reactions No No No Had a fall/change in ADL's that may No No No increase risk of falls Signs or symptoms of abuse and/or No No No neglect since last visit Have you been in the hospital since your No No last visit? Has dressing in place as prescribed No Yes Yes Has compression in place as prescribed Yes Yes Yes Has offloadiing in place as prescribed N/A N/A N/A Experienced any changes in pain level or No No No management Left Footwear Regular Shoe Right Footwear Regular Shoe Pain Scale: 0-10 Numeric Is Patient Pain Free? Yes Yes Yes 08/30/24 15:23 WC - Today's Visit Information Type of service Follow-up Visit (Physician/FOUNDRY EQUIPMENT MECHANIC ) Arrival Mode Ambulatory, Walker Transfer Assistance Accompanied by caregiver Patient Identification Verified (Name & Yes ) Patient Requires Transmission-Based Precautions Vital Signs Temperature (97.8 F-99.1 F) 96.0 F L Temperature Source Temporal Pulse Rate (60-100) 61 Pulse Location Monitor Respiratory Rate (12-18) 18 Respiratory rate source Observation Oxygen Delivery Method Room Air Blood Pressure (90/60-120/80) 152/54 H Blood Pressure Mean (mm Hg) 86 Source Monitor Position Semi-Fowlers Blood Pressure Location Left Arm History Since Last Visit- (Skip if this is Patient's initial visit) Have you changed medications since your No last visit? Any new allergies or adverse reactions No Had a fall/change in ADL's that may No increase risk of falls Signs or symptoms of abuse and/or No neglect since last visit Have you been in the hospital since your No last visit? Has dressing in place as prescribed Yes Has compression in place as prescribed Yes Has offloadiing in place as prescribed N/A Experienced any changes in pain level or No management Left Footwear Regular Shoe Right Footwear Regular Shoe Pain Scale: 0-10 Numeric Is Patient Pain Free? Yes - Nurse 1 - General Ulcer Measurement Start: 08/09/24 11:14 Freq: Status: Active Protocol: Activity Type Activity Date Activity User E-sign Co-sign Detail Recorded Client Recorded Date Recorded By Document 08/09/24 11:14 ML [id number] 08/09/24 11:31 ML Document 08/16/24 10:40 KW [id number] 08/16/24 11:07 KW Document 08/23/24 15:22 DL [id number] 08/23/24 15:31 DL Document 08/30/24 15:23 KW [id number] 08/30/24 15:28 KW 08/09/24 08/16/24 08/23/24 11:14 10:40 15:22 Wound Center Nurse 1 #7-R LATERAL FOOT -Current Size (cm) - Length 3.5 -Current Size (cm) - Width 1.3 -Current Size (cm) - Depth 0.1 -Total Square Cm 4.55 -Exudate Amt Medium -Exudate Type Serosanguineous -Granulation Amt Small (1-33%) -Slough/Fibrin Yes -Necrosis Amt Small (1-33%) -Necrotic Tissue Type Adherent Slough -Texture (Mariajose-wound Skin Appearance) Assessed -Moisture (Mariajose-wound Skin Appearance) Assessed -Color (Mariajose-wound Skin Appearance) Assessed -Temperature (Mariajose-wound Skin No Abnormality Appearance) (Pt Warm) -Tenderness on Palpation (Mariajose-wound No Skin Appearance) -Ulcer Cleansing Soap and Water -Foul Odor after Cleansing Yes -Anesthetic Used 5% Lidocaine Gel #6 RT LAT ANKLE CLUSTER -Combined with other wound No -Current Size (cm) - Length 0.1 2.6 -Current Size (cm) - Width 0.1 1 -Current Size (cm) - Depth 0.1 0.1 -Total Square Cm 0.01 2.6 -Date of Last Picture (Recall this field) -Tunneling No -Undermining/Tunneling No -Circular Undermining No -Exudate Amt Medium Medium -Exudate Type Serosanguineous Serosanguineous -Wound Margin Distinct, Outline Attached -Granulation Amt Small (1-33%) None Present (0 %) -Granulation Quality -Slough/Fibrin Yes Yes -Necrosis Amt Medium (34-66%) Large (67-100%) -Necrotic Tissue Type Adherent Slough -Texture (Mariajose-wound Skin Appearance) Assessed Assessed, Scarring -Moisture (Mariajose-wound Skin Appearance) Assessed Assessed,Dry/ Scaly -Color (Mariajose-wound Skin Appearance) Assessed Assessed -Temperature (Mariajose-wound Skin No Abnormality No Abnormality Appearance) (Pt Warm) (Pt Warm) -Tenderness on Palpation (Mariajose-wound No No Skin Appearance) -Ulcer Cleansing Soap and Water Soap and Water -Foul Odor after Cleansing No -Anesthetic Used 5% Lidocaine 5% Lidocaine Gel Gel Lower Limb Edema Present Yes Right Calf (cm) 45 43.5 44.5 Right Ankle (cm) 27 24.7 24 Left Calf (cm) 45.5 44 45 Left Ankle (cm) 25 23 23.8 08/30/24 15:23 Wound Center Nurse 1 #7-R LATERAL FOOT -Current Size (cm) - Length -Current Size (cm) - Width -Current Size (cm) - Depth -Total Square Cm -Exudate Amt -Exudate Type -Granulation Amt -Slough/Fibrin -Necrosis Amt -Necrotic Tissue Type -Texture (Mariajose-wound Skin Appearance) -Moisture (Mariajose-wound Skin Appearance) -Color (Mariajose-wound Skin Appearance) -Temperature (Mariajose-wound Skin Appearance) -Tenderness on Palpation (Mariajose-wound Skin Appearance) -Ulcer Cleansing -Foul Odor after Cleansing -Anesthetic Used #6 RT LAT ANKLE CLUSTER -Combined with other wound -Current Size (cm) - Length 0.1 -Current Size (cm) - Width 0.1 -Current Size (cm) - Depth 0.1 -Total Square Cm 0.01 -Date of Last Picture (Recall this 08/30/24 field) -Tunneling -Undermining/Tunneling -Circular Undermining -Exudate Amt Small -Exudate Type Serosanguineous -Wound Margin Indistinct, Non -Visible -Granulation Amt Large (67-100%) -Granulation Quality Red -Slough/Fibrin -Necrosis Amt -Necrotic Tissue Type -Texture (Mariajose-wound Skin Appearance) Assessed -Moisture (Mariajose-wound Skin Appearance) Assessed,Dry/ Scaly -Color (Mariajose-wound Skin Appearance) Assessed, Erythema, Hemosiderin Staining -Temperature (Mariajose-wound Skin No Abnormality Appearance) (Pt Warm) -Tenderness on Palpation (Mariajose-wound No Skin Appearance) -Ulcer Cleansing Soap and Water -Foul Odor after Cleansing No -Anesthetic Used 5% Lidocaine Gel Lower Limb Edema Present Right Calf (cm) 43.5 Right Ankle (cm) 23.7 Left Calf (cm) Left Ankle (cm) WC - Nurse 2 - General Ulcer CM Notes Start: 08/09/24 11:14 Freq: Status: Active Protocol: Activity Type Activity Date Activity User E-sign Co-sign Detail Recorded Client Recorded Date Recorded By Document 08/09/24 11:41 [id number] 08/09/24 11:46 Document 08/23/24 15:41 [id number] 08/23/24 15:42 Document 08/30/24 15:32 [id number] 08/30/24 15:35 08/09/24 08/23/24 08/30/24 11:41 15:41 15:32 Wound Center Nurse 2 #7-R LATERAL FOOT -Correct Patient Yes -Correct Side, Site, Position Yes -Correct Procedure Yes #6 RT LAT ANKLE CLUSTER -Time 11:43 15:41 15:32 -Correct Patient Yes Yes Yes -Correct Side, Site, Position Yes Yes Yes -Correct Procedure Yes Yes Yes -Procedure Performed Yes Yes Yes -Type of Procedure Debridement Debridement Debridement -Clinical Debridement Subcutaneous Subcutaneous Subcutaneous -Tissue Removed Subcutaneous Subcutaneous Subcutaneous -Post Debridement (cm) - Length 3.7 3.2 2.0 -Post Debridement (cm) - Width 1.5 1.6 0.8 -Post Debridement (cm) - Depth 0.2 0.1 0.1 -Total Square (Post) (cm) 5.55 5.12 1.60 -Area of Debridement (cm) - Length 3.7 3.2 2.0 -Area of Debridement (cm) - Width 1.5 1.6 0.8 -Total Square (Area) (cm) 5.55 5.12 1.60 -Tunneling No No No -Undermining/Tunneling No No No -Circular Undermining No No No -Wound/Ulcer Outcome Not Healed Not Healed Not Healed -Ulcer Cleansing Rinsed/ Rinsed/ Rinsed/ Irrigated with Irrigated with Irrigated with Saline Saline Saline -Foul Odor after Cleansing No No No -Bioengineered Tissue No No No -Bleeding Controlled with Pressure Pressure Pressure -Treatment Response Procedure Procedure Procedure Tolerated Well Tolerated Well Tolerated Well -Offloading No No No -Debridement - Subq, 1st 20sq cm Yes Yes Yes Pain Scale: 0-10 Numeric Is Patient Pain Free? Yes Yes Yes - Nurse 3 - General Ulcer D/C NN Start: 08/09/24 11:14 Freq: Status: Active Protocol: Activity Type Activity Date Activity User E-sign Co-sign Detail Recorded Client Recorded Date Recorded By Document 08/09/24 11:55 ME [id number] 08/09/24 11:57 ME Document 08/16/24 10:40 [id number] 08/16/24 11:07 Document 08/23/24 15:52 [facility] [id number] 08/23/24 15:54 [facility] Document 08/30/24 15:39 [id number] 08/30/24 15:40 KW 08/09/24 08/16/24 08/23/24 11:55 10:40 15:52 Wound Care Center Nurse 3 #6 RT LAT ANKLE CLUSTER -Ulcer Cleansing Rinsed/ Soap and Water Rinsed/ Irrigated with Irrigated with Saline Saline -Foul Odor after Cleansing No No -Negative Pressure Wound Therapy N/A -Primary Dressing Applied Silvercel Silvercel Aquacel AG 2x2 -Other Dressing drsg per kw bottom precipitator operator -Primary Dressing Covered/Secured with Dry Gauze, Dry Gauze & Secured with Roll Gauze, Tape Secured with Tape -Other Covering abd -Aquacel AG 2x2 1 -Silvercel 1 1 LLE -Other educated on application of farrow wrap per kw bottom precipitator operator RLE -Multi-Layered Wrap Application Multi-Layer Comp - Right ($ ) -Other applied per kw bottom precipitator operator -Multi-Layer Compression Right (Qty 1 applied) BLE -Lotion applied to leg before Yes compression wrap -Multi-Layered Wrap Application Multi-Layer Multi-Layer Comp - Bilat ($ Comp - Bilat ($ ) ) -Multi-Layer Compression Bilat (Qty 1 1 applied) Pain Scale: 0-10 Numeric Is Patient Pain Free? Yes Yes Yes WC - Visit Discharge Discharge Condition Stable Stable Stable Ambulatory Status Ambulatory Ambulatory, Ambulatory, Walker Walker Transportation Private Auto Private Auto Private Auto Accompanied by caregiver Medication Reconcilliation completed & No No provided to patient/care provider Clinical Summary of Care Provided Yes Yes Notes: PT VERBALIZES THAT HE UNDERSTANDS HIS NEW WOUND ORDERS. 08/30/24 15:39 Wound Care Center Nurse 3 #6 RT LAT ANKLE CLUSTER -Ulcer Cleansing -Foul Odor after Cleansing -Negative Pressure Wound Therapy -Primary Dressing Applied -Other Dressing pt own silvercel -Primary Dressing Covered/Secured with Dry Gauze & Roll Gauze, Secured with Tape -Other Covering -Aquacel AG 2x2 -Silvercel LLE -Other RLE -Multi-Layered Wrap Application -Other pt own farrow wrap -Multi-Layer Compression Right (Qty applied) BLE -Lotion applied to leg before compression wrap -Multi-Layered Wrap Application -Multi-Layer Compression Bilat (Qty applied) Pain Scale: 0-10 Numeric Is Patient Pain Free? Yes WC - Visit Discharge Discharge Condition Stable Ambulatory Status Ambulatory, Walker Transportation Private Auto Accompanied by Medication Reconcilliation completed & No provided to patient/care provider Clinical Summary of Care Provided Yes Notes: Assessment/Plan Assessment/Plan (1) Non-pressure chronic ulcer of other part of right lower leg with fat layer exposed: CODE(S): L97.812 - Non-pressure chronic ulcer of other part of right lower leg with fat layer exposed PLAN: Patient was examined and evaluated. All findings were discussed with the patient. All questions were answered to the patient's satisfaction. Excisional debridement down to including subcutaneous tissue with a number 3 mm dermal curette to the right lateral lower extremity full-thickness wound done without incident. Predebridement measurement was 1.8 x 0.6 x 0.1 cm. Postdebridement measurement is 2.0 x 0.8 x 0.1 cm. The right lower extremity was white plain and patted dry. Silver alginate followed by dry sterile dressing and new CircAid wrap were applied to the right lower extremity. Patient will have this changed by his aide daily. Patient was given the okay to shower. The patient will be placed on nicotine patches for the next 28 days followed by additional taper patches over the course of 3 months will also be provided per the patient's request. Patient is grateful for his care and will follow-up in 2 weeks. Follow-up at the wound care center with Dr. Martinez in 2 week. (2) Other specified peripheral vascular diseases: CODE(S): I73.89 - Other specified peripheral vascular diseases
== END 2024-09-07 23:59 | disposition home or self-care (01) ==
LOC: WC 15:15
PROVIDERS: Visit Provider Podiatrist Foot & Ankle Surgery
DX: E11.622 Type 2 diabetes mellitus with other skin ulcer (principal); L97.812 Non-pressure chronic ulcer of other part of right lower leg with fat layer exposed; I50.9 Heart failure, unspecified; J44.9 Chronic obstructive pulmonary disease, unspecified; I48.91 Unspecified atrial fibrillation; E11.42 Type 2 diabetes mellitus with diabetic polyneuropathy; E11.59 Type 2 diabetes mellitus with other circulatory complications; E78.5 Hyperlipidemia, unspecified; I87.2 Venous insufficiency (chronic) (peripheral); E66.9 Obesity, unspecified; Z79.01 Long term (current) use of anticoagulants; R53.81 Other malaise; I73.89 Other specified peripheral vascular diseases
CPT/HCPCS: 11042; 29581; 93923; 93970

== ENCOUNTER 2024-10-04 10:00 | Outpatient (RCR) | payer MEDICARE, MEDICAID, SELFPAY ==
[2024-09-13 14:20] VITALS: BP 138/74; PULSE 45; RESP 18; TEMP 36.6
--- NOTE | 2024-09-14 11:13 | PN.PCM_ITS ---
History of Present Illness Date of Service: 09/13/24 Chief Complaint: Chronic venous disease with an ulceration on the right lateral ankle History of Wound: This is a 78-year-old male with multiple pre-existing medical problems. He has known chronic venous disease, and has had multiple venous ulcerations in both lower extremities in the past with recurrent bouts of cellulitis complicating these ulcers. He had undergone an ablation procedure in the right lower extremity approximately 6 years ago, though is uncertain as to the details, including the specifics of the procedure, the venue of the procedure, and the provider who performed the procedure. He then underwent ablation of the great saphenous vein with Dr. Waldron March 2023. Reports last visit with Dr. Waldron's office was 06/28/2024. The patient denies a history of thrombophlebitis in the lower extremities. Prior treatment of his lower extremity venous ulcerations has occurred at wound healing facilities in [facility], as well as at the [facility]. He presents today for evaluation and treatment of right lateral ankle and lateral foot ulcerations which have been present for 3 weeks. He has been treating these at home with Aquacel and Leslie dressings with limited success. The patient lives alone, and is of limited mobility. He does have visiting nursing which assists in dressing changes twice a week. He suffers from debility and is unable to don and doff graduated compression stockings which makes treatment difficult. The patient is limited in his ambulatory capacity, requiring a walker for mobility. He often sleeps in a recliner, and does not reliably elevate his legs as recommended. He uses compression lymphedema pumps twice daily. His pre-existing medical conditions include hypertension, hyperlipidemia, atrial fibrillation, congestive heart failure, diabetes mellitus, peripheral neuropathy, prostatism, spinal stenosis, chronic obstructive pulmonary disease, and obesity. Patient is on chronic systemic anticoagulation with Eliquis due to atrial fibrillation. He currently denies N/V/F/chills. Denies further complaints. Progress of Wound: Presenting back for right lower extremity full-thickness wound secondary to noncompliance. Subjective Subjective Patient is a 6-year-old male presenting with 6 send today follow-up evaluation of full-thickness wounds to right lower extremity. Patient has been noncompliant with his compression wraps and elevation as discussed. He is using the patches and smoking less. He is unsure what has caused the breakdown of skin but he thinks he has not using the multilayer compression wraps as he should. No treatment thus far. He denies trauma. Denies constitutional symptoms. No pedal complaints at this time. Objective Data Objective Data Vital Signs: Vital Signs Temp Pulse Resp BP 98 F 45 L 18 138/74 H 09/13/24 14:20 09/13/24 14:20 09/13/24 14:20 09/13/24 14:20 Lab / Micro Data Micro: Microbiology 07/26/24 Unknown Ulcer, Decubitus - Leg, Right Gram Stain - Final 07/26/24 Unknown Ulcer, Decubitus - Leg, Right Wound Culture - Final Escherichia coli Staphylococcus epidermidis 07/26/24 Unknown Ulcer, Decubitus - Leg, Right Anaerobic Culture - Final No anaerobic bacteria isolated. Physical Exam Narrative Vascular: DP and PT pulses faintly palpable to the bilateral lower extremity. CFT is brisk to all digits bilateral. Skin temperature great is warm to warm from proximal ankles to distal digit bilateral. No erythema. Neurological: Light touch intact. Patient does respond to painful stimuli. Dermatological: Evidence of partial thickness wounds throughout the right lower extremity leg. No full-thickness wounds to the left lower extremity. No erythema or sign of infection. Musculoskeletal: No pain to palpation to the full-thickness wound in right lower extremity leg. No pain with calf pressure. HEENT normocephalic Eyes General Eye: normal appearance of both eyes Neck General: normal visual inspection Lymph Lymphatic: no lymphadenopathy noted and lymphedema Resp normal respiratory effort Cardio regular rate and regular rhythm Extremity no calf tenderness Extremity Narrative: Right lower extremity: Vascular: DP and PT pulses weakly palpable secondary to edema. CFT is less than 3 seconds to the digits. Normal temperature gradient. Hair growth is absent to digits. Neurologic: Gross sensation intact. Protective sensation is diminished secondary to diabetic peripheral polyneuropathy Musculoskeletal: Muscle strength 5 of 5 age-appropriate. There is decreased range of motion of the ankle joint in dorsiflexion with the knee extended without pain or crepitus. There is decreased range of motion of the first metatarsophalangeal joint without pain or crepitus. Negative Bishop sign. Negative Serenity sign. Dermatologic: There is lipodermatosclerosis noted with inverted champagne bottle leg with significant circumferential hemosiderin deposition consistent with skin changes secondary to chronic venous insufficiency/stasis and lymphedema. Dorsal foot also displays hemosiderin deposition. There is edema to the lower extremity, about the ankle, and foot. There is a full-thickness ulceration to the dorsolateral aspect of the foot and lateral malleolus in the region of the small saphenous vein. Ulceration demonstrates mixed fibrogranular layer with serous weeping. No signs of infection. Left lower extremity: Vascular: DP and PT pulses weakly palpable secondary to edema. CFT is less than 3 seconds to the digits. Normal temperature gradient. Hair growth is absent to digits. Neurologic: Gross sensation intact. Protective sensation is diminished secondary to diabetic peripheral polyneuropathy Musculoskeletal: Muscle strength 5 of 5 age-appropriate. There is decreased range of motion of the ankle joint in dorsiflexion with the knee extended without pain or crepitus. There is decreased range of motion of the first metatarsophalangeal joint without pain or crepitus. Negative Bishop sign. Negative Serenity sign. Dermatologic: There is lipodermatosclerosis noted with inverted champagne bottle leg with significant circumferential hemosiderin deposition consistent with skin changes secondary to chronic venous insufficiency/stasis and lymphedema. Dorsal foot also displays hemosiderin deposition. There is edema to the lower extremity, about the ankle, and foot. Skin no rashes or lesions noted General Skin Exam: turgor decreased, venous stasis and dermatitis Neuro moves all extremities Debridement Note Debridement Note Post-Debridement Measurements and Additional Note: Post-Debridement Measurements/Treatment - Nurse 1 - General Ulcer Assessment Start: 09/13/24 14:20 Freq: Status: Active Protocol: ROSIO Activity Type Activity Date Activity User E-sign Co-sign Detail Recorded Client Recorded Date Recorded By Document 09/13/24 14:20 DL [id number] 09/13/24 14:28 DL 09/13/24 14:20 - Today's Visit Information Type of service Initial Visit Arrival Mode Ambulatory, Walker Transfer Assistance None Patient Identification Verified (Name & Yes ) Patient Requires Transmission-Based No Precautions Vital Signs Temperature (97.8 F-99.1 F) 98 F Temperature Source Temporal Pulse Rate (60-100) 45 L Pulse Location Monitor Respiratory Rate (12-18) 18 Respiratory rate source Observation Blood Pressure (90/60-120/80) 138/74 H Blood Pressure Mean (mm Hg) 95 Source Monitor History Since Last Visit- (Skip if this is Patient's initial visit) Have you changed medications since your No last visit? Any new allergies or adverse reactions No Had a fall/change in ADL's that may No increase risk of falls Signs or symptoms of abuse and/or No neglect since last visit Have you been in the hospital since your No last visit? Has dressing in place as prescribed Yes Has compression in place as prescribed Yes Has offloadiing in place as prescribed Yes Experienced any changes in pain level or No management Pain Scale: 0-10 Numeric Is Patient Pain Free? Yes WC - Nurse 1 - General Ulcer Measurement Start: 09/13/24 14:20 Freq: Status: Active Protocol: Activity Type Activity Date Activity User E-sign Co-sign Detail Recorded Client Recorded Date Recorded By Document 09/13/24 14:20 DL [id number] 09/13/24 14:28 DL 09/13/24 14:20 Wound Center Nurse 1 #6 RT LAT ANKLE CLUSTER -Current Size (cm) - Length 6 -Current Size (cm) - Width 3 -Current Size (cm) - Depth 0.1 -Total Square Cm 18 -Exudate Amt Medium -Exudate Type Serosanguineous -Wound Margin Distinct, Outline Attached -Granulation Amt Large (67-100%) -Granulation Quality Red -Necrosis Amt None Present (0 %) -Structure Exposed N/A -Texture (Mariajose-wound Skin Appearance) Scarring -Moisture (Mariajose-wound Skin Appearance) Dry/Scaly -Color (Mariajose-wound Skin Appearance) Hemosiderin Staining -Temperature (Mariajose-wound Skin No Abnormality Appearance) (Pt Warm) -Tenderness on Palpation (Mariajose-wound No Skin Appearance) -Ulcer Cleansing Soap and Water -Foul Odor after Cleansing No -Anesthetic Used 4% Lidocaine Solution Right Calf (cm) 49 Right Ankle (cm) 24.5 WC - Nurse 2 - General Ulcer CM Notes Start: 09/13/24 14:20 Freq: Status: Active Protocol: Activity Type Activity Date Activity User E-sign Co-sign Detail Recorded Client Recorded Date Recorded By Document 09/13/24 14:31 GM [id number] 09/13/24 14:33 GM 09/13/24 14:31 Wound Center Nurse 2 #6 RT LAT ANKLE CLUSTER -Time 14:31 -Correct Patient Yes -Correct Side, Site, Position Yes -Correct Procedure No -Procedure Performed No -Tunneling No -Undermining/Tunneling No -Circular Undermining No -Wound/Ulcer Outcome Not Healed -Ulcer Cleansing Not Cleansed -Foul Odor after Cleansing No -Bleeding Controlled with NA -Offloading No Pain Scale: 0-10 Numeric Is Patient Pain Free? Yes WC - Nurse 3 - General Ulcer D/C NN Start: 09/13/24 14:20 Freq: Status: Active Protocol: Activity Type Activity Date Activity User E-sign Co-sign Detail Recorded Client Recorded Date Recorded By Document 09/13/24 14:37 DL [id number] 09/13/24 14:38 DL 09/13/24 14:37 Wound Care Center Nurse 3 #6 RT LAT ANKLE CLUSTER -Other Dressing betadine soaked gauze BLE -Multi-Layered Wrap Application Multi-Layer Comp - Bilat ($ ) -Multi-Layer Compression Bilat (Qty 1 applied) Pain Scale: 0-10 Numeric Is Patient Pain Free? Yes Assessment/Plan Assessment/Plan (1) Other specified peripheral vascular diseases: CODE(S): I73.89 - Other specified peripheral vascular diseases PLAN: Patient was examined and evaluated. All findings were discussed with the patient. All questions were answered to the patient satisfaction. The patient has evidence of breakdown of skin to the right lower extremity. Educated the patient on the importance of elevation and compliance with the multilayer compression wraps that he went home on after he was healed. Patient was unsure how his swelling got out of control as he has a home health aide with him throughout the day. The patient's bilateral legs were cleaned and patted dry. Betadine soaked gauze was applied to all breakdown of skin to the right lower extremity followed by bilateral 3M multilayer compression wraps. Patient will keep them clean dry and intact for 1 week until follow-up. Patient was educated on the importance of elevation which she is now understanding of. I discussed with the patient that he cannot to sit at his computer all day and all night and have his legs in the dependent position. I told him that the dependent position is the reason for the breakdown of skin and swelling even if he is using multilayer compression bandages. Patient will follow-up with Dr. Martinez in 1 week
--- NOTE | 2024-09-20 19:57 | PCM.WC.PN ---
History of Present Illness Date of Service: 09/20/24 Chief Complaint: Chronic venous disease with an ulceration on the right lateral ankle History of Wound: This is a 78-year-old male with multiple pre-existing medical problems. He has known chronic venous disease, and has had multiple venous ulcerations in both lower extremities in the past with recurrent bouts of cellulitis complicating these ulcers. He had undergone an ablation procedure in the right lower extremity approximately 6 years ago, though is uncertain as to the details, including the specifics of the procedure, the venue of the procedure, and the provider who performed the procedure. He then underwent ablation of the great saphenous vein with Dr. Waldron March 2023. Reports last visit with Dr. Waldron's office was 06/28/2024. The patient denies a history of thrombophlebitis in the lower extremities. Prior treatment of his lower extremity venous ulcerations has occurred at wound healing facilities in [facility], as well as at the [facility]. He presents today for evaluation and treatment of right lateral ankle and lateral foot ulcerations which have been present for 3 weeks. He has been treating these at home with Aquacel and Leslie dressings with limited success. The patient lives alone, and is of limited mobility. He does have visiting nursing which assists in dressing changes twice a week. He suffers from debility and is unable to don and doff graduated compression stockings which makes treatment difficult. The patient is limited in his ambulatory capacity, requiring a walker for mobility. He often sleeps in a recliner, and does not reliably elevate his legs as recommended. He uses compression lymphedema pumps twice daily. His pre-existing medical conditions include hypertension, hyperlipidemia, atrial fibrillation, congestive heart failure, diabetes mellitus, peripheral neuropathy, prostatism, spinal stenosis, chronic obstructive pulmonary disease, and obesity. Patient is on chronic systemic anticoagulation with Eliquis due to atrial fibrillation. He currently denies N/V/F/chills. Denies further complaints. Progress of Wound: Presenting back for right lower extremity full-thickness wound secondary to noncompliance. Subjective Subjective Patient is 78-year-old male present to clinic today for follow-up evaluation breakdown of full-thickness wounds to the right leg. Patient has been compliant with his multilayer compression bandage. He is elevating is much as he can. Patient has stopped smoking and is using nicotine patches for 1 month. He is grateful for his care. Denies trauma. Denies constitutional symptoms. No other pedal complaints at this time. Objective Data Objective Data Vital Signs: Vital Signs Temp Pulse Resp BP 98 F 45 L 18 138/74 H 09/13/24 14:20 09/13/24 14:20 09/13/24 14:20 09/13/24 14:20 Weight: 134.853 kg Lab / Micro Data Micro: Microbiology 07/26/24 Unknown Ulcer, Decubitus - Leg, Right Gram Stain - Final 07/26/24 Unknown Ulcer, Decubitus - Leg, Right Wound Culture - Final Escherichia coli Staphylococcus epidermidis 07/26/24 Unknown Ulcer, Decubitus - Leg, Right Anaerobic Culture - Final No anaerobic bacteria isolated. Physical Exam Narrative Vascular: DP and PT pulses faintly palpable to the bilateral lower extremity. CFT is brisk to all digits bilateral. Skin temperature great is warm to warm from proximal ankles to distal digit bilateral. No erythema. Neurological: Light touch intact. Patient does respond to painful stimuli. Dermatological: Evidence of breakdown of skin to the right anterior ankle and proximal right lateral leg. Wound base is granular. Evidence of serous drainage. Musculoskeletal: No pain to palpation to the full-thickness wound in right lower extremity leg. No pain with calf pressure. HEENT normocephalic Eyes General Eye: normal appearance of both eyes Neck General: normal visual inspection Lymph Lymphatic: no lymphadenopathy noted and lymphedema Resp normal respiratory effort Cardio regular rate and regular rhythm Extremity no calf tenderness Extremity Narrative: Right lower extremity: Vascular: DP and PT pulses weakly palpable secondary to edema. CFT is less than 3 seconds to the digits. Normal temperature gradient. Hair growth is absent to digits. Neurologic: Gross sensation intact. Protective sensation is diminished secondary to diabetic peripheral polyneuropathy Musculoskeletal: Muscle strength 5 of 5 age-appropriate. There is decreased range of motion of the ankle joint in dorsiflexion with the knee extended without pain or crepitus. There is decreased range of motion of the first metatarsophalangeal joint without pain or crepitus. Negative Bishop sign. Negative Serenity sign. Dermatologic: There is lipodermatosclerosis noted with inverted champagne bottle leg with significant circumferential hemosiderin deposition consistent with skin changes secondary to chronic venous insufficiency/stasis and lymphedema. Dorsal foot also displays hemosiderin deposition. There is edema to the lower extremity, about the ankle, and foot. There is a full-thickness ulceration to the dorsolateral aspect of the foot and lateral malleolus in the region of the small saphenous vein. Ulceration demonstrates mixed fibrogranular layer with serous weeping. No signs of infection. Left lower extremity: Vascular: DP and PT pulses weakly palpable secondary to edema. CFT is less than 3 seconds to the digits. Normal temperature gradient. Hair growth is absent to digits. Neurologic: Gross sensation intact. Protective sensation is diminished secondary to diabetic peripheral polyneuropathy Musculoskeletal: Muscle strength 5 of 5 age-appropriate. There is decreased range of motion of the ankle joint in dorsiflexion with the knee extended without pain or crepitus. There is decreased range of motion of the first metatarsophalangeal joint without pain or crepitus. Negative Bishop sign. Negative Serenity sign. Dermatologic: There is lipodermatosclerosis noted with inverted champagne bottle leg with significant circumferential hemosiderin deposition consistent with skin changes secondary to chronic venous insufficiency/stasis and lymphedema. Dorsal foot also displays hemosiderin deposition. There is edema to the lower extremity, about the ankle, and foot. Skin no rashes or lesions noted General Skin Exam: turgor decreased, venous stasis and dermatitis Neuro moves all extremities Debridement Note Debridement Note Post-Debridement Measurements and Additional Note: Post-Debridement Measurements/Treatment - Nurse 1 - General Ulcer Assessment Start: 09/13/24 14:20 Freq: Status: Active Protocol: .LOWEXT Activity Type Activity Date Activity User E-sign Co-sign Detail Recorded Client Recorded Date Recorded By Document 09/13/24 14:20 DL [id number] 09/13/24 14:28 DL Document 09/20/24 15:28 KW [id number] 09/20/24 15:40 KW 09/13/24 09/20/24 14:20 15:28 - Today's Visit Information Type of service Initial Visit Arrival Mode Ambulatory, Walker Transfer Assistance None Patient Identification Verified (Name & Yes ) Patient Requires Transmission-Based No Precautions Vital Signs Temperature (97.8 F-99.1 F) 98 F Temperature Source Temporal Pulse Rate (60-100) 45 L Pulse Location Monitor Respiratory Rate (12-18) 18 Respiratory rate source Observation Blood Pressure (90/60-120/80) 138/74 H Blood Pressure Mean (mm Hg) 95 Source Monitor History Since Last Visit- (Skip if this is Patient's initial visit) Have you changed medications since your No No last visit? Any new allergies or adverse reactions No No Had a fall/change in ADL's that may No No increase risk of falls Signs or symptoms of abuse and/or No No neglect since last visit Have you been in the hospital since your No No last visit? Has dressing in place as prescribed Yes Yes Has compression in place as prescribed Yes Yes Has offloadiing in place as prescribed Yes N/A Experienced any changes in pain level or No No management Left Footwear Regular Shoe Right Footwear Regular Shoe Pain Scale: 0-10 Numeric Is Patient Pain Free? Yes Yes WC - Nurse 1 - General Ulcer Measurement Start: 09/13/24 14:20 Freq: Status: Active Protocol: Activity Type Activity Date Activity User E-sign Co-sign Detail Recorded Client Recorded Date Recorded By Document 09/13/24 14:20 DL [id number] 09/13/24 14:28 DL Document 09/20/24 15:28 KW [id number] 09/20/24 15:40 KW 09/13/24 09/20/24 14:20 15:28 Wound Center Nurse 1 #6 RT LAT ANKLE CLUSTER -Current Size (cm) - Length 6 9 -Current Size (cm) - Width 3 6 -Current Size (cm) - Depth 0.1 0.1 -Total Square Cm 18 54 -Date of Last Picture (Recall this 09/20/24 field) -Exudate Amt Medium Large -Exudate Type Serosanguineous Yellow/Green -Wound Margin Distinct, Distinct, Outline Outline Attached Attached -Granulation Amt Large (67-100%) Large (67-100%) -Granulation Quality Red Red -Necrosis Amt None Present (0 %) -Structure Exposed N/A -Texture (Mariajose-wound Skin Appearance) Scarring Assessed -Moisture (Mariajose-wound Skin Appearance) Dry/Scaly Assessed -Color (Mariajose-wound Skin Appearance) Hemosiderin Assessed, Staining Hemosiderin Staining -Temperature (Mariajose-wound Skin No Abnormality No Abnormality Appearance) (Pt Warm) (Pt Warm) -Tenderness on Palpation (Mariajose-wound No No Skin Appearance) -Ulcer Cleansing Soap and Water Soap and Water -Foul Odor after Cleansing No No -Anesthetic Used 4% Lidocaine 5% Lidocaine Solution Gel Right Calf (cm) 49 45 Right Ankle (cm) 24.5 23.5 Left Calf (cm) 43.5 Left Ankle (cm) 24 - Nurse 2 - General Ulcer CM Notes Start: 09/13/24 14:20 Freq: Status: Active Protocol: Activity Type Activity Date Activity User E-sign Co-sign Detail Recorded Client Recorded Date Recorded By Document 09/13/24 14:31 [id number] 09/13/24 14:33 Document 09/20/24 15:42 [id number] 09/20/24 15:45 09/13/24 09/20/24 14:31 15:42 Wound Center Nurse 2 #6 RT LAT ANKLE CLUSTER -Time 14:31 -Correct Patient Yes Yes -Correct Side, Site, Position Yes No -Correct Procedure No No -Procedure Performed No No -Tunneling No -Undermining/Tunneling No -Circular Undermining No -Wound/Ulcer Outcome Not Healed Not Healed -Ulcer Cleansing Not Cleansed -Foul Odor after Cleansing No -Bleeding Controlled with NA -Offloading No Pain Scale: 0-10 Numeric Is Patient Pain Free? Yes Yes - Nurse 3 - General Ulcer D/C NN Start: 09/13/24 14:20 Freq: Status: Active Protocol: Activity Type Activity Date Activity User E-sign Co-sign Detail Recorded Client Recorded Date Recorded By Document 09/13/24 14:37 DL [id number] 09/13/24 14:38 Document 09/20/24 16:00 [id number] 09/20/24 16:01 09/13/24 09/20/24 14:37 16:00 Wound Care Center Nurse 3 #6 RT LAT ANKLE CLUSTER -Primary Dressing Applied Optilok 5x5 1/2 ,Silvercel -Other Dressing betadine soaked gauze -Optilok 5x5 1/2 2 -Silvercel 1 BLE -Multi-Layered Wrap Application Multi-Layer Multi-Layer Comp - Bilat ($ Comp - Bilat ($ ) ) -Multi-Layer Compression Bilat (Qty 1 1 applied) Pain Scale: 0-10 Numeric Is Patient Pain Free? Yes Yes Assessment/Plan Assessment/Plan (1) Other specified peripheral vascular diseases: CODE(S): I73.89 - Other specified peripheral vascular diseases PLAN: Patient was examined and evaluated. All findings were discussed with the patient. All questions were answered to the patient satisfaction. After physical examination the patient is showing breakdown of skin to the right lower extremity at the level of the ankle and proximal leg. Reviewing the patient's dressing from 1 week ago there shows evidence of a light slight green discharge concerning for Pseudomonas. The patient we placed on ciprofloxacin 750 mg twice daily for 2 weeks. Culture was taken to rule out additional bacteria with antibiotics to be adjusted as needed. The right lower extremity was dressed with silver alginate and 3M multilayer compression bandage was donned. The left lower extremity also had a 3M multilayer compression bandage on. Patient will follow-up with Dr. Martinez in 1 week
--- NOTE | 2024-09-25 15:53 | WC ---
pt called in stating the cipro that Dr. Martinez prescribed and pt is having lack of sleep, red raised rash on b/l arms and chest. Dr. Martinez notified. pt is to stop Cipro. pt called and instructed to stop Cipro. pt states last dose was midnight last night. pt informed should take about 24hrs for med to leave the system. Dr. Martinez will evaluate pt on upcoming visit on Wednesday
[2024-09-27 15:05] VITALS: BP 125/70; PULSE 68; RESP 18; TEMP 36.2
--- NOTE | 2024-09-28 16:07 | PN.PCM_ITS ---
History of Present Illness Date of Service: 09/28/24 Chief Complaint: Chronic venous disease with an ulceration on the right lateral ankle History of Wound: This is a 78-year-old male with multiple pre-existing medical problems. He has known chronic venous disease, and has had multiple venous ulcerations in both lower extremities in the past with recurrent bouts of cellulitis complicating these ulcers. He had undergone an ablation procedure in the right lower extremity approximately 6 years ago, though is uncertain as to the details, including the specifics of the procedure, the venue of the procedure, and the provider who performed the procedure. He then underwent ablation of the great saphenous vein with Dr. Waldron March 2023. Reports last visit with Dr. Waldron's office was 06/28/2024. The patient denies a history of thrombophlebitis in the lower extremities. Prior treatment of his lower extremity venous ulcerations has occurred at wound healing facilities in [facility], as well as at the [facility]. He presents today for evaluation and treatment of right lateral ankle and lateral foot ulcerations which have been present for 3 weeks. He has been treating these at home with Aquacel and Lelsie dressings with limited success. The patient lives alone, and is of limited mobility. He does have visiting nursing which assists in dressing changes twice a week. He suffers from debility and is unable to don and doff graduated compression stockings which makes treatment difficult. The patient is limited in his ambulatory capacity, requiring a walker for mobility. He often sleeps in a recliner, and does not reliably elevate his legs as recommended. He uses compression lymphedema pumps twice daily. His pre-existing medical conditions include hypertension, hyperlipidemia, atrial fibrillation, congestive heart failure, diabetes mellitus, peripheral neuropathy, prostatism, spinal stenosis, chronic obstructive pulmonary disease, and obesity. Patient is on chronic systemic anticoagulation with Eliquis due to atrial fibrillation. He currently denies N/V/F/chills. Denies further complaints. Progress of Wound: Presenting back for right lower extremity full-thickness wound secondary to noncompliance. Subjective Subjective Patient is a 78-year-old diabetic male presenting to clinic for follow-up ev aluation of breakdown of skin to the bilateral lower extremity. Patient has been compliant with his multilayer compression bandages and left them clean dry and intact. Patient states that he was taking the prescribed antibiotic, ciprofloxacin, and states that it was making him itch and break out into a rash so he stopped it. Now the patient states that he is having trouble sleeping even though he is taking melatonin he feels it is not working. He denies any pain to the bilateral lower extremity. He continues to quit smoking and use the nicotine patches that he was prescribed during his previous visit. He is grateful for his care. Denies trauma. Denies constitutional symptoms. No other pedal complaints at this time. Objective Data Objective Data Vital Signs: Vital Signs Temp Pulse Resp BP O2 Del Method 97.2 F L 68 18 125/70 H Room Air 09/27/24 15:05 09/27/24 15:05 09/27/24 15:05 09/27/24 15:05 09/27/24 15:05 Oxygen Delivery Method Room Air Weight: 134.853 kg Lab / Micro Data Micro: Microbiology 09/21/24 15:50 Wound - Leg, Right Gram Stain - Final 09/21/24 15:50 Wound - Leg, Right Wound Culture - Final Pseudomonas aeruginosa Escherichia coli 09/21/24 15:50 Wound - Leg, Right Anaerobic Culture - Final No anaerobic bacteria isolated. Physical Exam Narrative Vascular: DP and PT pulses faintly palpable to the bilateral lower extremity. CFT is brisk to all digits bilateral. Skin temperature great is warm to warm from proximal ankles to distal digit bilateral. No erythema. Neurological: Light touch intact. Patient does respond to painful stimuli. Dermatological: Evidence of breakdown of skin to the right anterior ankle and proximal right lateral leg. Wound base is granular. Evidence of serous drainage. Musculoskeletal: No pain to palpation to the full-thickness wound in right lower extremity leg. No pain with calf pressure. HEENT normocephalic Eyes General Eye: normal appearance of both eyes Neck General: normal visual inspection Lymph Lymphatic: no lymphadenopathy noted and lymphedema Resp normal respiratory effort Cardio regular rate and regular rhythm Extremity no calf tenderness Extremity Narrative: Right lower extremity: Vascular: DP and PT pulses weakly palpable secondary to edema. CFT is less than 3 seconds to the digits. Normal temperature gradient. Hair growth is absent to digits. Neurologic: Gross sensation intact. Protective sensation is diminished second alisha to diabetic peripheral polyneuropathy Musculoskeletal: Muscle strength 5 of 5 age-appropriate. There is decreased range of motion of the ankle joint in dorsiflexion with the knee extended withou t pain or crepitus. There is decreased range of motion of the first metatarsophalangeal joint without pain or crepitus. Negative Bishop sign. Negative Serenity sign. Dermatologic: There is lipodermatosclerosis noted with inverted champagne bottle leg with significant circumferential hemosiderin deposition consistent with skin changes secondary to chronic venous insufficiency/stasis and lymphedema. Dorsal foot also displays hemosiderin deposition. There is edema to the lower extremity, about the ankle, and foot. There is a full-thickness ulceration to the dorsolateral aspect of the foot and lateral malleolus in the region of the small saphenous vein. Ulceration demonstrates mixed fibrogranular layer with serous weeping. No signs of infection. Left lower extremity: Vascular: DP and PT pulses weakly palpable secondary to edema. CFT is less than 3 seconds to the digits. Normal temperature gradient. Hair growth is absent to digits. Neurologic: Gross sensation intact. Protective sensation is diminished secondary to diabetic peripheral polyneuropathy Musculoskeletal: Muscle strength 5 of 5 age-appropriate. There is decreased range of motion of the ankle joint in dorsiflexion with the knee extended without pain or crepitus. There is decreased range of motion of the first metatarsophalangeal joint without pain or crepitus. Negative Bishop sign. Negative Serenity sign. Dermatologic: There is lipodermatosclerosis noted with inverted champagne bottle leg with significant circumferential hemosiderin deposition consistent with skin changes secondary to chronic venous insufficiency/stasis and lymphedema. Dorsal foot also displays hemosiderin deposition. There is edema to the lower extremity, about the ankle, and foot. Skin no rashes or lesions noted General Skin Exam: turgor decreased, venous stasis and dermatitis Neuro moves all extremities Debridement Note Debridement Note Post-Debridement Measurements and Additional Note: Post-Debridement Measurements/Treatment CECILE - Nurse 1 - General Ulcer Assessment Start: 09/13/24 14:20 Freq: Status: Active Protocol: ROSIO Activity Type Activity Date Activity User E-sign Co-sign Detail Recorded Client Recorded Date Recorded By Document 09/13/24 14:20 DL [id number] 09/13/24 14:28 DL Document 09/20/24 15:28 KW [id number] 09/20/24 15:40 KW Document 09/27/24 15:05 BMF [id number] 09/27/24 15:11 [facility] 09/13/24 09/20/24 09/27/24 14:20 15:28 15:05 - Today's Visit Information Type of service Initial Visit Follow-up Visit (Physician/ICE 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 SERVER ) Arrival Mode Ambulatory, Ambulatory, Walker Walker Transfer Assistance None None Patient Identification Verified (Name & Yes Yes ) Patient Requires Transmission-Based No No Precautions Vital Signs Temperature (97.8 F-99.1 F) 98 F 97.2 F L Temperature Source Temporal Temporal Pulse Rate (60-100) 45 L 68 Pulse Location Monitor Monitor Respiratory Rate (12-18) 18 18 Respiratory rate source Observation Observation Oxygen Delivery Method Room Air Blood Pressure (90/60-120/80) 138/74 H 125/70 H Blood Pressure Mean (mm Hg) 95 88 Source Monitor Monitor Position Sitting Blood Pressure Location Left Arm History Since Last Visit- (Skip if this is Patient's initial visit) Have you changed medications since your No No No last visit? Any new allergies or adverse reactions No No No Had a fall/change in ADL's that may No No No increase risk of falls Signs or symptoms of abuse and/or No No No neglect since last visit Have you been in the hospital since your No No No last visit? Has dressing in place as prescribed Yes Yes Yes Has compression in place as prescribed Yes Yes Yes Has offloadiing in place as prescribed Yes N/A N/A Experienced any changes in pain level or No No No management Left Footwear Regular Shoe Slipper Right Footwear Regular Shoe Slipper Pain Scale: 0-10 Numeric Is Patient Pain Free? Yes Yes Yes - Nurse 1 - General Ulcer Measurement Start: 09/13/24 14:20 Freq: Status: Active Protocol: Activity Type Activity Date Activity User E-sign Co-sign Detail Recorded Client Recorded Date Recorded By Document 09/13/24 14:20 DL [id number] 09/13/24 14:28 DL Document 09/20/24 15:28 KW [id number] 09/20/24 15:40 KW Document 09/27/24 15:05 [facility] [id number] 09/27/24 15:11 [facility] 09/13/24 09/20/24 09/27/24 14:20 15:28 15:05 Wound Center Nurse 1 #6 RT LAT ANKLE CLUSTER -Combined with other wound No -Current Size (cm) - Length 6 9 4 -Current Size (cm) - Width 3 6 2.5 -Current Size (cm) - Depth 0.1 0.1 0.1 -Total Square Cm 18 54 10.0 -Date of Last Picture (Recall this 09/20/24 field) -Epithelialization Small 1-33% -Tunneling No -Undermining/Tunneling No -Circular Undermining No -Exudate Amt Medium Large Medium -Exudate Type Serosanguineous Yellow/Green Serosanguineous -Wound Margin Distinct, Distinct, Flat & Intact Outline Outline Attached Attached -Granulation Amt Large (67-100%) Large (67-100%) Large (67-100%) -Granulation Quality Red Red Red -Slough/Fibrin No -Necrosis Amt None Present (0 None Present (0 %) %) -Structure Exposed N/A -Texture (Mariajose-wound Skin Appearance) Scarring Assessed Assessed, Scarring,Rash -Moisture (Mariajose-wound Skin Appearance) Dry/Scaly Assessed Assessed -Color (Mariajose-wound Skin Appearance) Hemosiderin Assessed, Assessed Staining Hemosiderin Staining -Temperature (Mariajose-wound Skin No Abnormality No Abnormality No Abnormality Appearance) (Pt Warm) (Pt Warm) (Pt Warm) -Tenderness on Palpation (Mariajose-wound No No No Skin Appearance) -Ulcer Cleansing Soap and Water Soap and Water Soap and Water -Foul Odor after Cleansing No No No -Anesthetic Used 4% Lidocaine 5% Lidocaine 5% Lidocaine Solution Gel Gel Right Calf (cm) 49 45 Right Ankle (cm) 24.5 23.5 Left Calf (cm) 43.5 Left Ankle (cm) 24 WC - Nurse 2 - General Ulcer CM Notes Start: 09/13/24 14:20 Freq: Status: Active Protocol: Activity Type Activity Date Activity User E-sign Co-sign Detail Recorded Client Recorded Date Recorded By Document 09/13/24 14:31 [id number] 09/13/24 14:33 Document 09/20/24 15:42 JF [id number] 09/20/24 15:45 Document 09/27/24 15:49 DS [id number] 09/27/24 15:51 DS 09/13/24 09/20/24 09/27/24 14:31 15:42 15:49 Wound Center Nurse 2 #6 RT LAT ANKLE CLUSTER -Time 14:31 15:50 -Correct Patient Yes Yes Yes -Correct Side, Site, Position Yes No Yes -Correct Procedure No No -Procedure Performed No No No -Tunneling No -Undermining/Tunneling No -Circular Undermining No -Wound/Ulcer Outcome Not Healed Not Healed Not Healed -Ulcer Cleansing Not Cleansed -Foul Odor after Cleansing No -Bleeding Controlled with NA -Offloading No Pain Scale: 0-10 Numeric Is Patient Pain Free? Yes Yes Yes - Nurse 3 - General Ulcer D/C NN Start: 09/13/24 14:20 Freq: Status: Active Protocol: Activity Type Activity Date Activity User E-sign Co-sign Detail Recorded Client Recorded Date Recorded By Document 09/13/24 14:37 DL [id number] 09/13/24 14:38 DL Document 09/20/24 16:00 KW [id number] 09/20/24 16:01 KW Document 09/27/24 16:11 DL [id number] 09/27/24 16:12 DL 09/13/24 09/20/24 09/27/24 14:37 16:00 16:11 Wound Care Center Nurse 3 #6 RT LAT ANKLE CLUSTER -Ulcer Cleansing Rinsed/ Irrigated with Saline -Foul Odor after Cleansing No -Primary Dressing Applied Optilok 5x5 1/2 AMD Dressing ,Silvercel 4x8 -Other Dressing betadine soaked gauze -Primary Dressing Covered/Secured with Dry Gauze & Roll Gauze -AMD Dressing 4x8 1 -Optilok 5x5 1/2 2 -Silvercel 1 BLE -Multi-Layered Wrap Application Multi-Layer Multi-Layer Multi-Layer Comp - Bilat ($ Comp - Bilat ($ Comp - Bilat ($ ) ) ) -Multi-Layer Compression Bilat (Qty 1 1 1 applied) Treatment Response Procedure Tolerated Well Pain Scale: 0-10 Numeric Is Patient Pain Free? Yes Yes Yes - Visit Discharge Discharge Condition Stable Ambulatory Status Ambulatory, Walker Transportation Private Auto Facility Type Home Health Orders Sent Yes Assessment/Plan Assessment/Plan (1) Other specified peripheral vascular diseases: CODE(S): I73.89 - Other specified peripheral vascular diseases PLAN: Patient was examined and evaluated. All findings were discussed with the patient. All questions were answered to the patient satisfaction. After exam the patient's breakdown of skin has improved to the bilateral lower extremity. Educated the patient that we will continue to wrap his bilateral legs with the multilayer compression bandage until completely improved. The left lower extremities were wiped clean and patted dry. AMD pad was applied to all irritated areas, followed by dry sterile dressing and 3M multilayer compression wrap bilateral. In regards to the antibiotic the patient shows good improvement and can stop the antibiotic due to the rash at this time. Educate the patient take Benadryl if he is still continuing to have some itching to the area. Patient will take either NyQuil Z or Tylenol PM if he continues to have issues with sleeping. Educated patient not to mix sleeping medications Patient will follow-up with Dr. Martinez in 1 week
[2024-10-04 10:16] VITALS: BP 151/87; PULSE 84; RESP 18; TEMP 36.6
--- NOTE | 2024-10-04 12:46 | PCM.WC.PN ---
History of Present Illness Date of Service: 10/04/24 Chief Complaint: Chronic venous disease with an ulceration on the right lateral ankle History of Wound: This is a 78-year-old male with multiple pre-existing medical problems. He has known chronic venous disease, and has had multiple venous ulcerations in both lower extremities in the past with recurrent bouts of cellulitis complicating these ulcers. He had undergone an ablation procedure in the right lower extremity approximately 6 years ago, though is uncertain as to the details, including the specifics of the procedure, the venue of the procedure, and the provider who performed the procedure. He then underwent ablation of the great saphenous vein with Dr. Waldron March 2023. Reports last visit with Dr. Waldron's office was 06/28/2024. The patient denies a history of thrombophlebitis in the lower extremities. Prior treatment of his lower extremity venous ulcerations has occurred at wound healing facilities in [facility], as well as at the [facility]. He presents today for evaluation and treatment of right lateral ankle and lateral foot ulcerations which have been present for 3 weeks. He has been treating these at home with Aquacel and Leslie dressings with limited success. The patient lives alone, and is of limited mobility. He does have visiting nursing which assists in dressing changes twice a week. He suffers from debility and is unable to don and doff graduated compression stockings which makes treatment difficult. The patient is limited in his ambulatory capacity, requiring a walker for mobility. He often sleeps in a recliner, and does not reliably elevate his legs as recommended. He uses compression lymphedema pumps twice daily. His pre-existing medical conditions include hypertension, hyperlipidemia, atrial fibrillation, congestive heart failure, diabetes mellitus, peripheral neuropathy, prostatism, spinal stenosis, chronic obstructive pulmonary disease, and obesity. Patient is on chronic systemic anticoagulation with Eliquis due to atrial fibrillation. He currently denies N/V/F/chills. Denies further complaints. Progress of Wound: Stable right lower extremity full-thickness wound controlled with compression. Subjective Subjective Patient is a 78-year-old diabetic male presented to wound care center today for follow-up evaluation of bilateral leg swelling right greater than left. Patient has been compliant with the multilayer compression bandages and left them on clean dry and intact. He admits improved pain to the right lower extremity. He took approximately 10 days of the Cipro before getting the hives on his back. He admits that all the hives and irritation from the antibiotic have cleared. He is using the nicotine patches which has helped with his smoking. He denies any trauma. Denies constitutional symptoms. No other pedal complaints at this time. Objective Data Objective Data Vital Signs: Vital Signs Temp Pulse Resp BP O2 Del Method 98 F 84 18 151/87 H Room Air 10/04/24 10:16 10/04/24 10:16 10/04/24 10:16 10/04/24 10:16 10/04/24 10:16 Oxygen Delivery Method Room Air Weight: 134.853 kg Lab / Micro Data Micro: Microbiology 09/21/24 15:50 Wound - Leg, Right Gram Stain - Final 09/21/24 15:50 Wound - Leg, Right Wound Culture - Final Pseudomonas aeruginosa Escherichia coli 09/21/24 15:50 Wound - Leg, Right Anaerobic Culture - Final No anaerobic bacteria isolated. Physical Exam Narrative Vascular: DP and PT pulses faintly palpable to the bilateral lower extremity. CFT is brisk to all digits bilateral. Skin temperature great is warm to warm from proximal ankles to distal digit bilateral. No erythema. Neurological: Light touch intact. Patient does respond to painful stimuli. Dermatological: Evidence of full-thickness wound to the right proximal leg measuring 9.0 x 7.0 x 0.1 cm. Wound base is granular with no signs of infection. Evidence of full-thickness wound to anterior right ankle measuring 13.0 x 10.0 x 0.1 cm. Wound base is granular with no sign of infection. Excisional debridement down to including subcutaneous tissue with a number 5 mm dermal curette to the right proximal leg wound full-thickness wound done without incident. Predebridement measurement was 8.8 x 6.9 x 0.1 cm. Postdebridement measurement is 9.0 x 7.0 x 0.1 cm. Excisional debridement down to including subcutaneous tissue with a number 5 mm dermal curette to the right anterior ankle full-thickness wound done without incident. Predebridement measurement was 12.8 x 9.8 x 0.1 cm. Postdebridement measurement is 13.0 x 10.0 x 0.1 cm. Musculoskeletal: No pain to palpation to the full-thickness wound in right lower extremity leg. No pain with calf pressure. HEENT normocephalic Eyes General Eye: normal appearance of both eyes Neck General: normal visual inspection Lymph Lymphatic: no lymphadenopathy noted and lymphedema Resp normal respiratory effort Cardio regular rate and regular rhythm Extremity no calf tenderness Extremity Narrative: Right lower extremity: Vascular: DP and PT pulses weakly palpable secondary to edema. CFT is less than 3 seconds to the digits. Normal temperature gradient. Hair growth is absent to digits. Neurologic: Gross sensation intact. Protective sensation is diminished secondary to diabetic peripheral polyneuropathy Musculoskeletal: Muscle strength 5 of 5 age-appropriate. There is decreased range of motion of the ankle joint in dorsiflexion with the knee extended without pain or crepitus. There is decreased range of motion of the first metatarsophalangeal joint without pain or crepitus. Negative Bishop sign. Negative Serenity sign. Dermatologic: There is lipodermatosclerosis noted with inverted champagne bottle leg with significant circumferential hemosiderin deposition consistent with skin changes secondary to chronic venous insufficiency/stasis and lymphedema. Dorsal foot also displays hemosiderin deposition. There is edema to the lower extremity, about the ankle, and foot. There is a full-thickness ulceration to the dorsolateral aspect of the foot and lateral malleolus in the region of the small saphenous vein. Ulceration demonstrates mixed fibrogranular layer with serous weeping. No signs of infection. Left lower extremity: Vascular: DP and PT pulses weakly palpable secondary to edema. CFT is less than 3 seconds to the digits. Normal temperature gradient. Hair growth is absent to digits. Neurologic: Gross sensation intact. Protective sensation is diminished secondary to diabetic peripheral polyneuropathy Musculoskeletal: Muscle strength 5 of 5 age-appropriate. There is decreased range of motion of the ankle joint in dorsiflexion with the knee extended without pain or crepitus. There is decreased range of motion of the first metatarsophalangeal joint without pain or crepitus. Negative Bishop sign. Negative Serenity sign. Dermatologic: There is lipodermatosclerosis noted with inverted champagne bottle leg with significant circumferential hemosiderin deposition consistent with skin changes secondary to chronic venous insufficiency/stasis and lymphedema. Dorsal foot also displays hemosiderin deposition. There is edema to the lower extremity, about the ankle, and foot. Skin no rashes or lesions noted General Skin Exam: turgor decreased, venous stasis and dermatitis Neuro moves all extremities Debridement Note Debridement Note Debridement Free Text: Excisional debridement down to including subcutaneous tissue with a number 5 mm dermal curette to the right proximal leg wound full-thickness wound done without incident. Predebridement measurement was 8.8 x 6.9 x 0.1 cm. Postdebridement measurement is 9.0 x 7.0 x 0.1 cm. Excisional debridement down to including subcutaneous tissue with a number 5 mm dermal curette to the right anterior ankle full-thickness wound done without incident. Predebridement measurement was 12.8 x 9.8 x 0.1 cm. Postdebridement measurement is 13.0 x 10.0 x 0.1 cm. Post-Debridement Measurements and Additional Note: Post-Debridement Measurements/Treatment - Nurse 1 - General Ulcer Assessment Start: 09/13/24 14:20 Freq: Status: Active Protocol: CECILE.[email or web address] Activity Type Activity Date Activity User E-sign Co-sign Detail Recorded Client Recorded Date Recorded By Document 09/13/24 14:20 DL [id number] 09/13/24 14:28 DL Document 09/20/24 15:28 KW [id number] 09/20/24 15:40 KW Document 09/27/24 15:05 BM [id number] 09/27/24 15:11 BM Document 10/04/24 10:16 MT [id number] 10/04/24 10:34 MT 09/13/24 09/20/24 09/27/24 14:20 15:28 15:05 - Today's Visit Information Type of service Initial Visit Follow-up Visit (Physician/GENERAL PRODUCTION WORKER ) Arrival Mode Ambulatory, Ambulatory, Walker Walker Transfer Assistance None None Accompanied by Patient Identification Verified (Name & Yes Yes ) Patient Requires Transmission-Based No No Precautions Safety Precautions Vital Signs Temperature (97.8 F-99.1 F) 98 F 97.2 F L Temperature Source Temporal Temporal Pulse Rate (60-100) 45 L 68 Pulse Location Monitor Monitor Respiratory Rate (12-18) 18 18 Respiratory rate source Observation Observation Oxygen Delivery Method Room Air Blood Pressure (90/60-120/80) 138/74 H 125/70 H Blood Pressure Mean (mm Hg) 95 88 Source Monitor Monitor Position Sitting Blood Pressure Location Left Arm History Since Last Visit- (Skip if this is Patient's initial visit) Have you changed medications since your No No No last visit? Any new allergies or adverse reactions No No No Had a fall/change in ADL's that may No No No increase risk of falls Signs or symptoms of abuse and/or No No No neglect since last visit Have you been in the hospital since your No No No last visit? Has dressing in place as prescribed Yes Yes Yes Has compression in place as prescribed Yes Yes Yes Has offloadiing in place as prescribed Yes N/A N/A Experienced any changes in pain level or No No No management Left Footwear Regular Shoe Slipper Right Footwear Regular Shoe Slipper Pain Scale: 0-10 Numeric Is Patient Pain Free? Yes Yes Yes 10/04/24 10:16 WC - Today's Visit Information Type of service Follow-up Visit (Physician/GENERAL PRODUCTION WORKER ) Arrival Mode Ambulatory Transfer Assistance Accompanied by SELF Patient Identification Verified (Name & Yes ) Patient Requires Transmission-Based Precautions Safety Precautions Fall Prevention Vital Signs Temperature (97.8 F-99.1 F) 98 F Temperature Source Temporal Pulse Rate (60-100) 84 Pulse Location Monitor Respiratory Rate (12-18) 18 Respiratory rate source Observation Oxygen Delivery Method Room Air Blood Pressure (90/60-120/80) 151/87 H Blood Pressure Mean (mm Hg) 108 Source Monitor Position Sitting Blood Pressure Location Left Arm History Since Last Visit- (Skip if this is Patient's initial visit) Have you changed medications since your last visit? Any new allergies or adverse reactions Had a fall/change in ADL's that may increase risk of falls Signs or symptoms of abuse and/or neglect since last visit Have you been in the hospital since your last visit? Has dressing in place as prescribed Yes Has compression in place as prescribed Yes Has offloadiing in place as prescribed Yes Experienced any changes in pain level or Yes management Left Footwear Regular Shoe Right Footwear Regular Shoe Pain Scale: 0-10 Numeric Is Patient Pain Free? Yes - Nurse 1 - General Ulcer Measurement Start: 09/13/24 14:20 Freq: Status: Active Protocol: Activity Type Activity Date Activity User E-sign Co-sign Detail Recorded Client Recorded Date Recorded By Document 09/13/24 14:20 DL [id number] 09/13/24 14:28 DL Document 09/20/24 15:28 KW [id number] 09/20/24 15:40 KW Document 09/27/24 15:05 [facility] [id number] 09/27/24 15:11 [facility] Document 10/04/24 10:16 RI [id number] 10/04/24 10:34 RI 09/13/24 09/20/24 09/27/24 14:20 15:28 15:05 Wound Center Nurse 1 #6 RT LAT ANKLE CLUSTER -Combined with other wound No -Current Size (cm) - Length 6 9 4 -Current Size (cm) - Width 3 6 2.5 -Current Size (cm) - Depth 0.1 0.1 0.1 -Total Square Cm 18 54 10.0 -Date of Last Picture (Recall this 09/20/24 field) -Photo Taken -Epithelialization Small 1-33% -Tunneling No -Undermining/Tunneling No -Circular Undermining No -Exudate Amt Medium Large Medium -Exudate Type Serosanguineous Yellow/Green Serosanguineous -Wound Margin Distinct, Distinct, Flat & Intact Outline Outline Attached Attached -Granulation Amt Large (67-100%) Large (67-100%) Large (67-100%) -Granulation Quality Red Red Red -Slough/Fibrin No -Necrosis Amt None Present (0 None Present (0 %) %) -Necrotic Tissue Type -Structure Exposed N/A -Texture (Mariajose-wound Skin Appearance) Scarring Assessed Assessed, Scarring,Rash -Moisture (Mariajose-wound Skin Appearance) Dry/Scaly Assessed Assessed -Color (Mariajose-wound Skin Appearance) Hemosiderin Assessed, Assessed Staining Hemosiderin Staining -Temperature (Mariajose-wound Skin No Abnormality No Abnormality No Abnormality Appearance) (Pt Warm) (Pt Warm) (Pt Warm) -Tenderness on Palpation (Mariajose-wound No No No Skin Appearance) -Ulcer Cleansing Soap and Water Soap and Water Soap and Water -Foul Odor after Cleansing No No No -Anesthetic Used 4% Lidocaine 5% Lidocaine 5% Lidocaine Solution Gel Gel Right Calf (cm) 49 45 Right Ankle (cm) 24.5 23.5 Left Calf (cm) 43.5 Left Ankle (cm) 24 10/04/24 10:16 Wound Center Nurse 1 #6 RT LAT ANKLE CLUSTER -Combined with other wound -Current Size (cm) - Length 12 -Current Size (cm) - Width 13 -Current Size (cm) - Depth 0.1 -Total Square Cm 156 -Date of Last Picture (Recall this 10/04/24 field) -Photo Taken Yes -Epithelialization -Tunneling No -Undermining/Tunneling No -Circular Undermining No -Exudate Amt Large -Exudate Type Serosanguineous -Wound Margin Flat & Intact -Granulation Amt Large (67-100%) -Granulation Quality Pale,[place] -Slough/Fibrin -Necrosis Amt Small (1-33%) -Necrotic Tissue Type Adherent Slough -Structure Exposed -Texture (Mariajose-wound Skin Appearance) Assessed -Moisture (Mariajose-wound Skin Appearance) Assessed -Color (Mariajose-wound Skin Appearance) Assessed -Temperature (Mariajose-wound Skin No Abnormality Appearance) (Pt Warm) -Tenderness on Palpation (Mariajose-wound No Skin Appearance) -Ulcer Cleansing Soap and Water -Foul Odor after Cleansing No -Anesthetic Used 5% Lidocaine Gel Right Calf (cm) Right Ankle (cm) Left Calf (cm) Left Ankle (cm) WC - Nurse 2 - General Ulcer CM Notes Start: 09/13/24 14:20 Freq: Status: Active Protocol: Activity Type Activity Date Activity User E-sign Co-sign Detail Recorded Client Recorded Date Recorded By Document 09/13/24 14:31 [id number] 09/13/24 14:33 Document 09/20/24 15:42 [id number] 09/20/24 15:45 Document 09/27/24 15:49 DS [id number] 09/27/24 15:51 Document 10/04/24 11:16 [id number] 10/04/24 11:17 09/13/24 09/20/24 09/27/24 14:31 15:42 15:49 Wound Center Nurse 2 RIGHT LEG -Time -Correct Patient -Correct Side, Site, Position -Correct Procedure -Procedure Performed -Type of Procedure -Clinical Debridement -Tissue Removed -Post Debridement (cm) - Length -Post Debridement (cm) - Width -Post Debridement (cm) - Depth -Total Square (Post) (cm) -Area of Debridement (cm) - Length -Area of Debridement (cm) - Width -Total Square (Area) (cm) -Tunneling -Undermining/Tunneling -Circular Undermining -Wound/Ulcer Outcome -Ulcer Cleansing -Foul Odor after Cleansing -Bioengineered Tissue -Bleeding Controlled with -Treatment Response -Offloading -Debridement - Subq, 1st 20sq cm #6 RT LAT ANKLE CLUSTER -Time 14:31 15:50 -Correct Patient Yes Yes Yes -Correct Side, Site, Position Yes No Yes -Correct Procedure No No -Procedure Performed No No No -Type of Procedure -Clinical Debridement -Tissue Removed -Post Debridement (cm) - Length -Post Debridement (cm) - Width -Post Debridement (cm) - Depth -Total Square (Post) (cm) -Area of Debridement (cm) - Length -Area of Debridement (cm) - Width -Total Square (Area) (cm) -Tunneling No -Undermining/Tunneling No -Circular Undermining No -Wound/Ulcer Outcome Not Healed Not Healed Not Healed -Ulcer Cleansing Not Cleansed -Foul Odor after Cleansing No -Bioengineered Tissue -Bleeding Controlled with NA -Treatment Response -Offloading No -Debridement - Subq, 1st 20sq cm -Debridement, SubQ, ea addt'l 20sq cm or part thereof Pain Scale: 0-10 Numeric Is Patient Pain Free? Yes Yes Yes 10/04/24 11:16 Wound Center Nurse 2 RIGHT LEG -Time 11:17 -Correct Patient Yes -Correct Side, Site, Position Yes -Correct Procedure Yes -Procedure Performed Yes -Type of Procedure Debridement -Clinical Debridement Subcutaneous -Tissue Removed Subcutaneous -Post Debridement (cm) - Length 9 -Post Debridement (cm) - Width 7 -Post Debridement (cm) - Depth 0.1 -Total Square (Post) (cm) 63 -Area of Debridement (cm) - Length 9 -Area of Debridement (cm) - Width 7 -Total Square (Area) (cm) 63 -Tunneling No -Undermining/Tunneling No -Circular Undermining No -Wound/Ulcer Outcome Not Healed -Ulcer Cleansing Rinsed/ Irrigated with Saline -Foul Odor after Cleansing No -Bioengineered Tissue No -Bleeding Controlled with Pressure -Treatment Response Procedure Tolerated Well -Offloading No -Debridement - Subq, 1st 20sq cm No #6 RT LAT ANKLE CLUSTER -Time 11:16 -Correct Patient Yes -Correct Side, Site, Position Yes -Correct Procedure Yes -Procedure Performed Yes -Type of Procedure Debridement -Clinical Debridement Subcutaneous -Tissue Removed Subcutaneous -Post Debridement (cm) - Length 13 -Post Debridement (cm) - Width 10 -Post Debridement (cm) - Depth 0.1 -Total Square (Post) (cm) 130 -Area of Debridement (cm) - Length 13 -Area of Debridement (cm) - Width 10 -Total Square (Area) (cm) 130 -Tunneling No -Undermining/Tunneling No -Circular Undermining No -Wound/Ulcer Outcome Not Healed -Ulcer Cleansing Rinsed/ Irrigated with Saline -Foul Odor after Cleansing No -Bioengineered Tissue No -Bleeding Controlled with Pressure -Treatment Response Procedure Tolerated Well -Offloading No -Debridement - Subq, 1st 20sq cm Yes -Debridement, SubQ, ea addt'l 20sq cm 9 or part thereof Pain Scale: 0-10 Numeric Is Patient Pain Free? Yes - Nurse 3 - General Ulcer D/C NN Start: 09/13/24 14:20 Freq: Status: Active Protocol: Activity Type Activity Date Activity User E-sign Co-sign Detail Recorded Client Recorded Date Recorded By Document 09/13/24 14:37 DL [id number] 09/13/24 14:38 DL Document 09/20/24 16:00 KW [id number] 09/20/24 16:01 KW Document 09/27/24 16:11 DL [id number] 09/27/24 16:12 DL Document 10/04/24 11:38 MT [id number] 10/04/24 11:43 MT 09/13/24 09/20/24 09/27/24 14:37 16:00 16:11 Wound Care Center Nurse 3 #6 RT LAT ANKLE CLUSTER -Ulcer Cleansing Rinsed/ Irrigated with Saline -Foul Odor after Cleansing No -Negative Pressure Wound Therapy -Primary Dressing Applied Optilok 5x5 1/2 AMD Dressing ,Silvercel 4x8 -Other Dressing betadine soaked gauze -Primary Dressing Covered/Secured with Dry Gauze & Roll Gauze -AMD Dressing 4x8 1 -Optilok 5x5 1/2 2 -Silvercel 1 BLE -Multi-Layered Wrap Application Multi-Layer Multi-Layer Multi-Layer Comp - Bilat ($ Comp - Bilat ($ Comp - Bilat ($ ) ) ) -Stockings -Multi-Layer Compression Bilat (Qty 1 1 1 applied) Treatment Response Procedure Tolerated Well Pain Scale: 0-10 Numeric Is Patient Pain Free? Yes Yes Yes - Visit Discharge Discharge Condition Stable Ambulatory Status Ambulatory, Walker Transportation Private Auto Medication Reconcilliation completed & provided to patient/care provider Clinical Summary of Care Provided Facility Type Home Health Orders Sent Yes 10/04/24 11:38 Wound Care Center Nurse 3 #6 RT LAT ANKLE CLUSTER -Ulcer Cleansing LOTION -Foul Odor after Cleansing No -Negative Pressure Wound Therapy N/A -Primary Dressing Applied Optilok 5x5 1/2 -Other Dressing -Primary Dressing Covered/Secured with Dry Gauze, Secured with Tape -AMD Dressing 4x8 -Optilok 5x5 1/2 1 -Silvercel BLE -Multi-Layered Wrap Application Multi-Layer Comp - Bilat ($ ) -Stockings No -Multi-Layer Compression Bilat (Qty 1 applied) Treatment Response Pain Scale: 0-10 Numeric Is Patient Pain Free? Yes WC - Visit Discharge Discharge Condition Stable Ambulatory Status Ambulatory Transportation Private Auto Medication Reconcilliation completed & No provided to patient/care provider Clinical Summary of Care Provided Yes Facility Type Orders Sent Assessment/Plan Assessment/Plan (1) Non-pressure chronic ulcer of other part of right lower leg with fat layer exposed: CODE(S): L97.812 - Non-pressure chronic ulcer of other part of right lower leg with fat layer exposed PLAN: Patient was examined and evaluated. All findings were discussed with the patient. All questions were answered to the patient's satisfaction. Excisional debridement down to including subcutaneous tissue with a number 5 mm dermal curette to the right proximal leg wound full-thickness wound done without incident. Predebridement measurement was 8.8 x 6.9 x 0.1 cm. Postdebridement measurement is 9.0 x 7.0 x 0.1 cm. Excisional debridement down to including subcutaneous tissue with a number 5 mm dermal curette to the right anterior ankle full-thickness wound done without incident. Predebridement measurement was 12.8 x 9.8 x 0.1 cm. Postdebridement measurement is 13.0 x 10.0 x 0.1 cm. The right lower extremity was wiped clean and patted dry. Betadine soaked gauze was applied to the proximal and anterior ankle full-thickness wound followed by a dry sterile dressing and multilayer compression bandage to the bilateral lower extremity. Patient will leave the compression wrap on, and clean dry and intact. He is to elevate whenever he is at rest. He is continue use the patches to help with his smoking sensation. Follow-up at the wound care center with Dr. Martinez in 1 week. (2) Non-pressure chronic ulcer of right ankle with fat layer exposed: CODE(S): L97.312 - Non-pressure chronic ulcer of right ankle with fat layer exposed (3) Other specified peripheral vascular diseases: CODE(S): I73.89 - Other specified peripheral vascular diseases (4) Chronic painful diabetic polyneuropathy: CODE(S): E11.42 - Type 2 diabetes mellitus with diabetic polyneuropathy
--- NOTE | 2024-10-04 13:45 | WC ---
PHOTO-RIGHT LAT ANKLE CLUSTER 10/04/24
== END 2024-10-08 23:59 | disposition home or self-care (01) ==
LOC: WC 10:00
PROVIDERS: Visit Provider Podiatrist Foot & Ankle Surgery
DX: E11.622 Type 2 diabetes mellitus with other skin ulcer (principal); L97.312 Non-pressure chronic ulcer of right ankle with fat layer exposed; L97.812 Non-pressure chronic ulcer of other part of right lower leg with fat layer exposed; J44.9 Chronic obstructive pulmonary disease, unspecified; I48.91 Unspecified atrial fibrillation; E11.42 Type 2 diabetes mellitus with diabetic polyneuropathy; I73.89 Other specified peripheral vascular diseases; E78.5 Hyperlipidemia, unspecified; E66.9 Obesity, unspecified; Z87.891 Personal history of nicotine dependence; R53.81 Other malaise; Z79.01 Long term (current) use of anticoagulants
CPT/HCPCS: 11042; 11045; 29581; 87070; 87075; 87077; 87186; 87205; 97802; 99213; 99214; G0463

== ENCOUNTER 2024-11-01 10:45 | Outpatient (RCR) | payer MEDICARE, MEDICAID, SELFPAY ==
[2024-10-11 11:34] VITALS: BP 133/66; PULSE 52; RESP 18; TEMP 36.7
--- NOTE | 2024-10-11 12:59 | PN.PCM_ITS ---
History of Present Illness Date of Service: 10/11/24 Chief Complaint: Chronic venous disease with an ulceration on the right lateral ankle History of Wound: This is a 78-year-old male with multiple pre-existing medical problems. He has known chronic venous disease, and has had multiple venous ulcerations in both lower extremities in the past with recurrent bouts of cellulitis complicating these ulcers. He had undergone an ablation procedure in the right lower extremity approximately 6 years ago, though is uncertain as to the details, including the specifics of the procedure, the venue of the procedure, and the provider who performed the procedure. He then underwent ablation of the great saphenous vein with Dr. Waldron March 2023. Reports last visit with Dr. Waldron's office was 06/28/2024. The patient denies a history of thrombophlebitis in the lower extremities. Prior treatment of his lower extremity venous ulcerations has occurred at wound healing facilities in [facility], as well as at the [facility]. He presents today for evaluation and treatment of right lateral ankle and lateral foot ulcerations which have been present for 3 weeks. He has been treating these at home with Aquacel and Leslie dressings with limited success. The patient lives alone, and is of limited mobility. He does have visiting nursing which assists in dressing changes twice a week. He suffers from debility and is unable to don and doff graduated compression stockings which makes treatment difficult. The patient is limited in his ambulatory capacity, requiring a walker for mobility. He often sleeps in a recliner, and does not reliably elevate his legs as recommended. He uses compression lymphedema pumps twice daily. His pre-existing medical conditions include hypertension, hyperlipidemia, atrial fibrillation, congestive heart failure, diabetes mellitus, peripheral neuropathy, prostatism, spinal stenosis, chronic obstructive pulmonary disease, and obesity. Patient is on chronic systemic anticoagulation with Eliquis due to atrial fibrillation. He currently denies N/V/F/chills. Denies further complaints. Progress of Wound: Stable partial breakdown of skin to the right lower extremity. Subjective Subjective Patient is a 78-year-old male presenting to wound care center today for follow- up evaluation of partial breakdown of skin to the right lower extremity. The patient has been compliant with multilayer compression bandage. Patient has refrained from smoking. He admits improvement to the bilateral lower extremity but still has draining to the right leg. He states that the compression wraps stayed up and did not fall down. He denies any pain to the right lower extremity. His blood sugars well-controlled. He denies trauma. Denies constitutional symptoms. No other pedal complaints at this time. Objective Data Objective Data Vital Signs: Vital Signs Temp Pulse Resp BP 98.1 F 52 L 18 133/66 H 10/11/24 11:34 10/11/24 11:34 10/11/24 11:34 10/11/24 11:34 Lab / Micro Data Micro: Microbiology 09/21/24 15:50 Wound - Leg, Right Gram Stain - Final 09/21/24 15:50 Wound - Leg, Right Wound Culture - Final Pseudomonas aeruginosa Escherichia coli 09/21/24 15:50 Wound - Leg, Right Anaerobic Culture - Final No anaerobic bacteria isolated. Physical Exam Narrative Vascular: DP and PT pulses faintly palpable to the bilateral lower extremity. CFT is brisk to all digits bilateral. Skin temperature great is warm to warm from proximal ankles to distal digit bilateral. Blanchable erythema to the right lower extremity. Neurological: Light touch intact. Patient does respond to painful stimuli. Dermatological: Evidence of partial breakdown of skin to the right anterior leg and right ankle. Wound base is granular with blanchable erythema and serous drainage. No malodor is appreciated. Musculoskeletal: No pain to palpation to the full-thickness wound in right lower extremity leg. No pain with calf pressure. HEENT normocephalic Eyes General Eye: normal appearance of both eyes Neck General: normal visual inspection Lymph Lymphatic: no lymphadenopathy noted and lymphedema Resp normal respiratory effort Cardio regular rate and regular rhythm Extremity no calf tenderness Extremity Narrative: Right lower extremity: Vascular: DP and PT pulses weakly palpable secondary to edema. CFT is less than 3 seconds to the digits. Normal temperature gradient. Hair growth is absent to digits. Neurologic: Gross sensation intact. Protective sensation is diminished secondary to diabetic peripheral polyneuropathy Musculoskeletal: Muscle strength 5 of 5 age-appropriate. There is decreased range of motion of the ankle joint in dorsiflexion with the knee extended without pain or crepitus. There is decreased range of motion of the first metatarsophalangeal joint without pain or crepitus. Negative Bishop sign. Negative Serenity sign. Dermatologic: There is lipodermatosclerosis noted with inverted champagne bottle leg with significant circumferential hemosiderin deposition consistent with skin changes secondary to chronic venous insufficiency/stasis and lymphedema. Dorsal foot also displays hemosiderin deposition. There is edema to the lower extremity, about the ankle, and foot. There is a full-thickness ulceration to the dorsolateral aspect of the foot and lateral malleolus in the region of the small saphenous vein. Ulceration demonstrates mixed fibrogranular layer with serous weeping. No signs of infection. Left lower extremity: Vascular: DP and PT pulses weakly palpable secondary to edema. CFT is less than 3 seconds to the digits. Normal temperature gradient. Hair growth is absent to digits. Neurologic: Gross sensation intact. Protective sensation is diminished secondary to diabetic peripheral polyneuropathy Musculoskeletal: Muscle strength 5 of 5 age-appropriate. There is decreased range of motion of the ankle joint in dorsiflexion with the knee extended without pain or crepitus. There is decreased range of motion of the first metatarsophalangeal joint without pain or crepitus. Negative Bishop sign. Negative Serenity sign. Dermatologic: There is lipodermatosclerosis noted with inverted champagne bottle leg with significant circumferential hemosiderin deposition consistent with skin changes secondary to chronic venous insufficiency/stasis and lymphedema. Dorsal foot also displays hemosiderin deposition. There is edema to the lower extremity, about the ankle, and foot. Skin no rashes or lesions noted General Skin Exam: turgor decreased, venous stasis and dermatitis Neuro moves all extremities Debridement Note Debridement Note Post-Debridement Measurements and Additional Note: Post-Debridement Measurements/Treatment - Nurse 1 - General Ulcer Assessment Start: 10/11/24 11:34 Freq: Status: Active Protocol: [email or web address] Activity Type Activity Date Activity User E-sign Co-sign Detail Recorded Client Recorded Date Recorded By Document 10/11/24 11:34 VALENTÍN [id number] 10/11/24 11:48 RB 10/11/24 11:34 - Today's Visit Information Type of service Follow-up Visit (Physician/[facility] ) Arrival Mode Ambulatory Transfer Assistance None Patient Identification Verified (Name & Yes ) Patient Requires Transmission-Based No Precautions Vital Signs Temperature (97.8 F-99.1 F) 98.1 F Temperature Source Temporal Pulse Rate (60-100) 52 L Pulse Location Monitor Respiratory Rate (12-18) 18 Respiratory rate source Observation Blood Pressure (90/60-120/80) 133/66 H Blood Pressure Mean (mm Hg) 88 Source Monitor Position Semi-Fowlers Blood Pressure Location Left Arm History Since Last Visit- (Skip if this is Patient's initial visit) Have you changed medications since your No last visit? Any new allergies or adverse reactions No Had a fall/change in ADL's that may No increase risk of falls Signs or symptoms of abuse and/or No neglect since last visit Have you been in the hospital since your No last visit? Has dressing in place as prescribed Yes Has compression in place as prescribed Yes Has offloadiing in place as prescribed N/A Experienced any changes in pain level or No management Pain Scale: 0-10 Numeric Is Patient Pain Free? Yes WC - Nurse 1 - General Ulcer Measurement Start: 10/11/24 11:34 Freq: Status: Active Protocol: Activity Type Activity Date Activity User E-sign Co-sign Detail Recorded Client Recorded Date Recorded By Document 10/11/24 11:34 VALENTÍN [id number] 10/11/24 11:48 VALENTÍN 10/11/24 11:34 Wound Center Nurse 1 RIGHT LEG -Combined with other wound No -Current Size (cm) - Length 0.1 -Current Size (cm) - Width 0.1 -Current Size (cm) - Depth 0.1 -Total Square Cm 0.01 -Photo Taken Yes -Tunneling No -Undermining/Tunneling No -Circular Undermining No -Exudate Amt Large -Exudate Type Serosanguineous -Wound Margin Distinct, Outline Attached -Granulation Amt Medium (34-66%) -Granulation Quality [place] -Slough/Fibrin Yes -Necrosis Amt Medium (34-66%) -Necrotic Tissue Type Adherent Slough -Structure Exposed N/A -Texture (Mariajose-wound Skin Appearance) Assessed, Excoriation -Moisture (Mariajose-wound Skin Appearance) Assessed -Color (Mariajose-wound Skin Appearance) Assessed -Temperature (Mariajose-wound Skin No Abnormality Appearance) (Pt Warm) -Tenderness on Palpation (Mariajose-wound No Skin Appearance) -Ulcer Cleansing Wound Cleanser -Foul Odor after Cleansing No -Anesthetic Used 5% Lidocaine Gel #6 RT LAT ANKLE CLUSTER -Combined with other wound No -Current Size (cm) - Length 0.1 -Current Size (cm) - Width 0.1 -Current Size (cm) - Depth 0.1 -Total Square Cm 0.01 -Photo Taken Yes -Tunneling No -Undermining/Tunneling No -Circular Undermining No -Exudate Amt Large -Exudate Type Serosanguineous -Wound Margin Distinct, Outline Attached -Granulation Amt Medium (34-66%) -Granulation Quality [place] -Slough/Fibrin Yes -Necrosis Amt Medium (34-66%) -Necrotic Tissue Type Adherent Slough -Structure Exposed N/A -Texture (Mariajose-wound Skin Appearance) Assessed, Excoriation -Moisture (Mariajose-wound Skin Appearance) Assessed -Color (Mariajose-wound Skin Appearance) Assessed -Temperature (Mariajose-wound Skin No Abnormality Appearance) (Pt Warm) -Tenderness on Palpation (Mariajose-wound No Skin Appearance) -Ulcer Cleansing Wound Cleanser -Foul Odor after Cleansing No -Anesthetic Used 5% Lidocaine Gel Lower Limb Edema Present Yes Right Calf (cm) 43 Right Ankle (cm) 24.5 Left Calf (cm) 42.5 Left Ankle (cm) 23.5 WC - Nurse 2 - General Ulcer CM Notes Start: 10/11/24 11:34 Freq: Status: Active Protocol: Activity Type Activity Date Activity User E-sign Co-sign Detail Recorded Client Recorded Date Recorded By Document 10/11/24 11:54 BINTA [id number] 10/11/24 12:01 BINTA 10/11/24 11:54 Wound Center Nurse 2 RIGHT LEG -Correct Patient Yes -Correct Side, Site, Position No -Correct Procedure No -Procedure Performed No -Post Debridement (cm) - Length 0.1 -Post Debridement (cm) - Width 0.1 -Post Debridement (cm) - Depth 0.1 -Total Square (Post) (cm) 0.01 -Area of Debridement (cm) - Length 0.1 -Area of Debridement (cm) - Width 0.1 -Total Square (Area) (cm) 0.01 -Wound/Ulcer Outcome Not Healed #6 RT LAT ANKLE CLUSTER -Correct Patient Yes -Correct Side, Site, Position No -Correct Procedure No -Procedure Performed No -Post Debridement (cm) - Length 0.1 -Post Debridement (cm) - Width 0.1 -Post Debridement (cm) - Depth 0.1 -Total Square (Post) (cm) 0.01 -Area of Debridement (cm) - Length 0.1 -Area of Debridement (cm) - Width 0.1 -Total Square (Area) (cm) 0.01 -Wound/Ulcer Outcome Not Healed Pain Scale: 0-10 Numeric Is Patient Pain Free? Yes - Nurse 3 - General Ulcer D/C NN Start: 10/11/24 11:34 Freq: Status: Active Protocol: Activity Type Activity Date Activity User E-sign Co-sign Detail Recorded Client Recorded Date Recorded By Document 10/11/24 12:18 CP [id number] 10/11/24 12:23 CP 10/11/24 12:18 Wound Care Center Nurse 3 RIGHT LEG -Ulcer Cleansing Rinsed/ Irrigated with Saline -Primary Dressing Applied Optilok 6.5x10 -Optilok 6.5x10 1 #6 RT LAT ANKLE CLUSTER -Ulcer Cleansing Rinsed/ Irrigated with Saline LLE -Multi-Layered Wrap Application Unna Boot - Left -Unna- Left (Qty applied) 1 RLE -Multi-Layered Wrap Application Unna Boot - Right -Unna- Right (Qty applied) 1 Treatment Response Procedure Tolerated Well Pain Scale: 0-10 Numeric Is Patient Pain Free? Yes - Visit Discharge Discharge Condition Stable Ambulatory Status Ambulatory Transportation Private Auto Medication Reconcilliation completed & Yes provided to patient/care provider Clinical Summary of Care Provided Yes Assessment/Plan Assessment/Plan (1) Other specified peripheral vascular diseases: CODE(S): I73.89 - Other specified peripheral vascular diseases PLAN: Patient was examined and evaluated. All findings were discussed with the patient. All questions were answered to the patient's satisfaction. After exam the patient shows evidence of partial breakdown of skin secondary to serous drainage of the right lower extremity. No tissue to debride during this visit. The right lower extremity was wiped clean and patted dry. Xeroform was applied to the partial breakdown of skin areas followed by dry sterile dressing and Unna boot were donned to the bilateral extremity. The patient was sent in a new prescription for 14 mg nicotine patches to be worn daily for the next 28 days. There is also a 7 mg nicotine patch prescription sent in to be dispensed after completing the 14 g prescription. Patient was educated to rest and elevate is much as possible. He is planning to see vascular surgery in the next upcoming weeks for evaluation and consultation. Patient will follow-up at the wound care center with Dr. Fischer in [address] Martinez in 2 weeks. (2) Chronic painful diabetic polyneuropathy: CODE(S): E11.42 - Type 2 diabetes mellitus with diabetic polyneuropathy
--- NOTE | 2024-10-12 09:58 | WC ---
PHOTO- RIGHT LEG 10/11/24
--- NOTE | 2024-10-12 10:08 | WC ---
PHOTO- RIGHT LEG UPPER 10/11/24
[2024-10-17 15:23] VITALS: BP 169/92; PULSE 73; RESP 18; TEMP 36.2
[2024-10-17 16:01] VITALS: BMI 34.0
--- NOTE | 2024-10-18 09:46 | WC ---
PHOTO-RIGHT LEG CLUSTER 10/17/24
--- NOTE | 2024-10-20 13:35 | HP.PCM_ITS ---
History of Present Illness Date of Service: 10/17/24 Chief Complaint: Chronic venous disease with an ulceration on the right lateral ankle History of Wound: This is an 78-year-old male who is seen on behalf of his regular Wound Center provider, Dr. Ramsey Martinez. The patient's medical history has been reviewed, and is documented below: This is a 78-year-old male with multiple pre-existing medical problems. He has known chronic venous disease, and has had multiple venous ulcerations in both lo wer extremities in the past with recurrent bouts of cellulitis complicating these ulcers. He had undergone an ablation procedure in the right lower extremity approximately 6 years ago, though is uncertain as to the details, including the specifics of the procedure, the venue of the procedure, and the provider who performed the procedure. He then underwent ablation of the great saphenous vein with Dr. Waldron March 2023. Reports last visit with Dr. Waldron's office was 06/28/2024. The patient denies a history of thrombophlebitis in the lower extremities. Prior treatment of his lower extremity venous ulcerations has occurred at wound healing facilities in [facility], as well as at the [facility]. He presented for evaluation and treatment of right lateral ankle and lateral foot ulcerations which had been present for 3 weeks. He had been treating these at home with Aquacel and Leslie dressings with limited success. The patient lives alone, and is of limited mobility. He does have visiting nursing which assists in dressing changes twice a week. He suffers from debility and is unable to don and doff graduated compression stockings which makes treatment difficult. The patient is limited in his ambulatory capacity, requiring a walker for mobility. He often sleeps in a recliner, and does not reliably elevate his legs as recommended. He uses compression lymphedema pumps twice daily. His pre- existing medical conditions include hypertension, hyperlipidemia, atrial fibrillation, congestive heart failure, diabetes mellitus, peripheral neuropathy, prostatism, spinal stenosis, chronic obstructive pulmonary disease, and obesity. The patient is on chronic systemic anticoagulation with Eliquis due to atrial fibrillation. He currently denies N/V/F/chills. Denies further complaints. The patient indicates that he quit smoking approximately 9 weeks ago, and is using a nicotine patch as an adjunctive measure. [facility] Medical History Tobacco abuse counseling Tobacco abuse Varicose veins with ulcer and inflammation Shortness of breath Debility Obesity (BMI 30-39.9) Spinal stenosis Diabetes mellitus Peripheral neuropathy Chronic anticoagulation Atrial fibrillation Hyperpigmentation Venous stasis ulcer Chronic venous hypertension w/ulcer and inflammation involv right side Chronic venous insufficiency Leg swelling HTN (hypertension) Anesthesia of skin Spinal stenosis, lumbar region with neurogenic claudication PVD (peripheral vascular disease) COPD (chronic obstructive pulmonary disease) Sleep apnea Home Medications ?Medication ?Instructions ?Recorded ?Last Taken ?Type Advair HFA BID 11/01/20 08/14/22 Histor y apixaban 5 mg tablet (Eliquis) 5 mg PO BID 11/01/20 History betamethasone dipropionate BID 11/01/20 Unknown Histor y rosuvastatin 20 mg tablet 20 mg PO DAILY 11/01/20 Unkn own History finasteride 5 mg tablet 5 mg PO DAILY 09/08/22 Unkno wn History doxazosin 4 mg tablet 4 mg PO DAILY 04/22/23 Unkno wn History omeprazole 20 mg capsule,delayed 20 mg PO DAILY Unknown History release gabapentin 100 mg capsule 100 mg PO BID 06/28/24 Unkno wn History albuterol sulfate 90 mcg/actuation inhalation 07/13/24 Unknown History aerosol inhaler mupirocin 2 % topical ointment topical TID 07/13/24 Un known History levofloxacin 500 mg tablet 500 mg PO DAILY 2 weeks #14 tabs 08/02/24 Unknown Rx nicotine 21 mg/24 hr daily 1 patch transdermal DAILY # 28 ea 08/30/24 Unknown Rx transdermal patch nicotine 21 mg/24 hr daily 1 patch transdermal DAILY 2 weeks 09/13/24 Unknown Rx transdermal patch #14 ea ciprofloxacin HCl 750 mg tablet 750 mg PO BID 2 weeks #28 tabs 09/20/24 Unknown Rx nicotine 14 mg/24 hr daily 1 patch transdermal DAILY 2 8 days 10/11/24 Unknown Rx transdermal patch #28 ea nicotine 7 mg/24 hr daily 1 patch transdermal DAILY 28 days 10/11/24 Unknown Rx transdermal patch #28 ea Allergy/AdvReac Type Severity Reaction Status Date / Time penicillin G Allergy Severe Hives Verified 07/13/24 10:22 Penicillins (PCN) Allergy Severe Hives Verified 07/13/24 10:22 Cephalosporins Allergy Intermediate Hives Verified 07/13/24 10:22 ciprofloxacin (From Cipro) Allergy Intermediate HIVES Verified 10/04/24 11:12 latex AdvReac Severe Hives Verified 07/13/24 10:22 Surgical History History of surgery on arm Social History Smoking Status: Heavy Smoker (>10/day) Vital Signs Vital Signs Vital Signs: Weight Weight: 280 lb Body Mass Index (BMI) 34.0 Physical Exam Const alert, oriented x3, no apparent distress and well nourished General Appearance: cooperative, comfortable and well developed Orientation / Consciousness: awake, oriented to person, oriented to place and oriented to time Exam Limitations: no limitations HEENT normocephalic and head/scalp atraumatic Head and Scalp: normal to inspection, normocephalic and atraumatic Nose: external nose normal External Ear: external ears normal Eyes EOMs intact bilaterally General Eye: normal appearance of both eyes Resp normal respiratory effort, normal air movement, no retractions and no use of accessory muscles Effort and Inspection: able to speak in complete sentences Extremity no calf tenderness General Extremity: Negative for clubbing or cyanosis Skin Wound Narrative: Moderate swelling and edema are noted in the patient's right lower extremity. Lipodermatosclerosis a severe, scaly venous stasis dermatitis is noted involving the right gaiter area and right foot. Scattered superficial excoriations are noted, though no devon open ulcerations are appreciated. There is no obvious sign of infection or cellulitis. Neuro oriented x3, CN's II-XII intact bilaterally, moves all extremities and no focal motor deficits Sensorium / Orientation: awake, alert, oriented to person, oriented to place and oriented to time Speech: speech normal Psych Appearance: grossly normal and appropriate Attitude: calm Activity / Motor Behavior: appropriate eye contact Speech: normal speech Mood & Affect: euthymic mood Thought Process: normal thought process Thought Content: normal thought content Attention / Concentration: attention grossly intact Debridement Note Debridement Note No debridement was completed: No debridement was completed today Post-Debridement Measurements and Additional Note: Post-Debridement Measurements/Treatment WC - Nurse 1 - General Ulcer Assessment Start: 10/11/24 11:34 Freq: Status: Active Protocol: WC.LOWEXT Activity Type Activity Date Activity User E-sign Co-sign Detail Recorded Client Recorded Date Recorded By Document 10/11/24 11:34 RB [id number] 10/11/24 11:48 RB Document 10/17/24 15:23 KW [id number] 10/17/24 15:51 KW Document 10/17/24 16:01 DS [id number] 10/17/24 16:02 DS Edit Result 10/17/24 16:01 DS (1) [id number] 10/17/24 16:02 DS (1) Weight 180 lb => 280 lb Weight in Pounds 180.0 lbs => 280.0 lbs Body Mass Index (BMI) 21.9 => 34.0 BMI Classification Normal => Obese 10/11/24 10/17/24 10/17/24 11:34 15:23 16:01 WC - Today's Visit Information Type of service Follow-up Visit Follow-up Visit (Physician/SUPERVISOR DECORATING (Physician/SUPERVISOR DECORATING ) ) Arrival Mode Ambulatory Ambulatory, Walker Transfer Assistance None Patient Identification Verified (Name & Yes Yes ) Patient Requires Transmission-Based No Precautions Height and Weight Height 6 ft 4 in Weight 280 lb Weight in Pounds 280.0 lbs Weight Measurement Method Estimated by Patient Body Mass Index (BMI) 34.0 BMI Classification Obese Vital Signs Temperature (97.8 F-99.1 F) 98.1 F 97.1 F L Temperature Source Temporal Temporal Pulse Rate (60-100) 52 L 73 Pulse Location Monitor Monitor Respiratory Rate (12-18) 18 18 Respiratory rate source Observation Observation Oxygen Delivery Method Room Air Blood Pressure (90/60-120/80) 133/66 H 169/92 H Blood Pressure Mean 88 117 Source Monitor Monitor Position Semi-Fowlers Semi-Fowlers Blood Pressure Location Left Arm Right Forearm History Since Last Visit- (Skip if this is Patient's initial visit) Have you changed medications since your No No last visit? Any new allergies or adverse reactions No No Had a fall/change in ADL's that may No No increase risk of falls Signs or symptoms of abuse and/or No No neglect since last visit Have you been in the hospital since your No No last visit? Has dressing in place as prescribed Yes Yes Has compression in place as prescribed Yes Yes Has offloadiing in place as prescribed N/A N/A Experienced any changes in pain level or No No management Left Footwear Regular Shoe Right Footwear Regular Shoe Pain Scale: 0-10 Numeric Is Patient Pain Free? Yes Yes Yes WC - Nurse 1 - General Ulcer Measurement Start: 10/11/24 11:34 Freq: Status: Active Protocol: Activity Type Activity Date Activity User E-sign Co-sign Detail Recorded Client Recorded Date Recorded By Document 10/11/24 11:34 RB [id number] 10/11/24 11:48 RB Document 10/17/24 15:23 KW [id number] 10/17/24 15:51 KW 10/11/24 10/17/24 11:34 15:23 Wound Center Nurse 1 RIGHT LEG -Combined with other wound No -Current Size (cm) - Length 0.1 0.1 -Current Size (cm) - Width 0.1 0.1 -Current Size (cm) - Depth 0.1 0 -Total Square Cm 0.01 0.01 -Date of Last Picture (Recall this 10/17/24 field) -Photo Taken Yes -Tunneling No -Undermining/Tunneling No -Circular Undermining No -Exudate Amt Large Large -Exudate Type Serosanguineous Yellow/Green -Wound Margin Distinct, Indistinct, Non Outline -Visible Attached -Granulation Amt Medium (34-66%) -Granulation Quality [place] -Slough/Fibrin Yes -Necrosis Amt Medium (34-66%) -Necrotic Tissue Type Adherent Slough -Structure Exposed N/A -Texture (Mariajose-wound Skin Appearance) Assessed, Assessed Excoriation -Moisture (Mariajose-wound Skin Appearance) Assessed Assessed,Dry/ Scaly -Color (Mariajose-wound Skin Appearance) Assessed Assessed, Hemosiderin Staining -Temperature (Mariajose-wound Skin No Abnormality No Abnormality Appearance) (Pt Warm) (Pt Warm) -Tenderness on Palpation (Mariajose-wound No No Skin Appearance) -Ulcer Cleansing Wound Cleanser Soap and Water -Foul Odor after Cleansing No No -Anesthetic Used 5% Lidocaine Gel -Wound Comment(s) old drainage, dry #6 RT LAT ANKLE CLUSTER -Combined with other wound No -Current Size (cm) - Length 0.1 0.1 -Current Size (cm) - Width 0.1 0.1 -Current Size (cm) - Depth 0.1 0 -Total Square Cm 0.01 0.01 -Date of Last Picture (Recall this 10/17/24 field) -Photo Taken Yes -Tunneling No -Undermining/Tunneling No -Circular Undermining No -Exudate Amt Large -Exudate Type Serosanguineous -Wound Margin Distinct, Outline Attached -Granulation Amt Medium (34-66%) -Granulation Quality [place] -Slough/Fibrin Yes -Necrosis Amt Medium (34-66%) -Necrotic Tissue Type Adherent Slough -Structure Exposed N/A -Texture (Mariajose-wound Skin Appearance) Assessed, Assessed Excoriation -Moisture (Mariajose-wound Skin Appearance) Assessed Assessed,Dry/ Scaly -Color (Mariajose-wound Skin Appearance) Assessed Assessed, Erythema, Hemosiderin Staining -Temperature (Mariajose-wound Skin No Abnormality No Abnormality Appearance) (Pt Warm) (Pt Warm) -Tenderness on Palpation (Mariajose-wound No No Skin Appearance) -Ulcer Cleansing Wound Cleanser -Foul Odor after Cleansing No -Anesthetic Used 5% Lidocaine Gel Lower Limb Edema Present Yes Right Calf (cm) 43 43.5 Right Ankle (cm) 24.5 25.5 Left Calf (cm) 42.5 44.7 Left Ankle (cm) 23.5 25.8 WC - Nurse 2 - General Ulcer CM Notes Start: 10/11/24 11:34 Freq: Status: Active Protocol: Activity Type Activity Date Activity User E-sign Co-sign Detail Recorded Client Recorded Date Recorded By Document 10/11/24 11:54 BINTA [id number] 10/11/24 12:01 JF Document 10/17/24 16:03 DS [id number] 10/17/24 16:06 LUIS CARLOS 10/11/24 10/17/24 11:54 16:03 Wound Center Nurse 2 RIGHT LEG -Time 16:05 -Correct Patient Yes Yes -Correct Side, Site, Position No Yes -Correct Procedure No -Procedure Performed No No -Post Debridement (cm) - Length 0.1 -Post Debridement (cm) - Width 0.1 -Post Debridement (cm) - Depth 0.1 -Total Square (Post) (cm) 0.01 -Area of Debridement (cm) - Length 0.1 -Area of Debridement (cm) - Width 0.1 -Total Square (Area) (cm) 0.01 -Wound/Ulcer Outcome Not Healed Not Healed #6 RT LAT ANKLE CLUSTER -Time 16:05 -Correct Patient Yes Yes -Correct Side, Site, Position No Yes -Correct Procedure No -Procedure Performed No No -Post Debridement (cm) - Length 0.1 -Post Debridement (cm) - Width 0.1 -Post Debridement (cm) - Depth 0.1 -Total Square (Post) (cm) 0.01 -Area of Debridement (cm) - Length 0.1 -Area of Debridement (cm) - Width 0.1 -Total Square (Area) (cm) 0.01 -Wound/Ulcer Outcome Not Healed Not Healed Pain Scale: 0-10 Numeric Is Patient Pain Free? Yes Yes - Nurse 3 - General Ulcer D/C NN Start: 10/11/24 11:34 Freq: Status: Active Protocol: Activity Type Activity Date Activity User E-sign Co-sign Detail Recorded Client Recorded Date Recorded By Document 10/11/24 12:18 CP [id number] 10/11/24 12:23 CP Edit Result 10/11/24 12:18 CP (1) [id number] 10/12/24 15:37 DS Document 10/17/24 16:24 KW [id number] 10/17/24 16:24 KW (1) BLE - Multi-Layered Wrap Application => Unna Boot - => Bilateral - Unna- Bilat (Qty applied) => 1 LLE - Multi-Layered Wrap Application Unna Boot - Left => - Unna- Left (Qty applied) 1 => RLE - Multi-Layered Wrap Application Unna Boot - Right => - Unna- Right (Qty applied) 1 => 10/11/24 10/17/24 12:18 16:24 Wound Care Center Nurse 3 RIGHT LEG -Ulcer Cleansing Rinsed/ Irrigated with Saline -Primary Dressing Applied Optilok 6.5x10 -Optilok 6.5x10 1 #6 RT LAT ANKLE CLUSTER -Ulcer Cleansing Rinsed/ Irrigated with Saline BLE -Multi-Layered Wrap Application Unna Boot - Unna Boot - Bilateral Bilateral -Unna- Bilat (Qty applied) 1 1 Treatment Response Procedure Tolerated Well Pain Scale: 0-10 Numeric Is Patient Pain Free? Yes Yes WC - Visit Discharge Discharge Condition Stable Stable Ambulatory Status Ambulatory Ambulatory, Walker Transportation Private Auto Private Auto Medication Reconcilliation completed & Yes No provided to patient/care provider Clinical Summary of Care Provided Yes Yes Charges/Coding Visit Charges Office Visits / Consults: [id number] OV L4 New 45min Assessment/Plan Assessment/Plan (1) Venous stasis ulcer: CODE(S): I83.009 - Varicose veins of unspecified lower extremity with ulcer of unspecified site; L97.909 - Non-pressure chronic ulcer of unspecified part of unspecified lower leg with unspecified severity QUALIFIERS: Venous stasis ulcer site: calf Varicose vein presence: with varicose veins Laterality: right Non-pressure ulcer stage: with fat layer exposed Qualified Code(s): I83.012 - Varicose veins of right lower extremity with ulcer of calf; L97.212 - Non-pressure chronic ulcer of right calf with fat layer exposed (2) Chronic venous hypertension w/ulcer and inflammation involv right side: CODE(S): I87.331 - Chronic venous hypertension (idiopathic) with ulcer and inflammation of right lower extremity; L97.919 - Non-pressure chronic ulcer of unspecified part of right lower leg with unspecified severity (3) Chronic venous insufficiency: CODE(S): I87.2 - Venous insufficiency (chronic) (peripheral) (4) Leg swelling: CODE(S): M79.89 - Other specified soft tissue disorders (5) Edema, lower extremity: CODE(S): R60.0 - Localized edema (6) Lipodermatosclerosis: CODE(S): M79.3 - Panniculitis, unspecified (7) Chronic painful diabetic polyneuropathy: CODE(S): E11.42 - Type 2 diabetes mellitus with diabetic polyneuropathy (8) Diabetes mellitus with diabetic polyneuropathy: CODE(S): E11.42 - Type 2 diabetes mellitus with diabetic polyneuropathy (9) Debility: CODE(S): R53.81 - Other malaise (10) Obesity (BMI 30-39.9): CODE(S): E66.9 - Obesity, unspecified (11) Spinal stenosis: CODE(S): M48.00 - Spinal stenosis, site unspecified QUALIFIERS: Spinal region: lumbar Neurogenic claudication status: with neurogenic claudication Qualified Code(s): M48.062 - Spinal stenosis, lumbar region with neurogenic claudication (12) Diabetes mellitus: CODE(S): E11.9 - Type 2 diabetes mellitus without complications QUALIFIERS: Diabetes mellitus type: type 2 Diabetes mellitus 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: without retirement use Diabetes mellitus complication status: with skin complications Diabetes mellitus complication detail: with other skin ulcer Qualified Code(s): E11.622 - Type 2 diabetes mellitus with other skin ulcer (13) Peripheral neuropathy: CODE(S): G62.9 - Polyneuropathy, unspecified QUALIFIERS: Peripheral neuropathy type: polyneuropathy, unspecified Qualified Code(s): G62.9 - Polyneuropathy, unspecified (14) COPD (chronic obstructive pulmonary disease): CODE(S): J44.9 - Chronic obstructive pulmonary disease, unspecified QUALIFIERS: COPD type: unspecified COPD Qualified Code(s): J44.9 - Chronic obstructive pulmonary disease, unspecified (15) HTN (hypertension): CODE(S): I10 - Essential (primary) hypertension QUALIFIERS: Hypertension type: primary hypertension Qualified Code(s): I10 - Essential (primary) hypertension PLAN: Plan This is an 78-year-old male with a longstanding history of chronic venous disease. He is seen today on behalf of Dr. Ramsey Martinez, his regular Wound Center provider. The patient suffers from chronic venous insufficiency, venous hypertension, and venous stasis dermatitis. He has been recently treated for a venous ulceration in his right lower extremity. At this juncture, the ulceration appears to be largely healed, though severe venous stasis skin changes persist, as well as several superficial excoriations. Results of recent vascular studies have been noted. A venous duplex examination performed on August 09, 2024, revealed evidence of a right great saphenous vein ablation above the knee, with incompetence of the great saphenous vein below the knee. An accessory saphenous vein in the right distal calf was noted to be incompetent. The left great saphenous vein was noted to be incompetent below the knee. A noninvasive lower extremity arterial study August 09, 2024, revealed no evidence of significant arterial occlusive disease. We are to continue the use of Unna compression wraps to the lower extremities bilaterally, which will be changed weekly. The patient has been instructed to continue sleeping on a flat surface at night. He has been encouraged to enhance his activity level. Prolonged idle sitting has been discouraged. The patient has been instructed to elevate his lower extremities to heart level, or higher, as much as possible. The patient possesses CircAid Velcro compression wraps, which will be warranted for use of the future. It is noted that the patient has an upcoming appointment with Dr. Waldron, Vascular Surgeon, on November 14, 2024, for evaluation relative to the role of further venous interventions. It is noted that the patient had a culture of right leg wound on October 12, 2024, which was positive for 3+ Pseudomonas aeruginosa. This matter has been discussed with Dr. Martinez, and the absence of overt signs of infection of the right lower extremity has prompted a decision to pursue an observant course, and to forego antibiotic treatment at this time. This decision considers that the patient has recently manifested an apparent allergic reaction to Cipro, and the current culture results suggest that ciprofloxacin and levofloxacin are the lowed oral agents appropriate to the treatment of the Pseudomonas infection. The patient is to return to follow-up with Dr. Martinez next week. Total time: 48 minutes
[2024-10-25 11:30] VITALS: BP 166/79; PULSE 78; RESP 18; TEMP 36.4; BMI 34.0
--- NOTE | 2024-10-25 12:59 | PCM.WC.PN ---
History of Present Illness Date of Service: 11/15/24 Chief Complaint: Chronic venous disease with an ulceration on the right lateral ankle History of Wound: This is an 78-year-old male who is seen on behalf of his regular Wound Center provider, Dr. Ramsey Martinez. The patient's medical history has been reviewed, and is documented below: This is a 78-year-old male with multiple pre-existing medical problems. He has known chronic venous disease, and has had multiple venous ulcerations in both lower extremities in the past with recurrent bouts of cellulitis complicating these ulcers. He had undergone an ablation procedure in the right lower extremity approximately 6 years ago, though is uncertain as to the details, including the specifics of the procedure, the venue of the procedure, and the provider who performed the procedure. He then underwent ablation of the great saphenous vein with Dr. Waldron March 2023. Reports last visit with Dr. Waldron's office was 06/28/2024. The patient denies a history of thrombophlebitis in the lower extremities. Prior treatment of his lower extremity venous ulcerations has occurred at wound healing facilities in [facility], as well as at the [facility]. He presented for evaluation and treatment of right lateral ankle and lateral foot ulcerations which had been present for 3 weeks. He had been treating these at home with Aquacel and Leslie dressings with limited success. The patient lives alone, and is of limited mobility. He does have visiting nursing which assists in dressing changes twice a week. He suffers from debility and is unable to don and doff graduated compression stockings which makes treatment difficult. The patient is limited in his ambulatory capacity, requiring a walker for mobility. He often sleeps in a recliner, and does not reliably elevate his legs as recommended. He uses compression lymphedema pumps twice daily. His pre-existing medical conditions include hypertension, hyperlipidemia, atrial fibrillation, congestive heart failure, diabetes mellitus, peripheral neuropathy, prostatism, spinal stenosis, chronic obstructive pulmonary disease, and obesity. The patient is on chronic systemic anticoagulation with Eliquis due to atrial fibrillation. He currently denies N/V/F/chills. Denies further complaints. The patient indicates that he quit smoking approximately 9 weeks ago, and is using a nicotine patch as an adjunctive measure. Progress of Wound: Bilateral leg swelling and breakdown of skin has improved to the bilateral lower extremity. Subjective Subjective Patient is a 78-year-old male presenting to wound care center today follow-up evaluation of bilateral leg swelling with breakdown of skin of the right lower extremity. Patient has left the Unna boot clean dry and intact. He much great improvement to his swelling. He is using nicotine patches as prescribed. He denies any pain to the bilateral lower extremity. Denies trauma. Denies constitutional symptoms. No other pedal complaints at this time. Objective Data Objective Data Vital Signs: Vital Signs Temp Pulse Resp BP O2 Del Method 97.5 F L 78 18 166/79 H Room Air 10/25/24 11:30 10/25/24 11:30 10/25/24 11:30 10/25/24 11:30 10/25/24 11:30 Oxygen Delivery Method Room Air Weight: 127.006 kg Body Mass Index (BMI) 34.0 Lab / Micro Data Micro: Microbiology 10/12/24 12:00 Wound - Leg, Right Gram Stain - Final 10/12/24 12:00 Wound - Leg, Right Wound Culture - Final Pseudomonas aeruginosa 10/12/24 12:00 Wound - Leg, Right Anaerobic Culture - Final No anaerobic bacteria isolated. Physical Exam Narrative Vascular: DP and PT pulses faintly palpable to the bilateral lower extremity. CFT is brisk to all digits bilateral. Skin temperature great is warm to warm from proximal ankles to distal digit bilateral. Blanchable erythema to the right lower extremity. Neurological: Light touch intact. Patient does respond to painful stimuli. Dermatological: Evidence of partial breakdown of skin to the right anterior leg and right ankle, improved. No concern for infection Musculoskeletal: No pain to palpation to the full-thickness wound in right lower extremity leg. No pain with calf pressure. HEENT normocephalic Eyes General Eye: normal appearance of both eyes Neck General: normal visual inspection Lymph Lymphatic: no lymphadenopathy noted and lymphedema Resp normal respiratory effort Cardio regular rate and regular rhythm Extremity no calf tenderness Extremity Narrative: Right lower extremity: Vascular: DP and PT pulses weakly palpable secondary to edema. CFT is less than 3 seconds to the digits. Normal temperature gradient. Hair growth is absent to digits. Neurologic: Gross sensation intact. Protective sensation is diminished secondary to diabetic peripheral polyneuropathy Musculoskeletal: Muscle strength 5 of 5 age-appropriate. There is decreased range of motion of the ankle joint in dorsiflexion with the knee extended without pain or crepitus. There is decreased range of motion of the first metatarsophalangeal joint without pain or crepitus. Negative Bishop sign. Negative Serenity sign. Dermatologic: There is lipodermatosclerosis noted with inverted champagne bottle leg with significant circumferential hemosiderin deposition consistent with skin changes secondary to chronic venous insufficiency/stasis and lymphedema. Dorsal foot also displays hemosiderin deposition. There is edema to the lower extremity, about the ankle, and foot. There is a full-thickness ulceration to the dorsolateral aspect of the foot and lateral malleolus in the region of the small saphenous vein. Ulceration demonstrates mixed fibrogranular layer with serous weeping. No signs of infection. Left lower extremity: Vascular: DP and PT pulses weakly palpable secondary to edema. CFT is less than 3 seconds to the digits. Normal temperature gradient. Hair growth is absent to digits. Neurologic: Gross sensation intact. Protective sensation is diminished secondary to diabetic peripheral polyneuropathy Musculoskeletal: Muscle strength 5 of 5 age-appropriate. There is decreased range of motion of the ankle joint in dorsiflexion with the knee extended without pain or crepitus. There is decreased range of motion of the first metatarsophalangeal joint without pain or crepitus. Negative Bishop sign. Negative Serenity sign. Dermatologic: There is lipodermatosclerosis noted with inverted champagne bottle leg with significant circumferential hemosiderin deposition consistent with skin changes secondary to chronic venous insufficiency/stasis and lymphedema. Dorsal foot also displays hemosiderin deposition. There is edema to the lower extremity, about the ankle, and foot. Skin no rashes or lesions noted General Skin Exam: turgor decreased, venous stasis and dermatitis Neuro moves all extremities Debridement Note Debridement Note Post-Debridement Measurements and Additional Note: Post-Debridement Measurements/Treatment WC - Nurse 1 - General Ulcer Assessment Start: 10/11/24 11:34 Freq: Status: Active Protocol: ROSIO Activity Type Activity Date Activity User E-sign Co-sign Detail Recorded Client Recorded Date Recorded By Document 10/11/24 11:34 RB [id number] 10/11/24 11:48 RB Document 10/17/24 15:23 KW [id number] 10/17/24 15:51 KW Document 10/17/24 16:01 DS [id number] 10/17/24 16:02 DS Edit Result 10/17/24 16:01 DS (1) [id number] 10/17/24 16:02 DS Document 10/25/24 11:30 KW [id number] 10/25/24 11:42 KW (1) Weight 81.647 kg => 127.006 kg Weight in Pounds 180.0 lbs => 280.0 lbs Body Mass Index (BMI) 21.9 => 34.0 BMI Classification Normal => Obese 10/11/24 10/17/24 10/17/24 11:34 15:23 16:01 WC - Today's Visit Information Type of service Follow-up Visit Follow-up Visit (Physician/[employer] (Physician/[employer] ) ) Arrival Mode Ambulatory Ambulatory, Walker Transfer Assistance None Patient Identification Verified (Name & Yes Yes ) Patient Requires Transmission-Based No Precautions Height and Weight Height 6 ft 4 in Weight 127.006 kg Weight in Pounds 280.0 lbs Weight Measurement Method Estimated by Patient Body Mass Index (BMI) 34.0 BMI Classification Obese Vital Signs Temperature (97.8 F-99.1 F) 98.1 F 97.1 F L Temperature Source Temporal Temporal Pulse Rate (60-100) 52 L 73 Pulse Location Monitor Monitor Respiratory Rate (12-18) 18 18 Respiratory rate source Observation Observation Oxygen Delivery Method Room Air Blood Pressure (90/60-120/80) 133/66 H 169/92 H Blood Pressure Mean (mm Hg) 88 117 Source Monitor Monitor Position Semi-Fowlers Semi-Fowlers Blood Pressure Location Left Arm Right Forearm History Since Last Visit- (Skip if this is Patient's initial visit) Have you changed medications since your No No last visit? Any new allergies or adverse reactions No No Had a fall/change in ADL's that may No No increase risk of falls Signs or symptoms of abuse and/or No No neglect since last visit Have you been in the hospital since your No No last visit? Has dressing in place as prescribed Yes Yes Has compression in place as prescribed Yes Yes Has offloadiing in place as prescribed N/A N/A Experienced any changes in pain level or No No management Left Footwear Regular Shoe Right Footwear Regular Shoe Pain Scale: 0-10 Numeric Is Patient Pain Free? Yes Yes Yes 10/25/24 11:30 WC - Today's Visit Information Type of service Follow-up Visit (Physician/[employer] ) Arrival Mode Ambulatory, Walker Transfer Assistance Patient Identification Verified (Name & Yes ) Patient Requires Transmission-Based Precautions Height and Weight Height Weight Weight in Pounds Weight Measurement Method Body Mass Index (BMI) 34.0 BMI Classification Obese Vital Signs Temperature (97.8 F-99.1 F) 97.5 F L Temperature Source Temporal Pulse Rate (60-100) 78 Pulse Location Monitor Respiratory Rate (12-18) 18 Respiratory rate source Observation Oxygen Delivery Method Room Air Blood Pressure (90/60-120/80) 166/79 H Blood Pressure Mean (mm Hg) 108 Source Position Blood Pressure Location History Since Last Visit- (Skip if this is Patient's initial visit) Have you changed medications since your No last visit? Any new allergies or adverse reactions No Had a fall/change in ADL's that may No increase risk of falls Signs or symptoms of abuse and/or No neglect since last visit Have you been in the hospital since your No last visit? Has dressing in place as prescribed Yes Has compression in place as prescribed Yes Has offloadiing in place as prescribed N/A Experienced any changes in pain level or No management Left Footwear Regular Shoe Right Footwear Regular Shoe Pain Scale: 0-10 Numeric Is Patient Pain Free? Yes - Nurse 1 - General Ulcer Measurement Start: 10/11/24 11:34 Freq: Status: Active Protocol: Activity Type Activity Date Activity User E-sign Co-sign Detail Recorded Client Recorded Date Recorded By Document 10/11/24 11:34 RB [id number] 10/11/24 11:48 RB Document 10/17/24 15:23 KW [id number] 10/17/24 15:51 KW Document 10/25/24 11:30 KW [id number] 10/25/24 11:42 KW 10/11/24 10/17/24 10/25/24 11:34 15:23 11:30 Wound Center Nurse 1 RIGHT LEG -Combined with other wound No -Current Size (cm) - Length 0.1 0.1 -Current Size (cm) - Width 0.1 0.1 -Current Size (cm) - Depth 0.1 0 -Total Square Cm 0.01 0.01 -Date of Last Picture (Recall this 10/17/24 field) -Photo Taken Yes -Tunneling No -Undermining/Tunneling No -Circular Undermining No -Exudate Amt Large Large -Exudate Type Serosanguineous Yellow/Green -Wound Margin Distinct, Indistinct, Non Indistinct, Non Outline -Visible -Visible Attached -Granulation Amt Medium (34-66%) -Granulation Quality Hoover -Slough/Fibrin Yes -Necrosis Amt Medium (34-66%) -Necrotic Tissue Type Adherent Slough -Structure Exposed N/A -Texture (Mariajose-wound Skin Appearance) Assessed, Assessed Assessed Excoriation -Moisture (Mariajose-wound Skin Appearance) Assessed Assessed,Dry/ Assessed, Scaly Weeping,Dry/ Scaly -Color (Mariajose-wound Skin Appearance) Assessed Assessed, Assessed, Hemosiderin Hemosiderin Staining Staining -Temperature (Mariajose-wound Skin No Abnormality No Abnormality No Abnormality Appearance) (Pt Warm) (Pt Warm) (Pt Warm) -Tenderness on Palpation (Mariajose-wound No No No Skin Appearance) -Ulcer Cleansing Wound Cleanser Soap and Water Soap and Water -Foul Odor after Cleansing No No No -Anesthetic Used 5% Lidocaine Gel -Wound Comment(s) old drainage, dry #6 RT LAT ANKLE CLUSTER -Combined with other wound No -Current Size (cm) - Length 0.1 0.1 -Current Size (cm) - Width 0.1 0.1 -Current Size (cm) - Depth 0.1 0 -Total Square Cm 0.01 0.01 -Date of Last Picture (Recall this 10/17/24 field) -Photo Taken Yes -Tunneling No -Undermining/Tunneling No -Circular Undermining No -Exudate Amt Large -Exudate Type Serosanguineous -Wound Margin Distinct, Indistinct, Non Outline -Visible Attached -Granulation Amt Medium (34-66%) -Granulation Quality Hoover -Slough/Fibrin Yes -Necrosis Amt Medium (34-66%) -Necrotic Tissue Type Adherent Slough -Structure Exposed N/A -Texture (Mariajose-wound Skin Appearance) Assessed, Assessed Assessed Excoriation -Moisture (Mariajose-wound Skin Appearance) Assessed Assessed,Dry/ Assessed,Dry/ Scaly Scaly -Color (Mariajose-wound Skin Appearance) Assessed Assessed, Assessed, Erythema, Erythema, Hemosiderin Hemosiderin Staining Staining -Temperature (Mariajose-wound Skin No Abnormality No Abnormality Appearance) (Pt Warm) (Pt Warm) -Tenderness on Palpation (Mariajose-wound No No Skin Appearance) -Ulcer Cleansing Wound Cleanser Soap and Water -Foul Odor after Cleansing No No -Anesthetic Used 5% Lidocaine Gel Lower Limb Edema Present Yes Right Calf (cm) 43 43.5 41 Right Ankle (cm) 24.5 25.5 23.5 Left Calf (cm) 42.5 44.7 42.5 Left Ankle (cm) 23.5 25.8 23 WC - Nurse 2 - General Ulcer CM Notes Start: 10/11/24 11:34 Freq: Status: Active Protocol: Activity Type Activity Date Activity User E-sign Co-sign Detail Recorded Client Recorded Date Recorded By Document 10/11/24 11:54 JF [id number] 10/11/24 12:01 JF Document 10/17/24 16:03 DS [id number] 10/17/24 16:06 DS Document 10/25/24 11:54 JF [id number] 10/25/24 11:56 JF 10/11/24 10/17/24 10/25/24 11:54 16:03 11:54 Wound Center Nurse 2 RIGHT LEG -Time 16:05 -Correct Patient Yes Yes Yes -Correct Side, Site, Position No Yes No -Correct Procedure No No -Procedure Performed No No No -Post Debridement (cm) - Length 0.1 0 -Post Debridement (cm) - Width 0.1 0 -Post Debridement (cm) - Depth 0.1 0 -Total Square (Post) (cm) 0.01 0 -Area of Debridement (cm) - Length 0.1 0 -Area of Debridement (cm) - Width 0.1 0 -Total Square (Area) (cm) 0.01 0 -Wound/Ulcer Outcome Not Healed Not Healed Healed- Epithelialized #6 RT LAT ANKLE CLUSTER -Time 16:05 -Correct Patient Yes Yes Yes -Correct Side, Site, Position No Yes No -Correct Procedure No No -Procedure Performed No No No -Post Debridement (cm) - Length 0.1 0 -Post Debridement (cm) - Width 0.1 0 -Post Debridement (cm) - Depth 0.1 0 -Total Square (Post) (cm) 0.01 0 -Area of Debridement (cm) - Length 0.1 0 -Area of Debridement (cm) - Width 0.1 0 -Total Square (Area) (cm) 0.01 0 -Wound/Ulcer Outcome Not Healed Not Healed Healed- Epithelialized Pain Scale: 0-10 Numeric Is Patient Pain Free? Yes Yes Yes WC - Nurse 3 - General Ulcer D/C NN Start: 10/11/24 11:34 Freq: Status: Active Protocol: Activity Type Activity Date Activity User E-sign Co-sign Detail Recorded Client Recorded Date Recorded By Document 10/11/24 12:18 CP [id number] 10/11/24 12:23 CP Edit Result 10/11/24 12:18 CP (1) [id number] 10/12/24 15:37 DS Document 10/17/24 16:24 KW [id number] 10/17/24 16:24 KW Document 10/25/24 12:08 KW [id number] 10/25/24 12:08 KW (1) BLE - Multi-Layered Wrap Application => Unna Boot - => Bilateral - Unna- Bilat (Qty applied) => 1 LLE - Multi-Layered Wrap Application Unna Boot - Left => - Unna- Left (Qty applied) 1 => RLE - Multi-Layered Wrap Application Unna Boot - Right => - Unna- Right (Qty applied) 1 => 10/11/24 10/17/24 10/25/24 12:18 16:24 12:08 Wound Care Center Nurse 3 RIGHT LEG -Ulcer Cleansing Rinsed/ Irrigated with Saline -Primary Dressing Applied Optilok 6.5x10 -Optilok 6.5x10 1 #6 RT LAT ANKLE CLUSTER -Ulcer Cleansing Rinsed/ Irrigated with Saline BLE -Multi-Layered Wrap Application Unna Boot - Unna Boot - Unna Boot - Bilateral Bilateral Bilateral -Unna- Bilat (Qty applied) 1 1 1 Treatment Response Procedure Tolerated Well Pain Scale: 0-10 Numeric Is Patient Pain Free? Yes Yes Yes WC - Visit Discharge Discharge Condition Stable Stable Stable Ambulatory Status Ambulatory Ambulatory, Ambulatory, Walker Walker Transportation Private Auto Private Auto Private Auto Medication Reconcilliation completed & Yes No No provided to patient/care provider Clinical Summary of Care Provided Yes Yes Yes Assessment/Plan Assessment/Plan (1) Other specified peripheral vascular diseases: CODE(S): I73.89 - Other specified peripheral vascular diseases PLAN: Patient was examined and evaluated. All findings were discussed with the patient. All questions were answered to the patient's satisfaction. After exam the patient shows great improvement to the bilateral lower extremity swelling with breakdown of skin to the right leg. All wounds at this time are improved and healed. Patient we placed in bilateral Unna boots and to leave them clean dry and intact. He will follow-up for nursing visits as needed. Educated patient to bring his multilayer compression wraps during his next visit so they can be done by nursing staff and then discharge from the wound care center. Patient will follow-up at the wound care center with Dr. Martinez in 1 week. (2) Chronic painful diabetic polyneuropathy: CODE(S): E11.42 - Type 2 diabetes mellitus with diabetic polyneuropathy
[2024-11-01 11:02] VITALS: BP 130/67; PULSE 63; RESP 18; TEMP 36.2; BMI 34.0
--- NOTE | 2024-11-01 12:52 | PCM.WC.PN ---
History of Present Illness Date of Service: 11/01/24 Chief Complaint: Chronic venous disease with an ulceration on the right lateral ankle History of Wound: This is an 78-year-old male who is seen on behalf of his regular Wound Center provider, Dr. Ramsey Martinez. The patient's medical history has been reviewed, and is documented below: This is a 78-year-old male with multiple pre-existing medical problems. He has known chronic venous disease, and has had multiple venous ulcerations in both lower extremities in the past with recurrent bouts of cellulitis complicating these ulcers. He had undergone an ablation procedure in the right lower extremity approximately 6 years ago, though is uncertain as to the details, including the specifics of the procedure, the venue of the procedure, and the provider who performed the procedure. He then underwent ablation of the great saphenous vein with Dr. Waldron March 2023. Reports last visit with Dr. Waldron's office was 06/28/2024. The patient denies a history of thrombophlebitis in the lower extremities. Prior treatment of his lower extremity venous ulcerations has occurred at wound healing facilities in [facility], as well as at the [facility]. He presented for evaluation and treatment of right lateral ankle and lateral foot ulcerations which had been present for 3 weeks. He had been treating these at home with Aquacel and Leslie dressings with limited success. The patient lives alone, and is of limited mobility. He does have visiting nursing which assists in dressing changes twice a week. He suffers from debility and is unable to don and doff graduated compression stockings which makes treatment difficult. The patient is limited in his ambulatory capacity, requiring a walker for mobility. He often sleeps in a recliner, and does not reliably elevate his legs as recommended. He uses compression lymphedema pumps twice daily. His pre-existing medical conditions include hypertension, hyperlipidemia, atrial fibrillation, congestive heart failure, diabetes mellitus, peripheral neuropathy, prostatism, spinal stenosis, chronic obstructive pulmonary disease, and obesity. The patient is on chronic systemic anticoagulation with Eliquis due to atrial fibrillation. He currently denies N/V/F/chills. Denies further complaints. The patient indicates that he quit smoking approximately 9 weeks ago, and is using a nicotine patch as an adjunctive measure. Progress of Wound: Bilateral leg swelling and breakdown of skin has improved to the bilateral lower extremity. Subjective Subjective Patient is a 78-year-old male presented to clinic today follow-up evaluation of bilateral leg swelling with multilayer compression bandage application. He is left the bandages clean dry and intact. He has a CircAid with him today. He is pumping and using his recumbent bike with great improvement. He states that he can go up to 1300 steps per day. He denies any trauma. Denies constitutional symptoms. He has quit smoking completely. No other pedal complaints at this time. Objective Data Objective Data Vital Signs: Vital Signs Temp Pulse Resp BP O2 Del Method 97.2 F L 63 18 130/67 H Room Air 11/01/24 11:02 11/01/24 11:02 11/01/24 11:02 11/01/24 11:02 11/01/24 11:02 Oxygen Delivery Method Room Air Weight: 127.006 kg Body Mass Index (BMI) 34.0 Lab / Micro Data Micro: Microbiology 10/12/24 12:00 Wound - Leg, Right Gram Stain - Final 10/12/24 12:00 Wound - Leg, Right Wound Culture - Final Pseudomonas aeruginosa 10/12/24 12:00 Wound - Leg, Right Anaerobic Culture - Final No anaerobic bacteria isolated. Physical Exam Narrative Vascular: DP and PT pulses faintly palpable to the bilateral lower extremity. CFT is brisk to all digits bilateral. Skin temperature great is warm to warm from proximal ankles to distal digit bilateral. Blanchable erythema to the right lower extremity. Neurological: Light touch intact. Patient does respond to painful stimuli. Dermatological: All breakdown of skin is healed to the right lower extremity. No concern for infection Musculoskeletal: No pain to palpation to the full-thickness wound in right lower extremity leg. No pain with calf pressure. HEENT normocephalic Eyes General Eye: normal appearance of both eyes Neck General: normal visual inspection Lymph Lymphatic: no lymphadenopathy noted and lymphedema Resp normal respiratory effort Cardio regular rate and regular rhythm Extremity no calf tenderness Extremity Narrative: Right lower extremity: Vascular: DP and PT pulses weakly palpable secondary to edema. CFT is less than 3 seconds to the digits. Normal temperature gradient. Hair growth is absent to digits. Neurologic: Gross sensation intact. Protective sensation is diminished secondary to diabetic peripheral polyneuropathy Musculoskeletal: Muscle strength 5 of 5 age-appropriate. There is decreased range of motion of the ankle joint in dorsiflexion with the knee extended without pain or crepitus. There is decreased range of motion of the first metatarsophalangeal joint without pain or crepitus. Negative Bishop sign. Negative Serenity sign. Dermatologic: There is lipodermatosclerosis noted with inverted champagne bottle leg with significant circumferential hemosiderin deposition consistent with skin changes secondary to chronic venous insufficiency/stasis and lymphedema. Dorsal foot also displays hemosiderin deposition. There is edema to the lower extremity, about the ankle, and foot. There is a full-thickness ulceration to the dorsolateral aspect of the foot and lateral malleolus in the region of the small saphenous vein. Ulceration demonstrates mixed fibrogranular layer with serous weeping. No signs of infection. Left lower extremity: Vascular: DP and PT pulses weakly palpable secondary to edema. CFT is less than 3 seconds to the digits. Normal temperature gradient. Hair growth is absent to digits. Neurologic: Gross sensation intact. Protective sensation is diminished secondary to diabetic peripheral polyneuropathy Musculoskeletal: Muscle strength 5 of 5 age-appropriate. There is decreased range of motion of the ankle joint in dorsiflexion with the knee extended without pain or crepitus. There is decreased range of motion of the first metatarsophalangeal joint without pain or crepitus. Negative Bishop sign. Negative Serenity sign. Dermatologic: There is lipodermatosclerosis noted with inverted champagne bottle leg with significant circumferential hemosiderin deposition consistent with skin changes secondary to chronic venous insufficiency/stasis and lymphedema. Dorsal foot also displays hemosiderin deposition. There is edema to the lower extremity, about the ankle, and foot. Skin no rashes or lesions noted General Skin Exam: turgor decreased, venous stasis and dermatitis Neuro moves all extremities Debridement Note Debridement Note Post-Debridement Measurements and Additional Note: Post-Debridement Measurements/Treatment CECILE - Nurse 1 - General Ulcer Assessment Start: 10/11/24 11:34 Freq: Status: Active Protocol: ROSIO Activity Type Activity Date Activity User E-sign Co-sign Detail Recorded Client Recorded Date Recorded By Document 10/11/24 11:34 RB [id number] 10/11/24 11:48 RB Document 10/17/24 15:23 KW [id number] 10/17/24 15:51 KW Document 10/17/24 16:01 DS [id number] 10/17/24 16:02 DS Edit Result 10/17/24 16:01 DS (1) [id number] 10/17/24 16:02 DS Document 10/25/24 11:30 KW [id number] 10/25/24 11:42 KW (1) Weight 81.647 kg => 127.006 kg Weight in Pounds 180.0 lbs => 280.0 lbs Body Mass Index (BMI) 21.9 => 34.0 BMI Classification Normal => Obese 10/11/24 10/17/24 10/17/24 11:34 15:23 16:01 WC - Today's Visit Information Type of service Follow-up Visit Follow-up Visit (Physician/PATIENT SERVICE TECHNICIAN PST (Physician/PATIENT SERVICE TECHNICIAN PST ) ) Arrival Mode Ambulatory Ambulatory, Walker Transfer Assistance None Patient Identification Verified (Name & Yes Yes ) Patient Requires Transmission-Based No Precautions Height and Weight Height 6 ft 4 in Weight 127.006 kg Weight in Pounds 280.0 lbs Weight Measurement Method Estimated by Patient Body Mass Index (BMI) 34.0 BMI Classification Obese Vital Signs Temperature (97.8 F-99.1 F) 98.1 F 97.1 F L Temperature Source Temporal Temporal Pulse Rate (60-100) 52 L 73 Pulse Location Monitor Monitor Respiratory Rate (12-18) 18 18 Respiratory rate source Observation Observation Oxygen Delivery Method Room Air Blood Pressure (90/60-120/80) 133/66 H 169/92 H Blood Pressure Mean (mm Hg) 88 117 Source Monitor Monitor Position Semi-Fowlers Semi-Fowlers Blood Pressure Location Left Arm Right Forearm History Since Last Visit- (Skip if this is Patient's initial visit) Have you changed medications since your No No last visit? Any new allergies or adverse reactions No No Had a fall/change in ADL's that may No No increase risk of falls Signs or symptoms of abuse and/or No No neglect since last visit Have you been in the hospital since your No No last visit? Has dressing in place as prescribed Yes Yes Has compression in place as prescribed Yes Yes Has offloadiing in place as prescribed N/A N/A Experienced any changes in pain level or No No management Left Footwear Regular Shoe Right Footwear Regular Shoe Pain Scale: 0-10 Numeric Is Patient Pain Free? Yes Yes Yes 10/25/24 11:30 - Today's Visit Information Type of service Follow-up Visit (Physician/PATIENT SERVICE TECHNICIAN PST ) Arrival Mode Ambulatory, Walker Transfer Assistance Patient Identification Verified (Name & Yes ) Patient Requires Transmission-Based Precautions Height and Weight Height Weight Weight in Pounds Weight Measurement Method Body Mass Index (BMI) 34.0 BMI Classification Obese Vital Signs Temperature (97.8 F-99.1 F) 97.5 F L Temperature Source Temporal Pulse Rate (60-100) 78 Pulse Location Monitor Respiratory Rate (12-18) 18 Respiratory rate source Observation Oxygen Delivery Method Room Air Blood Pressure (90/60-120/80) 166/79 H Blood Pressure Mean (mm Hg) 108 Source Position Blood Pressure Location History Since Last Visit- (Skip if this is Patient's initial visit) Have you changed medications since your No last visit? Any new allergies or adverse reactions No Had a fall/change in ADL's that may No increase risk of falls Signs or symptoms of abuse and/or No neglect since last visit Have you been in the hospital since your No last visit? Has dressing in place as prescribed Yes Has compression in place as prescribed Yes Has offloadiing in place as prescribed N/A Experienced any changes in pain level or No management Left Footwear Regular Shoe Right Footwear Regular Shoe Pain Scale: 0-10 Numeric Is Patient Pain Free? Yes - Nurse 1 - General Ulcer Measurement Start: 10/11/24 11:34 Freq: Status: Active Protocol: Activity Type Activity Date Activity User E-sign Co-sign Detail Recorded Client Recorded Date Recorded By Document 10/11/24 11:34 RB [id number] 10/11/24 11:48 RB Document 10/17/24 15:23 KW [id number] 10/17/24 15:51 KW Document 10/25/24 11:30 KW [id number] 10/25/24 11:42 KW 10/11/24 10/17/24 10/25/24 11:34 15:23 11:30 Wound Center Nurse 1 RIGHT LEG -Combined with other wound No -Current Size (cm) - Length 0.1 0.1 -Current Size (cm) - Width 0.1 0.1 -Current Size (cm) - Depth 0.1 0 -Total Square Cm 0.01 0.01 -Date of Last Picture (Recall this 10/17/24 field) -Photo Taken Yes -Tunneling No -Undermining/Tunneling No -Circular Undermining No -Exudate Amt Large Large -Exudate Type Serosanguineous Yellow/Green -Wound Margin Distinct, Indistinct, Non Indistinct, Non Outline -Visible -Visible Attached -Granulation Amt Medium (34-66%) -Granulation Quality [place] -Slough/Fibrin Yes -Necrosis Amt Medium (34-66%) -Necrotic Tissue Type Adherent Slough -Structure Exposed N/A -Texture (Mariajose-wound Skin Appearance) Assessed, Assessed Assessed Excoriation -Moisture (Mariajose-wound Skin Appearance) Assessed Assessed,Dry/ Assessed, Scaly Weeping,Dry/ Scaly -Color (Mariajose-wound Skin Appearance) Assessed Assessed, Assessed, Hemosiderin Hemosiderin Staining Staining -Temperature (Mariajose-wound Skin No Abnormality No Abnormality No Abnormality Appearance) (Pt Warm) (Pt Warm) (Pt Warm) -Tenderness on Palpation (Mariajose-wound No No No Skin Appearance) -Ulcer Cleansing Wound Cleanser Soap and Water Soap and Water -Foul Odor after Cleansing No No No -Anesthetic Used 5% Lidocaine Gel -Wound Comment(s) old drainage, dry #6 RT LAT ANKLE CLUSTER -Combined with other wound No -Current Size (cm) - Length 0.1 0.1 -Current Size (cm) - Width 0.1 0.1 -Current Size (cm) - Depth 0.1 0 -Total Square Cm 0.01 0.01 -Date of Last Picture (Recall this 10/17/24 field) -Photo Taken Yes -Tunneling No -Undermining/Tunneling No -Circular Undermining No -Exudate Amt Large -Exudate Type Serosanguineous -Wound Margin Distinct, Indistinct, Non Outline -Visible Attached -Granulation Amt Medium (34-66%) -Granulation Quality [place] -Slough/Fibrin Yes -Necrosis Amt Medium (34-66%) -Necrotic Tissue Type Adherent Slough -Structure Exposed N/A -Texture (Mariajose-wound Skin Appearance) Assessed, Assessed Assessed Excoriation -Moisture (Mariajose-wound Skin Appearance) Assessed Assessed,Dry/ Assessed,Dry/ Scaly Scaly -Color (Mariajose-wound Skin Appearance) Assessed Assessed, Assessed, Erythema, Erythema, Hemosiderin Hemosiderin Staining Staining -Temperature (Mariajose-wound Skin No Abnormality No Abnormality Appearance) (Pt Warm) (Pt Warm) -Tenderness on Palpation (Mariajose-wound No No Skin Appearance) -Ulcer Cleansing Wound Cleanser Soap and Water -Foul Odor after Cleansing No No -Anesthetic Used 5% Lidocaine Gel Lower Limb Edema Present Yes Right Calf (cm) 43 43.5 41 Right Ankle (cm) 24.5 25.5 23.5 Left Calf (cm) 42.5 44.7 42.5 Left Ankle (cm) 23.5 25.8 23 WC - Nurse 2 - General Ulcer CM Notes Start: 10/11/24 11:34 Freq: Status: Active Protocol: Activity Type Activity Date Activity User E-sign Co-sign Detail Recorded Client Recorded Date Recorded By Document 10/11/24 11:54 JF [id number] 10/11/24 12:01 JF Document 10/17/24 16:03 DS [id number] 10/17/24 16:06 DS Document 10/25/24 11:54 JF [id number] 10/25/24 11:56 10/11/24 10/17/24 10/25/24 11:54 16:03 11:54 Wound Center Nurse 2 RIGHT LEG -Time 16:05 -Correct Patient Yes Yes Yes -Correct Side, Site, Position No Yes No -Correct Procedure No No -Procedure Performed No No No -Post Debridement (cm) - Length 0.1 0 -Post Debridement (cm) - Width 0.1 0 -Post Debridement (cm) - Depth 0.1 0 -Total Square (Post) (cm) 0.01 0 -Area of Debridement (cm) - Length 0.1 0 -Area of Debridement (cm) - Width 0.1 0 -Total Square (Area) (cm) 0.01 0 -Wound/Ulcer Outcome Not Healed Not Healed Healed- Epithelialized #6 RT LAT ANKLE CLUSTER -Time 16:05 -Correct Patient Yes Yes Yes -Correct Side, Site, Position No Yes No -Correct Procedure No No -Procedure Performed No No No -Post Debridement (cm) - Length 0.1 0 -Post Debridement (cm) - Width 0.1 0 -Post Debridement (cm) - Depth 0.1 0 -Total Square (Post) (cm) 0.01 0 -Area of Debridement (cm) - Length 0.1 0 -Area of Debridement (cm) - Width 0.1 0 -Total Square (Area) (cm) 0.01 0 -Wound/Ulcer Outcome Not Healed Not Healed Healed- Epithelialized Pain Scale: 0-10 Numeric Is Patient Pain Free? Yes Yes Yes - Nurse 3 - General Ulcer D/C NN Start: 10/11/24 11:34 Freq: Status: Active Protocol: Activity Type Activity Date Activity User E-sign Co-sign Detail Recorded Client Recorded Date Recorded By Document 10/11/24 12:18 CP [id number] 10/11/24 12:23 CP Edit Result 10/11/24 12:18 CP (1) [id number] 10/12/24 15:37 DS Document 10/17/24 16:24 KW [id number] 10/17/24 16:24 KW Document 10/25/24 12:08 KW [id number] 10/25/24 12:08 KW (1) BLE - Multi-Layered Wrap Application => Unna Boot - => Bilateral - Unna- Bilat (Qty applied) => 1 LLE - Multi-Layered Wrap Application Unna Boot - Left => - Unna- Left (Qty applied) 1 => RLE - Multi-Layered Wrap Application Unna Boot - Right => - Unna- Right (Qty applied) 1 => 10/11/24 10/17/24 10/25/24 12:18 16:24 12:08 Wound Care Center Nurse 3 RIGHT LEG -Ulcer Cleansing Rinsed/ Irrigated with Saline -Primary Dressing Applied Optilok 6.5x10 -Optilok 6.5x10 1 #6 RT LAT ANKLE CLUSTER -Ulcer Cleansing Rinsed/ Irrigated with Saline BLE -Multi-Layered Wrap Application Unna Boot - Unna Boot - Unna Boot - Bilateral Bilateral Bilateral -Unna- Bilat (Qty applied) 1 1 1 Treatment Response Procedure Tolerated Well Pain Scale: 0-10 Numeric Is Patient Pain Free? Yes Yes Yes - Visit Discharge Discharge Condition Stable Stable Stable Ambulatory Status Ambulatory Ambulatory, Ambulatory, Walker Walker Transportation Private Auto Private Auto Private Auto Medication Reconcilliation completed & Yes No No provided to patient/care provider Clinical Summary of Care Provided Yes Yes Yes Assessment/Plan Assessment/Plan (1) Other specified peripheral vascular diseases: CODE(S): I73.89 - Other specified peripheral vascular diseases PLAN: Patient was examined and evaluated. All findings were discussed with the patient. All questions were answered to the patient's satisfaction. After exam the patient shows improvement in healing of the partial breakdown of skin to right lower extremity. The patient will be placed in Tubigrip and CircAid's that she does not have is under liner for the CircAid's with him today. He will look for that in his house but if he cannot find them he will reach out to wound care center to have the black CircAid liner or ordered for him. Educated patient on signs and symptoms of infection as well as breakdown of the skin. Primary number was dispensed of the patient to have his aide call me with any questions or concerns. Patient is very grateful for his care and be discharged from the wound center today. Follow-up as needed. (2) Chronic painful diabetic polyneuropathy: CODE(S): E11.42 - Type 2 diabetes mellitus with diabetic polyneuropathy
== END 2024-11-01 11:37 | disposition home or self-care (01) ==
LOC: WC 10:45
PROVIDERS: Visit Provider Podiatrist Foot & Ankle Surgery
DX: I83.212 Varicose veins of right lower extremity with both ulcer of calf and inflammation (principal); E11.622 Type 2 diabetes mellitus with other skin ulcer; L97.212 Non-pressure chronic ulcer of right calf with fat layer exposed; J44.9 Chronic obstructive pulmonary disease, unspecified; E11.42 Type 2 diabetes mellitus with diabetic polyneuropathy; E11.59 Type 2 diabetes mellitus with other circulatory complications; E11.51 Type 2 diabetes mellitus with diabetic peripheral angiopathy without gangrene; Z87.891 Personal history of nicotine dependence; I87.2 Venous insufficiency (chronic) (peripheral)
CPT/HCPCS: 29580; 87070; 87075; 87077; 87186; 87205; 99212; 99213; G0463